=== PATIENT | female | born 1960 | race Caucasian/White ===

== ENCOUNTER 2018-11-02 08:30 | Outpatient (RCR) | payer BC, SELFPAY ==
--- NOTE | 2018-10-11 11:22 | HMH.PTOPEV ---
PT Outpatient Evaluation Rehab PT Outpatient Evaluation Start: 10/11/18 10:17 Freq: Status: Active Protocol: Document 10/11/18 10:49 EWELINA (Rec: 10/11/18 11:22 EWELINA [id number]) Electronically Signed By Cristopher Dao, PT 10/11/18 10:49 Outpatient Therapy Subjective History Subjective History Patient is a 58 year old female presenting to outpatient PT with reports of chronic left knee pain with most acute exacerbation starting 09/03/18. She reports that she was performing a sit to stand transfer and felt a pop. Moments later she reports that her knee locked up. Most recent diagnostics indicate L knee medial compartment OA. Comorbidities include hypothyroidism, OA and elevated BMI. Chief Complaint Pain Stiff Clicks Swelling Catches/Locks Weakness Symptom Type Ache Sharp Symptoms Relieved By Rest/Positioning Ice OTC Meds Symptoms Aggravated By Standing Bending/Stooping Physical Activity Twisting Walking Prior Functional Limitations None Current Functional Limitations Housework Driving Standing Sitting Squatting Recreation Activity Walking Stairs Balance Bending/Stooping Symptom Description Constant but Variable Intermittent Level of pain today (0-10) 2 Pain scale - at its best (0-10) 0 Pain scale - at its worst (0-10) 9 Hip/Knee Eval Gait Observation General Gait Pattern Observation Antalgic Gait Decrease Weight Bear (L) Assistive Device Assistive Devices Straight Cane Palpation Tenderness left Knee Palpation Finding Tenderness Knee Palpation Overall Comment
== END 2018-11-02 08:35 | disposition home or self-care (01) ==
LOC: PT 08:30
PROVIDERS: Visit Provider Emergency Medicine
DX: M12.562 Traumatic arthropathy, left knee (principal)
CPT/HCPCS: 97010; 97014; 97033; 97035; 97110; 97163; G0283

== ENCOUNTER → 2019-01-29 12:42 | Outpatient (CLI) | payer BC, SELFPAY ==
--- NOTE | 2019-01-29 13:00 | CT_ITS ---
CT lung screening EXAM: CT LUNG LOW DOSE WO CONTRAST HISTORY: 35 pack year smoking history asymptomatic for lung cancer ITS.REASON: CURRENT TOBACCO USE ORDERING PHYSICIAN: Trent Avery MD PATIENT AGE: 58 years COMPARISON: None TECHNIQUE: The exam was performed on a GE Light Speed [address] scanner using 2.90 mGy CTDI. A low dose helical CT CHEST was performed on a multi-detector scanner. All CT scans at the facility use one or more dose reduction, viz: automated exposure control, ma/kV adjustment per patient size (including targeted exams where dose is matched to indication, i.e. head), or iterative reconstruction technique. The LDCT was performed in a facility that meets the criteria for the screening program. Data regarding this exam was submitted to ACR which is an approved registry. The order for this exam indicates that it came as a result of a lung cancer screening counseling shard decision-making visit that included all the elements required of such a visit including smoking cessation. The radiologist interpreting this exam meets the CMS criteria for the LDCT lung cancer screening program. The exam is reported using the Lung-RADS classification scale and reported to the ACR registry. NOTE: This study was performed for the specific purposes of lung cancer screening and is not an alternative to diagnostic chest CT. RADIATION DOSE: CTDI vol(CT dose Index-volume) = 2.90mG DLP (Dose Length Product) = 94.82 mGcm FINDINGS: Mild fibrotic change right apex. Centrilobular edema with COPD. Calcified granuloma right lower lobe. There is a flat-like opacity in the right upper lobe posteriorly measuring approximately 10 mm x 5 mm and may be due to an area of scarring. 3 month follow-up suggested. Coronary artery calcification. IMPRESSION: 1. Lung RADS Category: 4, mildly suspicious 2. Other findings: COPD/emphysema with coronary artery disease RECOMMENDATIONS: Follow-up chest CT without and with contrast in 3 months
== END ==
PROVIDERS: PCP Family Medicine; Visit Provider Family Medicine
DX: Z12.2 Encounter for screening for malignant neoplasm of respiratory organs (principal); Z87.891 Personal history of nicotine dependence

== ENCOUNTER 2019-06-30 18:36 | Inpatient (IN) ==
--- NOTE | 2019-06-30 19:29 | Emergency Department Note ---
[facility] Disposition Clinical Impression: COPD (chronic obstructive pulmonary disease) Qualifiers: COPD type: COPD with acute exacerbation Qualified Code(s): J44.1 - Chronic obstructive pulmonary disease with (acute) exacerbation Disposition: Admitted As Inpatient Condition on Discharge: Good Instructions: Chronic Obstructive Pulmonary Disease (Alternative Therapy), DI for Chronic Obstructive Pulmonary Disease Additional Instructions: call dr heredia office in am at 8 she wants to see you at 9 am if increase soa return to [facility] stop smoking Referrals: Trent Avery MD [Primary Care Provider] - Time of Disposition: 20:39 Medical Decision Making - Alex Inquiry Pt receiving controlled substance: No Vital Signs: 06/30/19 18:52 06/30/19 20:24 Temperature 98.1 F 98.0 F Temperature Source Temporal Artery Scan Oral Pulse Rate [Left Brachial] 89 Respiratory Rate 28 H Blood Pressure [Left Arm] 139/74 Blood Pressure Mean [Left Arm] 95 Blood Pressure Source [Left Arm] Automatic Cuff Blood Pressure Position [Left Arm] Sitting 02 Sat by Pulse Oximetry 95 Oxygen Delivery Method Room Air - Lab Data Lab Results 06/30/19 19:40: WBC 9.5, RBC 5.20, Hgb 14.5, Hct 46.6, MCV 89.7, MCH 27.9, MCHC 31.1 L, RDW 14.9, Plt Count 211, MPV 9.3, Neut % (Auto) 41.3, Lymph % (Auto) 48.6, Cedar % (Auto) 5.4, Eos % (Auto) 3.8, Baso % (Auto) 1.0, Neut # (Auto) 3.9, Lymph # (Auto) 4.6 H, Cedar # (Auto) 0.5, Eos # (Auto) 0.4, Baso # (Auto) 0.1 06/30/19 19:40: Sodium 140, Potassium 3.5, Chloride 103, Carbon Dioxide 26, Anion Gap 14.5, BUN 13, Creatinine 0.94, Estimated Creat Clear 54, Estimated GFR 61, Est GFR ( Amer) 74, Glucose 128 H, Calcium 9.3, Total Bilirubin 0.3, AST 16, ALT 22, Alkaline Phosphatase 138 H, Total Protein 7.6, Albumin 3.5, Globulin 4.1 H, Albumin/Globulin Ratio 0.9 L 06/30/19 19:40: Lactate 1.7 Result diagrams: 06/30/19 19:40 06/30/19 19:40 Orders (Tests/Meds): ED MEDICATIONS Generic Name Dose Route Start Last Admin Trade Name Freq PRN Reason Stop Dose Admin Ceftriaxone Sodium 1 gm 06/30/19 20:28 Rocephin 1gm Vial IM 06/30/19 20:29 ONCE ONE Protocol Azithromycin 500 mg/ Sodium 250 mls @ 250 mls/hr 06/30/19 19:45 06/30/19 20:03 Chloride IV 07/14/19 19:44 250 mls/hr Q24H PEDRO Administration Protocol Lidocaine HCl 0 ml 06/30/19 20:28 Lidocaine 1% 10ml Mdv IM 06/30/19 20:29 ONCE ONE Discontinued Medications Generic Name Dose Route Start Last Admin Trade Name Freq PRN Reason Stop Dose Admin Albuterol/Ipratropium 3 ml 06/30/19 18:59 06/30/19 19:00 Duoneb 3ml Neb IH 06/30/19 19:00 3 ml ONCE ONE Administration Methylprednisolone Sodium Succinate 125 mg 06/30/19 19:44 06/30/19 20:03 Solu-Medrol 125mg/2ml Vial IV 06/30/19 19:45 125 mg ONCE ONE Administration ORDERS Category Date Time Status Chest XR 2 view (NOT portable) [XR chest 2V] Stat Exams 06/30/19 18:46 Taken Sputum Culture & Gram Stain Stat Micro 06/30/19 20:00 Received - Physician Consults Physician Consulted: heredia Time: 20:22 Reason -: Admission Comment/Response: pt status and condition. recommends- rocphen 1 gram. medrol dose pack. follow up in office at 9 am. return if worsen Additional Consult: heredia Time: 20:40 Reason -: Pt condition Comment/Response: dry heaving, increase soa, labored breathing [facility] HPI - General Chief complaint: Fever Stated complaint: Coughing; sob;fever Time Seen by Provider: 06/30/19 19:05 Mode of Arrival: Ambulatory Source of Information: Patient Limitations: No Limitations Description of Symptoms (Recalled from Triage Doc. by RN): PATIENT C/O COUGH, SHORTNESS OF BREATH, FEVER, AND HEADACHE X 4 DAYS HEENT Symptoms (Recalled from RN notes): Yes Resp Symptoms (Recalled from RN notes): Yes Skin Symptoms (Recalled from RN notes): No MS Symptoms (Recalled from RN notes): No Functional Status (Recalled from RN notes): WNL - History of Present Illness Provider Complaint: 59 yr old female presents for soa,headache, coughing up mod amount of sputum, wheezing and weakness. when presented to [facility] o2 sat 90% with resp 28 and increase effort for breathing. - Related Data Home Medications Medication Instructions Recorded Confirmed amlodipine 10 mg tablet 10 mg PO ONCE 11/28/17 11/13/18 aspirin 81 mg tablet,delayed 81 mg PO ONCE 11/28/17 11/13/18 release celecoxib 200 mg capsule 200 mg PO ONCE 11/28/17 11/13/18 garlic 1,000 mg capsule 1,000 mg PO DAILY cap 11/28/17 11/13/18 oxazepam 15 mg capsule 15 mg PO DAILY cap 11/28/17 11/13/18 coenzyme Q10 100 mg capsule 100 mg PO DAILY 11/13/18 11/13/18 levothyroxine 112 mcg tablet 112 mcg PO DAILY 60 Days #60 tab 11/13/18 11/13/18 Allergies Allergy/AdvReac Type Severity Reaction Status Date / Time ramipril Allergy Severe S-SWELLS-OR Verified 11/13/18 08:19 AL/THROAT - Worker's Comp Is this a Worker's Comp case?: No [facility] History - Hepatitis A Screen Drug use history?: No High risk sexual behaviors?: No History of sexually transmitted infection?: No Currently employed?: No Childcare worker?: No Do you have indoor plumbing?: Yes Do you have electricity?: Yes Attestation statement:: This patient has been screened for Hepatitis A risk factors. I have reviewed the patient's past medical history: Yes Medical History: Reports:: Hyperlipidemia, Hypertension Denies:: Cancer, Diabetes Mellitus Type 1, Diabetes Mellitus Type 2, MRSA Laterality Cases: Bilateral: Tonsillectomy Other Surgeries: Yes: Cholecystectomy, , Hysterectomy-Total, Hysterectomy-Partial Amputation: No Fractures: No Comment: Bladder, cyst removal from back and rt ankle, gallbladder, cataract left eye removed, - Social History Smoking Status: Current every day smoker Tobacco Type: cigarettes # Packs/Day (cigarettes): 1 Alcohol Intake: never Substance Use Type: denies use Occupational Status: employed Housing: house Family Hx:: Hyperlipidemia, Hypertension ROS Obtained: Yes Systems reviewed as appropriate & no additional complaints - Constitutional Constitutional: Reports system reviewed and no additional complaints, except as docu, Reports body ache, Reports fatigue, Denies fever(s) - Eyes Eyes: Reports system reviewed and no additional complaints, except as docu - ENT Ears, Nose, Mouth, and Throat: Reports system reviewed and no additional complaints, except as docu, Denies change in voice - Cardiovascular Cardiovascular: Reports system reviewed and no additional complaints, except as docu, Denies chest pain at rest - Respiratory Respiratory: Yes system reviewed and no additional complaints, except as docu, Yes change in phlegm color, Yes chest congestion, Yes cough, Yes dyspnea on exertion, Yes wheezing - Gastrointestinal Gastrointestingal: Reports: system reviewed and no additional complaints, except as docu. Denies: nausea, vomiting - Musculoskeletal Musculoskeletal: Reports system reviewed and no additional complaints, except as docu, Denies joint swelling - Integumentary/Breasts Skin/Breast: Reports system reviewed and no additional complaints, except as docu, Denies rash - Neurologic Neurologic: Reports system reviewed and no additional complaints, except as docu, Denies abnormal movements - Endocrine Endocrine: Reports system reviewed and no additional complaints, except as docu, Reports fatigue - Hematologic/Lymphatic Henatologic/Lymphatic: Reports system reviewed and no additional complaints, except as docu, Denies lymphadenopathy Physical Exam - General General appearance: alert, in no apparent distress - Head Head exam: atraumatic, normocephalic, normal inspection - Eye Eye exam: Present: normal appearance, PERRL - ENT ENT exam: Present: normal exam, normal oropharynx, mucous membranes moist, TM's normal bilaterally, normal external ear exam - Neck Neck exam: Present: normal inspection, full ROM, trachea midline. Absent: meningismus, lymphadenopathy - Chest Chest inspection: Present: normal inspection, symmetric chest wall rise. Absent: tenderness - Respiratory Respiratory exam: Present: wheezes, other - Expanded Respiratory Exam Location: Left: wheezes, Right: wheezes, rhonchi, Upper: wheezes, rhonchi, Lower: wheezes - Cardiovascular Cardiovascular exam: Present: regular rate, normal rhythm. Absent: JVD - Abdominal Exam Abdominal exam: Present: soft, normal bowel sounds. Absent: distention, tenderness, guarding - Extremities Exam Extremities exam: Present: normal inspection, full ROM, normal capillary refill. Absent: calf tenderness - Back Exam Back exam: Present: normal inspection. Absent: tenderness - Neurological Exam Neurological exam: Present: alert, oriented X3 - Psychiatric Psychiatric exam: Present: normal affect, normal mood - Skin Skin exam: Present: warm, dry, intact, normal color - Lymphatic Lymphatic Findings: no adenopathy
[2019-06-30 19:59] LABS: Basophils # 0.1 K/mm3 (0-0.2); Eosinophils # 0.4 K/mm3 (0.0-0.4); Eosinophils % 3.8 % (0.1-12.0); Hematocrit 46.6 % (37.0-47.0); Hemoglobin 14.5 g/dL (12.2-16.2); Lymphocytes # 4.6 K/mm3 (0.7-4.5); Lymphocytes % 48.6 % (10-50); Mean Corpuscular HGB Conc 31.1 g/dL (31.8-35.4); Mean Corpuscular Volume 89.7 fl (81-99); Mean Platelet Volume 9.3 fl (7.4-10.4); Monocytes # 0.5 K/mm3 (0.1-1.0); Monocytes % 5.4 % (1.7-9.3); Neutrophils # 3.9 K/mm3 (1.8-7.8); Neutrophils % 41.3 % (37.0-80.0); Platelet Count 211 K/mm3 (142-424); Red Cell Distribution Width 14.9 % (11.5-17.5); White Blood Count 9.5 K/mm3 (4.8-10.8)
[2019-06-30 20:13] LABS: Albumin Level 3.5 gm/dL (3.4-5.0); Albumin/Globulin Ratio 0.9 (1.1-1.8); Anion Gap 14.5 mEq/L (5-15); Bilirubin,Total 0.3 mg/dL (0.2-1.0); Calcium 9.3 mg/dL (8.5-10.1); Globulin 4.1 gm/dl (1.3-3.2); Total Protein,Serum 7.6 gm/dL (6.4-8.2)
[2019-07-01 06:31] LABS: Basophils % 0.4 % (0.1-2.0); Eosinophils % 0.4 % (0.1-12.0); Hematocrit 46.4 % (37.0-47.0); Hemoglobin 14.2 g/dL (12.2-16.2); Lymphocytes # 1.5 K/mm3 (0.7-4.5); Lymphocytes % 16.3 % (10-50); Mean Corpuscular HGB Conc 30.6 g/dL (31.8-35.4); Mean Corpuscular Volume 90.1 fl (81-99); Mean Platelet Volume 8.6 fl (7.4-10.4); Monocytes # 0.2 K/mm3 (0.1-1.0); Monocytes % 1.8 % (1.7-9.3); Neutrophils # 7.4 K/mm3 (1.8-7.8); Platelet Count 218 K/mm3 (142-424); Red Blood Count 5.15 M/mm3 (4.20-5.40); Red Cell Distribution Width 14.8 % (11.5-17.5); White Blood Count 9.1 K/mm3 (4.8-10.8)
[2019-07-01 07:25] LABS: Anion Gap 15.1 mEq/L (5-15); Blood Urea Nitrogen 15 mg/dL (7-18); Calcium 9.5 mg/dL (8.5-10.1); Carbon Dioxide 23 mmol/L (21.0-32.0); Chloride 102 mmol/L (98-107); Creatine Kinase 74 U/L (26-192); Glucose 204 mg/dL (74-106); Sodium 136 mmol/L (136-145)
--- NOTE | 2019-07-01 07:38 | Pharmacy Consult Notes ---
[facility] Pharmacy VTE Monitoring - Patient Demographics Admission date: 06/30/19 Report Date: 07/01/19 Time: 07:38 Allergies/Adverse Reactions: Patient Allergies ramipril Allergy (Severe, Verified 11/13/18 08:19) [id number]/THROAT Height: 1.6 m Weight: 121.648 kg Patient Problems: Current Active Problems COPD (chronic obstructive pulmonary disease) (Acute) - VTE Risk Labs: VTE Related Lab Results Hgb 14.2 g/dL (12.2-16.2) 07/01/19 06:21 Hct 46.4 % (37.0-47.0) 07/01/19 06:21 Plt Count 218 K/mm3 (142-424) 07/01/19 06:21 BUN 15 mg/dL (7-18) 07/01/19 06:21 Creatinine 0.98 mg/dL (0.55-1.02) 07/01/19 06:21 Estimated Creat Clear 52 mL/min (50-200) 07/01/19 06:21 VTE Score: 8 VTE Risk Level: Moderate Risk - Prophylaxis VTE Prophylaxis Ordered?: Yes Types of VTE Prophylaxis: TEDS Knee High Location of Applied Device: Bilateral Lower Extremeties - VTE Diagnosis Confirmed Treatment or plan recommended: Continue Current Treatment
--- NOTE | 2019-07-01 08:38 | History & Physical Report ---
*Admission Date: 06/30/19 <Nunu Kay 07/01/19 08:37> *Chief complaint: Cough <Nunu Kay 07/01/19 09:00> *History of present illness: Ms. Garrison is a 59-year-old female with a history of asthma, hypertension, hyperlipidemia, hypothyroidism, multiple environmental allergies, arthritis, and tobacco use disorder who presented to [facility] with shortness of breath and frequent cough. She states she had fever 2 days ago and then was somewhat better on 06/29/2019 but then awakened the following day and felt awful. Her cough worsened and she felt congested with chest heaviness. She was evaluated in the emergency room started on steroids duo nebs and antibiotics and then admitted for further evaluation and treatment. This a.m. she feels somewhat better. She feels her cough is a little less. <Nunu Kay 07/01/19 09:00> [facility] History Medical History: Reports:: Asthma, Depression, Hyperlipidemia, Hypertension Denies:: Cancer, Diabetes Mellitus Type 1, Diabetes Mellitus Type 2, MRSA, Seizures <Nunu Kay 07/01/19 09:00> *Have you ever received a pneumonia vaccine?: No <Nunu Kay 07/01/19 08:37> *Have you received a flu vaccine this season?: No <Nunu Kay 07/01/19 08:37> Other Medical History: Reports: Arthritis, Cataracts, Hypothyroidism <Nunu Kay 07/01/19 08:37> Laterality Cases: Bilateral: Cataract, Tonsillectomy <Nunu Kay 07/01/19 08:37> Other Surgeries: Yes: Cholecystectomy, Colonoscopy, , Hysterectomy- Total, Hysterectomy-Partial <Nunu Kay 07/01/19 08:37> Amputation: No <Nunu Kay 07/01/19 08:37> Fractures: No <Nunu Kay 07/01/19 08:37> - *Social History Educational Level: Completed High School <Nunu Kay 07/01/19 08:37> Smoking Status: Current every day smoker <Nunu Kay 07/01/19 08:37> Tobacco Type: cigarettes <Nunu Kay 07/01/19 08:37> # Packs/Day (cigarettes): 1 <Nunu Kay 07/01/19 08:37> Alcohol Intake: never <Nunu Kay 07/01/19 08:37> Substance Use Type: denies use <Nunu Kay 07/01/19 08:37> *Occupational Status:: employed <RahulNunu Mcgrath 07/01/19 08:37> Housing: house <Nunu Kay 07/01/19 08:37> *Travel in the last 8 weeks: None <Nunu Kay 07/01/19 08:37> Family Hx:: Hyperlipidemia, Hypertension <RahulNunu 07/01/19 08:37> Review of Systems - Constitutional Reports fever(s) <RahulNunu 07/01/19 09:00> - Eyes Denies change in vision <KayNunu 07/01/19 09:00> - ENT Reports dizziness, Reports nasal congestion, Denies ear pain, Denies sore throat <KayNunu 07/01/19 09:00> - *Cardiovascular Comments: Chest heaviness <Nunu Kay 07/01/19 09:00> - *Respiratory Reports chest congestion, Reports cough, Reports shortness of breath, Denies coughing up blood <KayNunu 07/01/19 09:00> - *Gastrointestinal Denies abdominal pain, Denies change in bowel habits, Denies heartburn, Denies vomiting blood, Denies bright, red blood in stools, Denies black, tarry stools, Denies nausea, Denies vomiting <KayNunu 07/01/19 09:00> - *Genitourinary Denies difficulty urinating <KayNunu 07/01/19 09:00> - *Musculoskeletal Reports joint pain (Mostly knees and hands), Denies abnormal walking <Kay,Nunu 07/01/19 09:00> - *Neurologic Denies abnormal walking, Denies abnormal movements, Denies abnormal speech, Denies confusion <Kay,Nunu 07/01/19 09:00> Meds Home Medications Medication Instructions Recorded Confirmed Type amlodipine 10 mg tablet 10 mg PO ONCE 11/28/17 06/30/19 History aspirin 81 mg tablet,delayed 81 mg PO ONCE 11/28/17 06/30/19 History release celecoxib 200 mg capsule 200 mg PO ONCE 11/28/17 06/30/19 History garlic 1,000 mg capsule 1,000 mg PO DAILY cap 11/28/17 06/30/19 History oxazepam 15 mg capsule 15 mg PO DAILY PRN cap 11/28/17 06/30/19 History coenzyme Q10 100 mg capsule 100 mg PO DAILY 11/13/18 06/30/19 History levothyroxine 112 mcg tablet 112 mcg PO DAILY 60 Days #60 tab 11/13/18 06/30/19 History Amlodipine Besylate [Amlodipine 10 mg PO DAILY 06/30/19 06/30/19 History 10mg Tab] Budesonide/Formoterol Fumarate 80 mcg INHALATION BID PRN 06/30/19 06/30/19 History [Symbicort 80-4.5 Mcg Inhaler] Furosemide [Furosemide 40MG tAB] 40 mg PO DAILY 06/30/19 06/30/19 History Triamterene/Hydrochlorothiazid 1 each PO DAILY 06/30/19 06/30/19 History [Dyazide 37.5-25 Capsule] <Trent Avery - 07/01/19 09:26> Allergies Allergy/AdvReac Type Severity Reaction Status Date / Time ramipril Allergy Severe S-SWELLS-OR Verified 11/13/18 08:19 AL/THROAT <Trent Avery - 07/01/19 09:26> Exam Vital signs and Labs for Last 24 Hours: Temp Pulse Resp BP Pulse Ox 98.1 F 78 18 125/65 95 07/01/19 08:00 07/01/19 09:15 07/01/19 08:00 07/01/19 08:00 07/01/19 08:00 Laboratory Results - last 24 hr 06/30/19 19:40: WBC 9.5, RBC 5.20, Hgb 14.5, Hct 46.6, MCV 89.7, MCH 27.9, MCHC 31.1 L, RDW 14.9, Plt Count 211, MPV 9.3, Neut % (Auto) 41.3, Lymph % (Auto) 48.6, [place] % (Auto) 5.4, Eos % (Auto) 3.8, Baso % (Auto) 1.0, Neut # (Auto) 3.9, Lymph # (Auto) 4.6 H, [place] # (Auto) 0.5, Eos # (Auto) 0.4, Baso # (Auto) 0.1 06/30/19 19:40: Sodium 140, Potassium 3.5, Chloride 103, Carbon Dioxide 26, Anion Gap 14.5, BUN 13, Creatinine 0.94, Estimated Creat Clear 54, Estimated GFR 61, Est GFR ( Amer) 74, Glucose 128 H, Calcium 9.3, Total Bilirubin 0.3, AST 16, ALT 22, Alkaline Phosphatase 138 H, Total Protein 7.6, Albumin 3.5, Globulin 4.1 H, Albumin/Globulin Ratio 0.9 L 06/30/19 19:40: Lactate 1.7 06/30/19 21:50: Troponin I < 0.02 07/01/19 06:21: WBC 9.1, RBC 5.15, Hgb 14.2, Hct 46.4, MCV 90.1, MCH 27.6, MCHC 30.6 L, RDW 14.8, Plt Count 218, MPV 8.6, Neut % (Auto) 81.0 H, Lymph % (Auto) 16.3, [place] % (Auto) 1.8, Eos % (Auto) 0.4, Baso % (Auto) 0.4, Neut # (Auto) 7.4, Lymph # (Auto) 1.5, [place] # (Auto) 0.2, Eos # (Auto) 0.0, Baso # (Auto) 0.0 07/01/19 06:21: Sodium 136, Potassium 4.1, Chloride 102, Carbon Dioxide 23, Anion Gap 15.1 H, BUN 15, Creatinine 0.98, Estimated Creat Clear 52, Estimated GFR 58 L, Est GFR ( Amer) 71, Glucose 204 H D, Calcium 9.5, Total Creatine Kinase 74, CK-MB (CK-2) 1.1, CK-MB (CK-2) Rel Index 1.5, Troponin I < 0.02 <Trent Avery - 07/01/19 09:26> Temp Pulse Resp BP Pulse Ox 97.8 F 64 17 121/62 94 L 07/01/19 04:00 07/01/19 04:00 07/01/19 04:00 07/01/19 04:00 07/01/19 04:00 Laboratory Results - last 24 hr 06/30/19 19:40: WBC 9.5, RBC 5.20, Hgb 14.5, Hct 46.6, MCV 89.7, MCH 27.9, MCHC 31.1 L, RDW 14.9, Plt Count 211, MPV 9.3, Neut % (Auto) 41.3, Lymph % (Auto) 48.6, [place] % (Auto) 5.4, Eos % (Auto) 3.8, Baso % (Auto) 1.0, Neut # (Auto) 3.9, Lymph # (Auto) 4.6 H, [place] # (Auto) 0.5, Eos # (Auto) 0.4, Baso # (Auto) 0.1 06/30/19 19:40: Sodium 140, Potassium 3.5, Chloride 103, Carbon Dioxide 26, Anion Gap 14.5, BUN 13, Creatinine 0.94, Estimated Creat Clear 54, Estimated GFR 61, Est GFR ( Amer) 74, Glucose 128 H, Calcium 9.3, Total Bilirubin 0.3, AST 16, ALT 22, Alkaline Phosphatase 138 H, Total Protein 7.6, Albumin 3.5, Globulin 4.1 H, Albumin/Globulin Ratio 0.9 L 06/30/19 19:40: Lactate 1.7 06/30/19 21:50: Troponin I < 0.02 07/01/19 06:21: WBC 9.1, RBC 5.15, Hgb 14.2, Hct 46.4, MCV 90.1, MCH 27.6, MCHC 30.6 L, RDW 14.8, Plt Count 218, MPV 8.6, Neut % (Auto) 81.0 H, Lymph % (Auto) 16.3, [place] % (Auto) 1.8, Eos % (Auto) 0.4, Baso % (Auto) 0.4, Neut # (Auto) 7.4, Lymph # (Auto) 1.5, [place] # (Auto) 0.2, Eos # (Auto) 0.0, Baso # (Auto) 0.0 07/01/19 06:21: Sodium 136, Potassium 4.1, Chloride 102, Carbon Dioxide 23, Anion Gap 15.1 H, BUN 15, Creatinine 0.98, Estimated Creat Clear 52, Estimated GFR 58 L, Est GFR ( Amer) 71, Glucose 204 H D, Calcium 9.5, Total Creatine Kinase 74, CK-MB (CK-2) 1.1, CK-MB (CK-2) Rel Index 1.5, Troponin I < 0 .02 <Nunu Kay - 07/01/19 09:00> I & O for Last 24 hours: Intake & Output 06/28/19 06/29/19 06/30/19 07/01/19 23:59 23:59 23:59 23:59 Intake Total 240 / 240 Balance 240 / 240 Weight 265 lb 4.8 oz 268 lb 3 oz <Trent Avery - 07/01/19 09:26> Intake & Output 06/28/19 06/29/19 06/30/19 07/01/19 11:59 11:59 11:59 11:59 Weight 268 lb 3 oz <Nunu Kay - 07/01/19 08:37> Microbiology Reports for the Last 24 Hours: Microbiology 06/30/19 20:00 Sputum - Expectorated Sputum Gram Stain - Final 06/30/19 20:00 Sputum - Expectorated Sputum Sputum Culture - Preliminary <Trent Avery - 07/01/19 09:26> Microbiology 06/30/19 20:00 Sputum - Expectorated Sputum Gram Stain - Final <Nunu Kay - 07/01/19 08:37> Radiology Reports for the Last 24 Hours: X-ray 06/30/2019 IMPRESSION: . Peribronchial cuffing most evident on right suggesting central airway inflammatory changes/bronchitis but . Question and suspect subtle minimal wispy infiltrate right infrahilar region towards RML as well as left infrahilar region towards LLL on today's study. . Underlying chronic pulmonary changes/. <Nunu Kay 07/01/19 08:37> - Constitutional no acute distress <Nunu Kay 07/01/19 08:37> Comments: Sitting on side of the bed finishing her breakfast. Frequent cough. <Nunu Kay 07/01/19 08:37> - *Routine HEENT Exam Head: Present: normocephalic, atraumatic <Nunu Kay 07/01/19 08:37> Eye: Present: PERRL. Absent: conjunctival icterus, scleral injection, conjunctivae pink [facility] 07/01[facility] 08:37> ENT: Present: mucous membranes moist, oropharynx clear <Nunu Kay 07/01/19 08:37> - *Routine Neck Exam Present: carotid bruit (Bilateral) <[facility] 07/01/19 08:37> - *Routine Respiratory Exam Comments: Diminished breath sounds in right upper lobe. Bilateral basilar crackles. <[facility] 07/01/19 08:37> - *Routine Cardiovascular Exam Present: RRR <[facility] 07/01/19 08:37> Comments: Monitor shows normal sinus rhythm <[facility] 07/01/19 08:37> - *Routine Abdominal Exam Present: soft, normoactive bowel sounds, hernia. Absent: tenderness <[facility] 07/01/19 08:37> - *Routine Extremities Exam Absent: edema, calf tenderness <[facility] 07/01/19 08:37> - *Routine Neurological Exam Present: alert, oriented X3 <[facility] 07/01/19 08:37> Assessment and Plan (1) Pneumonia Current visit: Yes Status: Acute Qualifiers: Laterality: bilateral Lung location: unspecified part of lung Category: Medical Code(s): J18.9 - Pneumonia, unspecified organism (2) Tobacco use disorder Current visit: Yes Status: Chronic Category: Medical Code(s): F17.200 - Nicotine dependence, unspecified, uncomplicated (3) Asthma Current visit: Yes Status: Chronic Category: Medical Code(s): J45.909 - Unspecified asthma, uncomplicated (4) Hypertension Current visit: Yes Status: Chronic Category: Medical Code(s): I10 - Essential (primary) hypertension (5) Hypothyroidism Current visit: Yes Status: Chronic Category: Medical Code(s): E03.9 - Hypothyroidism, unspecified (6) Obesity Current visit: Yes Status: Chronic Category: Medical Code(s): E66.9 - Obesity, unspecified (7) COPD (chronic obstructive pulmonary disease) Current visit: Yes Status: Chronic Qualifiers: COPD type: COPD with acute exacerbation Qualified Code(s): J44.1 - Chronic obstructive pulmonary disease with (acute) exacerbation Category: Medical Code(s): J44.9 - Chronic obstructive pulmonary disease, unspecified <Trent Avery - 07/01/19 09:26> (1) Pneumonia Current visit: Yes Status: Acute Category: Medical Code(s): J18.9 - Pneumonia, unspecified organism (2) Tobacco use disorder Current visit: Yes Status: Chronic Category: Medical Code(s): F17.200 - Nicotine dependence, unspecified, uncomplicated (3) Asthma Current visit: Yes Status: Chronic Category: Medical Code(s): J45.909 - Unspecified asthma, uncomplicated (4) Hypertension Current visit: Yes Status: Chronic Category: Medical Code(s): I10 - Essential (primary) hypertension (5) Hypothyroidism Current visit: Yes Status: Chronic Category: Medical Code(s): E03.9 - Hypothyroidism, unspecified (6) Obesity Current visit: Yes Status: Chronic Category: Medical Code(s): E66.9 - Obesity, unspecified (7) COPD (chronic obstructive pulmonary disease) Current visit: Yes Status: Chronic Qualifiers: COPD type: COPD with acute exacerbation Qualified Code(s): J44.1 - Chronic obstructive pulmonary disease with (acute) exacerbation Category: Medical Code(s): J44.9 - Chronic obstructive pulmonary disease, unspecified <Nunu Kay - 07/01/19 08:52> - Assessment and plan all Dx Assessment and Plan for all problems:: Saw patient, agree with above note. Smoking cessation discussed with patient. She agrees to start nicotine replacement therapy with patches today. <Trent Avery - 07/01/19 09:26> Continue with IV antibiotics and steroids. Patient started on 4 times daily duo nebs as well as as needed. <Nunu Kay - 07/01/19 09:00>
[2019-07-02 06:24] LABS: Basophils # 0.1 K/mm3 (0-0.2); Basophils % 0.3 % (0.1-2.0); Eosinophils # 0.1 K/mm3 (0.0-0.4); Eosinophils % 0.2 % (0.1-12.0); Hematocrit 41.4 % (37.0-47.0); Lymphocytes % 8.3 % (10-50); Mean Corpuscular HGB Conc 30.7 g/dL (31.8-35.4); Mean Corpuscular Volume 90.7 fl (81-99); Mean Platelet Volume 8.6 fl (7.4-10.4); Monocytes % 4.1 % (1.7-9.3); Neutrophils % 87.1 % (37.0-80.0); Platelet Count 209 K/mm3 (142-424); Red Blood Count 4.56 M/mm3 (4.20-5.40); Red Cell Distribution Width 15.1 % (11.5-17.5); White Blood Count 24.1 K/mm3 (4.8-10.8)
[2019-07-02 06:35] LABS: Anion Gap 13.3 mEq/L (5-15); Calcium 9.5 mg/dL (8.5-10.1)
[2019-07-02 07:20] LABS: Hemoglobin 12.6 g/dL (12.2-16.2)
--- NOTE | 2019-07-02 08:56 | Progress Note ---
<Nunu Kay - Last Filed: 07/02/19 08:54> Internal Medicine - PN: Subj *Date: 07/02/19 *Time: 08:54 Interval history: She is doing better. She continues with a cough. She took a shower this morning and got short of breath. She is eating without difficulty. Exam Vital signs and Labs for Last 24 Hours: Temp Pulse Resp BP Pulse Ox 98 F 64 18 107/62 L 96 07/02/19 04:00 07/02/19 06:05 07/02/19 04:00 07/02/19 04:00 07/02/19 04:00 Laboratory Results - last 24 hr 07/02/19 06:15: WBC 24.1 H* D, RBC 4.56, Hgb 12.6 D, Hct 41.4, MCV 90.7, MCH 27.9, MCHC 30.7 L, RDW 15.1, Plt Count 209, MPV 8.6, Neut % (Auto) 87.1 H, Lymph % (Auto) 8.3 L, [place] % (Auto) 4.1, Eos % (Auto) 0.2, Baso % (Auto) 0.3, Neut # (Auto) 21.0 H, Lymph # (Auto) 2.0, [place] # (Auto) 1.0, Eos # (Auto) 0.1, Baso # (Auto) 0.1 07/02/19 06:15: Sodium 139, Potassium 4.3, Chloride 104, Carbon Dioxide 26, Anion Gap 13.3, BUN 17, Creatinine 0.85, Estimated Creat Clear 57, Estimated GFR 69, Est GFR ( Amer) 83, Glucose 181 H, Calcium 9.5 I & O for Last 24 hours: Intake & Output 06/29/19 06/30/19 07/01/19 07/02/19 11:59 11:59 11:59 11:59 Intake Total 240 / 240 2148 / 2148 Output Total 300 / 300 Balance 240 / 240 1848 / 1848 Weight 268 lb 3 oz 268 lb 3.007 oz Microbiology Reports for the Last 24 Hours: Microbiology 06/30/19 20:00 Sputum - Expectorated Sputum Gram Stain - Final 06/30/19 20:00 Sputum - Expectorated Sputum Sputum Culture - Preliminary - Constitutional no acute distress Comments: Periodic cough which is productive - *Routine Respiratory Exam Comments: Bilateral inspiratory and expiratory wheezing anteriorly. Posteriorly moving air satisfactory. - *Routine Cardiovascular Exam Present: RRR Comments: Monitor showing sinus rhythm - *Routine Abdominal Exam Present: soft, normoactive bowel sounds. Absent: tenderness - *Routine Extremities Exam Absent: edema - *Routine Neurological Exam Present: alert, oriented X3 Assessment and Plan (1) Pneumonia Current visit: Yes Status: Acute Qualifiers: Laterality: bilateral Lung location: unspecified part of lung Category: Medical Code(s): J18.9 - Pneumonia, unspecified organism (2) Tobacco use disorder Current visit: Yes Status: Chronic Category: Medical Code(s): F17.200 - Nicotine dependence, unspecified, uncomplicated (3) Asthma Current visit: Yes Status: Chronic Category: Medical Code(s): J45.909 - Unspecified asthma, uncomplicated (4) Hypertension Current visit: Yes Status: Chronic Category: Medical Code(s): I10 - Essent ial (primary) hypertension (5) Hypothyroidism Current visit: Yes Status: Chronic Category: Medical Code(s): E03.9 - Hypothyroidism, unspecified (6) Obesity Current visit: Yes Status: Chronic Category: Medical Code(s): E66.9 - Obesity, unspecified (7) COPD (chronic obstructive pulmonary disease) Current visit: Yes Status: Chronic Qualifiers: COPD type: COPD with acute exacerbation Qualified Code(s): J44.1 - Chronic obstructive pulmonary disease with (acute) exacerbation Category: Medical Code(s): J44.9 - Chronic obstructive pulmonary disease, unspecified - Assessment and plan all Dx Assessment and Plan for all problems:: Continue with current care. Possibly home in p.m. <Trent Avery - Last Filed: 07/02/19 09:04> Internal Medicine - PN: Subj *Date: 07/02/19 *Time: 09:04 Exam Vital signs and Labs for Last 24 Hours: Temp Pulse Resp BP Pulse Ox 98 F 64 18 107/62 L 96 07/02/19 04:00 07/02/19 06:05 07/02/19 04:00 07/02/19 04:00 07/02/19 04:00 Laboratory Results - last 24 hr 07/02/19 06:15: WBC 24.1 H* D, RBC 4.56, Hgb 12.6 D, Hct 41.4, MCV 90.7, MCH 27.9, MCHC 30.7 L, RDW 15.1, Plt Count 209, MPV 8.6, Neut % (Auto) 87.1 H, Lymph % (Auto) 8.3 L, [place] % (Auto) 4.1, Eos % (Auto) 0.2, Baso % (Auto) 0.3, Neut # (Auto) 21.0 H, Lymph # (Auto) 2.0, [place] # (Auto) 1.0, Eos # (Auto) 0.1, Baso # (Auto) 0.1 07/02/19 06:15: Sodium 139, Potassium 4.3, Chloride 104, Carbon Dioxide 26, An ion Gap 13.3, BUN 17, Creatinine 0.85, Estimated Creat Clear 57, Estimated GFR 69, Est GFR ( Amer) 83, Glucose 181 H, Calcium 9.5 I & O for Last 24 hours: Intake & Output 06/29/19 06/30/19 07/01/19 07/02/19 23:59 23:59 23:59 23:59 Intake Total 720 / 720 1668 / 1668 Output Total 300 / 300 Balance 420 / 420 1668 / 1668 Weight 265 lb 4.8 oz 268 lb 3.007 oz 268 lb 3.007 oz Microbiology Reports for the Last 24 Hours: Microbiology 06/30/19 20:00 Sputum - Expectorated Sputum Gram Stain - Final 06/30/19 20:00 Sputum - Expectorated Sputum Sputum Culture - Preliminary Assessment and Plan (1) Pneumonia Current visit: Yes Status: Acute Qualifiers: Laterality: bilateral Lung location: unspecified part of lung Category: Medical Code(s): J18.9 - Pneumonia, unspecified organism (2) Tobacco use disorder Current visit: Yes Status: Chronic Category: Medical Code(s): F17.200 - Nicotine dependence, unspecified, uncomplicated (3) Asthma Current visit: Yes Status: Chronic Category: Medical Code(s): J45.909 - Unspecified asthma, uncomplicated (4) Hypertension Current visit: Yes Status: Chronic Category: Medical Code(s): I10 - Essential (primary) hypertension (5) Hypothyroidism Current visit: Yes Status: Chronic Category: Medical Code(s): E03.9 - Hypothyroidism, unspecified (6) Obesity Current visit: Yes Status: Chronic Category: Medical Code(s): E66.9 - Obesity, unspecified (7) COPD (chronic obstructive pulmonary disease) Current visit: Yes Status: Chronic Qualifiers: COPD type: COPD with acute exacerbation Qualified Code(s): J44.1 - Chronic obstructive pulmonary disease with (acute) exacerbation Category: Medical Code(s): J44.9 - Chronic obstructive pulmonary disease, unspecified - Assessment and plan all Dx Assessment and Plan for all problems:: Saw patient, agree with above note.
[2019-07-02 09:51] LABS: Lymphocytes % 7 % (10-50); Monocytes % 4 % (2-9); Neutrophils % 89 % (42-76); Total Cells Counted 100
[2019-07-02 09:53] LABS: RBC Morphology Normal
--- NOTE | 2019-07-05 12:00 | Discharge Summary ---
General - General Admission date:: 06/30/19 Discharge date: 07/02/19 HPI HPI: Ms. Garrison is a 59-year-old female with a history of asthma, hypertension, hyperlipidemia, hypothyroidism, multiple environmental allergies, arthritis, and tobacco use disorder who presented to [facility] with shortness of breath and frequent cough. She states she had fever 2 days ago and then was somewhat better on 06/29/2019 but then awakened the following day and felt awful. Her cough worsened and she felt congested with chest heaviness. She was evaluated in the emergency room started on steroids duo nebs and antibiotics and was then admitted for further evaluation and treatment. This a.m. she feels somewhat better. She feels her cough is a little less. Hospital Course Hospital Course: The patient's initial chest x-ray showed airway inflammatory changes but there was a questionable subtle minimal wispy infiltrate in the right infrahilar region towards the right middle lobe as well as in the left infrahilar region towards the left lower lobe. The patient was admitted and started on IV antibiotics, steroids, and duo nebs. Smoking cessation was discussed with the patient and she agreed to start on nicotine replacement therapy with patches. The patient's symptoms did begin improving and she was stable to be discharged home on cefdinir, prednisone, Zithromax, and nicotine patches. She will follow- up in the office of [facility] on 07/05/[facility]. Of note, her sputum culture did return positive for Klebsiella pneumoniae and Enterobacter cloaceae after discharge. Sensitivities are still pending. Blood cultures were negative. Objective Vital signs: Temp Pulse Resp BP Pulse Ox 98.1 F 86 19 124/49 L 93 L 07/02/19 16:00 07/02/19 16:00 07/02/19 16:00 07/02/19 16:00 07/02/19 16:00 Narrative: - Constitutional no acute distress Comments: Sitting on side of the bed finishing her breakfast. Frequent cough. - *Routine HEENT Exam Head: Present: normocephalic, atraumatic Eye: Present: PERRL. Absent: conjunctival icterus, scleral injection, conjunctivae pink ENT: Present: mucous membranes moist, oropharynx clear - *Routine Neck Exam Present: carotid bruit (Bilateral) - *Routine Respiratory Exam Comments: Diminished breath sounds in right upper lobe. Bilateral basilar crackles. - *Routine Cardiovascular Exam Present: RRR Comments: Monitor shows normal sinus rhythm - *Routine Abdominal Exam Present: soft, normoactive bowel sounds, hernia. Absent: tenderness - *Routine Extremities Exam Absent: edema, calf tenderness - *Routine Neurological Exam Present: alert, oriented X3 Results Labs on day of discharge: Preliminary micro results at discharge 06/30/19 19:40 Blood Culture - Preliminary Blood NO GROWTH AFTER 48 HOURS 06/30/19 19:40 Blood Culture - Preliminary Blood NO GROWTH AFTER 48 HOURS DS: Diagnosis - Discharge Diagnosis (1) Pneumonia Status: Acute (2) Tobacco use disorder Status: Chronic (3) Asthma Status: Chronic (4) Hypertension Status: Chronic (5) Hypothyroidism Status: Chronic (6) Obesity Status: Chronic (7) COPD (chronic obstructive pulmonary disease) Status: Chronic Discharge Plan - Patient Discharge Instructions ACTIVITY: Continue current activity DIET: continue same diet Patient Instructions: Chronic Obstructive Pulmonary Disease (Alternative Therapy), DI for Chronic Obstructive Pulmonary Disease, DI for Pneumonia -- Adult - Follow up Plan Follow up with: Trent Avery MD [Primary Care Provider] - 07/05/19 Disposition: Home, Self-[facility] Medications: Home Medications Medication Instructions Recorded Confirmed Type amlodipine 10 mg tablet 10 mg PO DAILY 11/28/17 07/01/19 History aspirin 81 mg tablet,delayed 81 mg PO DAILY 11/28/17 07/01/19 History release celecoxib 200 mg capsule 200 mg PO DAILY 11/28/17 07/01/19 History oxazepam 15 mg capsule 15 mg PO TIDP PRN cap 11/28/17 07/01/19 History coenzyme Q10 100 mg capsule 100 mg PO DAILY 11/13/18 06/30/19 History Budesonide/Formoterol Fumarate 2 puffs IH BID PRN 06/30/19 07/01/19 History [Symbicort 80-4.5 Mcg Inhaler] Triamterene/Hydrochlorothiazid 1 each PO DAILY 06/30/19 06/30/19 History [Dyazide 37.5-25 Capsule] Albuterol Sulfate [Albuterol HFA 1 - 2 puffs IH Q6HP PRN 07/01/19 07/01/19 History Inhaler] Biotin 1,000 mcg PO DAILY 07/01/19 07/01/19 History Furosemide [Furosemide 20mg Tab] 20 mg PO DAILY 07/01/19 07/01/19 History Garlic 1 each PO TID 07/01/19 07/01/19 History Levothyroxine Sodium 125 mcg PO DAILY 07/01/19 07/01/19 History [Levothyroxine 125mcg (0.125mg) Tab] [place]-3S/Dha/Epa/Fish Oil [Fish 1 each PO DAILY 07/01/19 07/01/19 History Oil 1,200 mg Softgel] Azithromycin [Zithromax 500mg Tab 500 mg PO DAILY #3 tab 07/02/19 Rx Tri-Hebert] Cefdinir [Omnicef 300mg Capsule] 300 mg PO BID #20 cap 07/02/19 Rx Nicotine [Nicotine Patch] 7 mg TD DAILY #30 patch.td24 07/02/19 Rx predniSONE [Prednisone 20mg 20 mg PO DAILY #5 tab 07/02/19 Rx Tab] Prescriptions/Medication Reconciliation: New Cefdinir [Omnicef 300mg Capsule] 300 mg PO BID #20 cap predniSONE [Prednisone 20mg Tab] 20 mg PO DAILY #5 tab Azithromycin [Zithromax 500mg Tab Tri-Hebert] 500 mg PO DAILY #3 tab Nicotine [Nicotine Patch] 7 mg TD DAILY #30 patch.td24 Continued amlodipine 10 mg tablet 10 mg PO DAILY aspirin 81 mg tablet,delayed release 81 mg PO DAILY oxazepam 15 mg capsule 15 mg PO TIDP PRN cap PRN Reason: Anxiety coenzyme Q10 100 mg capsule 100 mg PO DAILY celecoxib 200 mg capsule 200 mg PO DAILY Triamterene/Hydrochlorothiazid [Dyazide 37.5-25 Capsule] 1 each PO DAILY Budesonide/Formoterol Fumarate [Symbicort 80-4.5 Mcg Inhaler] 2 puffs IH BID PRN PRN Reason: Shortness Of Breath Albuterol Sulfate [Albuterol HFA Inhaler] 1 - 2 puffs IH Q6HP PRN PRN Reason: Shortness Of Breath Or Wheezing Furosemide [Furosemide 20mg Tab] 20 mg PO DAILY Garlic 1 each PO TID Levothyroxine Sodium [Levothyroxine 125mcg (0.125mg) Tab] 125 mcg PO DAILY [place]-3S/Dha/Epa/Fish Oil [Fish Oil 1,200 mg Softgel] 1 each PO DAILY Biotin 1,000 mcg PO DAILY - Problem Reconciliation Problems Reviewed?: Yes
== END 2019-07-02 17:35 | disposition home or self-care (01) | DRG 195 ==
LOC: UTC 18:36 → 2ND 18:36 → OBSVTOIN 21:29 → 2ND 21:30
PROVIDERS: ADMIT Emergency Medicine; ATTEND Family Medicine
CPT/HCPCS: 36415; 71020; 71046; 80048; 80053; 82550; 82553; 83605; 84484; 85007; 85025; 87040; 87070; 87077; 87186; 87205; 94640; 96365; 96367; 96375; 99202; J0456

== ENCOUNTER → 2019-07-23 09:07 | Outpatient (CLI) | payer BC, SELFPAY ==
--- NOTE | 2019-07-23 09:10 | XR_ITS ---
PROCEDURE: XR CHEST 2V CLINICAL HISTORY: PNEUMONIA COMPARISON: CXR CHEST(2 VIEWS-NOT PORTABLE) from 08/01/[address] CHEST W/ CONTRAST from 08/22/2013 CXR CHEST(2 VIEWS-NOT PORTABLE) from 09/06/2014 XR CHEST 2V from 06/30/2019 FINDINGS: The cardiomediastinal silhouette and pulmonary vascularity are within normal limits. There remains increased markings in the right lower lobe which may be due to with be infiltrate. The remaining lungs are clear. Calcified granuloma right lower lobe. No acute bony findings. IMPRESSION: No change patchy infiltrate right lower lobe Dictated by: Peter Gray MD 07/23/2019 15:56 Electronically signed by Peter Gray MD in [place] 07/23/2019 15:56
== END ==
PROVIDERS: PCP Family Medicine; Visit Provider Family Medicine
DX: J18.9 Pneumonia, unspecified organism (principal)
CPT/HCPCS: 71046

== ENCOUNTER → 2019-08-07 09:39 | Outpatient (CLI) | payer BC, SELFPAY ==
[2019-08-07 11:35] LABS: Blood Urea Nitrogen 14 mg/dL (7-18); Creatinine,Serum 0.77 mg/dL (0.55-1.02); Estimated Glomerular Filt Rate 77 ml/min (>60); GFR (African American) 93 ML/MIN (>60)
== END ==
PROVIDERS: Visit Provider Family Medicine
DX: R93.89 Abnormal findings on diagnostic imaging of other specified body structures (principal)
CPT/HCPCS: 36415; 82565; 84520

== ENCOUNTER → 2019-08-09 08:16 | Outpatient (CLI) | payer BC, SELFPAY ==
--- NOTE | 2019-08-09 08:24 | CT_ITS ---
PROCEDURE: CT CHEST W CON CLINCAL INDICATION: ABN CXR,ABN CT CHEST Chronic right lower lobe infiltrate. COMPARISON: [facility] CT CHEST W/ CONTRAST from 08/22/[address] lung screening from 01/29/2019 XR CHEST 2V from 07/23/2019 TECHNIQUE: IV Contrast: 75ml Optiray 350 Axial images obtained with sagittal and coronal reformats. All CT scans at the facility use one or more dose reduction, viz: automated exposure control, ma/kV adjustment per patient size (including targeted exams where dose is matched to indication, i.e. head), or iterative reconstruction technique. FINDINGS: No mediastinal or hilar mass or adenopathy. There are scattered small mediastinal and axillary lymph nodes.. Coronary artery calcifications are present. There is mild thickening of the distal esophagus nonspecific but could be seen with reflux esophagitis. Changes of COPD with scattered areas of scarring and evidence of old granulomatous disease with a calcified granuloma in the right lower lobe. There is a 12 mm parenchymal opacity in the right upper lobe posteriorly which is not significantly changed. There are some mild atelectatic changes in the left upper lobe/lingula. Upper abdominal images show mild periportal adenopathy. At 2.1 x 0.9 cm and 2 x 1.2 cm. There are few small nodes in the retroperitoneum. There are post cholecystectomy changes. IMPRESSION: 1. Stable appearance of the right upper lobe nodule. Recommend continued screening annual LDCT 2. COPD with scattered fibrotic changes. 3. There are mildly prominent nodes in the axilla and in the portal region. These are nonspecific and only slightly more prominent compared to an older study of 08/22/2013. Dictated by: Peter Gray MD 08/09/2019 18:11 Electronically signed by Peter Gray MD in [place] 08/10/2019 08:00
== END ==
PROVIDERS: PCP Family Medicine; Visit Provider Family Medicine
DX: R93.89 Abnormal findings on diagnostic imaging of other specified body structures (principal)
CPT/HCPCS: 71260; Q9967

== ENCOUNTER → 2020-10-02 09:35 | Outpatient (CLI) | payer BC, SELFPAY ==
--- NOTE | 2020-10-02 09:40 | CT_ITS ---
PROCEDURE: CT ABDOMEN PELVIS W CON CLINICAL INDICATION: periumbilical abd mid pain Lifting injury COMPARISON: No exams were available for comparison TECHNIQUE: IV Contrast: 75ML Isovue 370 Oral Contrast None Axial images obtained with sagittal and coronal reformats. All CT scans at the facility use one or more dose reduction, viz: automated exposure control, ma/kV adjustment per patient size (including targeted exams where dose is matched to indication, i.e. head), or iterative reconstruction technique. FINDINGS: LOWER THORAX: No acute finding ABDOMEN & PELVIS: The liver, spleen, adrenal glands, and pancreas have an unremarkable appearance. There has been a prior cholecystectomy. There are few small periportal lymph nodes. There is a nonobstructing stone in the upper pole of the left kidney at 3 mm. There are few scattered small retroperitoneal lymph nodes as well as a few scattered small peritoneal lymph nodes. No intestinal obstruction or free air. No evidence appendicitis or diverticulitis. There has been a prior hysterectomy. There is colonic diverticulosis with no evidence of diverticulitis. There is a small ventral abdominal wall hernia. This contains peritoneal fat. The hernia is 4.3 cm cephalad to the umbilicus. The hernia orifice measures 2.3 cm in with. In addition, there is a small fat containing umbilical hernia. There is some stranding of the anterior abdominal wall fat in both right and left paracentral regions below the level of the umbilicus possibly due to injection sites. No acute bony findings. IMPRESSION: 1. Small supraumbilical ventral abdominal wall hernia as described above containing fat. 2. Tiny umbilical hernia containing fat. 3. Nonobstructing left nephrolithiasis. 4. Colonic diverticulosis without diverticulitis. Dictated by: Peter Gray MD 10/03/2020 07:45 Peter Gray MD in [place] 10/03/2020 07:45
--- NOTE | 2020-10-02 09:40 | CT_ITS ---
PROCEDURE: CT LUNG SCREENING CLINICAL INDICATION: H/O NICOTINE DEPENDENCE F/u low dose Mid abd pain, light injury Current smoker 55 pack year smoking history COMPARISON: CT CT CHEST W CON from 08/09/2019 TECHNIQUE: The exam was performed on a [employer] Light Speed [address] scanner using 2.90 mGy CTDI. A low dose helical CT CHEST was performed on a multi-detector scanner. All CT scans at the facility use one or more dose reduction, viz: automated exposure control, ma/kV adjustment per patient size (including targeted exams where dose is matched to indication, i.e. head), or iterative reconstruction technique. The LDCT was performed in a facility that meets the criteria for the screening program. Data regarding this exam was submitted to ACR which is an approved registry. The order for this exam indicates that it came as a result of a lung cancer screening counseling shard decision-making visit that included all the elements required of such a visit including smoking cessation. The radiologist interpreting this exam meets the CMS criteria for the LDCT lung cancer screening program. The exam is reported using the Lung-RADS classification scale and reported to the ACR registry. NOTE: This study was performed for the specific purposes of lung cancer screening and is not an alternative to diagnostic chest CT. RADIATION DOSE: CTDI vol(CT dose Index-volume) = 2.90mG DLP (Dose Length Product) = 99.77 mGcm FINDINGS: COPD with scattered areas of scarring. No change in the parenchymal opacity in the right upper lobe posteriorly consistent with an area scarring. Calcified granulomas present in the right lower lobe. No new suspicious nodules are evident. OTHER FINDINGS: Scattered small axillary nodes mediastinal nodes and periportal nodes not significantly changed. Coronary artery calcification IMPRESSION: Lung-RADS Category 2 Benign Appearance or Behavior Follow-up: Continue annual screening with LDCT in 12 months min Dictated by: Peter Gray MD 10/05/2020 06:22 Peter Gray MD in [place] 10/05/2020 06:22
== END ==
PROVIDERS: PCP Family Medicine; Visit Provider Family Medicine
DX: R10.33 Periumbilical pain (principal); Z87.891 Personal history of nicotine dependence; Z12.2 Encounter for screening for malignant neoplasm of respiratory organs
CPT/HCPCS: 71271; 74177; Q9967

== ENCOUNTER → 2020-11-02 08:40 | Outpatient (CLI) | payer BC, SELFPAY ==
[2020-11-02 09:08] LABS: Basophils # 0.1 K/mm3 (0-0.2); Basophils % 0.8 % (0.1-2.0); Eosinophils # 0.3 K/mm3 (0.0-0.4); Eosinophils % 2.6 % (0.1-12.0); Hematocrit 50.6 % (37.0-47.0); Hemoglobin 16.7 g/dL (12.2-16.2); Lymphocytes # 3.4 K/mm3 (0.7-4.5); Lymphocytes % 32.7 % (10-50); Mean Corpuscular HGB Conc 32.9 g/dL (31.8-35.4); Mean Corpuscular Hemoglobin 29.2 pg (27.0-31.2); Mean Corpuscular Volume 88.5 fl (81-99); Mean Platelet Volume 8.3 fl (7.4-10.4); Monocytes # 0.5 K/mm3 (0.1-1.0); Monocytes % 4.4 % (1.7-9.3); Neutrophils # 6.2 K/mm3 (1.8-7.8); Neutrophils % 59.5 % (37.0-80.0); Platelet Count 225 K/mm3 (142-424); Red Blood Count 5.72 M/mm3 (4.20-5.40); Red Cell Distribution Width 14.8 % (11.5-17.5); White Blood Count 10.4 K/mm3 (4.8-10.8)
[2020-11-02 10:04] LABS: Chloride 107 mmol/L (98-107); Potassium 4.3 mmoL/L (3.5-5.1); Sodium 138 mmol/L (136-145)
[2020-11-02 10:07] LABS: Anion Gap 10.3 mEq/L (5-15); Blood Urea Nitrogen 15 mg/dl (7-17); Calcium 10.8 mg/dl (8.4-10.2); Carbon Dioxide 25 mmol/L (22.0-30.0); Estimated Glomerular Filt Rate 86 ml/min (>60); GFR (African American) 104 ML/MIN (>60); Glucose 104 mg/dl (74-100)
[2020-11-02 10:37] LABS: Coronavirus 19 IgG Antibody Positive (Negative); Coronavirus 19 IgM Antibody Negative (Negative)
== END ==
PROVIDERS: Visit Provider Surgery
DX: Z01.818 Encounter for other preprocedural examination (principal); Z20.822 Contact with and (suspected) exposure to COVID-19; Z86.16 Personal history of COVID-19; K46.9 Unspecified abdominal hernia without obstruction or gangrene
CPT/HCPCS: 36415; 80048; 85025; 86328

== ENCOUNTER 2020-11-04 06:10 | Day surgery (SDC) | payer BC, SELFPAY ==
[2020-11-02 15:00] VITALS: BMI 45.1
[2020-11-04] VITALS (14 sets, daily range): BP systolic 118–147; BP diastolic 61–85; PULSE 60–71; RESP 16–18; TEMP 36.3–43; O2SAT 92–97
--- NOTE | 2020-11-04 07:41 | HMH.ANESCL ---
[facility] Anesthesia Checklist - Patient Identification Patient Identification: Arm Band - Structural Data Admitted From: Home Planned Operative Procedure/s: Laparoscopic Ventral Hernia Repair Consent for Planned Operative Procedure(s) Verified: Yes Verified Documents: Surgical Consent, History and Physical - NPO Status Verified Time NPO: 00:00 - Additional verifications Anesthesia Reactions: Yes (nausea) Hx Blood Transfusions: No Blood Transfusion Reaction: No - Airway Assessment C-Spine Mobility Assessed: Yes (mp2) TMJ Mobility Assessed: Yes Dentition: Edentulous - Neurological Assessment Level of Consciousness: Awake, Alert - Anesthesia Plan Anesthesia Risk discussed: Yes Anesthesia Plan: Verified ASA Class: III Anesthesia Type: General [facility] History I have reviewed the patient's past medical history: Yes Medical History: Reports:: Asthma, Chronic Obstructive Pulmonary Disease (COPD), Depression, Hyperlipidemia, Hypertension Denies:: Cancer, Diabetes Mellitus Type 1, Diabetes Mellitus Type 2, Internal Pacemaker, MRSA, Seizures *Have you ever received a pneumonia vaccine?: No *Have you received a flu vaccine this season?: No Other Medical History: Reports: Arthritis, Cataracts, Hypothyroidism. Denies: Blood Transfusion Reaction Anesthesia experience/problems:: nac Laterality Cases: Bilateral: Tonsillectomy Other Surgeries: Yes: Cholecystectomy, Colonoscopy, , Hysterectomy-Total, Hysterectomy-Partial. No: Pacemaker Amputation: No Fractures: No - *Social History Last grade of school completed: High school graduate Smoking Status: Former smoker Tobacco Type: cigarettes # Packs/Day (cigarettes): 1 Smoking End Date: 06/2020 Alcohol Intake: never Substance Use Type: denies use *Occupational Status:: employed Housing: house Household Members: family *Travel in the last 8 weeks: None - Psychiatric History Pschychiatric History:: Reports:: Depression Family Hx:: Hyperlipidemia, Hypertension
--- NOTE | 2020-11-04 09:06 | HMH.OPNOTE ---
Date of procedure: 11/04/20 Pre-op Diagnosis:: Ventral hernia Post-op Diagnosis:: Same Procedure performed:: Laparoscopic ventral hernia repair with placement of 7 x 9 inch (17.8 x 22.9) Bard Ventralex mesh Surgeon:: Dallas Persaud MD POWERHOUSE OPERATOR:: Tee Belcher Anesthesia: GETA Estimated blood loss (mL): 15 Clinical Note:: Patient is a 60-year-old female referred by Dr. Avery for ventral hernia. In January 1996 she underwent diagnostic laparoscopy by Dr. Zuleta which was converted to open laparotomy via Pfannenstiel incision for ovarian cyst. In July 1996 she had laparoscopic cholecystectomy by Dr. Horn. She has had open total abdominal hysterectomy by Dr. Zuleta in 1998. 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 She felt a stinging pain in her abdomen above her umbilicus. She states that later that evening when she was rubbing the area she felt it reduce with a squishing sensation. She has some discomfort and is not able to wear jeans but wears stretchy pants according to her. She had undergone CT scan by Dr. Avery and this reveals ventral hernia several centimeters above her umbilicus measuring 2.3 cm with a tiny hernia at her umbilical area. I discussed the options with her. Discussed the nature and details of the condition. I felt this would best be served with attempted laparoscopic ventral hernia repair likely with placement of an oval type mesh to cover both hernias. She understands and wishes to proceed. Operative findings:: She had a moderate hernia supraumbilically with appreciable amount of herniated omentum. There is an extremely tiny hernia at her umbilicus a few centimeters inferior to this hernia. Operative note:: Patient was taken to the operating room. She was positioned in a supine position. General anesthesia was induced via endotracheal tube. Moreno catheter was placed. Abdomen was prepped and draped in a standard surgical fashion. Through a 5 mm incision in the left upper quadrant optical trocar was carefully inserted into the peritoneal cavity and CO2 pneumoperitoneum was achieved to 15 mmHg. Intra-abdominal surveillance was carried out. She was found to have herniated omentum in the midline superior to the umbilicus. Ultimately additional 5 mm trocar was inserted in the left lower quadrant, right lower quadrant. 12 mm trocar was inserted in the right upper abdomen. Using mostly blunt dissection the omentum was reduced with some limited Metzenbaum dissection to free the peritoneal attachments to the hernia sac and some limited use of DIOMEDES ultrasonic harmonic km. There was a very tiny defect at the umbilicus measuring about 2 mm. Omentum was able to be reduced from this. Boundaries of the fascial defects were measured and it was felt that she would require greater than 15 cm oval mesh. A 17.8 x 22.9 cm Bard VentraLex mesh with the balloon positioning system was rolled and inserted into the peritoneal cavity. Through a tiny 1 mm incision the balloon positioning system insufflation device was brought through the anterior abdominal wall and the balloon was inflated. The mesh was oriented intracorporeally for generous fascial overlap of the hernia defects. Mesh was secured with several placements of OPTi fix tacks . Global balloon positioning system was then deflated and removed. Mesh was secured around its periphery with OPTi fix with a few of the operative fix tacks placed more medially to help eliminate space. Repair appeared adequate. There was good hemostasis. Trochars were then removed as CO2 pneumoperitoneum was evacuated. Fascia at the right upper quadrant 12 mm trocar site was closed with a 0 Vicryl suture. Local anesthetic was infiltrated in all incisions. Skin incisions were closed with 4-0 Monocryl in a subcuticular fashion. Condition: stable Disposition: PACU Complications:: None immediately apparent
--- NOTE | 2020-11-04 09:11 | P.PN_ITS ---
[facility] Anesthesia Record Part I Intake, IV Amount: 1,400 Estimated blood loss (mL): 15 Urine output (mL): 100 Blood Pressure: 140/79 SaO2: 92 Pulse Rate: 66 Respiratory Rate: 16 Temperature: 98.9 F Patient is:: Drowsy, Stable Stable to PACU at:: 09:05
[2020-11-04 09:20] LABS: Microscopic,Cath URINE MICROSCOPIC (MICROSCOPIC)
[2020-11-04 09:22] LABS: Appearance,Urine/Cath CLEAR (Clear); Bilirubin,Cath Negative (Negative); Blood, Urine/Cath Negative (Negative); Color,Urine/Cath YELLOW (Yellow); Glucose,Urine/Cath (UA) Negative (Negative); Ketones,Urine/Cath Negative (Negative); Leukocyte Esterase,Cath Negative (Negative); Nitrate,Cath Negative (Negative); Protein,Urine/Cath Negative (Negative); Specific Gravity, Urine/Cath 1.025 (1.005-1.030); Urobilinogen,Cath 0.2 EU/dl (0.2)
[2020-11-04 09:38] LABS: Bacteria,Urine/Cath TRACE /lpf; Squamous Epithelial Ur./Cath Occasional #/hpf (0-5)
--- NOTE | 2020-11-04 10:10 | SUR.PHASEII ---
JULIENNE 2 TABS GIVEN PER Leah BEARDEN RN FOR C/O ABDOMINAL PAIN RATED 7-8. BELCHING FREQUENTLY
--- NOTE | 2020-11-04 10:32 | SUR.PHASEII ---
PT SAYS NAUSEA IS IMPROVING. PROVIDED WITH AND INSTRUCTED PT ON USING INCENTIVE SPIROMETER AT HOME. PT ABLE TO DEMONSTRATE CORRECT USAGE.
--- NOTE | 2020-11-04 13:04 | P.PN_ITS ---
[facility] Anesthesia Record Part II Discharge Time: 09:40 Destination: Surgical Day Care (OP Surgery) PACU nurse assessment reviewed?: Yes Patient Condition:: Good Anesthesia Complications:: None Swallowing reflex intact?: Yes Cyanosis?: No Blood Pressure: 118/61 Pulse Rate: 65 Temperature: 98.9 F Mental Status: Alert & Oriented Pain level:: 4 Nausea and/or vomitting:: None Intake, IV Amount: 0
== END 2020-11-04 10:42 | disposition home or self-care (01) ==
LOC: OR 06:12
PROVIDERS: PCP Family Medicine; Visit Provider Surgery
PROC: 0WQF4ZZ Repair Abdominal Wall, Percutaneous Endoscopic Approach (ICD-10-PCS; CPT 49652; principal; 2020-11-04 07:30)
DX: K43.9 Ventral hernia without obstruction or gangrene (principal); J44.9 Chronic obstructive pulmonary disease, unspecified; E78.5 Hyperlipidemia, unspecified; I10 Essential (primary) hypertension; F32.9 Major depressive disorder, single episode, unspecified; E03.9 Hypothyroidism, unspecified; M19.90 Unspecified osteoarthritis, unspecified site; H26.9 Unspecified cataract; Z87.891 Personal history of nicotine dependence; Z82.49 Family history of ischemic heart disease and other diseases of the circulatory system; Z83.438 Family history of other disorder of lipoprotein metabolism and other lipidemia; Z79.899 Other long term (current) drug therapy
CPT/HCPCS: 49652; 81001; 96374; C1781; J2405; J2710

== ENCOUNTER 2020-12-18 17:51 | Emergency (ER) | payer BC, SELFPAY ==
--- NOTE | 2020-12-18 18:02 | XR_ITS ---
PROCEDURE: XR FOOT RT MIN 3V CLINICAL INDICATION: PAIN COMPARISON: No exams were available for comparison FINDINGS: No fracture or dislocation. No lytic or blastic change. There is normal mineralization. The joint spaces are well-preserved. No significant degenerative/arthritic changes. No erosive changes evident. There is mild flattening of the plantar arch and there are prominent spurs of the calcaneus at the insertion of Achilles tendon and plantar tendon. Other findings:None. IMPRESSION: Borderline pes planus, prominent calcaneal spurs, no other significant abnormality noted Dictated by: Dr. Deion Cardoso MD 12/19/2020 08:30 Dr. Deion Cardoso MD in [place] 12/19/2020 08:30
[2020-12-18 18:04] VITALS: BP 179/77; PULSE 79; RESP 14; TEMP 36.6; O2SAT 100; BMI 44.2
--- NOTE | 2020-12-18 18:24 | HMH.EDUTC ---
[facility] Disposition Clinical Impression: Right foot pain, Ganglion cyst of right foot Disposition: Home, Self-Care Condition on Discharge: Good Instructions: Ganglion Cyst, DI Ganglion Cyst Additional Instructions: Rest the extremity, Elevate the extremity as tolerated while you are resting. Take ibuprofen for pain. I sent in a prescription to your pharmacy. Follow up with Dr. Aponte (Podiatry). I put in a referral but you need to call her office and schedule an appointment. Make sure you follow up if this keeps bothering you. Follow up with your regular doctor. GO TO THE ER FOR ANY WORSENING SYMPTOMS Prescriptions: Ibuprofen [Ibuprofen 600mg Tablet] 600 mg PO Q6HP PRN #30 tab PRN Reason: Mild Pain Transmission Status: Received by [id number] Referrals: Trent Avery MD [Primary Care Provider] - Maya Aponte DPM [Staff Physician] - Time of Disposition: 18:29 Medical Decision Making - Medical Records Medical records reviewed: No: I reviewed the patient's medical records. - Alex Inquiry Pt receiving controlled substance: No Vital Signs: 12/18/20 18:04 12/18/20 18:31 Temperature 97.8 F 98 F Temperature Source Tympanic Pulse Rate 74 Pulse Rate [Right] 79 Respiratory Rate 14 16 Blood Pressure 166/74 H Blood Pressure [Right Arm] 179/77 H Blood Pressure Mean [Right Arm] 111 Blood Pressure Source [Right Arm] Automatic Cuff Blood Pressure Position [Right Arm] Sitting 02 Sat by Pulse Oximetry 100 Orders (Tests/Meds): ORDERS Category Date Time Status Foot XR right minimum 3 views [XR foot RT min 3V] Stat Exams 12/18/20 18:02 Taken - Radiology Data #1 Image(s): Foot/Toes Image Reviewed: Yes I reviewed the patient's radiology image Preliminary Findings: Normal/NAD [facility] HPI - General Stated complaint: knot on right foot Time Seen by Provider: 12/18/20 18:25 Mode of Arrival: Ambulatory Source of Information: Patient Limitations: No Limitations Description of Symptoms (Recalled from Triage Doc. by RN): pt is having right foot pain and is unable to bear weight. on the outter top side of her foot there is a nodule. pt states, I think its a bone sticking up. pain is 7/10 and she says it aches like a tooth ache. HEENT Symptoms (Recalled from RN notes): No Resp Symptoms (Recalled from RN notes): No Skin Symptoms (Recalled from RN notes): No MS Symptoms (Recalled from RN notes): Yes (R foot pain and nodule) Functional Status (Recalled from RN notes): na - History of Present Illness Provider Complaint: She states that for the past 1 week or so she has had a knot on the top of her right foot that is painful to touch. She denies any known injury. - Related Data Home Medications Medication Instructions Recorded Confirmed amlodipine 10 mg tablet 10 mg PO DAILY 11/28/17 11/27/20 celecoxib 200 mg capsule 200 mg PO DAILY 11/28/17 11/27/20 coenzyme Q10 100 mg capsule 100 mg PO DAILY 11/13/18 11/27/20 Budesonide/Formoterol Fumarate 2 puffs IH BID PRN 06/30/19 11/27/20 [Symbicort 80-4.5 Mcg Inhaler] Triamterene/Hydrochlorothiazid 1 each PO DAILY 06/30/19 11/27/20 [Dyazide 37.5-25 Capsule] Albuterol Sulfate [Ventolin HFA 1 - 2 puffs IH Q6HP PRN 07/01/19 11/27/20 Inhaler] Garlic 1 each PO TID 07/01/19 11/27/20 Levothyroxine Sodium 125 mcg PO DAILY 07/01/19 11/27/20 [Levothyroxine 125mcg (0.125mg) Tab] [place]-3S/Dha/Epa/Fish Oil [Fish 1 each PO DAILY 07/01/19 11/27/20 Oil 1,200 mg Softgel] allopurinol 100 mg tablet 100 mg PO DAILY 10/28/19 11/27/20 liraglutide (weight loss) 3 mg/0.5 3 mg SQ DAILY 10/28/19 11/27/20 mL (18 mg/3 mL) subcut pen injector aspirin 81 mg tablet,delayed 81 mg PO DAILY 09/29/20 11/27/20 release Previous Rx's Medication Instructions Recorded Hydrocod/Acet 5/325 mg [[place] 1 - 2 tab PO Q6HP PRN #21 tab 11/04/20 5/325mg tablet] Ibuprofen [Ibuprofen 600mg 600 mg PO Q6HP PRN #30 tab 12/18/20 T
[2020-12-18 18:31] VITALS: BP 166/74; PULSE 74; RESP 16; TEMP 36.6
== END 2020-12-18 18:33 | disposition home or self-care (01) ==
PROVIDERS: Emergency Provider Nurse Practitioner Family; PCP Family Medicine
DX: M67.471 Ganglion, right ankle and foot (principal); J44.9 Chronic obstructive pulmonary disease, unspecified; F33.1 Major depressive disorder, recurrent, moderate; E78.5 Hyperlipidemia, unspecified; E03.9 Hypothyroidism, unspecified; I10 Essential (primary) hypertension; Z91.048 Other nonmedicinal substance allergy status; Z79.899 Other long term (current) drug therapy
CPT/HCPCS: 73630; 99202; G0463

== ENCOUNTER → 2020-12-25 12:04 | Outpatient (CLI) | payer BC, SELFPAY ==
[2020-12-25 13:21] LABS: Blood Urea Nitrogen 16 mg/dl (7-17); Estimated Glomerular Filt Rate 86 ml/min (>60); GFR (African American) 104 ML/MIN (>60)
== END ==
PROVIDERS: Visit Provider Podiatrist
DX: M79.89 Other specified soft tissue disorders (principal)
CPT/HCPCS: 36415; 82565; 84520

== ENCOUNTER → 2020-12-26 08:40 | Outpatient (CLI) | payer BC, SELFPAY ==
--- NOTE | 2020-12-26 08:40 | MR_ITS ---
PROCEDURE: MR FOOT RT WO/W CON CLINICAL INDICATION: Evaluate presence of soft tissue mass Soft tissue mass lateral foot COMPARISON: CR XR FOOT RT MIN 3V from 12/18/2020 TECHNIQUE: Routine multiplanar multi echo sequences are performed without and with gadolinium enhancement. FINDINGS: Bones: Small area of T2 hyperintensity is present involving the distal and medial aspect of the medial cuneiform measuring approximately 4 mm and may be due to a small sub articular cyst. No fracture or dislocation. No bone marrow edema apparent. Ligaments: ATFL, PT FL, calcaneofibular ligament, and deltoid ligament appear intact. Tendons: The peroneal tendons, flexor digitorum and flexor hallucis longus, posterior tibialis, and anterior extensor tendons appear intact. Small amount fluid is present along the plantar surface of the posterior tibialis and flexor digitorum longus and may represent tenosynovitis. Soft tissues: A marker is placed along the anterolateral aspect of the foot at the region of the base of the metatarsals. There is diffuse subcutaneous fluid in this region and along the anterior mid and lateral aspect of the foot. A focal 8 mm subcutaneous nodule is present just distal to the placed marker in the mid metatarsal region laterally which is hyperintense on T1 and hypointense on STIR images and does not demonstrate contrast enhancement... At the region of the placed marker there is some focal protrudes of the subcutaneous tissues edematous in nature. IMPRESSION: 1. Mild diffuse subcutaneous soft tissue swelling/edema along the anterior and lateral aspect of the midfoot. No localized fluid collections are evident. There is an 8 mm area of increased T1 and decreased STIR signal at the mid metatarsal region anterior to the midshaft of the 5th metatarsal and may be due to small lipoma. Just proximal to this there is some focal protrusion with edematous change of the subcutaneous soft tissues 2. Small amount of fluid along the posterior tibialis and flexor digitorum longus tendons and may represent tenosynovitis Dictated by: Peter Gray MD 12/28/2020 08:46 Peter Gray MD in [place] 12/28/2020 08:46
== END ==
PROVIDERS: PCP Family Medicine; Visit Provider Podiatrist
DX: M79.89 Other specified soft tissue disorders (principal); M79.671 Pain in right foot
CPT/HCPCS: 73720; A9576

== ENCOUNTER → 2021-01-11 11:22 | Outpatient (CLI) | payer BC, SELFPAY ==
--- NOTE | 2021-01-11 11:27 | XR_ITS ---
PROCEDURE: XR CHEST 2V CLINICAL HISTORY: HTN COMPARISON: CR CXR CHEST(2 VIEWS-NOT PORTABLE) from 09/06/2014 CR XR CHEST 2V from 06/30/2019 CR XR CHEST 2V from 07/23/[address] CHEST W CON from 08/09/2019 FINDINGS: The cardiomediastinal silhouette and pulmonary vascularity are within normal limits. Minimal atelectatic or fibrotic change in the lingula. No acute bony abnormalities. IMPRESSION: Minimal atelectatic or fibrotic change in the lingula otherwise negative Dictated by: Peter Gary MD 01/11/2021 11:52 Peter Gray MD in [place] 01/11/2021 11:52
--- NOTE | 2021-01-11 12:44 | ECG_ITS ---
APPROVED REPORT Exam: Resting ECG HR:62 bpm ECG Measurements Heart Rate 62 AXES PA 188 P 53 QRSd 84 QRS 73 QT 404 T 52 QTc 410 Conclusion Normal sinus rhythm Normal ECG Electronically signed by : Francisco Chung, 01/11/2021 18:04:26
[2021-01-11 13:38] LABS: Chloride 106 mmol/L (98-107); Sodium 139 mmol/L (136-145)
[2021-01-11 13:40] LABS: Alanine Aminotransferase 22 U/L (12-78); Aspartate Amino Transferase 24 U/L (14-36); Blood Urea Nitrogen 17 mg/dl (7-17); Estimated Glomerular Filt Rate 86 ml/min (>60); GFR (African American) 104 ML/MIN (>60)
[2021-01-11 13:41] LABS: Albumin Level 4.4 g/dl (3.5-5.0); Albumin/Globulin Ratio 1.7 (1.1-1.8); Alkaline Phosphatase 129 U/L (38-126); Bilirubin,Total 0.5 mg/dl (0.2-1.3); Calcium 10.4 mg/dl (8.4-10.2); Carbon Dioxide 25 mmol/L (22.0-30.0); Globulin 2.6 g/dL (1.3-3.2); Glucose 90 mg/dl (74-100)
[2021-01-11 15:52] LABS: Basophils # 0.1 K/mm3 (0-0.2); Basophils % 0.9 % (0.1-2.0); Eosinophils # 0.3 K/mm3 (0.0-0.4); Eosinophils % 2.1 % (0.1-12.0); Hematocrit 48.2 % (37.0-47.0); Hemoglobin 15.7 g/dL (12.2-16.2); Lymphocytes # 4.2 K/mm3 (0.7-4.5); Lymphocytes % 34.2 % (10-50); Mean Corpuscular HGB Conc 32.7 g/dL (31.8-35.4); Mean Corpuscular Volume 88.9 fl (81-99); Mean Platelet Volume 9.9 fl (7.4-10.4); Monocytes # 0.6 K/mm3 (0.1-1.0); Monocytes % 4.6 % (1.7-9.3); Neutrophils # 7.1 K/mm3 (1.8-7.8); Neutrophils % 58.2 % (37.0-80.0); Platelet Count 218 K/mm3 (142-424); Red Blood Count 5.42 M/mm3 (4.20-5.40); Red Cell Distribution Width 14.5 % (11.5-17.5); White Blood Count 12.2 K/mm3 (4.8-10.8)
== END ==
PROVIDERS: PCP Family Medicine; Visit Provider Podiatrist
DX: Z01.818 Encounter for other preprocedural examination (principal); M79.671 Pain in right foot
CPT/HCPCS: 36415; 71046; 80053; 85025; 93005

== ENCOUNTER → 2021-01-18 08:26 | Outpatient (CLI) | payer BC, SELFPAY ==
[2021-01-18 09:54] LABS: Coronavirus 19 IgG Antibody Negative (Negative); Coronavirus 19 IgM Antibody Negative (Negative)
== END ==
PROVIDERS: Visit Provider Podiatrist
DX: Z01.812 Encounter for preprocedural laboratory examination (principal)
CPT/HCPCS: 36415; 86328

== ENCOUNTER 2021-01-20 06:01 | Day surgery (SDC) | payer BC, SELFPAY ==
[2021-01-18 11:09] VITALS: BMI 44.9
[2021-01-20] VITALS (13 sets, daily range): BP systolic 105–158; BP diastolic 43–82; PULSE 65–77; RESP 12–18; TEMP 36.6–43; O2SAT 92–96
--- NOTE | 2021-01-20 07:17 | HMH.OPNOTE ---
Date of procedure: 01/20/21 Pre-op Diagnosis:: 1. Lipoma of right lower extremity 2. Mass of soft tissue of foot 3. Tenosynovitis of right ankle 4. Peroneal tendinitis, right leg 5. Right foot pain 6. Ganglion cyst of right foot 7. Acquired pes planus of both feet 8. Gastrocnemius equinus of right lower extremity 9. Obesity, Class III, BMI 40-49.9 (morbid obesity) Post-op Diagnosis:: Same Procedure performed:: 1. Right foot excision of soft tissue mass/ganglion cyst 2. Right posterior tibial tenosynovectomy 3. Right peroneus brevis tendon debridement and repair 4. Right excision of ankle lipoma 5. Right gastroc recession 6. Right application of amniotic membrane graft, injectable graft 7. Application of posterior splint Surgeon:: SHIRLEY Yadav COLLATOR:: Kem Mo Anesthesia: GETA, regional (right popliteal nerve block) Estimated blood loss (mL): 20 Clinical Note:: Right Foot Soft Tissue Mass, suspect ganglion cyst and Peroneal Tendonitis: Patient does have a history of a right ankle ganglion cyst which was surgically removed several years ago. We discussed the conservative treatment for soft tissue mass. I explained that if it is not painful we leave it alone and monitor for growth. If the mass grows aggressively over 2-3 months, that it is more of a concern. Slow growing lesions are usually benign. I explained that due to the increased numbness and size, it would be prudent to get an MRI to rule out soft tissue abnormality. Patient would like to have the soft tissue mass, suspected ganglion cyst removed. MRI for surgical planning to evaluate whether it is coming from the peroneal tendons versus arising from the joint. History of cyst several years ago. Patient has failed conservative care including: ice, elevation, hemp topical oil, NSAIDs, modification of shoe gear, modification of activity, stretching/therapy, compression. She failed bracing/strapping and is unable to use brace due to pressure on the cyst causing worsening nerve symptoms. 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 MRI reviewed and discussed with patient. Conservative treatment discussed but has been exhausted. We discussed surgery. All risks and benefits were discussed including but not limited to: recurrence of the mass, damage to blood vessels and nerves, bleeding, infection, wound complications, need for further surgery, prolonged or permanent nerve symptoms, pain and swelling of the extremity, prolonged pain, RSD/CRPS, DVT/PE, and anesthetic complications, . No guarantees were given. All questions fully answered. The patient verbalized understanding and agreed to proceed with surgery. Consent was obtained. Necessary labs and pre-op testing ordered. e-Rx [place] 7.5/325, Zofran, Motrin. She was given for fracture boot and has walker at home. Labs, 01/11/21: wbc 12.2, glucose 90, EKG: normal sinus rhythm, normal ECG. Discussed with Dr. Avery, PCP who saw the patient last month. Imaging/labs faxed to his office and medical clearance granted. He will not see her again prior to surgery but will follow up with her next month as previously scheduled. Operative findings:: Right foot equinus noted. Synovitis around the posterior tibial tendon. Reviewed the right dorsal lateral foot over the fifth metatarsal there is a ganglion on cyst that was less than 1 x 1 cm arising from the extensor digitorum brevis muscle. The cyst did not extend to the bone. No signs of infection. The peroneus longus tendon had synovitis surrounding it. The brevis tendon had a longitudinal tear about 5 cm in length. There was also a bulbous thick ball of scar tissue at the tendon inferior to the lateral malleolus. Low-lying peroneal muscle belly noted. Lipoma ~3x2cm over the lateral foot and ankle overlying the sinus tarsi and calcaneus. Operative note:: On this date and time, the patient was deemed an appropriate surgical candidate. With
--- NOTE | 2021-01-20 08:01 | P.PN_ITS ---
[facility] Anesthesia Checklist - Structural Data Admitted From: Home Planned Operative Procedure/s: exc soft tissue mass Consent for Planned Operative Procedure(s) Verified: Yes - Additional verifications Anesthesia Reactions: Yes (nausea) Hx Blood Transfusions: No Blood Transfusion Reaction: No - Airway Assessment C-Spine Mobility Assessed: Yes TMJ Mobility Assessed: Yes Dentition: Dentures-good fit - Neurological Assessment Level of Consciousness: Awake, Alert, Appropriate - Anesthesia Plan Anesthesia Risk discussed: Yes ASA Class: II Anesthesia Type: General w/block [facility] History I have reviewed the patient's past medical history: Yes Medical History: Reports:: Asthma, Chronic Obstructive Pulmonary Disease (COPD), Depression, Hyperlipidemia, Hypertension Denies:: Cancer, Diabetes Mellitus Type 1, Diabetes Mellitus Type 2, Internal Pacemaker, MRSA, Seizures *Have you ever received a pneumonia vaccine?: No *Have you received a flu vaccine this season?: No Other Medical History: Reports: Arthritis, Cataracts, Hypothyroidism. Denies: Blood Transfusion Reaction Anesthesia experience/problems:: nausea Laterality Cases: Bilateral: Tonsillectomy Other Surgeries: Yes: Cholecystectomy, Colonoscopy, , Hernia Repair, Hysterectomy-Total, Hysterectomy-Partial. No: Pacemaker Amputation: No Fractures: No - *Social History Last grade of school completed: High school graduate Smoking Status: Current every day smoker Tobacco Type: cigarettes # Packs/Day (cigarettes): 1 Alcohol Intake: never Substance Use Type: denies use *Occupational Status:: employed Housing: house Household Members: none *Travel in the last 8 weeks: None - Psychiatric History Pschychiatric History:: Reports:: Depression Family Hx:: Hyperlipidemia, Hypertension
--- NOTE | 2021-01-20 09:00 | XR_ITS ---
PROCEDURE: XR FOOT RT MIN 3V CLINICAL INDICATION: Post op mass COMPARISON: CR XR FOOT RT MIN 3V from 12/18/2020 FINDINGS: Artifact is present from posterior splint obscuring fine detail of the foot on the AP and oblique image. The joint spaces are well-preserved. No significant degenerative/arthritic changes. No erosive changes evident. Other findings:None. IMPRESSION: Posterior splint in place. No acute finding. Dictated by: Peter Gray MD 01/20/2021 12:43 Peter Gray MD in [place] 01/20/2021 12:43
--- NOTE | 2021-01-20 09:38 | HMH.ANESI ---
[facility] Anesthesia Record Part I Intake, IV Amount: 700 Estimated blood loss (mL): 0 Urine output (mL): 0 Blood Pressure: 139/68 SaO2: 94 Pulse Rate: 67 Respiratory Rate: 12 Temperature: 98.5 F Patient is:: Awake, Stable Stable to PACU at:: 09:35
--- NOTE | 2021-01-20 11:11 | P.PN_ITS ---
[facility] Anesthesia Record Part II Discharge Time: 10:05 Destination: Surgical Day Care (OP Surgery) PACU nurse assessment reviewed?: Yes Patient Condition:: Good Anesthesia Complications:: None Swallowing reflex intact?: Yes Cyanosis?: No Blood Pressure: 105/43 Pulse Rate: 66 Temperature: 97.9 F Mental Status: Alert & Oriented Pain level:: 0 Nausea and/or vomitting:: None Intake, IV Amount: 0
== END 2021-01-20 11:30 | disposition home or self-care (01) ==
LOC: OR 06:01
PROVIDERS: PCP Family Medicine; Visit Provider Podiatrist
PROC: (CPT 27687; principal; 2021-01-20 07:30)
DX: M67.471 Ganglion, right ankle and foot (principal); D17.23 Benign lipomatous neoplasm of skin and subcutaneous tissue of right leg; M65.9 Synovitis and tenosynovitis, unspecified; M76.71 Peroneal tendinitis, right leg; M79.604 Pain in right leg; M20.11 Hallux valgus (acquired), right foot; M19.071 Primary osteoarthritis, right ankle and foot; M21.41 Flat foot [pes planus] (acquired), right foot; M21.6X1 Other acquired deformities of right foot; M77.31 Calcaneal spur, right foot; M66.271 Spontaneous rupture of extensor tendons, right ankle and foot
CPT/HCPCS: 27687; 15275; 28090; 27626; 11404; 27658; 73630; 96374; C1762; J2405; Q4211

== ENCOUNTER 2021-03-18 15:30 | Outpatient (RCR) | payer BC, SELFPAY ==
--- NOTE | 2021-03-02 14:34 | HMH.PTOPEV ---
PT Outpatient Evaluation Rehab PT Outpatient Evaluation Start: 03/02/21 14:01 Freq: Status: Active Protocol: Document 03/02/21 14:01 SAAD (Rec: 03/02/21 14:34 SAAD [id number]) Electronically Signed By [place]o Durbin, PT 03/02/21 14:01 Outpatient Therapy Subjective History Subjective History Pt presents s/p R ankle peroneal tendon repair w/ ganglion cyst excision on January. Pt reports significant improvement in R ankle pain and instability since sx., however, reports lingering R ankle swelling, as well as redness around sx. incisions. Pt reports progression in WB'ing status from PWB to FWB in RLE has ' been fine, no real issues other than that brace they gave me is too tight'. Chief Complaint Pain,Stiff,Swelling,Weakness Symptom Type Ache,Dull Symptoms Relieved By Rest/Positioning,Ice Symptoms Aggravated By Standing,Physical Activity, Walking Prior Functional Limitations Standing,Walking,Stairs Current Functional Limitations Standing,Walking,Stairs Symptom Description Intermittent Level of pain today (0-10) 3 Pain scale - at its best (0-10) 0 Pain scale - at its worst (0-10) 7 Ankle/Foot Eval Gait Observation General Gait Pattern Observation Antalgic Gait Palpation Tenderness right Ankle/Foot Palpation Findings Tenderness Ankle/Foot Palpation Overall Comment achilles insertion 2-3/4, peroneal incision 3/4, medial sx. incision 2/4 ROM Ankle/Foot Dorsiflexion w/Knee Extended 0-11 Active Range Motion (degrees) Ankle/Foot Plantar Flexion Active Range 0-31 of Motion (degrees) Ankle/Foot Eversion Active Range of 0-18 Motion (degrees) Ankle/Foot Inversion Active Range of 0-30 Motion (degrees) MMT Ankle Dorsiflexion Strength Grade 4 Good Ankle Plantarflexion Strength Grade 4- Good- Foot Eversion Strength Grade 4- Good- Foot Inversion Strength Grade 4- Good- Outpatient Therapy Assessment Impairments Problems/Impairmments Palpation Tenderness,Impaired Range of Motion,Impaired Strength,Impaired Gait Pattern ,Impaired Walking,Impaired Standing,Impaired Stair Climbing,Impaired Work
== END 2021-03-18 15:35 | disposition home or self-care (01) ==
LOC: PT 15:30
PROVIDERS: PCP Family Medicine; Visit Provider Podiatrist
DX: Z98.890 Other specified postprocedural states (principal); M67.471 Ganglion, right ankle and foot; M76.71 Peroneal tendinitis, right leg; R60.9 Edema, unspecified; G89.18 Other acute postprocedural pain; T81.41XA Infection following a procedure, superficial incisional surgical site, initial encounter
CPT/HCPCS: 97014; 97110; 97112; 97140; 97163; 97760; G0283

== ENCOUNTER → 2021-10-14 08:25 | Outpatient (CLI) | payer BC, SELFPAY ==
[2021-10-15 13:03] LABS: Covid-19 Nasal PCR Sendout Lex POSITIVE
== END ==
PROVIDERS: Visit Provider Nurse Practitioner
DX: U07.1 COVID-19 (principal)
CPT/HCPCS: C9803; U0004; U0005

== ENCOUNTER → 2022-02-18 09:33 | Outpatient (CLI) | payer BC, SELFPAY ==
--- NOTE | 2022-02-18 09:38 | XR_ITS ---
FINAL REPORT CLINICAL HISTORY: right foot pain after surgery x 1 year ago no recent injury or trauma FINDINGS: RIGHT FOOT: Three views of the right foot were obtained. There is no acute fracture or dislocation. There are mild degenerative changes. There are calcaneal spurs. There is no soft tissue abnormality. IMPRESSION: Mild degenerative changes with no acute bony abnormality. Reviewed, Interpreted and Dictated by Dallas Cote III, MD Transcribed by Rhiannon Fields Authenticated and [facility]
== END ==
PROVIDERS: PCP Family Medicine; Visit Provider Podiatrist
DX: M79.671 Pain in right foot (principal)
CPT/HCPCS: 73630

== ENCOUNTER 2022-04-09 22:47 | Inpatient (IN) | payer BC, SELFPAY ==
[2022-04-09 22:49] VITALS: BP 145/76; PULSE 103; RESP 26; TEMP 37.7; O2SAT 88; BMI 48.6
--- NOTE | 2022-04-09 23:00 | ECG_ITS ---
APPROVED REPORT Exam: Resting ECG HR:89 bpm ECG Measurements Heart Rate 89 AXES UT 147 P 56 QRSd 89 QRS 42 QT 361 T 75 QTc 408 Conclusion SINUS RHYTHM POSSIBLE LEFT ATRIAL ENLARGEMENT [-0.1mV P-WAVE IN V1/V2] MODERATE ST DEPRESSION [0.05+ mV ST DEPRESSION] ABNORMAL ECG UNCONFIRMED REPORT Electronically signed by : Francisco Chung MD 04/12/2022 21:14:14
--- NOTE | 2022-04-09 23:10 | XR_ITS ---
PROCEDURE INFORMATION: Exam: XR Chest Exam date and time: 04/09/2022 11:17 PM Age: 61 years old Clinical indication: Shortness of breath; Additional info: SOA TECHNIQUE: Imaging protocol: Radiologic exam of the chest. Views: 2 views. COMPARISON: CR XR CHEST 2V 01/11/2021 11:35 AM FINDINGS: Lungs: Bibasilar reticular opacities may reflect mild atelectasis or developing pneumonitis. Pleural spaces: Unremarkable. No pleural effusion. No pneumothorax. Heart/Mediastinum: Unremarkable. No cardiomegaly. Vasculature: Minimal calcification noted at the aortic arch. Bones/joints: Unremarkable. IMPRESSION: Minimal basilar reticular opacities could reflect atelectasis or developing pneumonitis. No airspace consolidation. No pleural fluid.
[2022-04-09 23:16] LABS: ABG Base Excess 1.4 mmol/L (-2.4-2.3); ABG HCO3 25.4 mmhg (22.0-26.0); ABG Oxygen Saturation 93 % (90-100); ABG PCO2 37.3 mmhg (35.0-45.0); ABG PH 7.45 mmol/L (7.35-7.45); ABG PO2 59.6 mmhg (80-100); ABG TCO2 26.5 mmhg (23-27)
[2022-04-09 23:22] LABS: Allen's Test Y; Oxygen 2 %; Source Right Radial
[2022-04-09 23:23] VITALS: PULSE 89; O2SAT 96
[2022-04-09 23:49] LABS: Alanine Aminotransferase 32 U/L (12-78); Albumin Level 3.6 g/dl (3.5-5.0); Albumin/Globulin Ratio 1.2 (1.1-1.8); Alkaline Phosphatase 147 U/L (38-126); Anion Gap 10.4 mEq/L (5-15); Aspartate Amino Transferase 32 U/L (14-36); Basophils # 0.1 K/mm3 (0-0.2); Basophils % 0.8 % (0.1-2.0); Blood Urea Nitrogen 17 mg/dl (7-17); Calcium 9.6 mg/dl (8.4-10.2); Carbon Dioxide 28 mmol/L (22.0-30.0); Chloride 98 mmol/L (98-107); Creatinine Clearance Estimated 62 mL/min (50-200); Eosinophils # 0.1 K/mm3 (0.0-0.4); Eosinophils % 0.8 % (0.1-12.0); Estimated Glomerular Filt Rate 73 ml/min (>60); GFR (African American) 89 ML/MIN (>60); Globulin 2.9 g/dL (1.3-3.2); Glucose 289 mg/dl (74-100); Hematocrit 44.3 % (37.0-47.0); Hemoglobin 14.8 g/dL (12.2-16.2); Lymphocytes # 2.6 K/mm3 (0.7-4.5); Lymphocytes % 14.9 % (10-50); Magnesium 1.5 mg/dl (1.6-2.3); Mean Corpuscular HGB Conc 33.5 g/dL (31.8-35.4); Mean Corpuscular Hemoglobin 29.7 pg (27.0-31.2); Mean Corpuscular Volume 88.7 fl (81-99); Mean Platelet Volume 8.7 fl (7.4-10.4); Monocytes # 0.9 K/mm3 (0.1-1.0); Monocytes % 5.2 % (1.7-9.3); Neutrophils # 13.5 K/mm3 (1.8-7.8); Neutrophils % 78.3 % (37.0-80.0); Platelet Count 211 K/mm3 (142-424); Potassium 3.4 mmoL/L (3.5-5.1); Red Blood Count 4.99 M/mm3 (4.20-5.40); Red Cell Distribution Width 14.6 % (11.5-17.5); Sodium 133 mmol/L (136-145); Total Protein,Serum 6.5 g/dl (6.3-8.2); White Blood Count 17.2 K/mm3 (4.8-10.8)
[2022-04-09 23:51] LABS: Lactic Acid 2.4 mmol/L (0.7-2.1)
[2022-04-09 23:52] LABS: Bilirubin,Total < 0.1 mg/dl (0.2-1.3)
[2022-04-09 23:55] LABS: C-Reactive Protein 24.9 mg/L (0-4)
[2022-04-09 23:57] LABS: MANUAL DIFFERENTIAL MANUAL DIFFERENTIAL (MANUAL DIFF)
[2022-04-09 23:58] LABS: Lymphocytes % 16 % (10-50); Monocytes % 3 % (2-9); Neutrophils % 74 % (42-76); Platelet Estimate Normal; RBC Morphology Normal; Total Cells Counted 100
--- NOTE | 2022-04-09 23:58 | HMH.EDSOB ---
ED Disposition Clinical Impression: Acute exacerbation of chronic obstructive airways disease, Severe sepsis with acute organ dysfunction, Tobacco use disorder Community acquired pneumonia Qualifiers: Laterality: unspecified laterality Qualified Code(s): J18.9 - Pneumonia, unspecified organism Hypothyroidism Qualifiers: Hypothyroidism type: acquired Qualified Code(s): E03.9 - Hypothyroidism, unspecified Obesity Qualifiers: Obesity type: due to excess calories Obesity classification: adult class 3 (BMI >= 40) Serious obesity comorbidity presence: with serious comorbidity Body mass index: BMI 45.0-49.9 Qualified Code(s): E66.01 - Morbid (severe) obesity due to excess calories; Z68.42 - Body mass index [BMI] 45.0-49.9, adult Disposition: Admitted As Inpatient Condition on Discharge: Fair Referrals: Trent Avery MD [Primary Care Provider] - - Critical Care Critical Care Time: No Attestation: On 04/09/22, the high probability of a clinically significant, sudden or life threatening deterioration of the following system(s) required my full and direct attention, intervention and personal management. The time I documented below is in addition to time spent performing reported procedures but includes the following listed in this critical care notation. Medical Decision Making - Medical Records Medical records reviewed: Yes: I reviewed the patient's medical records. - Alex Inquiry Pt receiving controlled substance: No Vital Signs: 04/09/22 22:49 04/09/22 23:23 04/10/22 00:00 Temperature 99.8 F H Temperature Source Oral Pulse Rate 89 84 Pulse Rate [Right] 103 H Respiratory Rate 26 H Blood Pressure Blood Pressure [Right Arm] 145/76 H Blood Pressure Mean [Right Arm] 99 Blood Pressure Source [Right Arm] Automatic Cuff 02 Sat by Pulse Oximetry 88 L 96 95 Oxygen Delivery Method Room Air Nasal Cannula Nasal Cannula Oxygen Flow Rate (LPM) 4 4 04/10/22 00:30 04/10/22 01:00 04/10/22 01:30 Temperature Temperature Source Pulse Rate 78 76 77 Pulse Rate [Right] Respiratory Rate 23 Blood Pressure 132/78 Blood Pressure [Right Arm] Blood Pressure Mean [Right Arm] Blood Pressure Source [Right Arm] 02 Sat by Pulse Oximetry 95 95 96 Oxygen Delivery Method Nasal Cannula Nasal Cannula Oxygen Flow Rate (LPM) 4 4 - Lab Data Lab results reviewed: Yes: I reviewed the patient's lab results. Lab Results 04/09/22 23:10: Specimen Source Right radial, O2 % 2, ABG pH 7.45, ABG pCO2 37.3, ABG pO2 59.6 L, ABG HCO3 25.4, ABG Total CO2 26.5, ABG O2 Saturation 93, ABG Base Excess 1.4, Peter Test Y 04/09/22 23:23: WBC 17.2 H, RBC 4.99, Hgb 14.8, Hct 44.3, MCV 88.7, MCH 29.7, MCHC 33.5, RDW 14.6, Plt Count 211, MPV 8.7, Neut % (Auto) 78.3, Lymph % (Auto) 14.9, [place] % (Auto) 5.2, Eos % (Auto) 0.8, Baso % (Auto) 0.8, Neut # (Auto) 13.5 H, Lymph # (Auto) 2.6, [place] # (Auto) 0.9, Eos # (Auto) 0.1, Baso # (Auto) 0.1, Total Counted 100, Neutrophils % (Manual) 74, Band Neutrophils % 7.0, Lymphocytes % (Manual) 16, Monocytes % (Manual) 3, Platelet Estimate Normal, RBC Morphology Normal, ESR 14 04/09/22 23:23: Sodium 133 L, Potassium 3.4 L, Chloride 98, Carbon Dioxide 28, Anion Gap 10.4, BUN 17, Creatinine 0.80, Estimated Creat Clear 62, Estimated GFR 73, Est GFR ( Amer) 89, Glucose 289 H, Calcium 9.6, Magnesium 1.5 L, Total Bilirubin < 0.1 L, AST 32, ALT 32, Alkaline Phosphatase 147 H, Troponin I < 0.01, C-Reactive Protein 24.9 H, NT-Pro-B Natriuret Pep 45.6, Total Protein 6.5, Albumin 3.6, Globulin 2.9, Albumin/Globulin Ratio 1.2, Procalcitonin 0.073 04/09/22 23:23: Lactate 2.4 H 04/09/22 23:23: TSH 6.80 H, Thyroxine (T4) 8.1 04/10/22 01:19: Urine Color Yellow, Urine Appearance Sl cloudy, Urine pH 6.5, Ur Specific [place] 1.025, Urine Protein Negative, Urine Glucose (UA) Negative, Urine Ketones Negative, Urine Blood Trace-i, Urine Nitrate Positive, Urine Bilirubin Negative, Urine Urobilinogen 0.2, Ur Dariel
[2022-04-10] VITALS (16 sets, daily range): BP systolic 117–151; BP diastolic 54–97; PULSE 68–102; RESP 16–23; TEMP 36.4–36.9; O2SAT 93–99; BMI 48.9
[2022-04-10 00:06] LABS: NT Pro Brain Natriuretic Pep. 45.6 pg/mL (0-125); Troponin I < 0.01 ng/ml (0.00-0.034)
[2022-04-10 00:09] LABS: Procalcitonin 0.073 ng/mL (0.0-2.0)
[2022-04-10 00:13] LABS: Erythrocyte Sedimentation Rate 14 mm/hr (0-30)
[2022-04-10 00:19] LABS: T4 (Thyroxine) 8.1 ug/dl (5.53-11.0)
[2022-04-10 01:28] LABS: Microscopic, Urine URINE MICROSCOPIC (MICROSCOPIC)
[2022-04-10 01:30] LABS: Appearance,Urine SL CLOUDY (Clear); Bilirubin,Urine Negative (Negative); Blood, Urine TRACE-I (Negative); Color,Urine YELLOW (Yellow); Glucose,Urine (UA) Negative (Negative); Ketones,Urine Negative (Negative); Leukocyte Esterase,Urine Negative (Negative); Nitrate,Urine POSITIVE (Negative); PH,Urine 6.5 (5.0-8.5); Protein,Urine Negative (Negative); Specific Gravity, Urine 1.025 (1.005-1.030); Urobilinogen,Urine 0.2 EU/dl (0.2)
[2022-04-10 01:34] LABS: Bacteria,Urine 4+ /lpf
--- NOTE | 2022-04-10 01:52 | PC.NURSE ---
Dr. Swan s/w Dr. Osborne for admission
[2022-04-10 02:03] LABS: Coronavirus 19, PCR Not Detected (NotDetected); Influenza A, PCR Not Detected (NotDetected); Influenza B, PCR Not Detected (NotDetected)
--- NOTE | 2022-04-10 02:42 | PC.NURSE ---
PATIENT ADMITTED TO [address] O[address]ATION TO SERVICE OF DR. CROFT TO DR. CARRASCO WITH DX OF COPD WITH ACUTE EXACERBATION, SEVERE SEPSIS WITH ORGAN DYSFUNCTION, AND UTI.
[2022-04-10 02:50] LABS: Reflex Lactic Add Lactic Reflex
[2022-04-10 03:05] LABS: Lactic Acid Follow Up (RFLX 1) 1.4 mmol/L (0.7-2.1)
--- NOTE | 2022-04-10 03:09 | PC.NURSE ---
patient up to floor via wheelchair @ this time
[2022-04-10 03:18] LABS: Troponin I < 0.01 ng/ml (0.00-0.034)
[2022-04-10 07:21] LABS: Basophils # 0.1 K/mm3 (0-0.2); Basophils % 0.3 % (0.1-2.0); Eosinophils # 0.1 K/mm3 (0.0-0.4); Eosinophils % 0.3 % (0.1-12.0); Hematocrit 42.9 % (37.0-47.0); Hemoglobin 14.5 g/dL (12.2-16.2); Lymphocytes # 1.1 K/mm3 (0.7-4.5); Lymphocytes % 5.9 % (10-50); Mean Corpuscular HGB Conc 33.8 g/dL (31.8-35.4); Mean Corpuscular Hemoglobin 29.9 pg (27.0-31.2); Mean Corpuscular Volume 88.4 fl (81-99); Monocytes # 0.5 K/mm3 (0.1-1.0); Monocytes % 2.6 % (1.7-9.3); Neutrophils # 16.6 K/mm3 (1.8-7.8); Neutrophils % 90.9 % (37.0-80.0); Platelet Count 209 K/mm3 (142-424); Red Blood Count 4.85 M/mm3 (4.20-5.40); Red Cell Distribution Width 14.5 % (11.5-17.5); White Blood Count 18.3 K/mm3 (4.8-10.8)
[2022-04-10 07:38] LABS: Anion Gap 10.3 mEq/L (5-15); Blood Urea Nitrogen 19 mg/dl (7-17); Calcium 9.2 mg/dl (8.4-10.2); Carbon Dioxide 27 mmol/L (22.0-30.0); Chloride 101 mmol/L (98-107); Creatinine Clearance Estimated 71 mL/min (50-200); Estimated Glomerular Filt Rate 85 ml/min (>60); GFR (African American) 103 ML/MIN (>60); Glucose 367 mg/dl (74-100); Potassium 4.3 mmoL/L (3.5-5.1); Sodium 134 mmol/L (136-145)
[2022-04-10 07:51] LABS: Troponin I < 0.01 ng/ml (0.00-0.034)
--- NOTE | 2022-04-10 09:18 | HMH.PHAINT ---
MEDICATION RECONCILIATION COMPLETED ON PATIENT USING EXTERNAL FILL HISTORY FROM PHARMACY. -LUZ ARAUJO, SURINDERD
--- NOTE | 2022-04-10 09:29 | HMH.HP ---
*Admission Date: 04/10/22 *Chief complaint: Shortness of breath *History of present illness: 61 year old female with a history of COPD, presented to [facility] ER last night with a 3 or 4 day history of shortness of breath, cough and fatigue. Last week patient spent several hours cleaning of a garage of an abandoned house, on a very hot day. She states she had some difficulty breathing the next day and it has gotten progressively worse all week. She has had some low grade fever and nausea but no vomiting. She was able to get some relief of symptoms after using her albuterol inhaler. She states her cough was non productive. [facility] History Medical History: Reports:: Asthma, Chronic Obstructive Pulmonary Disease (COPD), Depression, Hyperlipidemia, Hypertension Denies:: Cancer, Diabetes Mellitus Type 1, Diabetes Mellitus Type 2, Internal Pacemaker, MRSA, Seizures *Have you ever received a pneumonia vaccine?: No *Have you received a flu vaccine this season?: No Other Medical History: Reports: Arthritis, Cataracts, Chemotherapy, Hormone Therapy, Hypothyroidism, Sinus Problems, Thyroid Disease, Other (morbid obesity). Denies: Blood Transfusion Reaction Laterality Cases: Left: Cataract, Bilateral: Breast Biopsy, Tonsillectomy Other Surgeries: Yes: Appendectomy, Cholecystectomy, Colonoscopy, , Hernia Repair, Hysterectomy-Total, Hysterectomy-Partial. No: Pacemaker Amputation: No Fractures: No - *Social History Last grade of school completed: High school graduate Smoking Status: Current some day smoker Tobacco Type: cigarettes # Packs/Day (cigarettes): 1 Alcohol Intake: never Substance Use Type: denies use *Occupational Status:: employed Housing: apartment Household Members: none *Travel in the last 8 weeks: None - Psychiatric History Pschychiatric History:: Reports:: Depression Family Hx:: Cancer, Coronary Artery Disease, Diabetes, Hyperlipidemia, Hypertension, Thyroid Disorder Review of Systems - Constitutional Reports fever(s), Denies chills - Eyes Denies change in vision - ENT Denies abnormal hearing - *Cardiovascular Denies chest pain - *Respiratory Denies coughing up blood - *Gastrointestinal Denies loose stools - *Genitourinary Denies difficulty urinating - *Musculoskeletal Denies joint swelling - Integumentary/Breasts Denies rash - *Neurologic Denies seizure-like activity Meds Home Medications Medication Instructions Recorded Confirmed Type amlodipine 10 mg tablet 10 mg PO DAILY 11/28/17 04/10/22 History celecoxib 200 mg capsule 200 mg PO DAILY 11/28/17 04/10/22 History Budesonide/Formoterol Fumarate 2 puffs IH BID 06/30/19 04/10/22 History [Symbicort 80-4.5 Mcg Inhaler] Albuterol Sulfate [Ventolin HFA 1 - 2 puffs IH Q6HP PRN 07/01/19 04/10/22 History Inhaler] Levothyroxine Sodium 125 mcg PO DAILY 07/01/19 04/10/22 History [Levothyroxine 125mcg (0.125mg) Tab] allopurinol 100 mg tablet 100 mg PO DAILY 10/28/19 04/10/22 History aspirin 81 mg tablet,delayed 81 mg PO DAILY 09/29/20 04/10/22 History release duloxetine 60 mg capsule,delayed 60 mg PO DAILY cap 02/28/22 04/10/22 History release Montelukast Sodium [Singulair 10mg 10 mg PO PM 04/10/22 04/10/22 History tablet] Triamterene/Hydrochlorothiazid 1 each PO DAILY 04/10/22 04/10/22 History [Triamterene-Hctz 37.5-25 mg Tb] Allergies Allergy/AdvReac Type Severity Reaction Status Date / Time ramipril Allergy Severe S-SWELLS-OR Verified 02/28/22 09:16 AL/THROAT adhesive tape Allergy Intermediate Blisters Verified 02/28/22 09:16 Latex, Natural Rubber Allergy Unknown Verified 04/09/22 23:44 lisinopril Allergy Unknown Verified 02/28/22 09:16 Exam Vital signs and Labs for Last 24 Hours: Temp Pulse Resp BP Pulse Ox 98.4 F 69 20 148/75 H 95 04/10/22 03:24 04/10/22 06:47 04/10/22 03:24 04/10/22 03:24 04/10/22 06:47 Laboratory Results - last 24 hr 04/09/22 23:10: Specimen So
[2022-04-10 11:04] LABS: Hemoglobin A1C 7.3 % (4.0-6.0)
[2022-04-10 12:10] LABS: POC Glucose,Bedside 379 (70-110)
--- NOTE | 2022-04-10 17:56 | PC.NURSE ---
contacted MD regarding fsbs >400 new orders received
[2022-04-10 21:15] LABS: POC Glucose,Bedside 315 (70-110)
[2022-04-11] VITALS (10 sets, daily range): BP systolic 117–146; BP diastolic 57–93; PULSE 64–89; RESP 16–20; TEMP 36.6–36.8; O2SAT 91–100; BMI 51.7; BMI 49.6
[2022-04-11 00:55] LABS: POC Glucose,Bedside 456 (70-110)
--- NOTE | 2022-04-11 04:34 | PC.NURSE ---
PT IS ALERT AND ORIENTED X 4. PT HAS BEEN RESTING WELL THIS SHIFT. PTS HOME CPAP IN USE W/ O2. PT HAS EPISODES OF COUGHING AND GETS SOA WHEN GETTING UP TO BATHROOM, SOON RECOVERS AFTER REST. PT RECEIVING SCHEDULED DOUNEBS PER RT. PT HAS HAD NO OTHER COMPLAINTS THUS FAR DURING MY SHIFT. PT IS CURRENTLY ON 4 L NC, MAINTAINING O2 SAT >92%. LUNGS SOUNDS - DIMINISHED W/ EXPIRATORY WHEEZES. FSBS AT BEDTIME WAS 315. MEDICATED PER NOV. IV INFUSING PER ORDER. NSR ON TELE. NO NEEDS VOICED AT THIS TIME. CALL LIGHT IN REACH.
[2022-04-11 05:47] LABS: POC Glucose,Bedside 269 (70-110)
[2022-04-11 06:25] LABS: Basophils % 0.2 % (0.1-2.0); Eosinophils % 0.2 % (0.1-12.0); Hematocrit 41.3 % (37.0-47.0); Hemoglobin 14.2 g/dL (12.2-16.2); Lymphocytes # 1.7 K/mm3 (0.7-4.5); Lymphocytes % 8.1 % (10-50); Mean Corpuscular HGB Conc 34.5 g/dL (31.8-35.4); Mean Corpuscular Hemoglobin 29.9 pg (27.0-31.2); Mean Corpuscular Volume 86.6 fl (81-99); Mean Platelet Volume 8.4 fl (7.4-10.4); Monocytes # 0.6 K/mm3 (0.1-1.0); Neutrophils # 18.7 K/mm3 (1.8-7.8); Neutrophils % 88.5 % (37.0-80.0); Platelet Count 192 K/mm3 (142-424); Red Blood Count 4.76 M/mm3 (4.20-5.40); Red Cell Distribution Width 14.4 % (11.5-17.5); White Blood Count 21.1 K/mm3 (4.8-10.8)
[2022-04-11 06:30] LABS: MANUAL DIFFERENTIAL MANUAL DIFFERENTIAL (MANUAL DIFF)
[2022-04-11 06:37] LABS: Lymphocytes % 5 % (10-50); Neutrophils % 86 % (42-76); Platelet Estimate Normal; RBC Morphology Normal; Total Cells Counted 100
[2022-04-11 06:45] LABS: Blood Urea Nitrogen 23 mg/dl (7-17); Calcium 9.3 mg/dl (8.4-10.2); Carbon Dioxide 27 mmol/L (22.0-30.0); Chloride 102 mmol/L (98-107); Creatinine Clearance Estimated 79 mL/min (50-200); Estimated Glomerular Filt Rate 102 ml/min (>60); GFR (African American) 123 ML/MIN (>60); Glucose 251 mg/dl (74-100); Sodium 135 mmol/L (136-145)
--- NOTE | 2022-04-11 06:53 | PC.NURSE ---
PREVIOUS WEIGHT PT HAD WEIGHTED BLANKET ON BED. REWEIGHED PT.
--- NOTE | 2022-04-11 07:00 | XR_ITS ---
FINAL REPORT CLINICAL HISTORY: Hypoxia, COPD exacerbation COMPARISON: 04/10/2022 FINDINGS: PA and lateral views of the chest were obtained. The cardiac and mediastinal silhouettes are within normal limits. Interstitial opacities and lower lobe airspace disease has improved There is no pleural effusion or pneumothorax. No acute osseous abnormality is identified. IMPRESSION: Improved interstitial opacities and lower lobe airspace disease. Reviewed, Interpreted and Dictated by Aylin Hayes MD Transcribed by Dulce Che Authenticated and . [facility]
--- NOTE | 2022-04-11 08:43 | HMH.ACPN2 ---
Internal Medicine - PN: Subj *Date: 04/11/22 *Time: 08:43 Interval history: Patient was able to sleep a little last night. Still wheezing and having SOB. Exam Vital signs and Labs for Last 24 Hours: Temp Pulse Resp BP Pulse Ox 98.2 F 86 16 122/57 L 95 04/11/22 08:00 04/11/22 08:00 04/11/22 08:00 04/11/22 08:00 04/11/22 08:00 Laboratory Results - last 24 hr 04/10/22 06:46: Hemoglobin A1c 7.3 H 04/10/22 11:50: POC Glucose 379 H* 04/10/22 16:50: POC Glucose 456 H* 04/10/22 20:15: POC Glucose 315 H* 04/11/22 05:35: POC Glucose 269 H 04/11/22 06:14: WBC 21.1 H*, RBC 4.76, Hgb 14.2, Hct 41.3, MCV 86.6, MCH 29.9, MCHC 34.5, RDW 14.4, Plt Count 192, MPV 8.4, Neut % (Auto) 88.5 H, Lymph % (Auto) 8.1 L, [place] % (Auto) 3.0, Eos % (Auto) 0.2, Baso % (Auto) 0.2, Neut # (Auto) 18.7 H, Lymph # (Auto) 1.7, [place] # (Auto) 0.6, Eos # (Auto) 0.0, Baso # (Auto) 0.0, Total Counted 100, Neutrophils % (Manual) 86 H, Band Neutrophils % 9.0 H, Lymphocytes % (Manual) 5 L, Platelet Estimate Normal, RBC Morphology Normal 04/11/22 06:14: Sodium 135 L, Potassium 4.0, Chloride 102, Carbon Dioxide 27, Anion Gap 10.0, BUN 23 H, Creatinine 0.60, Estimated Creat Clear 79, Estimated GFR 102, Est GFR ( Amer) 123, Glucose 251 H D, Calcium 9.3 Vital Signs - 24 hr 04/10/22 09:39 04/10/22 12:00 04/10/22 13:19 Temperature 98.0 F Pulse Rate 75 Pulse Rate [Right] 102 H 74 Respiratory Rate 18 Blood Pressure [Right Arm] 151/97 H 146/91 H 02 Sat by Pulse Oximetry 94 L 04/10/22 16:00 04/10/22 20:00 04/10/22 20:50 Temperature 97.6 F 98 F Pulse Rate 80 80 77 Pulse Rate [Right] 77 76 Respiratory Rate 18 16 Blood Pressure [Right Arm] 141/75 H 150/74 H 02 Sat by Pulse Oximetry 93 L 93 L 04/10/22 20:51 04/11/22 00:00 04/11/22 04:00 Temperature 97.9 F 98 F Pulse Rate 77 80 70 Pulse Rate [Right] 74 64 Respiratory Rate 20 20 Blood Pressure [Right Arm] 146/72 H 138/76 02 Sat by Pulse Oximetry 92 L 97 04/11/22 06:35 04/11/22 08:00 Temperature 98.2 F Pulse Rate 83 Pulse Rate [Right] 86 Respiratory Rate 16 Blood Pressure [Right Arm] 122/57 L 02 Sat by Pulse Oximetry 95 95 I & O for Last 24 hours: Intake & Output 04/08/22 04/09/22 04/10/22 04/11/22 23:59 23:59 23:59 23:59 Intake Total 1347 / 1347 614 / 614 Balance 1347 / 1347 614 / 614 Weight 275 lb 276 lb 280 lb Microbiology Reports for the Last 24 Hours: Microbiology 04/10/22 01:19 Urine,Clean Catch Urine Culture - Preliminary - Constitutional no acute distress - *Routine HEENT Exam Head: Present: normocephalic Eye: Present: EOMI, PERRL ENT: Present: mucous membranes moist - *Routine Neck Exam Present: supple. Absent: lymphadenopathy - *Routine Respiratory Exam Present: rhonchi, wheezes - *Routine Cardiovascular Exam Present: RRR - *Routine Abdominal Exam Present: soft, normoactive bowel sounds, obese. Absent: tenderness - *Routine Extremities Exam Absent: cyanosis, clubbing, edema - *Routine Skin Exam Present: warm. Absent: rash - *Routine Neurological Exam Present: alert, oriented X3 Assessment and Plan (1) Acute exacerbation of chronic obstructive airways disease Status: Acute Category: Medical Code(s): J44.1 - Chronic obstructive pulmonary disease with (acute) exacerbation (2) Severe sepsis with acute organ dysfunction Status: Acute Category: Medical Code(s): A41.9 - Sepsis, unspecified organism; R65.20 - Severe sepsis without septic shock (3) Hypothyroidism Status: Chronic Qualifiers: Hypothyroidism type: acquired Qualified Code(s): E03.9 - Hypothyroidism, unspecified Category: Medical Code(s): E03.9 - Hypothyroidism, unspecified (4) Obesity Status: Chronic Qualifiers: Obesity type: due to excess calories Obesity classification: adult class 3 (BMI >= 40) Serious obesity comorbidity presence: with serious comorbidity Body mass index: BMI 45.0-49.
[2022-04-11 11:02] LABS: POC Glucose,Bedside 334 (70-110)
--- NOTE | 2022-04-11 15:51 | PC.NURSE ---
PT IS SITTING UP IN THE CHAIR. ALERT AND ORIENTED X4. PT HAS BEEN AMBULATING TO THE BATHROOM. TOLERATED TAKING A SHOWER THIS SHIFT. EATING AND DRINKING WELL. PT HAS REQUESTED FOR APPRENTICE PAINTER HAND TO BE REMOVED(NOTIFIED OFFICE). LUNG SOUNDS HAVE SCATTERED RHONCHI/WHEEZES. ABDOMEN SOFT/NON TENDER WITH ACTIVE BOWEL SOUNDS. WILL CONTINUE TO MONITOR.
[2022-04-11 16:27] LABS: POC Glucose,Bedside 344 (70-110)
[2022-04-11 20:37] LABS: POC Glucose,Bedside 378 (70-110)
[2022-04-12] VITALS (10 sets, daily range): BP systolic 120–155; BP diastolic 61–76; PULSE 66–83; RESP 16–22; TEMP 36.5–36.8; O2SAT 92–98
--- NOTE | 2022-04-12 05:36 | PC.NURSE ---
No acute changes noted. Pt states she has rested better and is recovering faster after episodes of soa during ambulation. She is currently on 3L O2 NC. She has ambulated in the room and to . S. Medication administered per nov. Call light within reach.
[2022-04-12 06:47] LABS: POC Glucose,Bedside 267 (70-110)
--- NOTE | 2022-04-12 08:06 | HMH.ACPN2 ---
<Nunu Kay - Last Filed: 04/12/22 08:14> Internal Medicine - PN: Subj *Date: 04/12/22 *Time: 08:14 Interval history: Think she is better. She did sleep last night. She states this is the first sleep she has had in 2 nights. She is eating without problems. She has been out of bed but does get dyspneic with exertion. Chest x-ray completed 04/11/2022 FINDINGS: PA and lateral views of the chest were obtained. The cardiac and mediastinal silhouettes are within normal limits. Interstitial opacities and lower lobe airspace disease has improved There is no pleural effusion or pneumothorax. No acute osseous abnormality is identified. IMPRESSION: Improved interstitial opacities and lower lobe airspace disease. Continues on O2 at 3 L/min with O2 sats at 93%. Exam Vital signs and Labs for Last 24 Hours: Temp Pulse Resp BP Pulse Ox 98 F 74 17 146/61 H 93 L 04/12/22 04:00 04/12/22 06:10 04/12/22 04:00 04/12/22 04:00 04/12/22 06:10 Laboratory Results - last 24 hr 04/10/22 01:19: Urine Color Yellow, Urine Appearance Sl cloudy, Urine pH 6.5, Ur Specific [place] 1.025, Urine Protein Negative, Urine Glucose (UA) Negative, Urine Ketones Negative, Urine Blood Trace-i, Urine Nitrate Positive, Urine Bilirubin Negative, Urine Urobilinogen 0.2, Ur Leukocyte Esterase Negative, Urine RBC 3-5, Urine WBC 10-20, Urine Bacteria 4+ 04/11/22 10:56: POC Glucose 334 H* 04/11/22 16:11: POC Glucose 344 H* 04/11/22 20:00: POC Glucose 378 H* 04/12/22 05:31: POC Glucose 267 H I & O for Last 24 hours: Intake & Output 04/09/22 04/10/22 04/11/22 04/12/22 11:59 11:59 11:59 11:59 Intake Total 507 / 507 1694 / 1694 720 / 720 Output Total 400 / 400 300 / 300 Balance 507 / 507 1294 / 1294 420 / 420 Weight 276 lb 279 lb 15.793 oz Microbiology Reports for the Last 24 Hours: Microbiology 04/09/22 07:41 Sputum - Expectorated Sputum Gram Stain - Final 04/09/22 07:41 Sputum - Expectorated Sputum Sputum Culture - Preliminary 04/10/22 01:19 Urine,Clean Catch Urine Culture - Preliminary Gram Negative Rods Gram Negative Rods#2 04/09/22 23:23 Blood Blood Culture - Preliminary NO GROWTH AFTER 48 HOURS 04/09/22 23:23 Blood Blood Culture - Preliminary NO GROWTH AFTER 48 HOURS - Constitutional no acute distress Comments: Sitting on the bedside and appears comfortable - *Routine Respiratory Exam Present: rhonchi Comments: Coarse bilateral breath sounds with scattered wheezing. Converses without dyspnea - *Routine Cardiovascular Exam Present: RRR - *Routine Abdominal Exam Present: soft, normoactive bowel sounds, obese - *Routine Extremities Exam Absent: edema, calf tenderness - *Routine Neurological Exam Present: alert, oriented X3 Assessment and Plan (1) Acute exacerbation of chronic obstructive airways disease Status: Acute Category: Medical Code(s): J44.1 - Chronic obstructive pulmonary disease with (acute) exacerbation (2) Severe sepsis with acute organ dysfunction Status: Acute Category: Medical Code(s): A41.9 - Sepsis, unspecified organism; R65.20 - Severe sepsis without septic shock (3) Hypothyroidism Status: Chronic Qualifiers: Hypothyroidism type: acquired Qualified Code(s): E03.9 - Hypothyroidism, unspecified Category: Medical Code(s): E03.9 - Hypothyroidism, unspecified (4) Obesity Status: Chronic Qualifiers: Obesity type: due to excess calories Obesity classification: adult class 3 (BMI >= 40) Serious obesity comorbidity presence: with serious comorbidity Body mass index: BMI 45.0-49.9 Qualified Code(s): E66.01 - Morbid (severe) obesity due to excess calories; Z68.42 - Body mass index [BMI] 45.0-49.9, adult Category: Medical Code(s): E66.9 - Obesity, unspecified (5) Tobacco use disorder Status: Chronic Catego
--- NOTE | 2022-04-12 11:25 | PC.NURSE ---
Pt down for EGD at 1119.
--- NOTE | 2022-04-12 13:54 | PC.NURSE ---
rounded on patient who was laying in bed with cpap on. patient states at this time she feels comfortable with her medications, but would want a new list at discharge if any changes, educated she would get a list with all medications to take at home. no concerns or questions currently. stated she would like to take a nap right now, but after she was going to attempt to walk around room with assistance and then check her pulse ox. encouraged her to ring out when she was ready, or if any other questions or needs arise
[2022-04-12 14:19] LABS: POC Glucose,Bedside 269 (70-110)
[2022-04-12 17:11] LABS: POC Glucose,Bedside 287 (70-110)
--- NOTE | 2022-04-12 17:52 | PC.NURSE ---
Have been able to wean pt's 02 this shift to RA. VSS. Meds given per nov. Pt has been ambulating in room and to rr w/o any difficulty. No changes since prior assessment noted. Pt continues to have wheezes to bilateral lung julien noted.
[2022-04-13] VITALS: BP 148/74; PULSE 78; RESP 17; TEMP 36.8; O2SAT 96
--- NOTE | 2022-04-13 03:38 | PC.NURSE ---
Pt is A/O x4. Pt rested intermittently throughout shift. Pt has not reported feeling SOA this shift. Remains on RA while awake. Pt wore her CPAP at night. Pt has ambulated independently to bathroom. Lung sounds remain scattered wheezing throughout. Pt voiced no concerns.
[2022-04-13 04:00] VITALS: BP 135/60; PULSE 75; RESP 16; TEMP 36.8; O2SAT 98
[2022-04-13 05:00] VITALS: BMI 51.7
[2022-04-13 06:11] VITALS: PULSE 67; PULSE 70; O2SAT 92
[2022-04-13 07:01] LABS: Basophils # 0.1 K/mm3 (0-0.2); Basophils % 0.3 % (0.1-2.0); Eosinophils # 0.2 K/mm3 (0.0-0.4); Eosinophils % 0.6 % (0.1-12.0); Hematocrit 41.3 % (37.0-47.0); Hemoglobin 14.1 g/dL (12.2-16.2); Lymphocytes # 2.3 K/mm3 (0.7-4.5); Lymphocytes % 9.4 % (10-50); Mean Corpuscular HGB Conc 34.1 g/dL (31.8-35.4); Mean Corpuscular Hemoglobin 29.7 pg (27.0-31.2); Mean Corpuscular Volume 87.1 fl (81-99); Mean Platelet Volume 8.3 fl (7.4-10.4); Monocytes # 0.9 K/mm3 (0.1-1.0); Monocytes % 3.6 % (1.7-9.3); Neutrophils % 85.9 % (37.0-80.0); Platelet Count 223 K/mm3 (142-424); Red Blood Count 4.74 M/mm3 (4.20-5.40); Red Cell Distribution Width 14.4 % (11.5-17.5); White Blood Count 24.4 K/mm3 (4.8-10.8)
[2022-04-13 07:15] LABS: MANUAL DIFFERENTIAL MANUAL DIFFERENTIAL (MANUAL DIFF)
[2022-04-13 07:28] LABS: Blood Urea Nitrogen 23 mg/dl (7-17); Calcium 9.2 mg/dl (8.4-10.2); Carbon Dioxide 25 mmol/L (22.0-30.0); Chloride 103 mmol/L (98-107); Creatinine Clearance Estimated 79 mL/min (50-200); Estimated Glomerular Filt Rate 102 ml/min (>60); GFR (African American) 123 ML/MIN (>60); Glucose 248 mg/dl (74-100); Sodium 132 mmol/L (136-145)
--- NOTE | 2022-04-13 07:44 | HMH.ACPN2 ---
<Nunu Kay - Last Filed: 04/13/22 07:44> Internal Medicine - PN: Subj *Date: 04/13/22 *Time: 07:44 Interval history: She states she is better and ready to go home. She has been off oxygen since yesterday With satisfactory O2 sats. Productive cough has decreased. She has been out of bed without problems. She is eating without problems. She is voiding QS. White blood cell count today is 24,400 with a hemoglobin of 14.1 hematocrit of 41.3. Urine culture reveals E. coli sensitive to Rocephin which she is on. Exam Vital signs and Labs for Last 24 Hours: Temp Pulse Resp BP Pulse Ox 98.2 F 67 16 135/60 92 L 04/13/22 04:00 04/13/22 06:11 04/13/22 04:00 04/13/22 04:00 04/13/22 06:11 Laboratory Results - last 24 hr 04/12/22 11:53: POC Glucose 269 H 04/12/22 17:00: POC Glucose 287 H 04/13/22 06:24: WBC 24.4 H*, RBC 4.74, Hgb 14.1, Hct 41.3, MCV 87.1, MCH 29.7, MCHC 34.1, RDW 14.4, Plt Count 223, MPV 8.3, Neut % (Auto) 85.9 H, Lymph % (Auto) 9.4 L, [place] % (Auto) 3.6, Eos % (Auto) 0.6, Baso % (Auto) 0.3, Neut # (Auto) 21.0 H, Lymph # (Auto) 2.3, [place] # (Auto) 0.9, Eos # (Auto) 0.2, Baso # (Auto) 0.1 04/13/22 06:24: Sodium 132 L, Potassium 4.0, Chloride 103, Carbon Dioxide 25, Anion Gap 8.0, BUN 23 H, Creatinine 0.60, Estimated Creat Clear 79, Estimated GFR 102, Est GFR ( Amer) 123, Glucose 248 H, Calcium 9.2 I & O for Last 24 hours: Intake & Output 04/10/22 04/11/22 04/12/22 04/13/22 11:59 11:59 11:59 11:59 Intake Total 507 / 507 1694 / 1694 1080 / 1080 2118 Output Total 400 / 400 300 / 300 Balance 507 / 507 1294 / 1294 780 / 780 2118 Weight 276 lb 279 lb 15.793 oz 292 lb 3.2 oz Microbiology Reports for the Last 24 Hours: Microbiology 04/10/22 01:19 Urine,Clean Catch Urine Culture - Final Escherichia coli 04/09/22 07:41 Sputum - Expectorated Sputum Gram Stain - Final 04/09/22 07:41 Sputum - Expectorated Sputum Sputum Culture - Preliminary - Constitutional no acute distress Comments: Sitting on bedside talking with her daughter. No dyspnea noted. She appears comfortable. - *Routine Respiratory Exam Present: wheezes (Scattered), crackles (Bilateral crackles throughout) - *Routine Cardiovascular Exam Present: RRR - *Routine Abdominal Exam Present: soft, normoactive bowel sounds, obese. Absent: tenderness - *Routine Extremities Exam Absent: edema - *Routine Neurological Exam Present: alert, oriented X3 Assessment and Plan (1) Acute exacerbation of chronic obstructive airways disease Status: Acute Category: Medical Code(s): J44.1 - Chronic obstructive pulmonary disease with (acute) exacerbation (2) Severe sepsis with acute organ dysfunction Status: Acute Category: Medical Code(s): A41.9 - Sepsis, unspecified organism; R65.20 - Severe sepsis without septic shock (3) Hypothyroidism Status: Chronic Qualifiers: Hypothyroidism type: acquired Qualified Code(s): E03.9 - Hypothyroidism, unspecified Category: Medical Code(s): E03.9 - Hypothyroidism, unspecified (4) Obesity Status: Chronic Qualifiers: Obesity type: due to excess calories Obesity classification: adult class 3 (BMI >= 40) Serious obesity comorbidity presence: with serious comorbidity Body mass index: BMI 45.0-49.9 Qualified Code(s): E66.01 - Morbid (severe) obesity due to excess calories; Z68.42 - Body mass index [BMI] 45.0-49.9, adult Category: Medical Code(s): E66.9 - Obesity, unspecified (5) Tobacco use disorder Status: Chronic Category: Medical Code(s): F17.200 - Nicotine dependence, unspecified, uncomplicated (6) COPD (chronic obstructive pulmonary disease) Status: Chronic Qualifiers: COPD type: COPD with acute exacerbation Qualified Code(s): J44.1 - Chronic obstructive pulmonary disease with (acute) exacerbation Category: Medical Code(s): J44.9 - Chronic obstructive pulmonary di
[2022-04-13 07:56] LABS: Lymphocytes % 30 % (10-50); Monocytes % 3 % (2-9); Neutrophils % 67 % (42-76); Platelet Estimate Normal; RBC Morphology Normal; Total Cells Counted 100
[2022-04-13 08:00] VITALS: BP 138/65; PULSE 71; RESP 20; TEMP 36.8; O2SAT 91
--- NOTE | 2022-04-13 08:06 | HMH.ACPN ---
Internal Medicine - PN: Subj *Date: 04/13/22 *Time: 08:06 Exam Vital signs and Labs for Last 24 Hours: Temp Pulse Resp BP Pulse Ox 98.2 F 67 16 135/60 92 L 04/13/22 04:00 04/13/22 06:11 04/13/22 04:00 04/13/22 04:00 04/13/22 06:11 Laboratory Results - last 24 hr 04/12/22 11:53: POC Glucose 269 H 04/12/22 17:00: POC Glucose 287 H 04/13/22 06:24: WBC 24.4 H*, RBC 4.74, Hgb 14.1, Hct 41.3, MCV 87.1, MCH 29.7, MCHC 34.1, RDW 14.4, Plt Count 223, MPV 8.3, Neut % (Auto) 85.9 H, Lymph % (Auto) 9.4 L, [place] % (Auto) 3.6, Eos % (Auto) 0.6, Baso % (Auto) 0.3, Neut # (Auto) 21.0 H, Lymph # (Auto) 2.3, [place] # (Auto) 0.9, Eos # (Auto) 0.2, Baso # (Auto) 0.1, Total Counted 100, Neutrophils % (Manual) 67, Lymphocytes % (Manual) 30, Monocytes % (Manual) 3, Platelet Estimate Normal, RBC Morphology Normal 04/13/22 06:24: Sodium 132 L, Potassium 4.0, Chloride 103, Carbon Dioxide 25, Anion Gap 8.0, BUN 23 H, Creatinine 0.60, Estimated Creat Clear 79, Estimated GFR 102, Est GFR ( Amer) 123, Glucose 248 H, Calcium 9.2 I & O for Last 24 hours: Intake & Output 04/10/22 04/11/22 04/12/22 04/13/22 23:59 23:59 23:59 23:59 Intake Total 1347 / 1347 1574 / 1574 1524 / 1524 955 / 955 Output Total 700 / 700 0 / 0 Balance 1347 / 1347 874 / 874 1524 / 1524 955 / 955 Weight 125.191 kg 127 kg 132.54 kg Microbiology Reports for the Last 24 Hours: Microbiology 04/09/22 07:41 Sputum - Expectorated Sputum Gram Stain - Final 04/09/22 07:41 Sputum - Expectorated Sputum Sputum Culture - Preliminary 04/10/22 01:19 Urine,Clean Catch Urine Culture - Final Escherichia coli Assessment and Plan (1) Acute exacerbation of chronic obstructive airways disease Status: Acute Category: Medical Code(s): J44.1 - Chronic obstructive pulmonary disease with (acute) exacerbation (2) Severe sepsis with acute organ dysfunction Status: Acute Category: Medical Code(s): A41.9 - Sepsis, unspecified organism; R65.20 - Severe sepsis without septic shock (3) Hypothyroidism Status: Chronic Qualifiers: Hypothyroidism type: acquired Qualified Code(s): E03.9 - Hypothyroidism, unspecified Category: Medical Code(s): E03.9 - Hypothyroidism, unspecified (4) Obesity Status: Chronic Qualifiers: Obesity type: due to excess calories Obesity classification: adult class 3 (BMI >= 40) Serious obesity comorbidity presence: with serious comorbidity Body mass index: BMI 45.0-49.9 Qualified Code(s): E66.01 - Morbid (severe) obesity due to excess calories; Z68.42 - Body mass index [BMI] 45.0-49.9, adult Category: Medical Code(s): E66.9 - Obesity, unspecified (5) Tobacco use disorder Status: Chronic Category: Medical Code(s): F17.200 - Nicotine dependence, unspecified, uncomplicated (6) COPD (chronic obstructive pulmonary disease) Status: Chronic Qualifiers: COPD type: COPD with acute exacerbation Qualified Code(s): J44.1 - Chronic obstructive pulmonary disease with (acute) exacerbation Category: Medical Code(s): J44.9 - Chronic obstructive pulmonary disease, unspecified (7) Hypertension Status: Chronic Category: Medical Code(s): I10 - Essential (primary) hypertension (8) Hyperglycemia Status: Acute Category: Medical Code(s): R73.9 - Hyperglycemia, unspecified (9) DM2 (diabetes mellitus, type 2) Status: Acute Category: Medical Code(s): E11.9 - Type 2 diabetes mellitus without complications (10) E. coli UTI (urinary tract infection) Status: Acute Category: Medical Code(s): N39.0 - Urinary tract infection, site not specified; B96.20 - Unspecified Escherichia coli [E. coli] as the cause of diseases classified elsewhere The patient's infection will respond to the chosen ABx?: Yes Is the patient receiving the right drug, dose, and route?: Yes Could a more targeted ABx be ordered?: No (URINE CX + E COLI, SENSITIVE TO ROCEPHIN.)
--- NOTE | 2022-04-14 11:12 | CARE MANAGER ---
Spoke with patient following up from hospital discharge. Patient is doing well. She denies any questions or concerns. She picked up her medication and is aware of her follow up appointments. WALTER Leyva
--- NOTE | 2022-04-14 22:44 | HMH.DCSUM ---
General - General Admission date:: 04/10/22 Discharge date: 04/13/22 HPI HPI: 61 year old female with a history of COPD, presented to [facility] ER last night with a 3 or 4 day history of shortness of breath, cough and fatigue. Last week patient spent several hours cleaning of a garage of an abandoned house, on a very hot day. She states she had some difficulty breathing the next day and it has gotten progressively worse all week. She has had some low grade fever and nausea but no vomiting. She was able to get some relief of symptoms after using her albuterol inhaler. She states her cough was non productive. Hospital Course Hospital Course: The patient's lactate normalized. Her TSH was slightly elevated. Smoking cessation was discussed with her. Her breathing did improve but she continued with a cough. Repeat chest x-ray showed improved interstitial opacities in lower lobe airspace disease. Her glucose was elevated and her sliding scale insulin was increased. Nutrition was consulted due to a new diagnosis of diabetes and she was started on metformin. She finally was able to sleep. She was able to get up and out of bed but got dyspneic with any exertion. By 04/13/2022, she felt better and was ready to go home. She was off oxygen with satisfactory oxygen saturations. Her urine culture came back positive for E. coli sensitive to Rocephin, which she was on. She was stable to be discharged home with close outpatient follow-up. Objective Vital signs: Temp Pulse Resp BP Pulse Ox 98.3 F 71 20 138/65 91 L 04/13/22 08:00 04/13/22 08:00 04/13/22 08:00 04/13/22 08:00 04/13/22 08:00 Narrative: - Constitutional no acute distress Comments: BMI 48.9 - *Routine HEENT Exam Head: Present: normocephalic Eye: Present: EOMI, PERRL ENT: Present: mucous membranes moist - *Routine Neck Exam Present: supple. Absent: lymphadenopathy - *Routine Respiratory Exam Present: decreased breath sounds (in the bases), rhonchi, wheezes (occasional, expiratory) - *Routine Cardiovascular Exam Present: RRR - *Routine Abdominal Exam Present: soft, normoactive bowel sounds, obese. Absent: tenderness - *Routine Rectal Exam Rectal:: deferred - *Routine Genitalia Exam Genitalia:: deferred - *Routine Extremities Exam Absent: cyanosis, clubbing, edema - *Routine Skin Exam Present: warm. Absent: rash - *Routine Neurological Exam Present: alert, oriented X3 Results Labs on day of discharge: Preliminary micro results at discharge 04/09/22 23:23 Blood Culture - Preliminary Blood NO GROWTH AFTER 48 HOURS 04/09/22 23:23 Blood Culture - Preliminary Blood NO GROWTH AFTER 48 HOURS DS: Diagnosis - Discharge Diagnosis (1) Acute exacerbation of chronic obstructive airways disease Status: Acute (2) Severe sepsis with acute organ dysfunction Status: Acute (3) Hypothyroidism Status: Chronic (4) Obesity Status: Chronic (5) Tobacco use disorder Status: Chronic (6) COPD (chronic obstructive pulmonary disease) Status: Chronic (7) Hypertension Status: Chronic (8) Hyperglycemia Status: Acute (9) DM2 (diabetes mellitus, type 2) Status: Acute (10) E. coli UTI (urinary tract infection) Status: Acute Discharge Plan - Patient Discharge Instructions ACTIVITY: Continue current activity DIET: continue same diet Additional Instructions: Patient needs a nebulizer for home use Smoking cessation. Patient Instructions: Chronic Obstructive Pulmonary Disease, DI for Urinary Tract Infection (UTI), DI for Diabetes Type 2, DI for Hyperglycemia -- Adult - Follow up Plan Follow up with: Trent Avery MD [Primary Care Provider] - 04/16/22 10:00 am Disposition: Home, Self-Care Condition at discharge:: Improved Home Medications: Home Medications Medication Instructions Recorded Confirmed Type amlodipine 10 mg tablet 10 mg PO DAILY 11/28/17 04/10/22
== END 2022-04-13 09:43 | disposition home or self-care (01) | DRG 191 ==
LOC: ER 04-10 02:39 → 2ND 04-10 02:46
PROVIDERS: Admitting Provider Family Medicine; Emergency Provider Emergency Medicine; PCP Family Medicine; Visit Provider Family Medicine
DX: J44.1 Chronic obstructive pulmonary disease with (acute) exacerbation (principal); Z68.43 Body mass index [BMI] 50.0-59.9, adult; F32.A Depression, unspecified; E78.5 Hyperlipidemia, unspecified; I10 Essential (primary) hypertension; F17.210 Nicotine dependence, cigarettes, uncomplicated; E03.9 Hypothyroidism, unspecified; E66.01 Morbid (severe) obesity due to excess calories
CPT/HCPCS: 36415; 71046; 80048; 80053; 81001; 82803; 82962; 83036; 83605; 83735; 83880; 84145; 84436; 84443; 84484; 85007; 85025; 85651; 86140; 87040; 87070; 87086; 87088; 87186; 87205; 93005; 94640; 94760; 94761; 99285; C9803; J0456; J0696; U0003; U0005

== ENCOUNTER → 2022-06-08 11:02 | Outpatient (CLI) | payer BC, SELFPAY ==
--- NOTE | 2022-06-08 11:06 | CA_ITS ---
FINAL REPORT TECHNIQUE: Ultrasound images of the deep venous system were obtained from the left groin to the calf veins. CLINICAL HISTORY: .Left lateral thigh and knee pain with outpouching superior to the left knee FINDINGS: The deep venous system is normally compressible. Normal flow is identified. Fluid is seen in the area of interest, at the proximal lateral aspect of the patella, which may be related to seroma. IMPRESSION: No evidence of left lower extremity DVT. Fluid at the area of interest which may be related to seroma. Reviewed, Interpreted and Dictated by Nikhil Cali MD Transcribed by Catherine Recinos Authenticated and [facility]
--- NOTE | 2022-06-08 11:28 | XR_ITS ---
FINAL REPORT CLINICAL HISTORY: LT LEG PAIN; no known injury; obesity COMPARISON: 10/05/2018 FINDINGS: LEFT KNEE 3 views of the left knee were obtained. There is no acute fracture or dislocation. There is moderate medial compartment joint space narrowing with osteophytes. Osteophytes are also seen at the undersurface of the patella. Soft tissues are unremarkable. IMPRESSION: Degenerative change without acute bony abnormality. Reviewed, Interpreted and Dictated by Nikhil Cali MD Transcribed by Catherine Recinos Authenticated and [facility]
== END ==
PROVIDERS: PCP Family Medicine; Visit Provider Nurse Practitioner Family
DX: M79.605 Pain in left leg (principal)
CPT/HCPCS: 73562; 93971

== ENCOUNTER 2022-09-11 14:54 | Inpatient (IN) | payer BC, OTHER, SELFPAY ==
[2022-09-11] VITALS (12 sets, daily range): BP systolic 94–147; BP diastolic 48–71; PULSE 74–100; RESP 17–20; TEMP 36.6–37.1; O2SAT 91–96; BMI 52.0; BMI 44.6
[2022-09-11 15:08] LABS: Coronavirus 19, PCR Not Detected (NotDetected); Influenza A, PCR Not Detected (NotDetected); Influenza B, PCR Not Detected (NotDetected)
--- NOTE | 2022-09-11 15:10 | XR_ITS ---
PROCEDURE INFORMATION: Exam: XR Chest Exam date and time: 09/11/2022 3:09 PM Age: 62 years old Clinical indication: Cough and shortness of breath; Additional info: Cough, shortness of air TECHNIQUE: Imaging protocol: Radiologic exam of the chest. Views: 2 views. COMPARISON: CR XR CHEST 2V 04/11/2022 8:08 AM FINDINGS: Lungs: Patchy airspace opacification of left lower lung zone. Clear right lung Pleural spaces: Unremarkable. No pleural effusion. No pneumothorax. Heart/Mediastinum: Unremarkable. No cardiomegaly. Bones/joints: Unremarkable. IMPRESSION: Left lower lung zone infiltration.
--- NOTE | 2022-09-11 15:40 | HMH.EDGENADL ---
Discharge Plan Disposition Patient Disposition: Admitted As Inpatient Condition: Fair Prescriptions Prescriptions: No Action allopurinol 100 mg tablet 100 mg PO DAILY Label Comments: TAKE 1 TABLET BY MOUTH ONCE DAILY aspirin 81 mg tablet,delayed release (DR/EC) 81 mg PO DAILY Ozempic 0.25 mg or 0.5 mg(2 mg/1.5 mL) pen injector 0.5 mg SQ WEEKLY amlodipine 10 mg tablet 10 mg PO DAILY celecoxib [Celebrex] 200 mg capsule 200 mg PO DAILY budesonide-formoterol 10.2 GM HFA aerosol inhaler 2 puffs IH BID levothyroxine 125 MCG tablet 125 mcg PO DAILY albuterol sulfate 18 GM HFA aerosol inhaler 1 - 2 puffs IH Q6HP PRN (Reason: Shortness Of Breath Or Wheezing) montelukast 10 MG tablet 10 mg PO PM triamterene-hydrochlorothiazid 1 EACH tablet 1 each PO DAILY ipratropium-albuterol 3 ML solution for nebulization 3 ml IH Q6HP PRN (Reason: Wheezing) Qty: 50 0RF Referrals Follow up/Referrals: Trent Avery MD [Primary Care Provider] - See instructions Clinical Impressions Clinical Impression: Community acquired pneumonia Discharge ED Provider: Jameel Matthews General Adult HPI General Chief complaint: Headache Stated complaint: soa, congestion Time Seen by Provider: 09/11/22 15:33 History of Present Illness HPI narrative: 3-day history of symptoms of a respiratory infection. Primary complaint is productive of green sputum cough, fever of about 100 degrees, shortness of breath, headache. She thought she had the flu but now she thinks she is going into pneumonia. She is a smoker and has COPD. She has a nebulizer at home. She wears CPAP at night. She is not on oxygen. Related Data Home Medications Medication Instructions Recorded Confirmed amlodipine 10 mg tablet 10 mg PO DAILY Hypertension 11/28/17 07/28/22 celecoxib 200 mg capsule (Celebrex) 200 mg PO DAILY Arthritis 11/28/17 07/28/22 budesonide-formoterol HFA 80 2 puffs inhalation BID Breathing 06/30/19 07/28/22 mcg-4.5 mcg/actuation aerosol problems inhaler albuterol sulfate 90 mcg/actuation 1 - 2 puffs inhalation Q6HP PRN 07/01/19 07/28/22 aerosol inhaler Shortness Of Breath Or Wheezing levothyroxine 125 mcg tablet 125 mcg PO DAILY THYROID 07/01/19 07/28/22 allopurinol 100 mg tablet 100 mg PO DAILY gout 10/28/19 07/28/22 aspirin 81 mg tablet,delayed 81 mg PO DAILY heart health 09/29/20 07/28/22 release montelukast 10 mg tablet 10 mg PO PM Allergy symptoms 04/10/22 07/28/22 triamterene 37.5 1 each PO DAILY Hypertension 04/10/22 07/28/22 mg-hydrochlorothiazide 25 mg tablet semaglutide 0.25 mg or 0.5 mg (2 0.5 mg SQ WEEKLY 06/22/22 07/28/22 mg/1.5 mL) subcutaneous pen injector ([employer]) Previous Rx's Medication Instructions Recorded ipratropium 0.5 mg-albuterol 3 mg 3 ml inhalation Q6HP PRN Wheezing 04/13/22 (2.5 mg base)/3 mL nebulization #50 mL soln Allergies Allergy/AdvReac Type Severity Reaction Status Date / Time ramipril Allergy Severe S-SWELLS-OR Verified 07/28/22 08:13 AL/THROAT adhesive tape Allergy Intermediate Blisters Verified 07/28/22 08:13 Latex, Natural Rubber Allergy Unknown Verified 07/28/22 08:13 lisinopril Allergy Unknown Verified 07/28/22 08:13 [facility] Disclaimer: The information contained in this section may have been updated after the patient was seen, as this information can be updated by other users. Medical History Ventral hernia Surgical History H/O foot surgery Social History Smoking Status: Current every day smoker tobacco type: cigarettes packs per day: 1 alcohol intake: never substance use type: denies use current occupational status: employed Travel in the last 8 weeks: None household members: none housing: apartment current occupation: [employer]
[2022-09-11 16:21] LABS: Basophils # 0.1 K/mm3 (0-0.2); Basophils % 0.4 % (0.1-2.0); Eosinophils # 0.3 K/mm3 (0.0-0.4); Eosinophils % 0.9 % (0.1-12.0); Hematocrit 45.9 % (37.0-47.0); Hemoglobin 15.3 g/dL (12.2-16.2); Lymphocytes # 1.9 K/mm3 (0.7-4.5); Mean Corpuscular HGB Conc 33.4 g/dL (31.8-35.4); Mean Corpuscular Hemoglobin 29.7 pg (27.0-31.2); Mean Corpuscular Volume 88.7 fl (81-99); Mean Platelet Volume 8.7 fl (7.4-10.4); Monocytes % 2.6 % (1.7-9.3); Neutrophils # 34.9 K/mm3 (1.8-7.8); Neutrophils % 91.2 % (37.0-80.0); Platelet Count 268 K/mm3 (142-424); Red Blood Count 5.17 M/mm3 (4.20-5.40); Red Cell Distribution Width 14.5 % (11.5-17.5); White Blood Count 38.3 K/mm3 (4.8-10.8)
[2022-09-11 16:27] LABS: MANUAL DIFFERENTIAL MANUAL DIFFERENTIAL (MANUAL DIFF)
[2022-09-11 16:30] LABS: Chloride 94 mmol/L (98-107); Sodium 131 mmol/L (136-145)
[2022-09-11 16:31] LABS: Potassium 3.3 mmoL/L (3.5-5.1)
[2022-09-11 16:33] LABS: Alanine Aminotransferase 26 U/L (12-78); Albumin Level 3.9 g/dl (3.5-5.0); Albumin/Globulin Ratio 1.3 (1.1-1.8); Alkaline Phosphatase 141 U/L (38-126); Anion Gap 11.3 mEq/L (5-15); Aspartate Amino Transferase 25 U/L (14-36); Bilirubin,Total 0.9 mg/dl (0.2-1.3); Blood Urea Nitrogen 13 mg/dl (7-17); Carbon Dioxide 29 mmol/L (22.0-30.0); Creatinine Clearance Estimated 55 mL/min (50-200); Estimated Glomerular Filt Rate 73 ml/min (>60); GFR (African American) 88 ML/MIN (>60); Total Protein,Serum 6.9 g/dl (6.3-8.2)
[2022-09-11 16:34] LABS: Calcium 10.4 mg/dl (8.4-10.2); Glucose 162 mg/dl (74-100)
--- NOTE | 2022-09-11 16:43 | PC.NURSE ---
Dr. Matthews speaking with DR. Avery at this time
--- NOTE | 2022-09-11 16:47 | PC.NURSE ---
spoke with HOUSE regarding patient admission
[2022-09-11 17:09] LABS: Lymphocytes % 4 % (10-50); Neutrophils % 80 % (42-76); Platelet Estimate Normal; RBC Morphology Normal; Total Cells Counted 100
--- NOTE | 2022-09-11 17:50 | PC.NURSE ---
pt reports she is nauseated, December, RN aware is going to give zofran
--- NOTE | 2022-09-11 18:11 | PC.NURSE ---
called report to patrick vu
[2022-09-12] VITALS (9 sets, daily range): BP systolic 101–148; BP diastolic 48–89; PULSE 65–101; RESP 16–20; TEMP 36.3–36.7; O2SAT 88–98; BMI 44.7
[2022-09-12 05:45] LABS: POC Glucose,Bedside 255 (70-110)
[2022-09-12 05:45] LABS: POC Glucose,Bedside 244 (70-110)
[2022-09-12 06:55] LABS: Basophils # 0.1 K/mm3 (0-0.2); Basophils % 0.2 % (0.1-2.0); Eosinophils # 0.1 K/mm3 (0.0-0.4); Eosinophils % 0.3 % (0.1-12.0); Hematocrit 41.3 % (37.0-47.0); Hemoglobin 14.1 g/dL (12.2-16.2); Lymphocytes # 1.5 K/mm3 (0.7-4.5); Lymphocytes % 3.5 % (10-50); Mean Corpuscular HGB Conc 34.1 g/dL (31.8-35.4); Mean Corpuscular Hemoglobin 29.9 pg (27.0-31.2); Mean Corpuscular Volume 87.7 fl (81-99); Mean Platelet Volume 9.2 fl (7.4-10.4); Monocytes # 0.8 K/mm3 (0.1-1.0); Monocytes % 1.8 % (1.7-9.3); Neutrophils # 39.5 K/mm3 (1.8-7.8); Neutrophils % 94.2 % (37.0-80.0); Platelet Count 260 K/mm3 (142-424); Red Blood Count 4.71 M/mm3 (4.20-5.40); Red Cell Distribution Width 14.4 % (11.5-17.5)
[2022-09-12 07:04] LABS: MANUAL DIFFERENTIAL MANUAL DIFFERENTIAL (MANUAL DIFF)
[2022-09-12 07:50] LABS: Lymphocytes % 6 % (10-50); Monocytes % 1 % (2-9); Neutrophils % 92 % (42-76); Platelet Estimate Normal; RBC Morphology Normal; Total Cells Counted 100
--- NOTE | 2022-09-12 08:35 | HMH.PHAINT1 ---
Pharmacy Intervention Comments: MEDICATION RECONCILIATION COMPLETE USING EXTERNAL PHARMACY FILL HISTORY AND MOST RECENT MD OFFICE VISIT NOTE.
--- NOTE | 2022-09-12 08:49 | EXP.HP ---
History of Present Illness *Admission Date: 09/11/22 *Reason for visit:: Cough/shortness of breath *History of present illness: Ms. Garrison is a 62 year old patient of [facility], with a history of COPD who presented to [facility] ER yesterday complaining of a 3 day history of upper respiratory symptoms. She had cough which was productive of green sputum as well as low grade fever and shortness of breath. She has a history of smoking but has been trying to quit. 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 [facility] Disclaimer: The information contained in this section may have been updated after the patient was seen, as this information can be updated by other users. Medical History (Updated 09/12/22 @ 09:00 by Trent Avery MD) Arthritis COPD (chronic obstructive pulmonary disease) Diabetes mellitus HLD (hyperlipidemia) Hypertension Hypothyroidism Obesity Tobacco use disorder Ventral hernia Surgical History H/O foot surgery Family History (Updated 09/11/22 @ 17:42 by Guillermina Marsh RN) No significant family history Social History (Updated 09/11/22 @ 17:43 by Guillermina Marsh RN) Smoking Status: Current every day smoker tobacco type: cigarettes packs per day: 1 alcohol intake: never substance use type: denies use current occupational status: employed Travel in the last 8 weeks: None household members: none housing: apartment current occupation: [employer] caffeine: Yes Review of Systems Constitutional Constitutional: Reports headache(s) and Denies weakness Eyes Eyes: Denies blurry vision ENT Ears, Nose, Mouth, and Throat: Reports headache(s) *Cardiovascular Cardiovascular: Denies chest pain *Respiratory Respiratory: Reports as per HPI *Gastrointestinal Gastrointestinal: Denies diarrhea *Genitourinary Genitourinary: Denies difficulty voiding *Musculoskeletal Musculoskeletal: Denies numbness Integumentary/Breasts Skin/Breast: Denies rash *Neurologic Neurologic: Reports headache(s), Denies numbness and Denies weakness Meds Home Medications and Allergies Home Medications Medication Instructions Recorded Confirmed Type amlodipine 10 mg tablet 10 mg PO DAILY Hypertension 11/28/17 09/11/22 History celecoxib 200 mg capsule (Celebrex) 200 mg PO DAILY Arthritis 11/28/17 09/11/22 History albuterol sulfate 90 mcg/actuation 1 - 2 puffs inhalation Q6HP PRN 07/01/19 09/11/22 History aerosol inhaler Shortness Of Breath Or Wheezing levothyroxine 125 mcg tablet 125 mcg PO DAILYDM THYROID 07/01/19 09/12/22 History allopurinol 100 mg tablet 100 mg PO DAILY gout 10/28/19 09/11/22 History aspirin 81 mg tablet,delayed 81 mg PO DAILY heart health 09/29/20 09/11/22 History release montelukast 10 mg tablet 10 mg PO PM Allergy symptoms 04/10/22 09/11/22 History triamterene 37.5 1 each PO DAILY Hypertension 04/10/22 09/11/22 History mg-hydrochlorothiazide 25 mg tablet ipratropium 0.5 mg-albuterol 3 mg 3 ml inhalation Q6HP PRN Wheezing 04/13/22 09/11/22 Rx (2.5 mg base)/3 mL nebulization #50 mL soln budesonide-formoterol HFA 80 2 puff inhalation BID COPD 09/12/22 09/12/22 History mcg-4.5 mcg/actuation aerosol inhaler duloxetine 60 mg capsule,delayed 120 mg PO DAILY Anxiety 09/12/22 09/12/22 History release metformin 500 mg tablet,extended 1,000 mg PO DAILYDM Diabetes 09/12/22 09/12/22 History release 24 hr semaglutide 1 mg/dose (4 mg/3 mL) 1 mg SQ WEEKLY Diabetes 09/12/22 09/12/22 History subcutaneous pen injector (Ozempic) New Prescriptions to Start Prescriptions: Allergies Allergy/AdvReac Type Severity Reaction Status Date / Time ramipril Allergy Severe S-SWELLS-OR Verified 07/28/22 08:13 AL/THROAT adhesive tape Allergy Intermediate Blisters Verified 07/28/22 08:13 Latex, Natural Rubber Allergy Unknown Verified 07/28/22 08:
[2022-09-12 12:01] LABS: POC Glucose,Bedside 217 (70-110)
[2022-09-12 17:48] LABS: POC Glucose,Bedside 298 (70-110)
[2022-09-12 21:53] LABS: POC Glucose,Bedside 302 (70-110)
[2022-09-13] VITALS (11 sets, daily range): BP systolic 102–174; BP diastolic 44–82; PULSE 78–99; RESP 16–22; TEMP 36.5–37.1; O2SAT 91–98; BMI 44.8; BMI 44.5
--- NOTE | 2022-09-13 04:07 | PC.NURSE ---
Pt has had no issues throughout the night and is sleeping with her CPAP on. She is aox 4 and 98% on RA. She does have 02 2l PRN if needed.
[2022-09-13 06:01] LABS: POC Glucose,Bedside 215 (70-110)
[2022-09-13 07:29] LABS: Basophils # 0.1 K/mm3 (0-0.2); Basophils % 0.3 % (0.1-2.0); Eosinophils # 0.1 K/mm3 (0.0-0.4); Eosinophils % 0.2 % (0.1-12.0); Hematocrit 39.1 % (37.0-47.0); Lymphocytes # 1.6 K/mm3 (0.7-4.5); Lymphocytes % 4.3 % (10-50); Mean Corpuscular HGB Conc 33.3 g/dL (31.8-35.4); Mean Corpuscular Hemoglobin 29.1 pg (27.0-31.2); Mean Corpuscular Volume 87.4 fl (81-99); Monocytes # 0.7 K/mm3 (0.1-1.0); Neutrophils # 34.8 K/mm3 (1.8-7.8); Neutrophils % 93.2 % (37.0-80.0); Platelet Count 311 K/mm3 (142-424); Red Blood Count 4.47 M/mm3 (4.20-5.40); Red Cell Distribution Width 14.5 % (11.5-17.5); White Blood Count 37.4 K/mm3 (4.8-10.8)
[2022-09-13 07:32] LABS: Chloride 97 mmol/L (98-107); Sodium 134 mmol/L (136-145)
[2022-09-13 07:33] LABS: Potassium 4.2 mmoL/L (3.5-5.1)
[2022-09-13 07:35] LABS: Blood Urea Nitrogen 34 mg/dl (7-17); Creatinine Clearance Estimated 47 mL/min (50-200); Estimated Glomerular Filt Rate 73 ml/min (>60); GFR (African American) 88 ML/MIN (>60)
[2022-09-13 07:36] LABS: Anion Gap 12.2 mEq/L (5-15); Calcium 10.3 mg/dl (8.4-10.2); Carbon Dioxide 29 mmol/L (22.0-30.0); Glucose 226 mg/dl (74-100)
[2022-09-13 07:41] LABS: MANUAL DIFFERENTIAL MANUAL DIFFERENTIAL (MANUAL DIFF)
[2022-09-13 08:14] LABS: Lymphocytes % 4 % (10-50); Monocytes % 3 % (2-9); Neutrophils % 93 % (42-76); Total Cells Counted 100
[2022-09-13 08:15] LABS: Platelet Estimate Normal; RBC Morphology Normal
--- NOTE | 2022-09-13 08:40 | EXP.ACUTE.PN ---
Subjective *Date: 09/13/22 *Time: 08:40 Interval history: Patient feels a little better today, no new complaints. Medical Exam Vital signs and Labs for Last 24 Hours: Vital Signs Temp Pulse Pulse Resp BP Pulse Ox 09/13/22 07:35 92 L 09/13/22 06:12 81 09/13/22 06:12 79 09/13/22 06:12 93 L 09/13/22 04:00 98.1 F 84 20 114/44 L 94 L 09/12/22 20:00 94 L 09/13/22 00:00 98.1 F 90 22 102/47 L 91 L 09/12/22 20:00 97.8 F 94 H 20 148/78 H 98 09/12/22 20:13 89 09/12/22 20:13 89 09/12/22 20:13 91 L 09/12/22 15:52 97.4 F L 95 H 16 101/48 L 93 L 09/12/22 14:10 96 H 09/12/22 14:10 98 H 09/12/22 11:54 98.0 F 101 H 20 123/89 96 09/12/22 10:57 66 09/12/22 10:57 71 09/12/22 10:57 93 L Intake and Output 09/12/22 09/13/22 09/13/22 23:59 07:59 15:59 Intake Total 480 / 1680 240 / 480 240 / 480 Output Total 300 / 700 0 / 0 Balance 180 / 980 240 / 480 240 / 480 Intake: Intake, Oral Amount 480 / 1680 240 / 480 240 / 480 Output: Output, Urine Amount 300 / 700 0 / 0 Other: Number of Unmeasured Voids 1 1 Weight 253 lb 1 oz Patient Weight 09/13/22 23:59 Weight 253 lb 1 oz Laboratory Results - last 24 hr 09/12/22 11:48: POC Glucose 217 H 09/12/22 17:13: POC Glucose 298 H 09/12/22 21:15: POC Glucose 302 H* 09/13/22 05:51: POC Glucose 215 H 09/13/22 06:24: WBC 37.4 H*, RBC 4.47, Hgb 13.0, Hct 39.1, MCV 87.4, MCH 29.1, MCHC 33.3, RDW 14.5, Plt Count 311, MPV 9.0, Neut % (Auto) 93.2 H, Lymph % (Auto) 4.3 L, [place] % (Auto) 2.0, Eos % (Auto) 0.2, Baso % (Auto) 0.3, Neut # (Auto) 34.8 H, Lymph # (Auto) 1.6, [place] # (Auto) 0.7, Eos # (Auto) 0.1, Baso # (Auto) 0.1, Total Counted 100, Neutrophils % (Manual) 93 H, Lymphocytes % (Manual) 4 L, Monocytes % (Manual) 3, Platelet Estimate Normal, RBC Morphology Normal 09/13/22 06:24: Sodium 134 L, Potassium 4.2 D, Chloride 97 L, Carbon Dioxide 29, Anion Gap 12.2, BUN 34 H D, Creatinine 0.80, Estimated Creat Clear 47, Estimated GFR 73, Est GFR ( Amer) 88, Glucose 226 H, Calcium 10.3 H I & O for Labs for Last 24 Hours: Intake & Output 09/10/22 09/11/22 09/12/22 09/13/22 23:59 23:59 23:59 23:59 Intake Total 1440 / 1680 480 / 480 Output Total 0 / 0 700 / 700 0 / 0 Balance 0 / 0 740 / 980 480 / 480 Weight 252 lb 6 oz 252 lb 5.951 oz 253 lb 1 oz Microbiology Reports for the Last 24 Hours: Microbiology 09/11/22 16:04 Blood Blood Culture - Preliminary Gram Positive Cocci 09/11/22 18:00 Sputum - Expectorated Sputum Gram Stain - Final 09/11/22 18:00 Sputum - Expectorated Sputum Sputum Culture - Preliminary Constitutional: Present no acute distress Respiratory: Present wheezes (few), crackles (on left) and normal respiratory effort Cardiac: Present Reg Rate and Rhythm GI: Present normal bowel sounds; Absent tenderness Extremities: Present normal inspection and full ROM Skin: Present intact; Absent erythema Neuro: Present Grossly Intact and moves all extremities Assessment and Plan *Assessment and plan (1) Pneumonia: Status: Acute Qualifiers: Laterality: bilateral Lung location: unspecified part of lung Category: Medical Code(s): J18.9 - Pneumonia, unspecified organism (2) COPD (chronic obstructive pulmonary disease): Status: Chronic Qualifiers: COPD type: COPD with acute exacerbation Qualified Code(s): J44.1 - Chronic obstructive pulmonary disease with (acute) exacerbation Category: Medical Code(s): J44.9 - Chronic obstructive pulmonary disease, unspecified (3) Leukocytosis: Status: Acute Category: Medical Code(s): D72.829 - Elevated white blood cell count, unspecified (4) Tobacco use disorder: Status: Chronic Category: Medical Code(s): F17.200 - Nicotine dependence, unspecified, uncomplicated
[2022-09-13 11:13] LABS: POC Glucose,Bedside 310 (70-110)
--- NOTE | 2022-09-13 18:25 | PC.NURSE ---
pt is aox4, is in very good spirits. has ambulated in hallway and tolerated well. she has not required o2 support this shift. fair appetite and tolerating diet
[2022-09-13 21:00] LABS: POC Glucose,Bedside 340 (70-110)
[2022-09-13 21:08] LABS: POC Glucose,Bedside 310 (70-110)
[2022-09-14 04:00] VITALS: BP 151/74; PULSE 82; RESP 20; TEMP 36.7; O2SAT 96; BMI 45.8
[2022-09-14 05:54] VITALS: PULSE 77; PULSE 81; O2SAT 90
[2022-09-14 06:16] LABS: POC Glucose,Bedside 239 (70-110)
--- NOTE | 2022-09-14 06:28 | PC.NURSE ---
NO ACUTE CHANGES SINCE PREVIOUS ASSESSMENT. PT SLEPT INTERMITTENTLY THIS SHIFT. REMAINS ON ROOM AIR, ON CPAP WHILE SLEEPING. AMBULATED IN THE HALLWAY THIS SHIFT. LUNG SOUNDS ARE DIMINISHED. PT STATES SHE FEELS BETTER THIS AM. NO C/O SOB THIS SHIFT. VSS. CALL [facility]INS WITHIN REACH.
[2022-09-14 08:00] VITALS: BP 142/65; PULSE 89; RESP 16; TEMP 36.6; O2SAT 95
--- NOTE | 2022-09-14 08:13 | XR_ITS ---
FINAL REPORT CLINICAL HISTORY: Confirm PICC line placement COMPARISON: September 11, 2022 FINDINGS: A new right-sided PICC line terminates in the upper SVC. The heart size is normal. The mediastinum is within normal limits. There are stable, mild bibasilar opacities that could represent atelectasis or pneumonia. There is no pleural effusion. There is no pneumothorax. The bony thorax is intact. IMPRESSION: Right-sided PICC line terminates in the upper SVC. Stable bibasilar opacities. Reviewed, Interpreted and Dictated by Dallas Cote III, MD Transcribed by Jesus Alfaro Authenticated and . [facility]
--- NOTE | 2022-09-14 08:28 | EXP.ACUTE.PN ---
Subjective *Date: 09/14/22 *Time: 09:41 Interval history: Patient states she is feeling better today. She was able to get up and walk yesterday. She still has some weakness at times. Slept better and was able to eat breakfast. Medical Exam Vital signs and Labs for Last 24 Hours: Vital Signs Temp Pulse Pulse Resp BP Pulse Ox 09/14/22 05:54 81 09/14/22 05:54 77 09/14/22 05:54 90 L 09/14/22 04:00 98.1 F 82 20 151/74 H 96 09/13/22 23:58 97.7 F 88 18 174/82 H 98 09/13/22 20:00 97.8 F 97 H 20 148/81 H 96 09/13/22 16:00 97.9 F 99 H 22 158/74 H 96 09/13/22 18:31 90 09/13/22 18:31 90 09/13/22 12:00 98.1 F 98 H 18 142/70 H 97 09/13/22 10:35 82 09/13/22 10:35 78 Intake and Output 09/13/22 09/14/22 09/14/22 19:59 03:59 11:59 Intake Total 780 / 780 Balance 780 / 780 Intake: Intake, Oral Amount 480 / 480 Infusion Intake 300 / 300 Azithromycin 500 mg In 0.9 % 250 / 250 Sodium Chloride 250 ml @ 250 mls/hr IV Q24H [facility] Rx#:[id number] Ceftriaxone Sodium 1 gm In 0.9 50 / 50 % Sodium Chloride 50 ml @ 100 mls/hr IV Q24H [facility] Rx#:[id number] Other: Weight 258 lb 9 oz Patient Weight 09/14/22 11:59 Weight 258 lb 9 oz Laboratory Results - last 24 hr 09/13/22 10:32: POC Glucose 310 H* 09/13/22 16:21: POC Glucose 340 H* 09/13/22 20:05: POC Glucose 310 H* 09/14/22 06:04: POC Glucose 239 H I & O for Labs for Last 24 Hours: Intake & Output 09/11/22 09/12/22 09/13/22 09/14/22 11:59 11:59 11:59 11:59 Intake Total 480 / 480 1440 / 1440 780 / 780 Output Total 0 / 0 700 / 700 Balance 480 / 480 740 / 740 780 / 780 Weight 252 lb 5.951 oz 251 lb 5.231 oz 258 lb 9 oz Microbiology Reports for the Last 24 Hours: Microbiology 09/11/22 18:00 Sputum - Expectorated Sputum Gram Stain - Final 09/11/22 18:00 Sputum - Expectorated Sputum Sputum Culture - Final Normal Respiratory Roxanne 09/11/22 16:04 Blood Blood Culture - Final Streptococcus pneumoniae 09/11/22 16:04 Blood Blood Culture - Preliminary NO GROWTH AFTER 48 HOURS Constitutional: Present no acute distress Respiratory: Present wheezes (few), crackles (on left) and normal respiratory effort Cardiac: Present Reg Rate and Rhythm GI: Present normal bowel sounds; Absent tenderness Extremities: Present normal inspection and full ROM Skin: Present intact; Absent erythema Neuro: Present Grossly Intact and moves all extremities Assessment and Plan *Assessment and plan (1) Pneumonia: Status: Acute Qualifiers: Laterality: bilateral Lung location: unspecified part of lung Category: Medical Code(s): J18.9 - Pneumonia, unspecified organism (2) COPD (chronic obstructive pulmonary disease): Status: Chronic Qualifiers: COPD type: COPD with acute exacerbation Qualified Code(s): J44.1 - Chronic obstructive pulmonary disease with (acute) exacerbation Category: Medical Code(s): J44.9 - Chronic obstructive pulmonary disease, unspecified (3) Leukocytosis: Status: Acute Category: Medical Code(s): D72.829 - Elevated white blood cell count, unspecified (4) Tobacco use disorder: Status: Chronic Category: Medical Code(s): F17.200 - Nicotine dependence, unspecified, uncomplicated (5) Obesity: Status: Chronic Qualifiers: Body mass index: BMI 45.0-49.9 Obesity classification: adult class 3 (BMI >= 40) Obesity type: due to excess calories Serious obesity comorbidity presence: with serious comorbidity Qualified Code(s): E66.01 - Morbid (severe) obesity due to excess calories; Z68.42 - Body mass index [BMI] 45.0-49.9, adult Category: Medical Code(s): E66.9 - Obesity, unspecified (6) DM2 (diabetes mellitus, type 2):
--- NOTE | 2022-09-14 08:33 | SW/DCPLANNER ---
This patient will need 10 days of IV antibiotics after today. Patient stated that she would prefer to return to [facility] daily for outpatient IV antibiotics. PICC line will be placed today and patient will discharge home.
[2022-09-14 10:00] VITALS: PULSE 87; PULSE 89; O2SAT 97
[2022-09-14 11:39] LABS: POC Glucose,Bedside 216 (70-110)
[2022-09-14 12:00] VITALS: BP 155/88; PULSE 96; RESP 16; TEMP 36.6; O2SAT 100
--- NOTE | 2022-09-14 13:28 | P.CONPHA_ITS ---
Pharmacy Intervention Comments: Patient was counseled on all discharge medications prior to discharge. Instructed to CONTINUE taking all home medications and START coming to [facility] as outpatient for daily ceftriaxone. Patient voiced agreement with plan, verbalized understanding of information provided, and had no questions.
--- NOTE | 2022-09-15 14:28 | CARE MANAGER ---
Contacted patient related to hospital discharge. She states she is doing ok and is on her way back to the hospital for her IV antibiotics. She is aware of follow up appointments and denies any questions or concerns. WALTER Leyva
--- NOTE | 2022-09-19 22:03 | EXP.DC.SUM ---
General Admission date:: 09/11/22 Discharge date: 09/14/22 HPI HPI HPI: Ms. Garrison is a 62 year old patient of [facility], with a history of COPD who presented to [facility] ER yesterday complaining of a 3 day history of upper respiratory symptoms. She had cough which was productive of green sputum as well as low grade fever and shortness of breath. She has a history of smoking but has been trying to quit. 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 Hospital Course Hospital Course Hospital Course: The patient was admitted and started on community-acquired pneumonia protocol with antibiotics, steroids, and neb treatments. She did feel progressively better throughout her stay. Her blood cultures were positive. Her white blood cell count improved on antibiotics. By 09/14/2022, she was able to get up and walk around the room. She was also eating better. Her blood cultures returned positive for Streptococcus pneumoniae. A PICC line was placed for continued antibiotics due to positive blood cultures and she was stable to be discharged home. Exam Data for Last 24 hours Vital signs and Labs for Last 24 Hours: Temp Pulse Resp BP Pulse Ox 97.8 F 96 H 16 155/88 H 100 09/14/22 12:00 09/14/22 12:00 09/14/22 12:00 09/14/22 12:00 09/14/22 12:00 Narrative: Constitutional Constitutional: no acute distress *Routine HEENT Exam Head: Present normocephalic Eye: Present EOMI and PERRL ENT: Present mucous membranes moist *Routine Neck Exam Neck: Present supple; Absent lymphadenopathy *Routine Respiratory Exam Respiratory: Present decreased breath sounds (both bases) and crackles (left lower) *Routine Cardiovascular Exam Cardiovascular: Present RRR *Routine Abdominal Exam Abdominal: Present soft and normoactive bowel sounds; Absent tenderness *Routine Rectal Exam Rectal:: deferred *Routine Genitalia Exam Genitalia:: deferred *Routine Extremities Exam Extremities: Absent cyanosis, clubbing or edema *Routine Skin Exam Skin: Present warm; Absent rash *Routine Neurological Exam Neurological: Present alert and oriented X3 DS: Diagnosis Discharge Diagnosis (1) Pneumonia: Status: Acute (2) COPD (chronic obstructive pulmonary disease): Status: Chronic (3) Leukocytosis: Status: Acute (4) Tobacco use disorder: Status: Chronic (5) Obesity: Status: Chronic (6) DM2 (diabetes mellitus, type 2): Status: Acute (7) Hypothyroidism: Status: Chronic (8) Hypertension: Status: Chronic (9) Bacteremia due to Streptococcus pneumoniae: Status: Acute Meds Home Medications and Allergies Home Medications Medication Instructions Recorded Confirmed Type amlodipine 10 mg tablet 10 mg PO DAILY Hypertension 11/28/17 09/19/22 History celecoxib 200 mg capsule (Celebrex) 200 mg PO DAILY Arthritis 11/28/17 09/19/22 History albuterol sulfate 90 mcg/actuation 1 - 2 puffs inhalation Q6HP PRN 07/01/19 09/19/22 History aerosol inhaler Shortness Of Breath Or Wheezing levothyroxine 125 mcg tablet 125 mcg PO DAILYDM THYROID 07/01/19 09/19/22 History allopurinol 100 mg tablet 100 mg PO DAILY gout 10/28/19 09/19/22 History aspirin 81 mg tablet,delayed 81 mg PO DAILY heart health 09/29/20 09/19/22 History release montelukast 10 mg tablet 10 mg PO PM Allergy symptoms 04/10/22 09/19/22 History triamterene 37.5 1 each PO DAILY Hypertension 04/10/22 09/19/22 History mg-hydrochlorothiazide 25 mg tablet ipratropium 0.5 mg-albuterol 3 mg 3 ml inhalation Q6HP PRN Wheezing 04/13/22 09/19/22 Rx (2.5 mg base)/3 mL nebulization #50 mL soln budesonide-formoterol HFA 80 2 puff inhalation BID COPD 09/12/22 09/19/22 History mcg-4.5 mcg/actuation aerosol inhaler duloxetine 60 mg capsule,delayed 120 mg PO DAILY Anxiety 09/12/22 09/19/22 History release metformin 500 mg tablet,extended 1,000 mg PO DAILYDM Diabetes 1
== END 2022-09-14 16:00 | disposition home or self-care (01) | DRG 194 ==
LOC: ER 16:49 → 2ND 09-12 00:50
PROVIDERS: Admitting Provider Family Medicine; Emergency Provider Emergency Medicine; PCP Family Medicine; Visit Provider Family Medicine
DX: J18.9 Pneumonia, unspecified organism (principal); J44.1 Chronic obstructive pulmonary disease with (acute) exacerbation; Z68.42 Body mass index [BMI] 45.0-49.9, adult; R78.81 Bacteremia; E11.65 Type 2 diabetes mellitus with hyperglycemia; F17.210 Nicotine dependence, cigarettes, uncomplicated; E03.9 Hypothyroidism, unspecified; E66.01 Morbid (severe) obesity due to excess calories; E78.5 Hyperlipidemia, unspecified; Z79.899 Other long term (current) drug therapy; Z79.84 Long term (current) use of oral hypoglycemic drugs
CPT/HCPCS: 36415; 36569; 71045; 71046; 80048; 80053; 82962; 83605; 85007; 85025; 87040; 87070; 87077; 87186; 87205; 94640; 99285; C1751; C9803; J0456; J0696; J2405; U0003; U0005

== ENCOUNTER 2022-09-15 14:45 | Outpatient (CLI) | payer BC, OTHER, SELFPAY ==
[2022-09-15 15:25] VITALS: BP 145/77; PULSE 77; RESP 16; TEMP 36.6; O2SAT 97
[2022-09-15 16:15] VITALS: BP 139/74; PULSE 78; RESP 18; TEMP 36.6; O2SAT 97
== END 2022-09-15 16:15 | disposition home or self-care (01) ==
LOC: INF 14:47
PROVIDERS: PCP Family Medicine; Visit Provider Family Medicine
DX: R78.81 Bacteremia (principal); B95.3 Streptococcus pneumoniae as the cause of diseases classified elsewhere
CPT/HCPCS: 96365; J0696

== ENCOUNTER 2022-09-16 14:12 | Outpatient (CLI) | payer BC, OTHER, SELFPAY ==
[2022-09-16 14:41] VITALS: BP 134/71; PULSE 70; RESP 18; O2SAT 99
[2022-09-16 15:24] VITALS: BP 135/70; PULSE 69; RESP 18; O2SAT 99
== END 2022-09-16 15:25 | disposition home or self-care (01) ==
LOC: INF 14:13
PROVIDERS: PCP Family Medicine; Visit Provider Family Medicine
DX: J18.9 Pneumonia, unspecified organism (principal); R78.81 Bacteremia
CPT/HCPCS: 96365; J0696

== ENCOUNTER 2022-09-17 13:51 | Outpatient (CLI) | payer BC, OTHER, SELFPAY ==
[2022-09-17 14:05] VITALS: RESP 20
== END 2022-09-17 14:55 | disposition home or self-care (01) ==
PROVIDERS: PCP Family Medicine; Visit Provider Family Medicine
DX: J18.9 Pneumonia, unspecified organism (principal); R78.81 Bacteremia
CPT/HCPCS: 96365; J0696

== ENCOUNTER 2022-09-18 13:51 | Outpatient (CLI) | payer BC, OTHER, SELFPAY ==
[2022-09-18 15:30] VITALS: BMI 47.5
== END 2022-09-18 14:30 | disposition home or self-care (01) ==
LOC: INF 13:51
PROVIDERS: PCP Family Medicine; Visit Provider Family Medicine
DX: R78.81 Bacteremia (principal); B95.62 Methicillin resistant Staphylococcus aureus infection as the cause of diseases classified elsewhere
CPT/HCPCS: 96365; J0696

== ENCOUNTER 2022-09-19 13:58 | Outpatient (CLI) | payer BC, OTHER, SELFPAY ==
[2022-09-19 14:09] VITALS: BP 116/74; PULSE 83; RESP 18; O2SAT 99
[2022-09-19 15:01] VITALS: BP 120/73; PULSE 84; RESP 18; O2SAT 99
== END 2022-09-19 15:05 | disposition home or self-care (01) ==
LOC: INF 13:59
PROVIDERS: PCP Family Medicine; Visit Provider Family Medicine
DX: J18.9 Pneumonia, unspecified organism (principal); R78.81 Bacteremia
CPT/HCPCS: 96365; J0696

== ENCOUNTER 2022-09-20 12:34 | Outpatient (CLI) | payer BC, OTHER, SELFPAY ==
[2022-09-20 12:50] VITALS: BP 116/73; PULSE 73; RESP 18; TEMP 36.4; O2SAT 96
[2022-09-20 13:40] VITALS: BP 106/72; PULSE 76; RESP 18; O2SAT 97
== END 2022-09-20 13:47 | disposition home or self-care (01) ==
LOC: INF 12:35
PROVIDERS: PCP Family Medicine; Visit Provider Family Medicine
DX: R78.81 Bacteremia (principal); J18.9 Pneumonia, unspecified organism
CPT/HCPCS: 96365; J0696

== ENCOUNTER 2022-09-21 12:59 | Outpatient (CLI) | payer BC, OTHER, SELFPAY ==
[2022-09-21 14:00] VITALS: BP 130/70; PULSE 66; RESP 18; O2SAT 98
[2022-09-21 14:40] VITALS: BP 123/68; PULSE 71; RESP 18; TEMP 36.4; O2SAT 97
== END 2022-09-21 14:00 | disposition home or self-care (01) ==
LOC: INF 12:59
PROVIDERS: PCP Family Medicine; Visit Provider Family Medicine
DX: R78.81 Bacteremia (principal); J18.9 Pneumonia, unspecified organism
CPT/HCPCS: 96365; J0696

== ENCOUNTER 2022-09-22 12:50 | Outpatient (CLI) | payer BC, OTHER, SELFPAY ==
[2022-09-22 13:22] VITALS: BP 127/78; PULSE 88; RESP 16; TEMP 36.6; O2SAT 97
[2022-09-22 14:05] VITALS: BP 142/82; PULSE 84; RESP 16; TEMP 36.6; O2SAT 97
== END 2022-09-22 14:05 | disposition home or self-care (01) ==
LOC: INF 12:50
PROVIDERS: PCP Family Medicine; Visit Provider Family Medicine
DX: R78.81 Bacteremia (principal); J18.9 Pneumonia, unspecified organism
CPT/HCPCS: 96365; J0696

== ENCOUNTER 2022-09-23 12:46 | Outpatient (CLI) | payer BC, OTHER, SELFPAY ==
[2022-09-23 13:00] VITALS: BP 127/72; PULSE 74; RESP 18; O2SAT 99
[2022-09-23 13:40] VITALS: BP 131/75; PULSE 73; RESP 18; O2SAT 99
== END 2022-09-23 13:40 | disposition home or self-care (01) ==
LOC: INF 12:46
PROVIDERS: PCP Family Medicine; Visit Provider Family Medicine
DX: R78.81 Bacteremia (principal); J18.9 Pneumonia, unspecified organism
CPT/HCPCS: 96365; J0696

== ENCOUNTER → 2022-09-24 12:55 | Outpatient (CLI) | payer BC, OTHER, SELFPAY ==
[2022-09-24 12:55] VITALS: BMI 44.6
[2022-09-24 13:33] VITALS: BP 139/74; PULSE 92; RESP 20; TEMP 36.7; O2SAT 98
[2022-09-24 14:38] LABS: Basophils # 0.1 K/mm3 (0-0.2); Basophils % 0.6 % (0.1-2.0); Chloride 102 mmol/L (98-107); Eosinophils # 0.2 K/mm3 (0.0-0.4); Eosinophils % 1.3 % (0.1-12.0); Hematocrit 42.7 % (37.0-47.0); Lymphocytes # 3.6 K/mm3 (0.7-4.5); Lymphocytes % 19.6 % (10-50); Mean Corpuscular HGB Conc 32.8 g/dL (31.8-35.4); Mean Corpuscular Hemoglobin 29.2 pg (27.0-31.2); Mean Corpuscular Volume 89.3 fl (81-99); Monocytes # 0.9 K/mm3 (0.1-1.0); Monocytes % 4.7 % (1.7-9.3); Neutrophils # 13.5 K/mm3 (1.8-7.8); Neutrophils % 73.9 % (37.0-80.0); Platelet Count 280 K/mm3 (142-424); Potassium 3.2 mmoL/L (3.5-5.1); Red Blood Count 4.78 M/mm3 (4.20-5.40); Red Cell Distribution Width 14.9 % (11.5-17.5); Sodium 136 mmol/L (136-145); White Blood Count 18.3 K/mm3 (4.8-10.8)
[2022-09-24 14:40] LABS: Blood Urea Nitrogen 14 mg/dl (7-17); Creatinine Clearance Estimated 49 mL/min (50-200); Estimated Glomerular Filt Rate 73 ml/min (>60); GFR (African American) 88 ML/MIN (>60)
[2022-09-24 14:41] LABS: Anion Gap 10.2 mEq/L (5-15); Calcium 9.4 mg/dl (8.4-10.2); Carbon Dioxide 27 mmol/L (22.0-30.0); Glucose 148 mg/dl (74-100); Magnesium 1.8 mg/dl (1.6-2.3)
[2022-09-24 14:59] LABS: Free T4 (Free Thyroxine) 1.01 ng/dl (0.78-2.19)
[2022-09-24 15:05] LABS: MANUAL DIFFERENTIAL MANUAL DIFFERENTIAL (MANUAL DIFF)
[2022-09-24 15:12] LABS: Thyroid Stimulating Hormone 3.96 uIU/mL (0.465-4.68)
[2022-09-24 16:09] LABS: 25-OH Vitamin D, Total 25.9 ng/mL (30-100)
[2022-09-24 16:13] LABS: Vitamin B12 361 pg/mL (239-931)
[2022-09-24 17:23] LABS: Lymphocytes % 14 % (10-50); Monocytes % 4 % (2-9); Neutrophils % 82 % (42-76); Platelet Estimate Normal; RBC Morphology Normal; Total Cells Counted 100
== END ==
PROVIDERS: PCP Family Medicine; Visit Provider Family Medicine
DX: R78.81 Bacteremia (principal); J18.9 Pneumonia, unspecified organism; E55.9 Vitamin D deficiency, unspecified
CPT/HCPCS: 80048; 82306; 82607; 83735; 84100; 84439; 84443; 85007; 85025; 87040; 96365; J0696

== ENCOUNTER 2022-09-28 09:38 | Outpatient (CLI) | payer BC, OTHER, SELFPAY | END 2022-09-28 09:50 | disposition home or self-care (01) | LOC: INF 09:39 | PROVIDERS: PCP Family Medicine; Visit Provider Family Medicine | DX: R78.81 Bacteremia (principal); J18.9 Pneumonia, unspecified organism; Z45.2 Encounter for adjustment and management of vascular access device | CPT/HCPCS: G0463 ==

== ENCOUNTER → 2022-10-10 10:56 | Outpatient (CLI) | payer BC, OTHER, SELFPAY ==
[2022-10-10 11:43] LABS: Basophils # 0.2 K/mm3 (0-0.2); Basophils % 1.1 % (0.1-2.0); Eosinophils # 0.3 K/mm3 (0.0-0.4); Eosinophils % 2.3 % (0.1-12.0); Hematocrit 43.9 % (37.0-47.0); Hemoglobin 14.9 g/dL (12.2-16.2); Mean Corpuscular Hemoglobin 30.1 pg (27.0-31.2); Mean Corpuscular Volume 88.6 fl (81-99); Mean Platelet Volume 8.8 fl (7.4-10.4); Monocytes # 0.7 K/mm3 (0.1-1.0); Monocytes % 4.3 % (1.7-9.3); Neutrophils # 10.1 K/mm3 (1.8-7.8); Neutrophils % 66.3 % (37.0-80.0); Platelet Count 321 K/mm3 (142-424); Red Blood Count 4.95 M/mm3 (4.20-5.40); White Blood Count 15.3 K/mm3 (4.8-10.8)
[2022-10-10 11:45] LABS: MANUAL DIFFERENTIAL MANUAL DIFFERENTIAL (MANUAL DIFF)
[2022-10-10 11:51] LABS: Chloride 100 mmol/L (98-107)
[2022-10-10 11:52] LABS: Potassium 3.8 mmoL/L (3.5-5.1); Sodium 135 mmol/L (136-145)
[2022-10-10 11:55] LABS: Anion Gap 11.8 mEq/L (5-15); Blood Urea Nitrogen 12 mg/dl (7-17); Calcium 9.8 mg/dl (8.4-10.2); Carbon Dioxide 27 mmol/L (22.0-30.0); Estimated Glomerular Filt Rate 73 ml/min (>60); GFR (African American) 88 ML/MIN (>60); Glucose 126 mg/dl (74-100)
[2022-10-10 12:34] LABS: Lymphocytes % 23 % (10-50); Monocytes % 5 % (2-9); Neutrophils % 72 % (42-76); Platelet Estimate Normal; Total Cells Counted 100
[2022-10-10 12:35] LABS: RBC Morphology Normal
== END ==
PROVIDERS: PCP Family Medicine; Visit Provider Family Medicine
DX: J18.9 Pneumonia, unspecified organism (principal); E87.6 Hypokalemia
CPT/HCPCS: 36415; 80048; 85007; 85025

== ENCOUNTER → 2023-04-20 13:54 | Outpatient (CLI) | payer BC, OTHER, SELFPAY ==
--- NOTE | 2023-04-20 13:58 | CT_ITS ---
FINAL REPORT TECHNIQUE: Axial images were obtained from the lung apex to the mid abdomen by computed tomography. This study was performed with techniques to keep radiation doses as low as reasonably achievable (ALARA). Individualized dose reduction techniques using automated exposure control or adjustment of mA and/or kV according to the patient's size were employed. CLINICAL HISTORY: SMOKER, 1/2 ppd x 46 years FINDINGS: CHEST CT LOW DOSE CTDI vol (mGy): 2.90 DLP (mGy-cm): 98.99 There is no axillary adenopathy. There is no hilar or mediastinal adenopathy. The heart is normal in size. There is no pericardial or pleural effusion. There are moderate vascular calcifications. There is a calcified granuloma in the right lower lobe. Mild scarring is identified. There are ground-glass opacities in the right lower lobe, most likely inflammatory. Limited images of the upper abdomen are unremarkable. IMPRESSION: Ground-glass opacities in the right lower lobe. Lung RADS category 0. Recommend 3 month follow-up low-dose chest CT. Reviewed, Interpreted and Dictated by Dallas Cote III, MD Transcribed by Nunu Gibson Authenticated and [facility]
== END ==
PROVIDERS: PCP Family Medicine; Visit Provider Family Medicine
DX: Z87.891 Personal history of nicotine dependence (principal); Z12.2 Encounter for screening for malignant neoplasm of respiratory organs
CPT/HCPCS: 71271

== ENCOUNTER 2023-04-27 11:15 | Inpatient (IN) | payer BC, OTHER, SELFPAY ==
--- NOTE | 2023-04-27 11:29 | XR_ITS ---
FINAL REPORT CLINICAL HISTORY: hypoxia, COPD exacerbation, cough, sob COMPARISON: 09/14/2022 FINDINGS: TWO-VIEW CHEST The heart size is normal. The mediastinum is normal. There are worsening right base opacities consistent with worsening pneumonia. There is no pneumothorax. IMPRESSION: Worsening pneumonia. Reviewed, Interpreted and Dictated by Dallas Cote III, MD Transcribed by Nunu Gibson Authenticated and [facility]
--- NOTE | 2023-04-27 11:47 | CA_ITS ---
FINAL REPORT CLINICAL HISTORY: edema, copd, soa FINDINGS: Color Doppler, duplex Doppler and compression sonography of the bilateral lower extremities was performed. There is no evidence of deep venous thrombosis on the right. There is deep venous thrombosis of the left peroneal vein. IMPRESSION: DVT of the left peroneal vein. No evidence of DVT on the right. Reviewed, Interpreted and Dictated by Dallas Cote III, MD Transcribed by Nunu Gibson Authenticated and . [facility]
[2023-04-27 11:58] LABS: Basophils # 0.1 K/mm3 (0-0.2); Basophils % 0.6 % (0.1-2.0); Eosinophils # 1.1 K/mm3 (0.0-0.4); Eosinophils % 6.3 % (0.1-12.0); Hematocrit 41.9 % (37.0-47.0); Hemoglobin 13.9 g/dL (12.2-16.2); Lymphocytes # 2.6 K/mm3 (0.7-4.5); Lymphocytes % 15.2 % (10-50); Mean Corpuscular HGB Conc 33.1 g/dL (31.8-35.4); Mean Corpuscular Volume 84.7 fl (81-99); Mean Platelet Volume 8.8 fl (7.4-10.4); Monocytes # 0.6 K/mm3 (0.1-1.0); Monocytes % 3.6 % (1.7-9.3); Neutrophils # 12.9 K/mm3 (1.8-7.8); Neutrophils % 74.3 % (37.0-80.0); Platelet Count 206 K/mm3 (142-424); Red Blood Count 4.95 M/mm3 (4.20-5.40); Red Cell Distribution Width 14.8 % (11.5-17.5); White Blood Count 17.3 K/mm3 (4.8-10.8)
[2023-04-27 12:00] VITALS: BP 135/83; PULSE 98; RESP 24; TEMP 36.7; O2SAT 93
[2023-04-27 12:09] LABS: Alanine Aminotransferase 25 U/L (12-78); Albumin/Globulin Ratio 1.1 (1.1-1.8); Alkaline Phosphatase 151 U/L (38-126); Anion Gap 14.2 mEq/L (5-15); Aspartate Amino Transferase 31 U/L (14-36); Bilirubin,Total 0.6 mg/dl (0.2-1.3); Blood Urea Nitrogen 17 mg/dl (7-17); Calcium 9.9 mg/dl (8.4-10.2); Carbon Dioxide 25 mmol/L (22.0-30.0); Chloride 103 mmol/L (98-107); Estimated Glomerular Filt Rate 50 ml/min (>60); GFR (African American) 61 ML/MIN (>60); Globulin 3.5 g/dL (1.3-3.2); Glucose 151 mg/dl (74-100); Potassium 3.2 mmoL/L (3.5-5.1); Sodium 139 mmol/L (136-145); Total Protein,Serum 7.5 g/dl (6.3-8.2)
[2023-04-27 12:13] LABS: MANUAL DIFFERENTIAL MANUAL DIFFERENTIAL (MANUAL DIFF)
[2023-04-27 12:58] VITALS: O2SAT 96
--- NOTE | 2023-04-27 13:04 | ECG_ITS ---
APPROVED REPORT Exam: Resting ECG HR:86 bpm ECG Measurements Heart Rate 86 AXES KS 173 P 62 QRSd 97 QRS 0 QT 389 T 65 QTc 432 Conclusion SINUS RHYTHM Left atrial abnormality Late R wave progression, new since prior tracing Borderline left axis deviation UNCONFIRMED REPORT Electronically signed by : Francisco Chung MD 04/27/2023 13:43:07
--- NOTE | 2023-04-27 13:27 | PC.NURSE ---
RESP CARE NOTE: EKG taken to Cardiology clinic, Jaida Tenorio APRN reviewed EKG and signed. RN notified of cardiology review.
[2023-04-27 14:39] LABS: Troponin I 0.27 ng/ml (0.00-0.034)
--- NOTE | 2023-04-27 14:41 | PC.NURSE ---
Dr. Bo notified about pt's troponin of 0.27.
--- NOTE | 2023-04-27 15:16 | EXP.CARD.CON ---
History of Present Illness History of Present Illness Consult date: 04/27/23 Requesting physician: Trent Avery Consult reason: shortness of breath Chief complaint: Acute hypoxic respiratory failure, worsening right-sided pneumonia, nstemi History of present illness: 63-year-old white female with past medical history significant for COPD, 1 pack/day smoker, [id number] diabetes mellitus type 2, hypertension, hyperlipidemia was directly admitted to hospital from PCP office with complaints of shortness of air with activity x 2 days associated with fever that started last night and oxygen saturation being in the high 80s. Denies soa at rest. Denies chest pain. Also c/o intermittent left lower leg pain and swelling for over a year. Initial labs as follow: WBC 17.3, hemoglobin 13.9, sodium 139, potassium 3.2, creatinine 1.1, troponin 0.27. Ultrasound of left lower extremity was obtained and positive for left peroneal vein DVT. Chest x-ray was positive for worsening right lung base pneumonia. Exam patient is sitting on side of bed and denies any chest pain reports only experiences shortness of air when she gets up and walks. Repeat troponin and repeat EKG are are pending. Bedside echo being obtained currently and CTA of chest ordered to rule out PE. [facility] Disclaimer: The information contained in this section may have been updated after the patient was seen, as this information can be updated by other users. Medical History Arthritis COPD (chronic obstructive pulmonary disease) Diabetes mellitus HLD (hyperlipidemia) Hypertension Hypothyroidism Obesity Postoperative edema Postoperative pain Tobacco use disorder Ventral hernia Surgical History H/O foot surgery Status post foot surgery Family History Other No significant family history Social History (Updated 04/27/23 @ 12:01 by Alysia Mohamud RN) Smoking Status: Current every day smoker tobacco type: cigarettes packs per day: 1 alcohol intake: never substance use type: denies use current occupational status: employed and retired Travel in the last 8 weeks: None household members: none housing: apartment current occupation: [employer] caffeine: Yes Review of Systems Constitutional Comments: Fever *Cardiovascular Cardiovascular: Denies chest pain and Reports dyspnea *Respiratory Respiratory: Reports dyspnea Exam Data for Last 24 hours Vital signs and Labs for Last 24 Hours: Temp Pulse Resp BP Pulse Ox O2 Del Method O2 Flow Rate 98.1 F 98 H 24 135/83 96 Nasal Cannula 2 04/27/23 12:00 04/27/23 12:00 04/27/23 12:00 04/27/23 12:00 04/27/23 12:58 04/27/23 12:58 04/27/23 12:58 Laboratory Results - last 24 hr 04/27/23 11:48: WBC 17.3 H, RBC 4.95, Hgb 13.9, Hct 41.9, MCV 84.7, MCH 28.0, MCHC 33.1, RDW 14.8, Plt Count 206, MPV 8.8, Neut % (Auto) 74.3, Lymph % (Auto) 15.2, [place] % (Auto) 3.6, Eos % (Auto) 6.3, Baso % (Auto) 0.6, Neut # (Auto) 12.9 H, Lymph # (Auto) 2.6, [place] # (Auto) 0.6, Eos # (Auto) 1.1 H, Baso # (Auto) 0.1, Sodium 139, Potassium 3.2 L, Chloride 103, Carbon Dioxide 25, Anion Gap 14.2, BUN 17, Creatinine 1.10 H, Estimated GFR 50 L, Est GFR ( Amer) 61, Glucose 151 H, Lactate 2.0, Calcium 9.9, Total Bilirubin 0.6, AST 31, ALT 25, Alkaline Phosphatase 151 H, Troponin I 0.27 H, Total Protein 7.5, Albumin 4.0, Globulin 3.5 H, Albumin/Globulin Ratio 1.1 I & O for Last 24 hours: Intake & Output 04/24/23 04/25/23 04/26/23 04/27/23 23:59 23:59 23:59 23:59 Intake Total 300 / 300 Balance 300 / 300 Weight 245 lb Constitutional Constitutional: no acute distress *Routine Respiratory Exam Respiratory: Present symmetric chest movement Comments: Decreased lung sounds to right lung base *Routine Cardiovascular Exam Cardiovascula
--- NOTE | 2023-04-27 15:18 | CA_ITS ---
APPROVED REPORT EXAM: Comprehensive 2D, Doppler, and color-flow Echocardiogram Ply Splicer: Mignon Casey RVT Ht: 5 ft 2 in Wt: 245lbs BSA: 2.08 BP: 145/78 mmHg Indications: ELEVATED TROP,SMOKER,SOA,HTN,HLD,EKG CHANGES,COPD,OBESITY TDS-PT SCANNED UPRIGHT IN BED FLAT ON BACK 2D Dimensions LVOT 2.08 cm (M/F) 1.5-2.5 LA Volume 53.20 mL LA Volume Index 25.45 mL/m2 (M/F) 16-34 M-Mode Dimensions RVDd 3.35 cm (0.9-2.6) LA Diam 3.58 cm (1.9-4.0) LVDd 4.19 cm (3.5-5.7) Ao Diam 2.76 cm (2.0-3.7) LVDs 2.59 cm (3.5-5.7) IVSd 1.34 cm (0.6-1.1) PWd 0.45 cm (0.6-1.1) EF (Teich) 68.80% FS 38.20% EDV (Teich) 78.10 mL TAPSE 2.02 (<1.7) ESV (Teich) 24.40 mL LV Diastology E Decel Time 223.00 (160-240 msec) E/A Ratio 0.6 MED E' 6.60 (< 7 cm/sec) E'/MED E' Ratio 9.09 (>14) LAT E' 8.10 (<10 cm/sec) E/LAT E' Ratio 7.41 (>14) Aortic Valve AO Peak GR. 6.20 mmHg Mitral Valve MV E Max Flako. 60.00 (40-130 cm/s) MV A Velocity 97.00 (40-130 cm/s) E/A Ratio 0.62 MV Decel. Time 223.00 (160-240 ms) MV PHT 65.00 ms Pulmonary Valve PV Peak Velocity 56.00 (50-150 cm/s) Tricuspid Valve TR P. Velocity 343.00 cm/s RAP Estimate 10.00 mmHg RVSP 56.90 mmHg Left Ventricle The left ventricle is normal size. The left ventricular systolic function is normal. The left ventricular ejection fraction is within the normal range. There is increased LV wall thickness. There is normal LV segmental wall motion. Diastolic function is indeterminate. LVEF is 65%. Right Ventricle Right ventricle is moderately dilated. Right ventricle is moderately hypokinetic. The interventricular septum is flattened, suggestive of increased right-sided pressure Atria The left atrium size is normal. The right atrium size is normal. Aortic Valve The aortic valve opens well. There is no aortic valvular stenosis. No aortic regurgitation is present. Mitral Valve The mitral valve is normal in structure. No evidence of mitral valve stenosis. Trace mitral regurgitation. Tricuspid Valve The tricuspid valve leaflets are thin and pliable. Mild tricuspid regurgitation. RVSP = 30-35 mmHg. Pulmonic Valve The pulmonary valve is normal in structure. Trace pulmonic regurgitation. Great Vessels The aortic root is normal in size. The ascending aorta is normal in size. IVC is normal in size and collapses >50% with inspiration. Pericardium There is no pericardial effusion. Other Information Study Quality: Adequate Conclusion Normal LV systolic function. No evidence of wall motion abnormalities. Moderate RV dilation with moderate reduction in RV function. Increased right-sided pressure. No significant valvular disease. RVSP 30-35 mmHg. Electronically signed by : Sara Langston, 04/27/2023 17:12:17
--- NOTE | 2023-04-27 15:20 | CT_ITS ---
FINAL REPORT CLINICAL HISTORY: soa, dvt COMPARISON: 04/20/2023 FINDINGS: Thin section axial CT images of the chest were obtained with contrast. 3D reformatted images were also obtained. This study was performed with techniques to keep radiation doses as low as reasonably achievable (ALARA). Individualized dose reduction techniques using automated exposure control or adjustment of mA and/or kV according to the patient''s size were employed. There are bilateral pulmonary emboli involving the bilateral upper and lower lobes, largest is in the right lower lobe. The overall clot burden is moderate to large. There is flattening of the interventricular septum consistent with right heart strain. There is no evidence of mediastinal or hilar mass or adenopathy. There are worsening pulmonary ground-glass opacities of uncertain etiology in the right middle, right upper, and right lower lobes, early pulmonary infarcts are not excluded. The patient is status post cholecystectomy. IMPRESSION: Bilateral pulmonary emboli with moderate to large clot burden and right heart strain. Worsening pulmonary ground-glass opacities, early pulmonary infarcts are not excluded. Follow-up CT may be helpful. Patient's nurse Glenn Adrian was notified of findings on 04/27/2023 at 5:00 p.m. Reviewed, Interpreted and Dictated by Dallas Cote III, MD Transcribed by Nunu Gibson Authenticated and [facility]
--- NOTE | 2023-04-27 15:30 | ECG_ITS ---
APPROVED REPORT Exam: Resting ECG HR:89 bpm ECG Measurements Heart Rate 89 AXES OH 159 P 64 QRSd 97 QRS 0 QT 377 T -4 QTc 424 Conclusion SINUS RHYTHM POSSIBLE LEFT ATRIAL ENLARGEMENT [-0.1mV P-WAVE IN V1/V2] ANTERIOR MYOCARDIAL INFARCTION , PROBABLY RECENT [40+ ms Q WAVE AND/OR ST/T ABNORMALITY IN V3/V4] ACUTE CO UNCONFIRMED REPORT Electronically signed by : Francisco Chung MD 04/27/2023 21:18:04
[2023-04-27 15:32] LABS: Eosinophils % 5 % (0-3); Lymphocytes % 20 % (10-50); Monocytes % 3 % (2-9); Neutrophils % 72 % (42-76); Platelet Estimate Normal; RBC Morphology Normal; Total Cells Counted 100
--- NOTE | 2023-04-27 15:54 | EXP.HP ---
History of Present Illness *Admission Date: 04/27/23 *Reason for visit:: SOA *History of present illness: Ms. Garrison is a 63-year-old female with a history of COPD, hypertension, and diabetes. She states last night she began running a fever and becoming short of breath. The shortness of breath progressively worsened and she began having some swelling in both legs. This morning, her oxygen saturations were in the mid 80s and she felt poorly. She presented to the office and her oxygen sats ranged from 85-90 on room air. A CBC was done and showed an elevated white blood cell count of 19,000. Her legs were swollen. She was admitted and started on pneumonia protocol pending her chest x-ray. A venous Doppler was also ordered of the bilateral lower extremities. [facility] Disclaimer: The information contained in this section may have been updated after the patient was seen, as this information can be updated by other users. Medical History (Updated 04/27/23 @ 18:16 by Trent Avery MD) Arthritis COPD (chronic obstructive pulmonary disease) Diabetes mellitus HLD (hyperlipidemia) Hypertension Hypothyroidism Obesity Postoperative edema Postoperative pain Tobacco use disorder Ventral hernia Surgical History (Updated 04/27/23 @ 15:59 by MARTHA Brewer) H/O foot surgery History of bladder surgery History of History of cataract surgery History of cholecystectomy History of hernia repair History of tonsillectomy Status post foot surgery Family History (Updated 04/27/23 @ 15:59 by MARTHA Brewer) No significant family history Diabetes Coronary artery disease Hypertension Social History (Updated 04/27/23 @ 12:01 by Alysia Mohamud RN) Smoking Status: Current every day smoker tobacco type: cigarettes packs per day: 1 alcohol intake: never substance use type: denies use current occupational status: employed and retired Travel in the last 8 weeks: None household members: none housing: apartment current occupation: [employer] caffeine: Yes Review of Systems Constitutional Constitutional: Reports body ache(s), Reports chills, Reports fatigue, Reports fever(s), Reports headache(s) and Reports weakness Eyes Eyes: Denies blurry vision and Denies diplopia ENT Ears, Nose, Mouth, and Throat: Reports headache(s), Denies nasal congestion, Denies sore throat and Reports vertigo *Cardiovascular Cardiovascular: Denies chest pain, Reports dyspnea and Reports leg edema *Respiratory Respiratory: Reports chest congestion, Reports cough, Reports dyspnea and Reports wheezing *Gastrointestinal Gastrointestinal: Denies abdominal pain, Denies loose stools, Reports nausea and Reports vomiting *Genitourinary Genitourinary: Denies dysuria and Denies hematuria *Musculoskeletal Musculoskeletal: Reports myalgias *Neurologic Neurologic: Reports headache(s), Reports vertigo and Reports weakness Endocrine Endocrine: Reports fatigue Allergic/Immunologic Allergic/Immunologic: Reports wheezing Meds Home Medications and Allergies Home Medications Medication Instructions Recorded Confirmed Type amlodipine 10 mg tablet 10 mg PO DAILY High Blood Pressure 11/28/17 04/27/23 History celecoxib 200 mg capsule (Celebrex) 200 mg PO DAILY Arthritis 11/28/17 04/27/23 History albuterol sulfate 90 mcg/actuation 1 - 2 puffs inhalation Q6HP PRN 07/01/19 04/27/23 History aerosol inhaler Shortness Of Breath Or Wheezing levothyroxine 125 mcg tablet 125 mcg PO DAILYDM THYROID 07/01/19 04/27/23 History allopurinol 100 mg tablet 100 mg PO DAILY gout 10/28/19 04/27/23 History aspirin 81 mg tablet,delayed 81 mg PO DAILY heart health 09/29/20 04/27/23 History release montelukast 10 mg tablet 10 mg PO PM Allergy symptoms 04/10/22 04/27/23 History budesonide-formoterol HFA 80 2 puff inhalation BID COPD 09/12/22 04/27/23 History mcg-4.5 mcg/actuation aerosol inhaler duloxetine 60 mg capsule,delayed 60 mg PO DAILY Anxiety
[2023-04-27 16:00] VITALS: BP 127/70; PULSE 89; PULSE 90; RESP 22; TEMP 36.3; O2SAT 96
[2023-04-27 16:41] LABS: POC Glucose,Bedside 203 (70-110)
[2023-04-27 17:09] VITALS: BMI 43.4
[2023-04-27 17:10] LABS: Troponin I 0.21 ng/ml (0.00-0.034)
--- NOTE | 2023-04-27 17:20 | PC.NURSE ---
. FOLLOWING TRENDING TROPONIN'S. LAST ONE WAS 0.21 PER LAB.
[2023-04-27 17:44] LABS: Activated Partial Thrombo Time 35.7 seconds (22.8-30.6); INR 1.07 (0.9-1.1); Prothrombin Time 11.5 seconds (10.1-12.5)
--- NOTE | 2023-04-27 17:44 | PC.NURSE ---
Addendum entered by Ellen Richardson RN 04/27/23 18:33: after speaking with ang recalled pharmacist navigation officer sharmin. Pharmacy spoke with ledy who stated because of lovenox at 1318 to not give the heparin bolus nor start the drip until 2300, and to dc the lovenox order sent to [facility] for following DC lovenox at 2300 give 10,000 unit bolus heparin IV and then start drip at 1200 units/hour follow high dose protocol. patient and family were updated on the plan of care at this time. Original Note: spoke with sharmin in pharmacy who states dosing md gave for heparin drip is appropriate and they would follow ptt.
[2023-04-27 20:00] VITALS: BP 130/75; PULSE 80; PULSE 84; PULSE 85; RESP 16; RESP 22; TEMP 36.5; O2SAT 95
[2023-04-27 20:27] LABS: POC Glucose,Bedside 262 (70-110)
[2023-04-27 20:34] VITALS: PULSE 83; PULSE 88
[2023-04-28] VITALS (12 sets, daily range): BP systolic 98–141; BP diastolic 61–87; PULSE 71–100; RESP 16–20; TEMP 36.3–36.9; O2SAT 89–96; BMI 44.5
[2023-04-28 00:47] LABS: PTT Heparin (inpatient only) 72.9 Seconds (23.6-34.0)
--- NOTE | 2023-04-28 05:16 | PC.NURSE ---
Called [facility], ptt in range. Will follow up after morning ptt draw.
[2023-04-28 05:34] LABS: POC Glucose,Bedside 250 (70-110)
[2023-04-28 06:42] LABS: PTT Heparin (inpatient only) 45.1 Seconds (23.6-34.0)
--- NOTE | 2023-04-28 07:40 | HMH.PHAHEP ---
[facility] Pharmacy Heparin Dosing Demographic Data Admission date:: 04/27/23 Date: 04/28/23 Time: 07:40 Allergies Allergy/AdvReac Type Severity Reaction Status Date / Time ramipril Allergy Severe S-SWELLS-OR Verified 10/11/22 12:57 AL/THROAT adhesive tape Allergy Intermediate Blisters Verified 10/11/22 12:57 Latex, Natural Rubber Allergy Unknown Verified 10/11/22 12:57 lisinopril Allergy Unknown Verified 10/11/22 12:57 Height: 1.6 m Weight: 114 kg Indication Medication therapy:: Heparin Current Active Problems (Updated 04/28/23 @ 08:46 by Trent Avery MD) Hypokalemia (Acute) Elevated troponin (Acute) Bilateral pulmonary embolism (Acute) Myocardial injury (Acute) Peroneal DVT (deep venous thrombosis) (Acute) History of COPD (Chronic) Acute and chronic respiratory failure with hypoxia (Acute) Obesity (Chronic) Hypothyroidism (Chronic) Hypertension (Chronic) Tobacco use disorder (Chronic) COPD (chronic obstructive pulmonary disease) (Chronic) Pneumonia (Acute) DM2 (diabetes mellitus, type 2) (Acute) CVA?: No Bleeding problem?: No Kidney disease?: No NM?: No Desired PTT range:: 50-75 seconds Labs Anticoagulation Lab Results:: 04/27/23 11:48 Hgb 13.9 Hct 41.9 Plt Count 206 Monitoring Dose Monitor 1: Date: 04/27/23 Time: 00:15 PTT Result:: 72.9 (35.7 BASELINE) Infusion Rate:: 1,200 UNITS/HR PER DR. AGUILAR Comment:: 10,000 UNIT BOLUS Dose Monitor 2: Date: 04/28/23 Time: 06:15 PTT Result:: 45.1 Infusion Rate:: INCREASE RATE TO 1,400 UNITS/HR Comment:: 3,000 UNIT BOLUS Dose Monitor 3: Date: 04/28/23 Time: 11:00 PTT Result:: 55.1 Infusion Rate:: 1,400 UNITS/HR Dose Monitor 4: Date: 04/28/23 Time: 19:00 PTT Result:: 40.4 Infusion Rate:: INCREASE RATE TO 1,600 UNITS/HR Comment:: 3,000 UNIT HEPARIN BOLUS Dose Monitor 5: Date: 04/29/23 Time: 00:45 PTT Result:: 51.5 Infusion Rate:: 1,600 UNITS/HR Dose Monitor 6: Date: 04/29/23 Time: 06:16 PTT Result:: 47.4 Infusion Rate:: INCREASE RATE TO 1,800 UNITS/HR Comment:: 3,000 UNIT HEPARIN BOLUS Core Measures Is INR > or = 2 at discharge?: No Most Recent Labs:: Laboratory Results - last 24 hr 04/27/23 11:48: WBC 17.3 H, RBC 4.95, Hgb 13.9, Hct 41.9, MCV 84.7, MCH 28.0, MCHC 33.1, RDW 14.8, Plt Count 206, MPV 8.8, Neut % (Auto) 74.3, Lymph % (Auto) 15.2, Davis % (Auto) 3.6, Eos % (Auto) 6.3, Baso % (Auto) 0.6, Neut # (Auto) 12.9 H, Lymph # (Auto) 2.6, Davis # (Auto) 0.6, Eos # (Auto) 1.1 H, Baso # (Auto) 0.1, Total Counted 100, Neutrophils % (Manual) 72, Lymphocytes % (Manual) 20, Monocytes % (Manual) 3, Eosinophils % (Manual) 5 H, Platelet Estimate Normal, RBC Morphology Normal, Sodium 139, Potassium 3.2 L, Chloride 103, Carbon Dioxide 25, Anion Gap 14.2, BUN 17, Creatinine 1.10 H, Estimated GFR 50 L, Est GFR ( Amer) 61, Glucose 151 H, Lactate 2.0, Calcium 9.9, Total Bilirubin 0.6, AST 31, ALT 25, Alkaline Phosphatase 151 H, Troponin I 0.27 H, Total Protein 7.5, Albumin 4.0, Globulin 3.5 H, Albumin/Globulin Ratio 1.1 04/27/23 16:20: Troponin I 0.21 H 04/27/23 16:31: POC Glucose 203 H 04/27/23 17:18: PT 11.5, INR 1.07, APTT 35.7 H 04/27/23 20:20: POC Glucose 262 H 04/28/23 00:15: APTT 72.9 H* 04/28/23 05:26: POC Glucose 250 H 04/28/23 06:15: APTT 45.1 H If INR was < than 2.0 why was therapy stopped?: CHANGE TO XARELTO Were Heparin and Warfarin started on the same day?: No If not, why?: CHANGE TO XARELTO
--- NOTE | 2023-04-28 08:33 | EXP.ACUTE.PN ---
Subjective *Date: 04/28/23 *Time: 08:44 Interval history: Patient is feeling better this am. She is not as SOA. She was able to rest last night. Minimal pain in the left calf but no redness. Medical Exam Vital signs and Labs for Last 24 Hours: Vital Signs Temp Pulse Pulse Resp BP Pulse Ox O2 Del Method 04/28/23 06:30 94 L Nasal Cannula 04/28/23 06:30 84 04/28/23 06:30 84 04/28/23 06:19 Nasal Cannula 04/28/23 05:00 Nasal Cannula 04/28/23 04:00 97.8 F 89 20 141/78 H 94 L Nasal Cannula 04/27/23 20:00 84 16 04/28/23 04:00 90 04/28/23 03:00 Nasal Cannula 04/28/23 00:26 CPAP 04/28/23 00:00 98.2 F 85 20 123/68 96 BiPAP 04/27/23 20:00 80 04/28/23 00:00 90 04/27/23 23:00 Nasal Cannula 04/27/23 21:00 Nasal Cannula 04/27/23 20:34 83 04/27/23 20:34 88 04/27/23 20:00 97.7 F 85 22 130/75 95 Nasal Cannula 04/27/23 20:00 Nasal Cannula 04/27/23 17:29 Nasal Cannula 04/27/23 17:00 Nasal Cannula 04/27/23 16:00 97.4 F L 89 22 127/70 96 Nasal Cannula 04/27/23 16:00 90 04/27/23 12:00 98.1 F 98 H 24 135/83 93 L Room Air 04/27/23 12:58 96 Nasal Cannula 04/27/23 12:36 Nasal Cannula 04/27/23 12:35 Nasal Cannula O2 Flow Rate 04/28/23 06:30 3 04/28/23 06:30 04/28/23 06:30 04/28/23 06:19 2 04/28/23 05:00 2 04/28/23 04:00 2 04/27/23 20:00 04/28/23 04:00 04/28/23 03:00 2 04/28/23 00:26 04/28/23 00:00 04/27/23 20:00 04/28/23 00:00 04/27/23 23:00 2 04/27/23 21:00 2 04/27/23 20:34 04/27/23 20:34 04/27/23 20:00 2 04/27/23 20:00 2 04/27/23 17:29 2 04/27/23 17:00 2 04/27/23 16:00 2 04/27/23 16:00 04/27/23 12:00 04/27/23 12:58 2 04/27/23 12:36 2 04/27/23 12:35 2 Intake and Output 04/27/23 04/28/23 04/28/23 19:59 03:59 11:59 Intake Total 660 / 1187 405 / 1187 122 / 1187 Output Total 0 / 0 0 / 0 Balance 660 / 1187 405 / 1187 122 / 1187 Intake: Intake, Oral Amount 360 / 360 Intake, Other Amount 372 / 372 Intake, Total IV Amount 300 / 333 33 / 333 Azithromycin 500 mg In 0.9 % 250 / 250 Sodium Chloride 250 ml @ 250 mls/hr IV Q24H [facility] Rx#:[id number] Ceftriaxone Sodium 1 gm In 0.9 50 / 50 % Sodium Chloride 50 ml @ 100 mls/hr IV Q24H [facility] Rx#:[id number] Heparin Sodium,Porcine/D5w 500 33 / 33 ml @ 1,200 UNITS/HR 24 mls/hr IV .[id number] [facility] Rx#:[id number] Infusion Intake 122 / 122 Heparin Sodium,Porcine/D5w 500 122 / 122 ml @ 1,200 UNITS/HR 24 mls/hr IV .[id number] [facility] Rx#:[id number] Output: Output, Urine Amount 0 / 0 0 / 0 Other: Number of Unmeasured Voids 1 1 Weight 245 lb 5 oz 251 lb 5.231 oz Patient Weight 04/28/23 11:59 Weight 251 lb 5.231 oz Laboratory Results - last 24 hr 04/27/23 11:48: WBC 17.3 H, RBC 4.95, Hgb 13.9, Hct 41.9, MCV 84.7, MCH 28.0, MCHC 33.1, RDW 14.8, Plt Count 206, MPV 8.8, Neut % (Auto) 74.3, Lymph % (Auto) 15.2, [place] % (Auto) 3.6, Eos % (Auto) 6.3, Baso % (Auto) 0.6, Neut # (Auto) 12.9 H, Lymph # (Auto) 2.6, [place] # (Auto) 0.6, Eos # (Auto) 1.1 H, Baso # (Auto) 0.1, Total Counted 100, Neutrophils % (Manual) 72, Lymphocytes % (Manual) 20, Monocytes % (Manual) 3, Eosinophils % (Manual) 5 H, Platelet Estimate Normal, RBC Morphology Normal, Sodium 139, Potassium 3.2 L, Chloride 103, Carbon Dioxide 25, Anion Gap 14.2, BUN 17, Creatinine 1.10 H, Estimated GFR 50 L, Est GFR ( Amer) 61, Glucose 151 H, Lactate 2.0, Calcium 9.9, Total Bilirubin 0.6, AST 31, ALT 25, Alkaline Phosphatase 151 H, Troponin I 0.27 H, Total Protein 7.5, Albumin 4.0, Globulin 3.5 H, Albumin/Globulin Ratio 1.1 04/27/23 16:20: Troponin I 0.21 H 04/27/23 16:31: POC Glucose 203 H 04/27/23 17:18: PT 11.5, INR 1.07, APTT 35.7 H 04/27/23 20:20: POC Glucose 262 H 04/28/23 00:15: APTT 72.9 H* 04/28/23
[2023-04-28 08:59] LABS: Basophils % 0.2 % (0.1-2.0); Eosinophils % 0.2 % (0.1-12.0); Hematocrit 41.3 % (37.0-47.0); Hemoglobin 13.3 g/dL (12.2-16.2); Lymphocytes # 1.7 K/mm3 (0.7-4.5); Lymphocytes % 8.8 % (10-50); Mean Corpuscular HGB Conc 32.1 g/dL (31.8-35.4); Mean Corpuscular Hemoglobin 27.8 pg (27.0-31.2); Mean Corpuscular Volume 86.4 fl (81-99); Monocytes # 0.5 K/mm3 (0.1-1.0); Monocytes % 2.5 % (1.7-9.3); Neutrophils # 16.9 K/mm3 (1.8-7.8); Neutrophils % 88.3 % (37.0-80.0); Platelet Count 219 K/mm3 (142-424); Red Blood Count 4.78 M/mm3 (4.20-5.40); Red Cell Distribution Width 14.8 % (11.5-17.5); White Blood Count 19.2 K/mm3 (4.8-10.8)
[2023-04-28 09:00] LABS: Chloride 103 mmol/L (98-107); Sodium 137 mmol/L (136-145)
[2023-04-28 09:03] LABS: Blood Urea Nitrogen 20 mg/dl (7-17); Creatinine Clearance Estimated 46 mL/min (50-200); Estimated Glomerular Filt Rate 56 ml/min (>60); GFR (African American) 68 ML/MIN (>60)
[2023-04-28 09:04] LABS: Calcium 10.3 mg/dl (8.4-10.2); Carbon Dioxide 21 mmol/L (22.0-30.0); Glucose 214 mg/dl (74-100)
[2023-04-28 09:13] LABS: MANUAL DIFFERENTIAL MANUAL DIFFERENTIAL (MANUAL DIFF)
--- NOTE | 2023-04-28 10:54 | CA_ITS ---
APPROVED REPORT EXAM: Comprehensive 2D, Doppler, and color-flow Echocardiogram Wheel And Axle Inspector: RT Kaz(R) Ht: 5 ft 2 in Wt: 251lbs BSA: 2.11 BP: 135/83 mmHg Indications: Limited to assess right heart with known PE. DM, SOB, obesity. M-Mode Dimensions TAPSE 2.17 (<1.7) Tricuspid Valve TR P. Velocity 258.00 cm/s RAP Estimate 10.00 mmHg RVSP 36.60 mmHg Other Information Study Quality: Adequate Conclusion This is a limited study to evaluate for RV function in the setting of recent PE. Good windows were obtained. The LV appears normal in size and function. LVEF is 65-70%. The RV appears moderately dilated with moderate reduction in RV function. There is increased RV wall thickness. The apex appears hypercontractile compared to the base (positive Carrillo's sign). Septal flattening is present, suggestive of elevated RV pressure Mild tricuspid regurgitation. RVSP is 30 - 35 mmHg. No pericardial effusion. To prior study from 04/27/2023, the RV size and function and RVSP are overall unchanged. There is no pericardial effusion visualized in this study. Electronically signed by : Sara Langston, 04/28/2023 12:44:19
[2023-04-28 11:07] LABS: Lymphocytes % 8 % (10-50); Monocytes % 2 % (2-9); Neutrophils % 90 % (42-76); Total Cells Counted 100
[2023-04-28 11:08] LABS: Platelet Estimate Normal; RBC Morphology Normal
--- NOTE | 2023-04-28 11:43 | PC.NURSE ---
PT's room air obtained. 89%.
[2023-04-28 11:52] LABS: POC Glucose,Bedside 197 (70-110)
--- NOTE | 2023-04-28 12:29 | PC.NURSE ---
Spoke with Alfie Langston MD. Will not have a cath today. OK for pt to eat.
[2023-04-28 12:46] LABS: PTT Heparin (inpatient only) 55.1 Seconds (23.6-34.0)
--- NOTE | 2023-04-28 13:04 | PC.NURSE ---
Per pharmacy, No changes to Heparin gtt.
--- NOTE | 2023-04-28 14:02 | EXP.PN ---
Subjective *Date: 04/28/23 *Time: 14:02 Interval history: INTERIM -Yesterday, CTA chest showed large bilateral PEs. She was started on heparin IV ggt. OVERNIGHT -No overnight events. TODAY -In the AM, the patient was feeling well. She had no active complaints. -Still requiring 3.5L NC -Repeat limited TTE to evaluate RV function showed no significant change compared to yesterday's TTE Exam Data for Last 24 hours Vital signs and Labs for Last 24 Hours: Temp Pulse Resp BP Pulse Ox O2 Del Method O2 Flow Rate 98.2 F 78 18 125/79 89 L Nasal Cannula 2 04/28/23 11:42 04/28/23 11:42 04/28/23 11:42 04/28/23 11:42 04/28/23 11:42 04/28/23 13:00 04/28/23 13:00 Laboratory Results - last 24 hr 04/27/23 11:48: Total Counted 100, Neutrophils % (Manual) 72, Lymphocytes % (Manual) 20, Monocytes % (Manual) 3, Eosinophils % (Manual) 5 H, Platelet Estimate Normal, RBC Morphology Normal, Troponin I 0.27 H 04/27/23 16:20: Troponin I 0.21 H 04/27/23 16:31: POC Glucose 203 H 04/27/23 17:18: PT 11.5, INR 1.07, APTT 35.7 H 04/27/23 20:20: POC Glucose 262 H 04/28/23 00:15: APTT 72.9 H* 04/28/23 05:26: POC Glucose 250 H 04/28/23 06:15: WBC 19.2 H, RBC 4.78, Hgb 13.3, Hct 41.3, MCV 86.4, MCH 27.8, MCHC 32.1, RDW 14.8, Plt Count 219, MPV 11.0 H, Neut % (Auto) 88.3 H, Lymph % (Auto) 8.8 L, [place] % (Auto) 2.5, Eos % (Auto) 0.2, Baso % (Auto) 0.2, Neut # (Auto) 16.9 H, Lymph # (Auto) 1.7, [place] # (Auto) 0.5, Eos # (Auto) 0.0, Baso # (Auto) 0.0, Total Counted 100, Neutrophils % (Manual) 90 H, Lymphocytes % (Manual) 8 L, Monocytes % (Manual) 2, Platelet Estimate Normal, RBC Morphology Normal, APTT 45.1 H, Sodium 137, Potassium 4.0 D, Chloride 103, Carbon Dioxide 21 L, Anion Gap 17.0 H, BUN 20 H, Creatinine 1.00, Estimated Creat Clear 46, Estimated GFR 56 L, Est GFR ( Amer) 68, Glucose 214 H D, Calcium 10.3 H 04/28/23 10:54: APTT 55.1 H* 04/28/23 11:37: POC Glucose 197 H I & O for Last 24 hours: Intake & Output 04/25/23 04/26/23 04/27/23 04/28/23 23:59 23:59 23:59 23:59 Intake Total 1032 / 1065 395 / 395 Output Total 0 / 0 0 / 0 Balance 1032 / 1065 395 / 395 Weight 245 lb 5 oz 251 lb 5.231 oz Microbiology Reports for the Last 24 Hours: Microbiology 04/27/23 18:49 Sputum - Expectorated Sputum Gram Stain - Final Reviewed: -TTE from 04/27/2023 and 04/28/2023 -CTA chest from 04/27/2023 Constitutional Constitutional: no acute distress *Routine HEENT Exam Eye: Present EOMI and PERRL *Routine Neck Exam Neck: Present supple Comments: No JVD *Routine Respiratory Exam Respiratory: Present normal respiratory effort and symmetric chest movement *Routine Cardiovascular Exam Cardiovascular: Present RRR, Normal S1 and Normal S2 *Routine Abdominal Exam Abdominal: Present soft and normoactive bowel sounds *Routine Extremities Exam Extremities: Present pulses intact and normal capillary refill *Routine Neurological Exam Neurological: Present alert and oriented X3 Assessment and Plan *Assessment and plan (1) Bilateral pulmonary embolism: Status: Acute Category: Medical Code(s): I26.99 - Other pulmonary embolism without acute cor pulmonale Plan: -CTA chest (04/27/2023) showed bilateral large PEs. -TTE (04/27/2023) showed normal LVEF, RV moderately dilated with moderate RV dysfunction. RVSP 30-35 mmHg. Positive McConell sign. Repeat TTE 04/28/2023 showed no significant change. -Continue IV anticoagulation with full-dose heparin. -Per discussion with Dr. Diana, no plan for invasive embolectomy, we will continue medical management considering her stable status, normal vital signs, and unchanged TTE findings with no evidence of worsening RV or pulmonary pressures. (2) Peroneal DVT (deep venous thrombosis): Status: Acute Qualifiers: Chronicity: acute Laterality: unspecified laterality Qualified Code(s): I82.459 - Acute embolism and thrombosis of unspecified peroneal vein
[2023-04-28 16:10] LABS: POC Glucose,Bedside 278 (70-110)
[2023-04-28 19:39] LABS: PTT Heparin (inpatient only) 40.4 Seconds (23.6-34.0)
--- NOTE | 2023-04-28 20:01 | PC.NURSE ---
APTT 40.4. [employer] PHARMACIST FLORENCIO NOTIFIED. ORDERS RECEIVED. HEPARIN BOLUS 3000 UNITS GIVEN AND HEPARIN GTT ADJUSTED TO 1600 UNITS/HR OR 32 ML/HR.
[2023-04-28 20:26] LABS: POC Glucose,Bedside 217 (70-110)
--- NOTE | 2023-04-28 23:20 | PC.NURSE ---
PATIENT HAS COUGHED UP SMALL AMT OF BLOOD AT 2200. IS ON HEPARIN DRIP. HAS NOT HAD ANYMORE HEMOPTYSIS. DR MORA NOTIFIED. WILL CONTINUE TO MONITOR PATIENT FOR ANY SIGNS OF BLEEDING.
[2023-04-29] VITALS (9 sets, daily range): BP systolic 126–146; BP diastolic 65–92; PULSE 67–105; RESP 18; TEMP 36.4–37; O2SAT 92–98; BMI 47.2
[2023-04-29 01:02] LABS: PTT Heparin (inpatient only) 51.5 Seconds (23.6-34.0)
--- NOTE | 2023-04-29 01:12 | PC.NURSE ---
APTT 51.5. LILLINIGHTWATCH PHARMACIST NOTIFIED. PATIENT IS WITHIN THE TARGET RANGE. NO BOLUS. NO CHANGES. NEXT APTT DUE AT 0700.
[2023-04-29 05:13] LABS: POC Glucose,Bedside 172 (70-110)
[2023-04-29 07:09] LABS: Basophils % 0.1 % (0.1-2.0); Eosinophils # 0.1 K/mm3 (0.0-0.4); Eosinophils % 0.6 % (0.1-12.0); Hematocrit 37.9 % (37.0-47.0); Hemoglobin 12.2 g/dL (12.2-16.2); Lymphocytes # 2.5 K/mm3 (0.7-4.5); Lymphocytes % 9.4 % (10-50); Mean Corpuscular HGB Conc 32.2 g/dL (31.8-35.4); Mean Corpuscular Hemoglobin 27.5 pg (27.0-31.2); Mean Corpuscular Volume 85.4 fl (81-99); Mean Platelet Volume 10.2 fl (7.4-10.4); Monocytes # 1.2 K/mm3 (0.1-1.0); Monocytes % 4.4 % (1.7-9.3); Neutrophils # 22.3 K/mm3 (1.8-7.8); Neutrophils % 85.5 % (37.0-80.0); Platelet Count 244 K/mm3 (142-424); Red Blood Count 4.44 M/mm3 (4.20-5.40); Red Cell Distribution Width 14.8 % (11.5-17.5); White Blood Count 26.1 K/mm3 (4.8-10.8)
[2023-04-29 07:12] LABS: Chloride 105 mmol/L (98-107); Potassium 3.9 mmoL/L (3.5-5.1); Sodium 138 mmol/L (136-145)
[2023-04-29 07:15] LABS: Anion Gap 14.9 mEq/L (5-15); Blood Urea Nitrogen 23 mg/dl (7-17); Calcium 9.7 mg/dl (8.4-10.2); Carbon Dioxide 22 mmol/L (22.0-30.0); Creatinine Clearance Estimated 46 mL/min (50-200); Estimated Glomerular Filt Rate 63 ml/min (>60); GFR (African American) 77 ML/MIN (>60); Glucose 152 mg/dl (74-100)
[2023-04-29 07:16] LABS: MANUAL DIFFERENTIAL MANUAL DIFFERENTIAL (MANUAL DIFF)
[2023-04-29 07:22] LABS: PTT Heparin (inpatient only) 47.4 Seconds (23.6-34.0)
[2023-04-29 07:43] LABS: Lymphocytes % 11 % (10-50); Monocytes % 4 % (2-9); Neutrophils % 85 % (42-76); Platelet Estimate Normal; RBC Morphology Normal; Total Cells Counted 100
--- NOTE | 2023-04-29 08:33 | PC.NURSE ---
SPOKE WITH DR AGUILAR VIA TELEPHONE REGARDING HEPARIN GTT. DR AGUILAR V/O TO GIVE 15MG PO XARELTO ONCE NOW AND TO D/C HEPARING GTT 1 HOUR AFTER PO DOSE OF XARELTO GIVEN THEN INITIATE 15MG XARELTO BID.
--- NOTE | 2023-04-29 08:50 | EXP.ACUTE.PN ---
Subjective *Date: 04/29/23 *Time: 08:50 Interval history: Patient feels better today, no new complaints. Medical Exam Vital signs and Labs for Last 24 Hours: Vital Signs Temp Pulse Pulse Resp BP Pulse Ox O2 Del Method 04/29/23 08:00 79 04/29/23 08:00 97.6 F 87 18 133/92 H 98 Nasal Cannula 04/29/23 06:43 CPAP 04/29/23 05:00 Room Air 04/29/23 04:00 97.8 F 73 18 133/75 97 CPAP 04/29/23 04:00 67 04/29/23 03:00 Nasal Cannula 04/29/23 01:00 Nasal Cannula 04/28/23 23:00 Nasal Cannula 04/28/23 23:50 97.3 F L 80 18 98/61 L 94 L CPAP 04/28/23 20:00 94 H 04/28/23 21:00 Nasal Cannula 04/28/23 20:00 94 L Nasal Cannula 04/28/23 20:00 98.4 F 91 H 18 119/73 94 L Room Air 04/28/23 19:24 84 04/28/23 19:24 85 04/28/23 19:24 Nasal Cannula 04/28/23 19:00 Nasal Cannula 04/28/23 17:00 Nasal Cannula 04/28/23 12:00 100 H 04/28/23 16:00 90 04/28/23 16:00 98.0 F 71 20 131/87 95 Nasal Cannula 04/28/23 14:46 Nasal Cannula 04/28/23 14:32 77 04/28/23 14:32 80 04/28/23 13:00 Nasal Cannula 04/28/23 11:42 98.2 F 78 18 125/79 89 L Room Air 04/28/23 11:00 Nasal Cannula 04/28/23 10:25 80 04/28/23 10:25 77 04/28/23 09:00 Nasal Cannula O2 Flow Rate 04/29/23 08:00 04/29/23 08:00 04/29/23 06:43 04/29/23 05:00 04/29/23 04:00 04/29/23 04:00 04/29/23 03:00 2 04/29/23 01:00 2 04/28/23 23:00 2 04/28/23 23:50 04/28/23 20:00 04/28/23 21:00 2 04/28/23 20:00 2 04/28/23 20:00 04/28/23 19:24 04/28/23 19:24 04/28/23 19:24 2 04/28/23 19:00 2 04/28/23 17:00 2 04/28/23 12:00 04/28/23 16:00 04/28/23 16:00 2 04/28/23 14:46 3.5 04/28/23 14:32 04/28/23 14:32 04/28/23 13:00 2 04/28/23 11:42 04/28/23 11:00 3.5 04/28/23 10:25 04/28/23 10:25 04/28/23 09:00 3.5 Intake and Output 04/28/23 04/29/23 04/29/23 23:59 07:59 15:59 Intake Total 1430 / 2065 1691 / 2171 480 / 2171 Output Total 0 / 0 Balance 1430 / 2065 1691 / 2171 480 / 2171 Intake: Intake, Oral Amount 240 / 720 240 / 720 480 / 720 Intake, Total IV Amount 1190 / 1223 1451 / 1451 0.9 % Sodium Chloride 1000ML 1, 528 / 528 1091 / 1091 000 ml @ 100 mls/hr IV .Q10H [facility] Rx#:[id number] Azithromycin 500 mg In 0.9 % 250 / 250 Sodium Chloride 250 ml @ 250 mls/hr IV Q24H [facility] Rx#:[id number] Ceftriaxone Sodium 1 gm In 0.9 50 / 50 % Sodium Chloride 50 ml @ 100 mls/hr IV Q24H [facility] Rx#:[id number] Heparin Sodium,Porcine/D5w 500 362 / 395 ml @ 1,200 UNITS/HR 24 mls/hr IV .[id number] [facility] Rx#:[id number] Heparin Sodium,Porcine/D5w 500 360 / 360 ml @ 1,600 UNITS/HR 32 mls/hr IV .[id number] [facility] Rx#:[id number] Output: Output, Urine Amount 0 / 0 Other: Number of Voids 1 Number of Unmeasured Voids 1 0 Weight 266 lb 6 oz Patient Weight 04/29/23 23:59 Weight 266 lb 6 oz Laboratory Results - last 24 hr 04/28/23 06:15: WBC 19.2 H, RBC 4.78, Hgb 13.3, Hct 41.3, MCV 86.4, MCH 27.8, MCHC 32.1, RDW 14.8, Plt Count 219, MPV 11.0 H, Neut % (Auto) 88.3 H, Lymph % (Auto) 8.8 L, [place] % (Auto) 2.5, Eos % (Auto) 0.2, Baso % (Auto) 0.2, Neut # (Auto) 16.9 H, Lymph # (Auto) 1.7, [place] # (Auto) 0.5, Eos # (Auto) 0.0, Baso # (Auto) 0.0, Total Counted 100, Neutrophils % (Manual) 90 H, Lymphocytes % (Manual) 8 L, Monocytes % (Manual) 2, Platelet Estimate Normal, RBC Morphology Normal, Sodium 137, Potassium 4.0 D, Chloride 103, Carbon Dioxide 21 L, Anion Gap 17.0 H, BUN 20 H, Creatinine 1.00, Estimated Creat Clear 46, Estimated GFR 56 L, Est GFR ( Amer) 68, Glucose 214 H D, Calcium 10.3 H 04/28/23 10:54: APTT 55.1 H* 04/28/23 11:37: POC Glucose 197 H 04/28/23 16:03: POC Glucose 278 H 04/28/23 19:00: APTT 40.4 H 04/28/23 20:19: POC Glucos
[2023-04-29 11:49] LABS: POC Glucose,Bedside 132 (70-110)
[2023-04-29 16:23] LABS: POC Glucose,Bedside 160 (70-110)
--- NOTE | 2023-04-29 18:37 | PC.NURSE ---
SUPPLEMENTAL O2 TITRATED TO 1LNC PT TOLERATING WELL
[2023-04-29 20:13] LABS: POC Glucose,Bedside 147 (70-110)
[2023-04-30] VITALS (14 sets, daily range): BP systolic 137–153; BP diastolic 69–90; PULSE 74–101; RESP 16–20; TEMP 36.3–37; O2SAT 93–98; BMI 47.6
--- NOTE | 2023-04-30 04:11 | PC.NURSE ---
VITAL SIGNS STABLE/AFEBRILE. NO RESPIRATORY DISTRESS NOTED. SLEPT WITH CPAP ON MOST OF THE NIGHT. USES 02 AT 1 LNC WHEN OFF CPAP. SATS 96-97%. FINE CRACKLES NOTED BILAT LUNG FIELD. OCCASSIONAL PRODUCTIVE COUGH, DARK RED-SMALL SECRETIONS. DENIES PAIN. SOA WITH EXERTION. SINUS ARRHYTHMIA ON MONITOR WITH OCCASSIONAL ECTOPY.
[2023-04-30 05:25] LABS: POC Glucose,Bedside 99 (70-110)
[2023-04-30 07:34] LABS: Anion Gap 11.3 mEq/L (5-15); Basophils # 0.1 K/mm3 (0-0.2); Basophils % 0.4 % (0.1-2.0); Blood Urea Nitrogen 19 mg/dl (7-17); Carbon Dioxide 25 mmol/L (22.0-30.0); Chloride 107 mmol/L (98-107); Creatinine Clearance Estimated 46 mL/min (50-200); Eosinophils # 0.9 K/mm3 (0.0-0.4); Eosinophils % 5.8 % (0.1-12.0); Estimated Glomerular Filt Rate 73 ml/min (>60); GFR (African American) 88 ML/MIN (>60); Glucose 98 mg/dl (74-100); Hematocrit 39.3 % (37.0-47.0); Hemoglobin 12.7 g/dL (12.2-16.2); Lymphocytes # 4.4 K/mm3 (0.7-4.5); Lymphocytes % 28.8 % (10-50); MANUAL DIFFERENTIAL MANUAL DIFFERENTIAL (MANUAL DIFF); Mean Corpuscular HGB Conc 32.3 g/dL (31.8-35.4); Mean Corpuscular Hemoglobin 27.7 pg (27.0-31.2); Mean Corpuscular Volume 85.6 fl (81-99); Mean Platelet Volume 9.7 fl (7.4-10.4); Monocytes % 6.2 % (1.7-9.3); Neutrophils % 58.8 % (37.0-80.0); Platelet Count 220 K/mm3 (142-424); Potassium 3.3 mmoL/L (3.5-5.1); Red Cell Distribution Width 14.9 % (11.5-17.5); Sodium 140 mmol/L (136-145); White Blood Count 15.4 K/mm3 (4.8-10.8)
--- NOTE | 2023-04-30 08:56 | EXP.ACUTE.PN ---
Subjective *Date: 04/30/23 *Time: 08:56 Interval history: Patient feels a little better today, still needed supplemental oxygen throughout the day yesterday. Medical Exam Vital signs and Labs for Last 24 Hours: Vital Signs Temp Pulse Pulse Resp BP Pulse Ox O2 Del Method 04/30/23 07:55 97.4 F L 93 H 18 148/90 H 96 04/30/23 06:16 Nasal Cannula 04/30/23 06:01 80 04/30/23 06:01 77 04/30/23 04:00 97.3 F L 80 20 137/83 97 Nasal Cannula 04/30/23 05:00 Nasal Cannula 04/30/23 04:00 74 04/30/23 03:00 CPAP 04/30/23 01:00 Nasal Cannula 04/30/23 00:00 97.6 F 78 16 140/74 96 BiPAP 04/30/23 00:00 87 04/29/23 23:00 CPAP 04/29/23 21:00 Nasal Cannula 04/29/23 20:00 97.5 F L 76 18 126/65 97 Nasal Cannula 04/29/23 20:00 93 L Nasal Cannula 04/29/23 20:00 83 04/29/23 20:00 Nasal Cannula 04/29/23 20:00 89 04/29/23 20:00 88 04/29/23 18:11 Room Air 04/29/23 17:00 Room Air 04/29/23 16:00 70 04/29/23 15:00 Room Air 04/29/23 13:00 Nasal Cannula 04/29/23 15:14 98.6 F 78 18 126/73 98 Nasal Cannula 04/29/23 14:38 92 H 04/29/23 14:38 90 04/29/23 12:00 89 04/29/23 11:00 Nasal Cannula 04/29/23 10:02 101 H 04/29/23 10:02 105 H 04/29/23 10:02 92 L Nasal Cannula 04/29/23 11:29 97.9 F 72 18 146/82 H 98 Nasal Cannula 04/29/23 09:00 Nasal Cannula O2 Flow Rate 04/30/23 07:55 04/30/23 06:16 1 04/30/23 06:01 04/30/23 06:01 04/30/23 04:00 04/30/23 05:00 1 04/30/23 04:00 04/30/23 03:00 04/30/23 01:00 1 04/30/23 00:00 04/30/23 00:00 04/29/23 23:00 04/29/23 21:00 1 04/29/23 20:00 04/29/23 20:00 1 04/29/23 20:00 04/29/23 20:00 04/29/23 20:00 04/29/23 20:00 04/29/23 18:11 04/29/23 17:00 04/29/23 16:00 04/29/23 15:00 04/29/23 13:00 2 04/29/23 15:14 2 04/29/23 14:38 04/29/23 14:38 04/29/23 12:00 04/29/23 11:00 2 04/29/23 10:02 04/29/23 10:02 04/29/23 10:02 2 04/29/23 11:29 04/29/23 09:00 2 Intake and Output 04/29/23 04/30/23 04/30/23 23:59 07:59 15:59 Intake Total 2049 / 4821 1630 / 1630 Output Total 0 / 0 Balance 2049 / 4821 1629 / 1629 Intake: Intake, Oral Amount 480 / 1800 1080 / 1080 Intake, Total IV Amount 1570 / 3021 550 / 550 0.9 % Sodium Chloride 1000ML 1, 1570 / 2661 550 / 550 000 ml @ 100 mls/hr IV .Q10H [facility] Rx#:[id number] Output: Output, Urine Amount 0 / 0 Other: Number of Unmeasured Voids 1 0 Weight 269 lb Patient Weight 04/30/23 23:59 Weight 269 lb Laboratory Results - last 24 hr 04/29/23 11:42: POC Glucose 132 H 04/29/23 16:05: POC Glucose 160 H 04/29/23 19:55: POC Glucose 147 H 04/30/23 05:18: POC Glucose 99 04/30/23 06:22: WBC 15.4 H D, RBC 4.60, Hgb 12.7, Hct 39.3, MCV 85.6, MCH 27.7, MCHC 32.3, RDW 14.9, Plt Count 220, MPV 9.7, Neut % (Auto) 58.8, Lymph % (Auto) 28.8, [place] % (Auto) 6.2, Eos % (Auto) 5.8, Baso % (Auto) 0.4, Neut # (Auto) 9.0 H, Lymph # (Auto) 4.4, [place] # (Auto) 1.0, Eos # (Auto) 0.9 H, Baso # (Auto) 0.1, Sodium 140, Potassium 3.3 L, Chloride 107, Carbon Dioxide 25, Anion Gap 11.3, BUN 19 H, Creatinine 0.80, Estimated Creat Clear 46, Estimated GFR 73, Est GFR ( Amer) 88, Glucose 98, Calcium 9.0 I & O for Labs for Last 24 Hours: Intake & Output 04/27/23 04/28/23 04/29/23 04/30/23 23:59 23:59 23:59 23:59 Intake Total 1032 / 1065 1825 / 2065 4821 / 4821 1630 / 1630 Output Total 0 / 0 0 / 0 0 / 0 Balance 1032 / 1065 1825 / 2065 4821 / 4821 1629 / 1629 Weight 245 lb 5 oz 251 lb 5.231 oz 266 lb 6 oz 269 lb Microbiology Reports for the Last 24 Hours: Microbiology 04/27/23 18:49 Sputum - Expectorated Sputum Gram Stain - Final 04/27/23 18:49 Sputum - Expectorated Sputum Sputum Culture - Preliminary 0
[2023-04-30 09:38] LABS: Eosinophils % 6 % (0-3); Lymphocytes % 22 % (10-50); Monocytes % 4 % (2-9); Neutrophils % 68 % (42-76); Platelet Estimate Normal; RBC Morphology Normal; Total Cells Counted 100
--- NOTE | 2023-04-30 09:54 | EXP.PHA.PN ---
Subjective *Date: 04/30/23 *Time: 09:54 Medical Exam Vital signs and Labs for Last 24 Hours: Vital Signs Temp Pulse Pulse Resp BP Pulse Ox O2 Del Method 04/30/23 09:14 80 04/30/23 09:14 77 04/30/23 07:55 97.4 F L 93 H 18 148/90 H 96 04/30/23 06:16 Nasal Cannula 04/30/23 06:01 80 04/30/23 06:01 77 04/30/23 04:00 97.3 F L 80 20 137/83 97 Nasal Cannula 04/30/23 05:00 Nasal Cannula 04/30/23 04:00 74 04/30/23 03:00 CPAP 04/30/23 01:00 Nasal Cannula 04/30/23 00:00 97.6 F 78 16 140/74 96 BiPAP 04/30/23 00:00 87 04/29/23 23:00 CPAP 04/29/23 21:00 Nasal Cannula 04/29/23 20:00 97.5 F L 76 18 126/65 97 Nasal Cannula 04/29/23 20:00 93 L Nasal Cannula 04/29/23 20:00 83 04/29/23 20:00 Nasal Cannula 04/29/23 20:00 89 04/29/23 20:00 88 04/29/23 18:11 Room Air 04/29/23 17:00 Room Air 04/29/23 16:00 70 04/29/23 15:00 Room Air 04/29/23 13:00 Nasal Cannula 04/29/23 15:14 98.6 F 78 18 126/73 98 Nasal Cannula 04/29/23 14:38 92 H 04/29/23 14:38 90 04/29/23 12:00 89 04/29/23 11:00 Nasal Cannula 04/29/23 10:02 101 H 04/29/23 10:02 105 H 04/29/23 10:02 92 L Nasal Cannula 04/29/23 11:29 97.9 F 72 18 146/82 H 98 Nasal Cannula O2 Flow Rate 04/30/23 09:14 04/30/23 09:14 04/30/23 07:55 04/30/23 06:16 1 04/30/23 06:01 04/30/23 06:01 04/30/23 04:00 04/30/23 05:00 1 04/30/23 04:00 04/30/23 03:00 04/30/23 01:00 1 04/30/23 00:00 04/30/23 00:00 04/29/23 23:00 04/29/23 21:00 1 04/29/23 20:00 04/29/23 20:00 1 04/29/23 20:00 04/29/23 20:00 04/29/23 20:00 04/29/23 20:00 04/29/23 18:11 04/29/23 17:00 04/29/23 16:00 04/29/23 15:00 04/29/23 13:00 2 04/29/23 15:14 2 04/29/23 14:38 04/29/23 14:38 04/29/23 12:00 04/29/23 11:00 2 04/29/23 10:02 04/29/23 10:02 04/29/23 10:02 2 04/29/23 11:29 Intake and Output 04/29/23 04/30/23 04/30/23 23:59 07:59 15:59 Intake Total 2050 / 4821 1630 / 1630 Output Total 0 / 0 1 / 1 0 / 1 Balance 2049 / 4821 1629 / 1629 0 / 1629 Intake: Intake, Oral Amount 480 / 1800 1080 / 1080 Intake, Total IV Amount 1570 / 3021 550 / 550 0.9 % Sodium Chloride 1000ML 1, 1570 / 2661 550 / 550 000 ml @ 100 mls/hr IV .Q10H [facility] Rx#:[id number] Output: Output, Urine Amount 0 / 0 1 / 1 0 / 1 Other: Number of Unmeasured Voids 1 0 0 Weight 122.016 kg Patient Weight 04/30/23 23:59 Weight 122.016 kg Laboratory Results - last 24 hr 04/29/23 11:42: POC Glucose 132 H 04/29/23 16:05: POC Glucose 160 H 04/29/23 19:55: POC Glucose 147 H 04/30/23 05:18: POC Glucose 99 04/30/23 06:22: WBC 15.4 H D, RBC 4.60, Hgb 12.7, Hct 39.3, MCV 85.6, MCH 27.7, MCHC 32.3, RDW 14.9, Plt Count 220, MPV 9.7, Neut % (Auto) 58.8, Lymph % (Auto) 28.8, [place] % (Auto) 6.2, Eos % (Auto) 5.8, Baso % (Auto) 0.4, Neut # (Auto) 9.0 H, Lymph # (Auto) 4.4, [place] # (Auto) 1.0, Eos # (Auto) 0.9 H, Baso # (Auto) 0.1, Total Counted 100, Neutrophils % (Manual) 68, Lymphocytes % (Manual) 22, Monocytes % (Manual) 4, Eosinophils % (Manual) 6 H, Platelet Estimate Normal, RBC Morphology Normal, Sodium 140, Potassium 3.3 L, Chloride 107, Carbon Dioxide 25, Anion Gap 11.3, BUN 19 H, Creatinine 0.80, Estimated Creat Clear 46, Estimated GFR 73, Est GFR ( Amer) 88, Glucose 98, Calcium 9.0 I & O for Labs for Last 24 Hours: Intake & Output 04/27/23 04/28/23 04/29/23 04/30/23 23:59 23:59 23:59 23:59 Intake Total 1032 / 1065 1824 4821 / 4821 1630 / 1630 Output Total 0 / 0 0 / 0 0 / 0 Balance 1032 / 1065 1824 / 2064 4821 / 4821 1629 / 1629 Weight 111.272 kg 114 kg 120.826 kg 122.016 kg Microbiology Reports for the Last 24 Hours: Microbiology 04/27/23 18:49 Sputum - Expectorated Sp
[2023-04-30 13:42] LABS: POC Glucose,Bedside 129 (70-110)
--- NOTE | 2023-04-30 17:49 | PC.NURSE ---
PT HAS TOLERATED ROOM AIR AT TIMES THIS SHIFT. O2 SAT ON ROOM AIR 96 AT TIME OF WRITING. SHE DOES BECOME WINDED WITH EXERTION AND REAPPLIES O2 WHEN SHE FEELS SHE NEEDS IT. SHE HAS TOLERATED HER DIET WELL. TREATED PER NOV FOR HEADACHE THIS SHIFT WITH GOOD EFFECTIVENESS.
[2023-04-30 21:08] LABS: POC Glucose,Bedside 147 (70-110)
[2023-05-01] VITALS: BP 165/92; PULSE 90; PULSE 95; RESP 20; TEMP 36.4; O2SAT 95
[2023-05-01 04:00] VITALS: BP 161/94; PULSE 100; PULSE 83; RESP 20; TEMP 36.7; O2SAT 96; BMI 46.2
[2023-05-01 06:01] LABS: POC Glucose,Bedside 121 (70-110)
[2023-05-01 06:01] LABS: POC Glucose,Bedside 158 (70-110)
[2023-05-01 06:22] LABS: Basophils # 0.1 K/mm3 (0-0.2); Basophils % 0.5 % (0.1-2.0); Eosinophils # 1.1 K/mm3 (0.0-0.4); Eosinophils % 7.9 % (0.1-12.0); Hematocrit 39.4 % (37.0-47.0); Hemoglobin 12.7 g/dL (12.2-16.2); Lymphocytes % 22.5 % (10-50); Mean Corpuscular HGB Conc 32.3 g/dL (31.8-35.4); Mean Corpuscular Hemoglobin 27.9 pg (27.0-31.2); Mean Corpuscular Volume 86.3 fl (81-99); Mean Platelet Volume 8.8 fl (7.4-10.4); Monocytes # 0.7 K/mm3 (0.1-1.0); Monocytes % 5.2 % (1.7-9.3); Neutrophils # 8.6 K/mm3 (1.8-7.8); Neutrophils % 63.9 % (37.0-80.0); Platelet Count 240 K/mm3 (142-424); Red Blood Count 4.57 M/mm3 (4.20-5.40); Red Cell Distribution Width 14.9 % (11.5-17.5); White Blood Count 13.4 K/mm3 (4.8-10.8)
[2023-05-01 06:29] LABS: Anion Gap 13.4 mEq/L (5-15); Blood Urea Nitrogen 13 mg/dl (7-17); Calcium 9.2 mg/dl (8.4-10.2); Carbon Dioxide 26 mmol/L (22.0-30.0); Chloride 104 mmol/L (98-107); Creatinine Clearance Estimated 46 mL/min (50-200); Estimated Glomerular Filt Rate 73 ml/min (>60); GFR (African American) 88 ML/MIN (>60); Glucose 117 mg/dl (74-100); Potassium 3.4 mmoL/L (3.5-5.1); Sodium 140 mmol/L (136-145)
[2023-05-01 06:35] VITALS: PULSE 90; PULSE 91; O2SAT 93
--- NOTE | 2023-05-01 06:39 | PC.NURSE ---
VS stable. Patient wore home cpap during shift then weaned to room air while awake. Lung sounds diminished. VS stable.
[2023-05-01 08:00] VITALS: BP 157/83; PULSE 85; PULSE 88; RESP 20; TEMP 36.8; O2SAT 94
--- NOTE | 2023-05-01 08:28 | EXP.ACUTE.PN ---
Subjective *Date: 05/01/23 *Time: 08:49 Interval history: Patient states she is ready to go home. She states her O2 sats have been good on room air since yesterday. She denies shortness of breath. She has produced some bloody sputum. She denies chest pain. She is eating and drinking without difficulty. She has walked to the bathroom and in the room and set up in the chair without problems. She states she is never smoking again. Medical Exam Vital signs and Labs for Last 24 Hours: Vital Signs Temp Pulse Pulse Resp BP Pulse Ox O2 Del Method 05/01/23 08:00 85 05/01/23 08:00 98.3 F 88 20 157/83 H 94 L Room Air 04/30/23 21:05 Nasal Cannula 05/01/23 05:30 Room Air 05/01/23 06:35 90 05/01/23 06:35 91 H 05/01/23 06:35 93 L Room Air 05/01/23 04:00 100 H 05/01/23 04:00 98.1 F 83 20 161/94 H 96 05/01/23 03:20 Room Air 05/01/23 01:18 CPAP 04/30/23 23:18 CPAP 04/30/23 21:05 Nasal Cannula 05/01/23 00:00 90 04/30/23 20:00 90 05/01/23 00:00 97.6 F 95 H 20 165/92 H 95 04/30/23 20:00 98.0 F 92 H 20 153/79 H 98 04/30/23 20:46 Nasal Cannula 04/30/23 20:46 76 04/30/23 20:46 77 04/30/23 18:04 Room Air 04/30/23 17:00 Room Air 04/30/23 16:16 80 04/30/23 12:01 101 H 04/30/23 15:18 80 04/30/23 15:18 80 04/30/23 15:22 98.6 F 90 18 137/69 98 Nasal Cannula 04/30/23 14:14 Nasal Cannula 04/30/23 13:00 Nasal Cannula 04/30/23 11:00 Nasal Cannula 04/30/23 11:48 98.6 F 87 18 153/70 H 97 04/30/23 09:00 Nasal Cannula 04/30/23 08:37 98 H 04/30/23 09:14 80 04/30/23 09:14 77 O2 Flow Rate 05/01/23 08:00 05/01/23 08:00 04/30/23 21:05 1 05/01/23 05:30 05/01/23 06:35 05/01/23 06:35 05/01/23 06:35 05/01/23 04:00 05/01/23 04:00 05/01/23 03:20 05/01/23 01:18 04/30/23 23:18 04/30/23 21:05 1 05/01/23 00:00 04/30/23 20:00 05/01/23 00:00 04/30/23 20:00 04/30/23 20:46 1 04/30/23 20:46 04/30/23 20:46 04/30/23 18:04 04/30/23 17:00 04/30/23 16:16 04/30/23 12:01 04/30/23 15:18 04/30/23 15:18 04/30/23 15:22 1.5 04/30/23 14:14 1 04/30/23 13:00 1 04/30/23 11:00 1 04/30/23 11:48 04/30/23 09:00 1 04/30/23 08:37 04/30/23 09:14 04/30/23 09:14 Intake and Output 04/30/23 05/01/23 05/01/23 19:59 03:59 11:59 Intake Total 780 / 780 480 / 1260 Output Total 0 / 0 0 / 0 Balance 780 / 780 480 / 1260 Intake: Intake, Oral Amount 480 / 480 480 / 960 Infusion Intake 300 / 300 Azithromycin 500 mg In 0.9 % 250 / 250 Sodium Chloride 250 ml @ 250 mls/hr IV Q24H [facility] Rx#:[id number] Ceftriaxone Sodium 1 gm In 0.9 50 / 50 % Sodium Chloride 50 ml @ 100 mls/hr IV Q24H [facility] Rx#:[id number] Output: Output, Urine Amount 0 / 0 0 / 0 Other: Number of Unmeasured Voids 0 1 Weight 261 lb 1 oz Patient Weight 05/01/23 11:59 Weight 261 lb 1 oz Laboratory Results - last 24 hr 04/30/23 06:22: Total Counted 100, Neutrophils % (Manual) 68, Lymphocytes % (Manual) 22, Monocytes % (Manual) 4, Eosinophils % (Manual) 6 H, Platelet Estimate Normal, RBC Morphology Normal 04/30/23 12:01: POC Glucose 129 H 04/30/23 17:23: POC Glucose 158 H 04/30/23 20:58: POC Glucose 147 H 05/01/23 05:47: WBC 13.4 H, RBC 4.57, Hgb 12.7, Hct 39.4, MCV 86.3, MCH 27.9, MCHC 32.3, RDW 14.9, Plt Count 240, MPV 8.8, Neut % (Auto) 63.9, Lymph % (Auto) 22.5, [place] % (Auto) 5.2, Eos % (Auto) 7.9, Baso % (Auto) 0.5, Neut # (Auto) 8.6 H, Lymph # (Auto) 3.0, [place] # (Auto) 0.7, Eos # (Auto) 1.1 H, Baso # (Auto) 0.1, Sodium 140, Potassium 3.4 L, Chloride 104, Carbon Dioxide 26, Anion Gap 13.4, BUN 13 D, Creatinine 0.80, Estimated Creat Clear 46, Estimated GFR 73, Est GFR ( Amer) 88, Glucose 117 H, Calcium 9.2 05/01/23 0
--- NOTE | 2023-05-01 09:08 | EXP.CARD.PN ---
Subjective Subjective Date: 05/01/23 Time: 08:30 Principal diagnosis: bilateral PEs, LLE DVT Interval history: This is a 63-year-old white female who presented to the emergency department with complaints of shortness of breath. The patient had a CTA of the chest which showed large bilateral PEs. She was initially started on heparin drip and she has since been converted over to oral Xarelto for long-term anticoagulation. She states that her shortness of breath has significantly improved. She reports that she has been off of all oxygen since last night and she is tolerating this well. Her oxygen saturations have remained stable being off of oxygen. She denies any chest pain or pressure. She denies any lower extremity edema. She denies any fever, chills, nausea, vomiting, diarrhea, PND or orthopnea. Patient states that she is ready to be discharged home today. Exam Data for Last 24 hours Vital signs and Labs for Last 24 Hours: Temp Pulse Resp BP Pulse Ox O2 Del Method O2 Flow Rate 98.3 F 88 20 157/83 H 94 L Room Air 1 05/01/23 08:00 05/01/23 08:00 05/01/23 08:00 05/01/23 08:00 05/01/23 08:00 05/01/23 08:00 04/30/23 21:05 Laboratory Results - last 24 hr 04/30/23 06:22: Total Counted 100, Neutrophils % (Manual) 68, Lymphocytes % (Manual) 22, Monocytes % (Manual) 4, Eosinophils % (Manual) 6 H, Platelet Estimate Normal, RBC Morphology Normal 04/30/23 12:01: POC Glucose 129 H 04/30/23 17:23: POC Glucose 158 H 04/30/23 20:58: POC Glucose 147 H 05/01/23 05:47: WBC 13.4 H, RBC 4.57, Hgb 12.7, Hct 39.4, MCV 86.3, MCH 27.9, MCHC 32.3, RDW 14.9, Plt Count 240, MPV 8.8, Neut % (Auto) 63.9, Lymph % (Auto) 22.5, [place] % (Auto) 5.2, Eos % (Auto) 7.9, Baso % (Auto) 0.5, Neut # (Auto) 8.6 H, Lymph # (Auto) 3.0, [place] # (Auto) 0.7, Eos # (Auto) 1.1 H, Baso # (Auto) 0.1, Sodium 140, Potassium 3.4 L, Chloride 104, Carbon Dioxide 26, Anion Gap 13.4, BUN 13 D, Creatinine 0.80, Estimated Creat Clear 46, Estimated GFR 73, Est GFR ( Amer) 88, Glucose 117 H, Calcium 9.2 05/01/23 05:49: POC Glucose 121 H I & O for Last 24 hours: Intake & Output 04/28/23 04/29/23 04/30/23 05/01/23 23:59 23:59 23:59 23:59 Intake Total 1825 / 5 4821 / 4821 2410 / 2410 480 / 480 Output Total 0 / 0 0 / 0 1 / 1 0 / 0 Balance 1825 / 5 4821 / 4821 2409 / 2409 480 / 480 Weight 251 lb 5.231 oz 266 lb 6 oz 269 lb 261 lb 1 oz Microbiology Reports for the Last 24 Hours: Microbiology 04/27/23 18:49 Sputum - Expectorated Sputum Gram Stain - Final 04/27/23 18:49 Sputum - Expectorated Sputum Sputum Culture - Preliminary Constitutional Constitutional: no acute distress and morbidly obese *Routine HEENT Exam Eye: Present EOMI and PERRL *Routine Neck Exam Neck: Present supple Comments: No JVD *Routine Respiratory Exam Respiratory: Present normal respiratory effort and symmetric chest movement *Routine Cardiovascular Exam Cardiovascular: Present RRR, Normal S1 and Normal S2 *Routine Abdominal Exam Abdominal: Present soft and normoactive bowel sounds *Routine Extremities Exam Extremities: Present pulses intact and normal capillary refill *Routine Neurological Exam Neurological: Present alert and oriented X3 Progress Note: A&P Assessment and plan (1) Bilateral pulmonary embolism: Status: Acute (2) Elevated troponin: Status: Acute (3) Acute and chronic respiratory failure with hypoxia: Status: Acute (4) Pneumonia: Status: Acute (5) Peroneal DVT (deep venous thrombosis): Status: Acute (6) History of COPD: Status: Chronic (7) Hypothyroidism: Status: Chronic (8) Hypertension: Status: Chronic (9) Tobacco use disorder: Status: Chronic (10) COPD (chronic obstructive pulmonary disease): Status: Chronic (11) DM2 (diabetes mellitus, type 2): Status: Acute (12) Obesity: Status: Chronic (13) Hypokalemia: Status: Acute Assessment and Plan Assessment
[2023-05-01 10:39] VITALS: PULSE 80; PULSE 82; O2SAT 91
--- NOTE | 2023-05-01 23:36 | EXP.DC.SUM ---
General Admission date:: 04/27/23 Discharge date: 05/01/23 HPI HPI HPI: Ms. Garrison is a 63-year-old female with a history of COPD, hypertension, and diabetes. She states last night she began running a fever and becoming short of breath. The shortness of breath progressively worsened and she began having some swelling in both legs. This morning, her oxygen saturations were in the mid 80s and she felt poorly. She presented to the office and her oxygen sats ranged from 85-90 on room air. A CBC was done and showed an elevated white blood cell count of 19,000. Her legs were swollen. She was admitted and started on pneumonia protocol pending her chest x-ray. A venous Doppler was also ordered of the bilateral lower extremities. Hospital Course Hospital Course Hospital Course: The patient's venous Doppler showed a DVT of the left peroneal vein and her chest x-ray showed a worsening pneumonia. She was admitted and started on pneumonia protocol with antibiotics, nebs, and steroids. Her EKG showed a questionable PR and her troponin was elevated, therefore cardiology was consulted. She was started on Lovenox for her peroneal vein DVT. Cardiology saw the patient and ordered a CTA. It showed bilateral pulmonary emboli, therefore Lovenox was discontinued and she was started on a heparin drip. Her preliminary echo showed a normal EF with no wall motion abnormalities. By 04/28/2023, she was feeling better and was not short of air. She continued to have some minimal pain in the left calf but no redness. Her official echo did show moderate right ventricular dilatation with moderate reduction in right ventricular function. There was increased right-sided pressure. Her RVSP was 30 to 35 mmHg and she had a pericardial effusion. She did have a repeat TTE to evaluate right ventricular function and it showed no significant change compared to the previous day. Cardiology planned no invasive embolectomy but wanted to continue medical management considering she was stable and her TTE showed unchanged findings. She continued to improve each day. She was transitioned to Xarelto and her heparin drip was discontinued. She was weaned off of her supplemental oxygen. By 05/01/2023, she was feeling much better and wanted to go home. She denied any shortness of breath but had produced some bloody sputum. She had walked to the bathroom and in the room without problems and her oxygen saturations were normal on room air. She was stable to be discharged home on continued antibiotics and Xarelto. Exam Data for Last 24 hours Vital signs and Labs for Last 24 Hours: Temp Pulse Resp BP Pulse Ox O2 Del Method O2 Flow Rate 98.3 F 80 20 157/83 H 91 L Room Air 1 05/01/23 08:00 05/01/23 10:39 05/01/23 08:00 05/01/23 08:00 05/01/23 10:39 05/01/23 10:39 04/30/23 21:05 Laboratory Results - last 24 hr 04/30/23 17:23: POC Glucose 158 H 05/01/23 05:47: WBC 13.4 H, RBC 4.57, Hgb 12.7, Hct 39.4, MCV 86.3, MCH 27.9, MCHC 32.3, RDW 14.9, Plt Count 240, MPV 8.8, Neut % (Auto) 63.9, Lymph % (Auto) 22.5, [place] % (Auto) 5.2, Eos % (Auto) 7.9, Baso % (Auto) 0.5, Neut # (Auto) 8.6 H, Lymph # (Auto) 3.0, [place] # (Auto) 0.7, Eos # (Auto) 1.1 H, Baso # (Auto) 0.1, Sodium 140, Potassium 3.4 L, Chloride 104, Carbon Dioxide 26, Anion Gap 13.4, BUN 13 D, Creatinine 0.80, Estimated Creat Clear 46, Estimated GFR 73, Est GFR ( Amer) 88, Glucose 117 H, Calcium 9.2 05/01/23 05:49: POC Glucose 121 H I & O for Last 24 hours: Intake & Output 04/29/23 04/30/23 05/01/23 05/02/23 11:59 11:59 11:59 11:59 Intake Total 3841 / 3841 4280 / 4280 1260 / 1260 Output Total 0 / 0 1 / 1 0 / 0 Balance 3841 / 3841 4279 / 4279 1260 / 1260 Weight 266 lb 6 oz 269 lb 261 lb 1 oz Narrative: Constitutional Constitutional: moderate distress (Does not appear to feel well, SOA) *Routine HEENT Exam Head: Present normocephalic and atraumatic Eye: Present EOMI and PERRL ENT: Present muc
--- NOTE | 2023-05-02 11:38 | CARE MANAGER ---
Called patient to discuss recent discharge. She stated that she is doing well, and has started new medication prescribed at discharge. Patient had no concerns or questions at time of call.
== END 2023-05-01 11:23 | disposition home or self-care (01) | DRG 177 ==
PROVIDERS: Internal Medicine; Nurse Practitioner; Physician Assistant; Admitting Provider Family Medicine; PCP Family Medicine; Visit Provider Family Medicine
DX: J15.6 Pneumonia due to other Gram-negative bacteria (principal); I26.99 Other pulmonary embolism without acute cor pulmonale; J96.21 Acute and chronic respiratory failure with hypoxia; J44.0 Chronic obstructive pulmonary disease with (acute) lower respiratory infection; Z68.42 Body mass index [BMI] 45.0-49.9, adult; I82.452 Acute embolism and thrombosis of left peroneal vein; I5A Non-ischemic myocardial injury (non-traumatic); M19.90 Unspecified osteoarthritis, unspecified site; E03.9 Hypothyroidism, unspecified; E66.9 Obesity, unspecified; E11.9 Type 2 diabetes mellitus without complications; F17.210 Nicotine dependence, cigarettes, uncomplicated; E87.6 Hypokalemia
CPT/HCPCS: 36415; 71046; 71275; 80048; 80053; 82962; 83605; 84484; 85007; 85025; 85610; 85730; 87040; 87070; 87077; 87186; 87205; 93005; 93306; 93308; 93970; 94640; 94760; 94761; J0456; J0696; Q9967

== ENCOUNTER 2024-07-08 13:02 | Emergency (ER) | payer BC, OTHER, SELFPAY ==
[2024-07-08 13:04] VITALS: BP 120/66; PULSE 84; RESP 18; TEMP 36.7; O2SAT 97; BMI 41.3
--- NOTE | 2024-07-08 14:08 | ED_ITS ---
<Statement entered by Kym Maldonado MD - 07/08/24 15:48> I was consulted by the PANFILO, and we discussed the complexity of the problems being addressed. I approved the treatment and management plan for this patient's care in the emergency department, thus performing a substantive portion of the medical decision making. Kym Maldonado MD, ABUNDIO, FACEP Discharge Plan Disposition Patient Disposition: Home, Self-Care Condition: Good Chief Complaint: PAIN Prescriptions Prescriptions: No Action allopurinol 100 mg tablet 100 mg PO DAILY Patient Comments: TAKE 1 TABLET BY MOUTH ONCE DAILY Xarelto 20 mg tablet 20 mg PO DAILY 30 Days Qty: 30 11RF Rx Instructions: must administer with evening meal celecoxib 100 mg capsule 100 mg PO DAILY amlodipine 10 mg tablet 10 mg PO DAILY levothyroxine 125 MCG tablet 125 mcg PO DAILYDM albuterol sulfate 18 GM HFA aerosol inhaler 1 - 2 puffs IH Q6HP PRN (Reason: Shortness Of Breath Or Wheezing) montelukast 10 MG tablet 10 mg PO PM metformin 500 mg tablet extended release 24 hr 1,000 mg PO DAILYDM Patient Comments: TAKE 2 TABLETS BY MOUTH ONCE DAILY duloxetine 60 mg capsule,delayed release(DR/EC) 60 mg PO DAILY Patient Comments: TAKE 2 CAPSULES BY MOUTH ONCE DAILY budesonide-formoterol 80-4.5 mcg/actuation Hfa Aerosol Inhaler 2 puff INHALATION BID loratadine 10 mg tablet 10 mg PO DAILY Patient Comments: TAKE 1 TABLET BY MOUTH ONCE DAILY aripiprazole 10 mg tablet 10 mg PO DAILY PRN (Reason: Anxiety) levalbuterol tartrate 45 mcg/actuation HFA aerosol inhaler 1 puff INHALATION Q6 PRN (Reason: Shortness Of Breath Or Wheezing) Patient Comments: INHALE 1 PUFF BY MOUTH EVERY 6 HOURS NEEDED Trulicity 0.75 mg/0.5 mL pen injector 0.75 mg SQ WEEKLY Patient Comments: INJECT 0.75MG SUBCUTANEOUSLY ONCE A WEEK Rx Instructions: Inject 0.75mg SQ once weekly on Monday triamterene-hydrochlorothiazid 37.5-25 mg Tablet 1 tab PO DAILY coenzyme Q10 [CoQ-10] 100 mg Capsule 100 mg PO DAILY cholecalciferol (vitamin D3) [Vitamin D3] 25 mcg (1,000 unit) Tablet 50 mcg PO DAILY ipratropium-albuterol 3 ML solution for nebulization 3 ml inhalation TID PRN (Reason: Wheezing) Referrals Follow up/Referrals: Trent Avery MD [Primary Care Provider] - See instructions Christ King DO [Staff Physician] - See instructions Activity Restrictions/Add. Instructions Additional Instructions/Restrictions: Please call and make your appointment with orthopedics in the morning. Continue taking ibuprofen alternating with Tylenol for pain. Please keep your leg elevated and iced. Weightbearing as tolerated with your cane. Follow-up with your PCP or return to ER for any worsening signs or symptoms as needed Clinical Impressions Clinical Impression: Right knee sprain Qualifiers: Encounter type: initial encounter Involved ligament of knee: unspecified ligament Qualified Code(s): S83.91XA - Sprain of unspecified site of right knee, initial encounter Print Language Print Language: Citizen Of [place] Discharge ED Provider: Kym Maldonado General Adult HPI General Chief complaint: PAIN Stated complaint: Pain in R knee, no accident Time Seen by Provider: 07/08/24 13:53 Mode of Arrival: Wheelchair Source of Information: Patient Limitations: No Limitations Description of Symptoms (Recalled from ER Triage Doc. by RN): pt c/o right knee pain. turned while standing, felt a pop and pt fell and leg went under pt History of Present Illness HPI narrative: Patient presents for right knee injury. Patient was getting up for bed and was turning and felt a pop in her right knee. This has happened before in the remote past and she was evaluated by orthopedic surgeon in [place] but was told that she was not a candidate for surgical intervention for knee replacement due to her BMI. I do not know what actual injury she suffered. Patient normally ambulates with a cane but since the injury this morning she has been unable to bear weight. She also reports some tingling sensation in her feet but denies any loss of motor or sensory. She did not fall or suffer any other injury. Related Data Home Medications ?Medication ?Instructions ?Recorded ?Confirmed amlodipine 10 mg tablet 10 mg PO DAILY High Blood Pressure 11/28/17 11/14/23 albuterol sulfate 90 mcg/actuation 1 - 2 puffs inhalation Q6HP PRN 07/01/19 11/14/23 aerosol inhaler Shortness Of Breath Or Wheezing levothyroxine 125 mcg tablet 125 mcg PO DAILYDM THYROID 07/01/19 11/14/23 allopurinol 100 mg tablet 100 mg PO DAILY gout 10/28/19 11/14/23 montelukast 10 mg tablet 10 mg PO PM Allergy symptoms 04/10/22 11/14/23 budesonide-formoterol HFA 80 2 puff inhalation BID COPD 09/12/22 11/14/23 mcg-4.5 mcg/actuation aerosol inhaler duloxetine 60 mg capsule,delayed 60 mg PO DAILY Anxiety 09/12/22 11/14/23 release metformin 500 mg tablet,extended 1,000 mg PO DAILYDM Diabetes 09/12/22 11/14/23 release 24 hr aripiprazole 10 mg tablet 10 mg PO DAILY PRN Anxiety 04/27/23 11/14/23 cholecalciferol (vitamin D3) 25 50 mcg PO DAILY Supplementation 04/27/23 11/14/23 mcg (1,000 unit) tablet (Vitamin D3) coenzyme Q10 100 mg capsule 100 mg PO DAILY Heart Health 04/27/23 11/14/23 (CoQ-10) dulaglutide 0.75 mg/0.5 mL 0.75 mg SQ WEEKLY Diabetes 04/27/23 11/14/23 subcutaneous pen injector (Trulicity) ipratropium 0.5 mg-albuterol 3 mg 3 ml inhalation TID PRN Wheezing 04/27/23 11/14/23 (2.5 mg base)/3 mL nebulization soln levalbuterol tartrate 45 1 puff inhalation Q6 PRN Shortness 04/27/23 11/14/23 mcg/actuation aerosol inhaler Of Breath Or Wheezing loratadine 10 mg tablet 10 mg PO DAILY Allergies 04/27/23 11/14/23 triamterene 37.5 1 tab PO DAILY High Blood Pressure 04/27/23 11/14/23 mg-hydrochlorothiazide 25 mg tablet celecoxib 100 mg capsule 100 mg PO DAILY 11/14/23 11/14/23 Previous Rx's ?Medication ?Instructions ?Recorded rivaroxaban 20 mg tablet (Xarelto) 20 mg PO DAILY 30 days #30 tabs 05/10/23 Allergies Allergy/AdvReac Type Severity Reaction Status Date / Time ramipril Allergy Severe S-SWELLS-OR Verified 11/14/23 08:31 AL/THROAT adhesive tape Allergy Intermediate Blisters Verified 11/14/23 08:31 Latex, Natural Rubber Allergy Unknown Verified 11/14/23 08:31 lisinopril Allergy Unknown Verified 11/14/23 08:31 [facility] Disclaimer: The information contained in this section may have been updated after the patient was seen, as this information can be updated by other users. Medical History Arthritis COPD (chronic obstructive pulmonary disease) Diabetes mellitus HLD (hyperlipidemia) Hypertension Hypothyroidism Obesity Postoperative edema Postoperative pain Tobacco use disorder Ventral hernia Surgical History H/O foot surgery History of bladder surgery History of History of cataract surgery History of cholecystectomy History of hernia repair History of tonsillectomy Status post foot surgery Family History Other Coronary artery disease Diabetes Hypertension No significant family history Social History Smoking Status: Current every day smoker tobacco type: cigarettes packs per day: 1 alcohol intake: never substance use type: denies use current occupational status: employed and retired Travel in the last 8 weeks: None household members: none housing: apartment current occupation: [employer] caffeine: Yes Other Medical History Have you received the Flu Vaccine for this season: No Have you received the Pneumonia Vaccine: No ROS Obtained: Yes Systems reviewed as appropriate & no additional complaints except as documented Physical Exam General General appearance: alert and in no apparent distress Respiratory Respiratory exam: Present normal lung sounds bilaterally Cardiovascular Cardiovascular exam: Present regular rate Neurological Exam Neurological exam: Present alert and oriented X3 Medical Decision Making Medical Records Screening: Per USPSTF and CDC recommendations, given the prevalence of disease in our region, it is our hospital?s policy to screen for HIV and viral Hepatitis for all patients aged 18 and over and those with ongoing risk factors. Alex Inquiry Pt receiving controlled substance: No Vital Signs: 07/08/24 13:04 Temperature 98.0 F Temperature Source Oral Pulse Rate [Radial] 84 Respiratory Rate 18 Blood Pressure [Right Arm] 120/66 Blood Pressure Mean [Right Arm] 84 Blood Pressure Source [Right Arm] Automatic Cuff Blood Pressure Position [Right Arm] Sitting 02 Sat by Pulse Oximetry 97 Oxygen Delivery Method Room Air Orders (Tests/Meds): ED MEDICATIONS Discontinued Medications Generic Name Dose Route Start Last Admin Trade Name Clare PRN Reason Stop Dose Admin Acetaminophen 1,000 mg 07/08/24 14:15 07/08/24 14:26 Acetaminophen 500mg Tab PO 07/08/24 14:16 1,000 mg ONCE ONE Administration Ibuprofen 800 mg 07/08/24 14:15 07/08/24 14:26 Ibuprofen 400 Mg Tablet PO 07/08/24 14:16 800 mg ONCE ONE Administration ORDERS Category Date Time Status XR knee RT 3V Stat Exams 07/08/24 14:10 Taken Medical Decision Narrative: In summary patient is a 64-year-old female who presents to the emergency department for evaluation of atraumatic right knee injury. Patient is hemodynamically stable upon arrival, afebrile. Physical exam is remarkable for swelling at the right knee and tenderness to palpation around the entire joint line but no palpable bony deformity. Patient's BMI is 41. She is neurovascularly intact distally. Differential diagnosis includes fracture versus ligamentous or cartilaginous injury versus soft tissue injury. Initial workup will be conducted with plain film x-rays. Initial interventions include acetaminophen and ibuprofen. Initial workup reviewed by me and my informal termination of plain film x-ray shows no acute bony injury. Upon repeat evaluation patient still reports pain with weightbearing. Given this patient is appropriate for discharge with referral to orthopedic surgery, she is not comfortable with crutches thus a knee immobilizer would be highly risky. Critical Care Critical Care Time Critical Care Time: No
--- NOTE | 2024-07-08 14:10 | XR_ITS ---
PROCEDURE INFORMATION: Exam: XR Right Knee Exam date and time: 07/08/2024 2:21 PM Age: 64 years old Clinical indication: Injury or trauma; Other: Bath knee pop while walking and then twisted knee; Other: Pain; Additional info: Twisting injury TECHNIQUE: Imaging protocol: Radiologic exam of the right knee. Views: 3 views. COMPARISON: CR XR FOOT WT BEARING RT 3V 02/18/2022 9:41 AM FINDINGS: Bones/joints: No acute fracture or malalignment. No worrisome lytic or blastic lesion. No cortical erosion or periosteal reaction. Moderate tricompartmental joint space narrowing and osteophyte formation. Soft tissues: Normal. IMPRESSION: 1. No acute findings. 2. Moderate knee osteoarthritis.
[2024-07-08] MEDS: ACETAMINOPHEN 500MG TAB 1000 MG PO (14:26)
[2024-07-08] MEDS: IBUPROFEN 400 MG TABLET 800 MG PO (14:26)
--- NOTE | 2024-07-08 14:29 | PC.NURSE ---
pt to radiology via
[2024-07-08 15:24] VITALS: BP 124/68; PULSE 74; RESP 18; TEMP 36.7; O2SAT 99
== END 2024-07-08 15:24 | disposition home or self-care (01) ==
PROVIDERS: Emergency Provider Student in an Organized Health Care Education/Training Program; PCP Family Medicine
DX: S83.91XA Sprain of unspecified site of right knee, initial encounter (principal); M25.561 Pain in right knee; W19.XXXA Unspecified fall, initial encounter; Y93.89 Activity, other specified; Y92.003 Bedroom of unspecified non-institutional (private) residence as the place of occurrence of the external cause
CPT/HCPCS: 73562; 99283

== ENCOUNTER 2024-07-30 13:23 | Outpatient (CLI) | payer BC, OTHER, SELFPAY ==
--- NOTE | 2024-07-30 13:24 | CT_ITS ---
FINAL REPORT TECHNIQUE: Thin section axial CT images of the right hip, knee, and ankle were obtained and reviewed. Coronal and sagittal reformats were obtained and reviewed. This study was performed with techniques to keep radiation doses as low as reasonably achievable (ALARA). Individualized dose reduction techniques using automated exposure control or adjustment of mA and/or kV according to the patient''s size were employed. CLINICAL HISTORY: Right knee pain COMPARISON: None FINDINGS: There are mild degenerative changes of the hip. There are severe degenerative changes of the knee. Mild degenerative changes are noted of the ankle. There is a small knee joint effusion. No focal abnormality is seen of the right hip or right ankle. There is no acute fracture or dislocation. IMPRESSION: Significant degenerative changes of the knee without acute abnormality. Reviewed, Interpreted and Dictated by Dallas Cote III, MD Transcribed by Maura Martines Authenticated and [facility]
== END 2024-07-30 23:59 | disposition home or self-care (01) ==
LOC: RAD 13:24
PROVIDERS: PCP Family Medicine; Visit Provider Physician Assistant Surgical
DX: M17.11 Unilateral primary osteoarthritis, right knee (principal)
CPT/HCPCS: 73700

== ENCOUNTER 2024-08-09 10:00 | Outpatient (RCR) | payer BC, OTHER, SELFPAY ==
--- NOTE | 2024-07-26 11:17 | HMH.PTOPEV ---
PT Outpatient Evaluation Rehab PT Outpatient Evaluation Start: 07/26/24 10:30 Freq: Status: Active Protocol: Document 07/26/24 10:30 SAAD (Rec: 07/26/24 11:17 SAAD [id number]) E-signed By Rancho D[place]in, PT Outpatient Therapy Subjective History Subjective History Pt reports h/o chronic right knee pain 'for years', with exacerbation of arthritic changes over the last ~6 months. Pt reports recent episode of right knee 'going into hyperextension was the icing on the cake.' Pt reports recent 'injection helped last week, but I can tell the pain is already coming back.' Pt reports 'the plan is to have it replaced, so I gotta get it ready.' Pt reports some limitations in ROM, constant pain, and weakness. Pt also reports left knee pain, but is unsure of OA severity in left knee. New diagnosis of cancer in past 12 No months? Chief Complaint Pain,Stiff,Gives out/Unstable, Weakness Symptom Type Ache,Sharp,Dull Symptoms Relieved By Rest/Positioning,Ice Symptoms Aggravated By Standing,Physical Activity, Walking Prior Functional Limitations Housework,Standing,Squatting, Walking Current Functional Limitations Housework,Standing,Squatting, Walking Symptom Description Constant but Variable Level of pain today (0-10) 5 Pain scale - at its best (0-10) 3 Pain scale - at its worst (0-10) 8 Hip/Knee Eval Gait Observation General Gait Pattern Observation Antalgic Gait,Wide Based Gait, Decrease Weight Bear (R) Assistive Device Assistive Devices None / NA Palpation Tenderness right Knee Palpation Finding Tenderness Knee Palpation Overall Comment 3/4 medial jt line, 2-3/4 lateral jt line MMT left Hip Flexion Strength Grade 4 Good Hip Abduction Strength Grade 5 Normal Hip Adduction Strength Grade 5 Normal Hip Extension Strength Grade 5 Normal Knee Extension Strength Grade 5 Normal Knee Flexion Strength Grade 4 Good right Hip Flexion Strength Grade 4 Good Hip Abduction Strength Grade 4- Good- Hip Adduction Strength Grade 4 Good Hip Extension Strength Grade 4- Good- Knee Extension Strength Grade 4 Good Knee Flexion Strength Grade 4- Good- ROM Knee Flexion Active Range of Motion ( +5-115 degrees) Lower Extremity Functional Index Activities Today, do you or would you have any difficulty at all with: a.Any of your usual work, housework or Quite a bit of difficulty school activities b. Your usual hobbies, recreational or Moderate difficulty sporting activities c. Getting into or out of the bath Moderate difficulty d. Walking between rooms Quite a bit of difficulty e. Putting on your shoes or socks Quite a bit of difficulty f. Squatting Extreme difficulty or unable to perform activity g. Lifting an object, like a bag of Quite a bit of difficulty groceries from the floor h. Performing light activities around Moderate difficulty your home i. Performing heavy activities around Quite a bit of difficulty your home j. Getting into or out of a car Quite a bit of difficulty k. Walking 2 blocks Extreme difficulty or unable to perform activity l. Walking a mile Extreme difficulty or unable to perform activity m. Going up or down 10 stairs (about 1 Extreme difficulty or unable flight of stairs) to perform activity n. Standing for 1 hour Extreme difficulty or unable to perform activity o. Sitting for 1 hour A little bit of difficulty p. Running on even ground Extreme difficulty or unable to perform activity q. Running on uneven ground Extreme difficulty or unable to perform activity r. Making sharp turns while running fast Quite a bit of difficulty s. Hopping Quite a bit of difficulty t. Rolling over in bed Moderate difficulty LEFI Score Lower Extremity Functional Index Score 19 Outpatient Therapy Assessment Impairments Problems/Impairmments Palpation Tenderness,Impaired Range of Motion,Impaired Strength,Impaired Gait Pattern ,Impaired Walking,Impaired Standing,Impaired Household Care,Impaired Stair Climbing, Impaired Squatting,Subjective C/O Pain,Impaired Self Care/ Self Management Prognosis Rehab Potential Good Clinical Impression Consistent with Diagnosis Yes Short Term Goals Number of Weeks 4-6 Decreased Palpation Tenderness Yes: 1-2/4 right knee Increase Range of Motion Yes: 0-120-125 right knee AROM FLX Increase Strength Yes: 4-4+/5 RLE Improve Gait Pattern without Assistive Yes: WFL ON LEVEL TERRAIN Device Increase Ability to Walk Yes: 30MIN Increase Ability to Stand Yes: 30MIN Improve Ability For Household Care Yes: 30MIN Improve Oswestry Score Yes: 45-50 Decrease Subjective C/O Pain Yes: 3/10 W/ABOVE ACTIVITIES Patient to be Ind w/ HEP Yes Patient to be Ind w/ Advanced HEP Yes Outpatient Therapy Plan of Care Treatment Plan May Include Therapeutic Exercise Including Home Yes Exercise Program Manual Therapy Techniques Yes Neuromuscular Re-education Yes Therapeutic Activities to Return to Yes Previous Functional/Work Level Gait Training Yes ADL/Self Care Education Yes Dry Needling Yes Thermal Modalities Yes Electrical Stimulation Yes Ultrasound/Phonophoresis Yes Orthotics/Bracing/Splinting Yes Vasopneumatic Compression Pump Yes Eval/Re-Eval Yes Frequency Times per week 1-2 Duration Number of Weeks 4-6 Addendums This patient is a candidate for social No or vocational rehab? Patient/Guardian verbally acknowledges Yes understanding of treatment program and consents to further treatment? Patient/Guardian verbally acknowledges Yes understanding of diagnosis, prognosis and goals for treatment? Eval Complexity PT Charges 00292 - Moderate Complexity Shoulder/Elbow Eval Shoulder Objective Measurements Elbow Objective Measurements PHYSICIAN CERTIFICATION: I certify the specified therapy services for Barb Garrison are required, authorized, and reviewed every 30 days.
== END 2024-08-09 23:59 | disposition home or self-care (01) ==
LOC: PT 10:00
PROVIDERS: Visit Provider Orthopaedic Surgery
DX: M25.561 Pain in right knee (principal); G89.29 Other chronic pain
CPT/HCPCS: 97010; 97014; 97016; 97110; 97163; 97530; G0283

== ENCOUNTER 2025-05-16 14:56 | Outpatient (CLI) | payer BC, OTHER, SELFPAY ==
--- OUTSIDE RECORDS SUMMARY | 2024-06-26 07:00 | XMS_ITS ---
Author Organization [facility] Address [address] [facility] [address] [place] [id number] Care Team Providers Care Slumber Room Attendant Name Role Phone Trent Avery Primary Care Provider [phone] Allergies Allergen (clinical drug ingredient) Drug/Non Drug [...] 140 Performing Lab: Notes/Report: Test performed by [facility] , [address], [place] [address] Chris Vásquez MD, Power Reactor Supervisor CLIA: [id number] Sodium 138 135-145 mmol/L Potassium 3.9 3.5-5.3 [...] Interpretation:1.86 Performing Lab: Notes/Report: Test performed by [facility] [address] [place] [address] , [facility] [place] [id number] Chris Vásquez MD, Power Reactor Supervisor CLIA: [id number] Thyroxine Free (free T4) 1.86 0.86-1.76 ng/dL P-Lipid Panel Reviewed date:06/27/2024 03:52:35 PM Interpretation:chol 220, trig 172, chol/hdl 4.49, non-hdl 171, ldl 137 Performing Lab: Notes/Report: Test performed by [facility] [address] [place] [address] , [place] [address] Chris Vásquez MD, Power Reactor Supervisor CLIA: [id number] Cholesterol 220 <200 mg/dL Triglycerides 172 <150 [...] Interpretation:0.16 Performing Lab: Notes/Report: Test performed by [facility], [place] [address] [facility] , [address], [place] [address] Chris Vásquez MD, Power Reactor Supervisor CLIA: [id number] TSH 0.16 0.43-5.25 mU/L P-Vitamin D 25-Hydroxy Reviewed date:06/27/2024 03:52:35 PM Interpretation:40.8 Performing Lab: Notes/Report: Test performed by [facility] , [address], [place] [address] Chris Vásquez MD, Power Reactor Supervisor CLIA: [id number] Vitamin D 25-Hydroxy 40.8 30.0-100.0 ng/mL Interpretation [...] Last Name Gena Referring Provider Speciality Family [facility] Referred Provider Rubia Antoine Referred Provider [...] [address] [place] [phone] 06/26/2024 Trent Avery Type 2 diabetes yelitza [...] 08/11/2025 10:00:00 AM, [address] [facility], [address], [place], [id number], Progress Notes * HENRIQUEZJAMARIDENITAOB:1960 (65 yo F)Acc No.[id number]:06/26/2024 Progress Notes Patient: FIOR DOBBINS Provider: Amita Avery M.D. :1960 A ge:64 Y S ex:Female Date:06/26/2024 Address:[address] [place], [place] [id number] Subjective: * Chief Complaints: * 1 [...] Hospitalization/Major Diagno stic Procedure: K nee Pain- [facility] 10/05/2018, Pneumonia, Bronchitis- [facility] 06/30-. * Family History: F ather: [...] * Procedure Codes: 9 4760 [place], [address] GLUCOSE TEST, 59477 GLYCATED HEMOGLOBIN TEST, Modifiers: QW , 76392 CBC WITH AUTO DIFF * Follow Up: 6 Months * Images: Billing Information: * Visit Code: 69403 Office Visit, Est Pt., Level 4. * Procedure Codes: [address] [place]. [address] GLUCOSE TEST. 35186 GLYCATED HEMOGLOBIN TEST. Modifiers: QW 54610 CBC WITH AUTO DIFF. * Electronic signature of Adrianne Avery MD on 05/16/2025 at 03:01 PM EDT Sign off status: Pending * Provider: Amita Avery M.D. Date: Generated for Kai arias/Clarence/Jose on: 0 05/16/2025 03:01 PM EDT History and Physical Notes * HPI [...]
--- OUTSIDE RECORDS SUMMARY | 2024-08-07 06:15 | XMS_ITS ---
Author Organization [facility] Address [address] [facility] [address] [facility] [address] [place] [id number] Care Team Providers Care Train Station Agent Name Role Phone Trent Avery Primary Care [...] Interpretation:Normal Performing Lab: Notes/Report: Test performed by [facility] [address] [place], [place] [address] [place] , [address], [place] [address] Chris Vásquez MD, Cloak Room Attendant CLIA: [id number] Thyroxine Free (free T4) 1.53 0.86-1.76 ng/dL P-TSH Reviewed date:08/09/2024 01:41:47 PM Interpretation:Normal Performing Lab: Notes/Report: Test performed by [facility] [address] [place] [address] [address], [place] [address] Chris Vásquez MD, Cloak Room Attendant CLIA: [id number] TSH 0.75 0.43-5.25 mU/L REASON FOR VISIT [...] day; Duration: 90 days Active Vital Signs Weight 233.2 lbs 08/07/2024 Blood pressure systolic 124 mm Hg 08/07/20 Blood pressure diastolic 80 mm Hg Heart Rate 91 /min 08/07/2024 Height 63 in 08/07/2024 BMI 41.31 kg/m2 08/07/2024 Encounters Encounter Location Date Provider Diagnosis [facility] [facility] [address] [facility] [address] [place] [id number] 08/07/2024 Trent Avery Type 2 diabetes mellitus [...] 08/11/2025 10:00:00 AM, [address] [place] [address] [facility], [address], [place], [id number], Progress Notes * NEREYDA HENRIQUEZ:1960 (65 yo F)Acc No.[id number]:08/07/2024 Progress Notes Patient: P IERCE, FIOR Provider: Amita Avery M.D. :1960 A ge:64 Y S ex:Female Date:08/07/2024 Address:[address] [place] [address] T[place] Alexandra, [id number] Subjective: * Chief Complaints: * 1 . 5 month follow up. * HPI: K nee/Watkins: 64 year old female presents with c/o knee pain P t sts that a few weeks ago she had to go to [facility] ER because she had a hyperextension [...] Hospitalization/Major Diagno stic Procedure: Connor baker [place] [facility] [place], Pneumonia, Bronchitis- [facility] 06/30-, Hyperextension of Right Knee - [facility] ER referred to Dr. King 07/2024. [...] * Procedure Codes: 9 4760 [place], [address] CBC WITH AUTO DIFF * Follow Up: 3 Months fasting * Images: Billing Information: * Visit Code: 13932 Office Visit, Est Pt., Level 4. * Procedure Codes: [address] [place]. [address] CBC WITH AUTO DIFF. * Electronic signature of Adrianne Avery MD on 05/16/2025 at 03:01 PM EDT Sign off status: Pending * Provider: Amita Avery M.D. Date: 1 10/07/2023 Generated for Kai arias/Clarence/eTransmitting on: 0 05/16/2025 03:01 PM EDT History and Physical Notes * HPI (History of Present Illness) Category Sub-Category Detail Notes Category Not es [facility]ocrinology [facility] Pt is fasting today. Pt is due for labs after a change in her dose of Levothyroxine Knee/Watkins knee pain Pt sts that a fe w weeks ago she had to go to [facility] ER because she had a hyperextension [...]
--- OUTSIDE RECORDS SUMMARY | 2024-11-11 05:15 | XMS_ITS ---
Author Organization [facility] Address [facility] [address] ColemanKUMAR [phone] Care Team Providers Care Snow Removing Supervisor Name Role Phone Trent Avery Primary Care Provider [phone] Allergies Allergen (clinical drug ingredient) Drug/Non Drug [...] 153 Performing Lab: Notes/Report: Test performed by [employer], [facility] [address] [place] [address] , [address], [place] [address] Chris Vásquez MD, Animal Control Specialist CLIA: [id number] Sodium 139 135-145 mmol/L Potassium 3.9 3.5-5.3 [...] Interpretation:Normal Performing Lab: Notes/Report: Test performed by [facility] [address] [place] [address] , [address], [place] [address] Chris Vásquez MD, Animal Control Specialist CLIA: [id number] Thyroxine Free (free T4) 1.49 0.86-1.76 ng/dL P-Lipid Panel Reviewed date:11/12/2024 09:17:42 AM Interpretation:chol 255, trigs 173, chol/hdl 4.9, non-hdl 203, ldl 168 Performing Lab: Notes/Report: Test performed by [facility] [address] [place], [place] [address] [place] , [address], [place] [address] Chris Vásquez MD, Animal Control Specialist CLIA: [id number] Cholesterol 255 <200 mg/dL Triglycerides 173 <150 [...] Interpretation:Normal Performing Lab: Notes/Report: Test performed by [facility] [address] [place], [place] [address] [place] , [address], [place] [address] Chris Vásquez MD, Animal Control Specialist CLIA: [id number] TSH 1.20 0.43-5.25 mU/L P-Microalbumin/Creatinine, R andom Urine Sample Reviewed date:11/12/2024 09:17:42 AM Interpretation:a/c 57 Performing Lab: Notes/Report: Test performed by [facility] [address] [place], [place] [address] [place] , [address], [place] [address] Chris Vásquez MD, Animal Control Specialist CLIA: [id number] Albumin/Creatinine Ratio, Urine 57 0-30 ug/m g Microalbumin, Urine, Random 7.7 Creatinine, Urine 134.8 P-Uric Acid Reviewed date:11/12/2024 09:17:42 AM Interpretation:7.6 Performing Lab: Notes/Report: Test performed by [facility] [address] [place] [address] [place] [address] Chris Vásquez MD, Animal Control Specialist CLIA: [id number] Uric Acid 7.6 2.4-7.0 mg/dL P-Vitamin D 25-Hydroxy Reviewed date:11/12/2024 09:17:42 AM Interpretation:34.3 Performing Lab: Notes/Report: Test performed by [facility] [address] [place] [address] [place] [address] Chris Vásquez MD, Animal Control Specialist CLIA: [id number] Vitamin D 25-Hydroxy 34.3 30.0-100.0 ng/mL Interpretation [...] Duration: 90 days 01/17/2024 Active Vital Signs Weight 239 lbs 11/11/2024 Blood pressure systolic 130 mm Hg 11/11/19 25 Blood pressure diastolic 70 mm Hg 025 Heart Rate 91 /min 11/11/2024 Height 63 in 11/11/2024 BMI 42.33 kg/m2 11/11/2024 Encounters Encounter Location Date Provider Diagnosis SurajColeman 1210 [facility] [address] [phone] 11/11/2024 Trent Avery Type 2 diabetes yelitza [...] [address], [address], [place], [place], [id number], Progress Notes * SAHIL HENRIQUEZOB:1960 (65 yo F)Acc No.[id number]:11/11/2024 Progress Notes Patient: FIOR DOBBINS Provider: Amita Avery M.D. :1960 A ge:64 Y S ex:Female Date:11/11/2024 Address:[address] [place] [address] TREVON Alexandra [id number] Subjective: * Chief Complaints: * 1 . [...] Hospitalization/Major Diagno stic Procedure: [place] [facility] [place], Pneumonia, Bronchitis- [facility] 06/30-, Hyperextension of Right Knee - [facility] ER referred to Dr. King 07/2024. [...] * Procedure Codes: 8 2950 GLUCOSE TEST, [address] GLYCATED HEMOGLOBIN TEST, Modifiers: QW , 3075F SYST BP GE 130 - 139MM HG, 3078F DIAST BP < 80 MM HG, 3044F HG A1C LEVEL LT 7.0% * Follow Up: 6 Months * Images: Billing Information: * Visit Code: 51009 Office Visit, Est Pt., Level 4. * Procedure Codes: 64580 GLUCOSE TEST. [address] GLYCATED HEMOGLOBIN TEST. Modifiers: QW 3075F SYST BP GE 130 - 139MM HG. 3078F DIAST BP < 80 MM HG. 3044F HG A1C LEVEL LT 7.0%. * Electronic signature of Adrianne Avery MD on 05/16/2025 at 03:02 PM EDT Sign off status: Pending * Provider: Amita Avery M.D. Date: 0 11/11/2024 Generated for Kai arias/Clarence/eTransmitting on: 0 05/16/2025 03:02 PM EDT History and Physical Notes * [...]
--- OUTSIDE RECORDS SUMMARY | 2025-02-07 05:45 | XMS_ITS ---
Author Organization [facility] Address 1210 [facility] 36 [facility] [address] [place] [phone] Care Team Providers Care Project Product Manager Name Role Phone Trent Avery Primary Care [...] 57 Performing Lab: Notes/Report: Test performed by [facility], [employer] [address] [place] [address] , [address], [place] [address] Chris Vásquez MD, Courtroom Deputy CLIA: [id number] Sodium 140 135-145 mmol/L Potassium 3.9 3.5-5.3 mmol/L Chloride 104 97-108 mmol/L CO2 22 22-32 mmol/L Glucose 111 65-99 mg/dL BUN 15 8-23 mg/dL Creatinine 1.08 0.50-1.00 mg/dL Calcium 9.8 8.6-10.4 mg/dL eGFR by Creatinine 57 >59 mL/min/1.73m2 P-Lipid Panel Reviewed date:02/11/2025 11:47:02 AM Interpretation:chol 245, trigs 178, chol/hdl 4.8, non-hdl 194, ldl 158 Performing Lab: Notes/Report: Test performed by [facility], [address] , [address], [place] [address] Chris Vásquez MD, Courtroom Deputy CLIA: [id number] Cholesterol 245 <200 mg/dL Triglycerides 178 <150 [...] W/U Status Risk Notes Problem Primary insomnia (1893155) Primary insomnia (F51.01) Active confirmed Problem Body mass index 40+ - morbidly obese (363702405) BMI 40.0-44.9, adult (Z68.41) Active confirmed Vital Signs Weight 247.8 lbs 02/07/2025 Blood pressure systolic 130 mm Hg 02/08/20 25 Blood pressure diastolic 76 mm Hg 025 Heart Rate 86 /min 02/07/2025 Height 63 in 02/07/2025 BMI 43.89 kg/m2 02/07/2025 Encounters Encounter Location Date Provider Diagnosis [facility] [phone] 02/07/2025 Trent Avery Type 2 diabetes yelitza [...] [address], [address], [place], [place], [id number], Progress Notes * SAHIL HENRIQUEZOB:1960 (65 yo F)Acc No.[id number]:02/07/2025 Progress Notes Patient: FIOR DOBBINS Provider: Amita Avery M.D. :1960 A ge:64 Y S ex:Female Date:02/07/2025 Address:[address] [place] [address] TREVON Alexandra, [id number] Subjective: * Chief Complaints: * 1 . [...] [facility] [place] [facility], Pneumonia, Bronchitis- [facility] 06/30-, Hyperextension of Right Knee - [facility] ER referred to Dr. King 07/2024. [...] rimary insomnia - F51.01 6 . B [place] 40.0-44.9, adult - Z68.41 Plan: * Treatment: [...] 57 L >59 - mL/min/1.73m2 * Griselda iRvera 02/11/2025 11:4 6:55 AM > See phone [...] * Procedure Codes: 8 2950 GLUCOSE TEST, 27848 GLYCATED HEMOGLOBIN TEST, Modifiers: QW , 3044F HG A1C LEVEL LT 7.0%, G8950 PREHTN/HTN BP DOC INDCD F/U DOC, G8752 MOST RECENT SYSTOLIC BP < 140MM HG, G8754 MOST RECENT DIASTOLIC BP < 90MM HG * Follow Up: 6 Months * Images: Billing Information: * Visit Code: 61565 Office Visit, Est Pt., Level 4. * Procedure Codes: 39731 GLUCOSE TEST. 69258 GLYCATED HEMOGLOBIN TEST. Modifiers: QW 3044F HG [...] 02/07/2025 Generated for Kai arias/Clarence/Jacobitting on: 0 05/16/2025 03:01 PM EDT History [...]
--- OUTSIDE RECORDS SUMMARY | 2025-05-12 05:00 | XMS_ITS ---
Author Organization John Address 1210 [facility] 36 [facility] [address] [place] [phone] Care Team Providers Care Strip Cutting Machine Operator Name Role Phone Trent Avery Primary Care Provider [phone] REASON FOR VISIT 6 month check Encounters Encounter Location Date Provider Diagnosis [place] [address] [place] [phone] 05/12/2025 Trent Avery Plan Of Treatment Next Appt Details Provider Name:Trent Herrera ry, 08/11/2025 10:00:00 AM, [address], [address], [place], [phone], Progress Notes * SAHIL HENRIQUEZOB:1960 (65 yo F)Acc No.[id number]:05/12/2025 Progress Notes Patient: FIOR DOBBINS Provider: Amita Avery M.D. :1960 A ge:65 Y S ex:Female Date:05/12/2025 Address:[address] [place] [address] TREVON AlexandraKUMARPW-[id number] Subjective: * Chief Complaints: * 1 . 6 month check. * Medical History: Objective: * Vitals: Assessment: Plan: * Treatment: * Images: Billing Information: * Visit Code: * Procedure Codes: * Electronic signature of Adrianne Avery MD on 05/16/2025 at 03:01 PM EDT Sign off status: Pending * Provider: Amita Avery M.D. Date: 05/12/2025 Generated for Printi ng/Faxing/eTransmitting on: 05/16/2025 03:01 PM EDT
--- OUTSIDE RECORDS SUMMARY | 2025-05-16 15:01 | XMS_ITS | Patient Health Record ---
[facility] [address] [facility] [address] [place] [id number] Care Team Providers Care Director Mba Name Role Phone Trent Avery Primary Care Provider Allergies Allergen (clinical drug ingredient) Drug/Non Drug Allergy documented on EMR Reaction Allergy Type Onset Date Status ramipril Ramipril anaphylaxis Drug Allergy Activ e atorvastatin Atorvastatin muscle pain Drug Allergy Active Results Component Value Reference Range Notes P-Vitamin D 25-Hydroxy Reviewed date:11/12/2024 09:17:42 AM Interpretation:34.3 Performing Lab: Notes/Report: Test performed by [facility] [address] [place], [place] [address] , [address], [place] [address] Chris Vásquez MD, Supervising Broker CLIA: [id number] Vitamin D 25-Hydroxy 34.3 30.0-100.0 ng/mL Interpretation of Vitamin D 25 OH: < 20 ng/mL - Deficiency 20 - 29 ng/mL - Insufficiency 30 - 100 ng/mL - Sufficiency > 100 ng/mL - Super-therapeutic- toxicity may occur above this level. Clinical correlation required. P-Uric Acid Reviewed date:11/12/2024 09:17:42 AM Interpretation:7.6 Performing Lab: Notes/Report: Test performed by [facility] [address] [place], [place] [address] , [address], [place] [address] Chris Vásquez MD, Supervising Broker CLIA: [id number] Uric Acid 7.6 2.4-7.0 mg/dL P-Microalbumin/Creatinine, R andom Urine Sample Reviewed date:11/12/2024 09:17:42 AM Interpretation:a/c 57 Performing Lab: Notes/Report: Test performed by [facility] [address] [place], [place] [address] , [place] [address] Chris Vásquez MD, Supervising Broker CLIA: [id number] Albumin/Creatinine Ratio, Urine 57 0-30 ug/m g Microalbumin, Urine, Random 7.7 Creatinine, Urine 134.8 P-TSH Reviewed date:11/12/2024 09:17:42 AM Interpretation:Normal Performing Lab: Notes/Report: Test performed by [facility] [address] [place] [address] , [address], [place] [address] Chris Vásquez MD, Supervising Broker CLIA: [id number] TSH 1.20 0.43-5.25 mU/L P-Lipid Panel Reviewed date:11/12/2024 09:17:42 AM Interpretation:chol 255, trigs 173, chol/hdl 4.9, non-hdl 203, ldl 168 Performing Lab: Notes/Report: Test performed by [facility] [address] , [address], [place] [address] Chris Vásquez MD, Supervising Broker CLIA: [id number] Cholesterol 255 <200 mg/dL Triglycerides 173 <150 [...] Results: 168 Units: mg/dL % Change: +22% P-T4 Free (thyroxine) Reviewed date:11/12/2024 09:17:42 AM Interpretation:Normal Performing Lab: Notes/Report: Test performed by [facility] [address] [place] [address] [place] [address] Chris Vásquez MD, Supervising Broker CLIA: [id number] Thyroxine Free (free T4) 1.49 0.86-1.76 ng/dL P-Comprehensive Metabolic Pa jerad (CMP) Reviewed date:11/12/2024 09:17:42 AM Interpretation:gluc 116, Cr 1.17, Ca 11, gfr 52, alk phos 153 Performing Lab: Notes/Report: Test performed by [facility] [address] [place], [place] [address] [address], [place] [address] Chris Vásquez MD, Supervising Broker CLIA: [id number] Sodium 139 135-145 mmol/L Potassium 3.9 3.5-5.3 [...] 0.4 <0.2-1.2 mg/dL A/G Ratio 1.5 1.1-2.5 Glycohemoglobin A1c (in hous e) Reviewed date:11/12/2024 09:17:42 AM Interpretation:5.5 Performing Lab: Notes/Report: 5.5 glycohemoglobin 5.5% 5 - 6.5 % Glucose (In-House) Reviewed date:11/12/2024 09:17:42 AM Interpretation:108 Performing Lab: Notes/Report: 108 blood glucose 108 74 - 106 mg/dL P-TSH Reviewed date:08/09/2024 01:41:47 PM Interpretation:Normal Performing Lab: Notes/Report: Test performed by [facility] [address] [place] [address] , [place] [address] Chris Vásquez MD, Supervising Broker CLIA: [id number] TSH 0.75 0.43-5.25 mU/L P-T4 Free (thyroxine) Reviewed date:08/09/2024 01:41:47 PM Interpretation:Normal Performing Lab: Notes/Report: Test performed by [facility] [address] [place] [address] , [address], [place] [address] Chris Vásquez MD, Supervising Broker CLIA: [id number] Thyroxine Free (free T4) 1.53 0.86-1.76 ng/dL CBC Venipuncture (in house) Reviewed date:08/07/2024 11:10:53 [...] - 38 platlet 235 100 - 400 P-Vitamin D 25-Hydroxy Reviewed date:06/27/2024 03:52:35 PM Interpretation:40.8 Performing Lab: Notes/Report: Test performed by [facility] [address] [place] [address] , [address], [place] [address] Chris Vásquez MD, Supervising Broker CLIA: [id number] Vitamin D 25-Hydroxy 40.8 30.0-100.0 ng/mL Interpretation of Vitamin D 25 OH: < 20 ng/mL - Deficiency 20 - 29 ng/mL - Insufficiency 30 - 100 ng/mL - Sufficiency > 100 ng/mL - Super-therapeutic- toxicity may occur above this level. Clinical correlation required. P-TSH Reviewed date:06/27/2024 03:52:35 PM Interpretation:0.16 Performing Lab: Notes/Report: Test performed by [facility] [address] [place] [address] , [address], [place] [id number] Chris Vásquez MD, Supervising Broker CLIA: [id number] TSH 0.16 0.43-5.25 mU/L P-Lipid Panel Reviewed date:06/27/2024 03:52:35 PM Interpretation:chol 220, trig 172, chol/hdl 4.49, non-hdl 171, ldl 137 Performing Lab: Notes/Report: Test performed by [facility] [address] [place] [address] , [address], [place] [address] Chris Vásquez MD, Supervising Broker CLIA: [id number] Cholesterol 220 <200 mg/dL Triglycerides 172 <150 [...] Results: 137 Units: mg/dL % Change: +10% P-T4 Free (thyroxine) Reviewed date:06/27/2024 03:52:35 PM Interpretation:1.86 Performing Lab: Notes/Report: Test performed by [facility] [address] [place] [address] , [address], [place] [address] Chris Vásquez MD, Supervising Broker CLIA: [id number] Thyroxine Free (free T4) 1.86 0.86-1.76 ng/dL P-Comprehensive Metabolic Pa jerad (CMP) Reviewed date:06/27/2024 03:52:35 PM Interpretation:alk phos 140 Performing Lab: Notes/Report: Test performed by [facility] [address] [place] [address] , [address], [place] [address] Chris Vásquez MD, Supervising Broker CLIA: [id number] Sodium 138 135-145 mmol/L Potassium 3.9 3.5-5.3 [...] 0.5 <0.2-1.2 mg/dL A/G Ratio 1.7 1.1-2.5 Glycohemoglobin A1c (in hous e) Reviewed date:06/27/2024 03:52:35 PM Interpretation:5.4 Performing Lab: Notes/Report: 5.4 glycohemoglobin 5.4% 5 - 6.5 % CBC Venipuncture (in house) Reviewed date:06/27/2024 03:52:35 [...] - 38 platlet 245 100 - 400 Glucose (In-House) Reviewed date:06/27/2024 03:52:35 PM Interpretation:121 Performing Lab: Notes/Report: 121 blood glucose 121 74 - 106 mg/dL Cologuard Reviewed date:03/18/2025 02:47:11 PM Interpretation:Positive Performing Lab: Notes/Report: Positive Cologuard positive Glucose (In-House) Reviewed date:02/11/2025 11:47:02 AM Interpretation:134 Performing Lab: Notes/Report: 134 blood glucose 134 74 - 106 mg/dL Glycohemoglobin A1c (in hous e) Reviewed date:02/11/2025 11:47:02 AM Interpretation:6.0% Performing Lab: Notes/Report: 6.0% glycohemoglobin 6.0% 5 - 6.5 % P-Basic Metabolic Panel (BMP ) Reviewed date:02/11/2025 11:47:02 AM Interpretation:gluc 111, Cr 1.08, gfr 57 Performing Lab: Notes/Report: Test performed by [facility] [address] [place] [address] , [address], [place] [address] Chris Vásquez MD, Supervising Broker CLIA: [id number] Sodium 140 135-145 mmol/L Potassium 3.9 3.5-5.3 mmol/L Chloride 104 97-108 mmol/L CO2 22 22-32 mmol/L Glucose 111 65-99 mg/dL BUN 15 8-23 mg/dL Creatinine 1.08 0.50-1.00 mg/dL Calcium 9.8 8.6-10.4 mg/dL eGFR by Creatinine 57 >59 mL/min/1.73m2 P-Lipid Panel Reviewed date:02/11/2025 11:47:02 AM Interpretation:chol 245, trigs 178, chol/hdl 4.8, non-hdl 194, ldl 158 Performing Lab: Notes/Report: Test performed by [facility] [address] [place], [place] [address] [address], [place] [address] Chris Vásquez MD, Supervising Broker CLIA: [id number] Cholesterol 245 <200 mg/dL Triglycerides 178 <150 [...] Results: 158 Units: mg/dL % Change: -5% Reason For Referral Diagnosis 1 Tremor, unspecified (R25.1) Referral Organization John Referring Provider First Name Trent Referring Provider Last Name Gena Referring Provider Speciality [facility] Referred Provider Rubia Antoine Referred Provider Specialty Neurology General Notes Alyson Mo 06/26/20 12:01:31 PM > faxed referral to Dr. Antoine office Referral Priority Routine Medications Medication SIG (Take, Route, Frequency, Duration) Notes Start Date End Date Status Xarelto 20 MG 1 tablet with food Orally Once a day; Duration: 90 days 05/10/2023 Active Ezetimibe 10 MG 1 tablet Orally Once a day; Duration: 90 days 11/14/2024 Active EpiPen 2-Hebert 0.3 MG/0.3ML as directed intramuscularly once 09/28/2020 Active CPAP SUPPLIES DIRECTED 08/12/2020 Act charis Celecoxib 100 MG 1 cap(s) Orally shanel y; Duration: 90 days Active Topiramate 25 MG 1 tablet Orally Once a day Active QUEtiapine Fumarate 25 MG 1 or 2 tablets at bedtime Orally Once a day 02/07/2025 Active CoQ-10 100 MG 1 cap(s) orally once a day Active Montelukast Sodium 10 MG 1 tab(s) orally once a day; Duration: 90 day(s) Active DULoxetine HCl 60 MG Take 2 capsules by mouth once daily; Duration: 90 Active CPAP Mask small as directed diagnosis code J44.9 03/18/2024 Active Levalbuterol Tartrate 45 MCG/ACT 1 puff as needed Inhalation every 6 hrs as needed 02/21/2023 Active Symbicort 80-4.5 MCG/ACT Inhale 2 puffs by mouth twice daily; Duration: 30 Active Vitamin D3 50 MCG (1999) 3 capsules Orally Once a day 10/12/2023 Active Trulicity 4.5 MG/0.5ML 4.5 mg Subcutaneous once weekly 02/07/2025 Active Levothyroxine Sodium 125 MCG Take 1 tablet by mouth once daily Orally Once a day; Duration: 90 days Active Loratadine 10 MG 1 tab(s) orally once a day; Duration: 90 days Active Furosemide 40 MG 1 tablet Orally Once a day; Duration: 90 days Active CPAP Supplies - as directed as directed diagnosis code J44.9 03/18/2024 Active amLODIPine Besylate 10 MG 1 tablet Orally Once a day; Duration: 90 days Active Potassium Chloride ER 20 MEQ 1 tablet with food Orally twice a day; Duration: 90 days 01/17/2024 Active Triamterene-HCTZ 37.5-25 MG 1 capsule in the morning Orally Once a day Active Allopurinol 100 MG 1 tablet Orally Once a day; Duration: 90 days Active Immunizations Vaccine Route Administration Date Status Comme nts COVID 19 Moderna Unknown 10/07/2020 Administered COVID 19 Moderna Unknown 04/07/2021 Administered Fluzone Quad (6months&older) IM Intramuscular 07/12/2022 Administered Fluzone Quad (6months&older) IM Intramuscular 06/26/2024 Administered Prevnar (PCV20) IM Intramuscular 06/26/2024 Administered Tetanus Tdap-Adacel (over 7yrs) IM Intramuscular 01/29/2018 Administered Problems Problem Type SNOMED Code ICD Code Onset Dates Problem Status W/U Status Risk Notes Problem Hypothyroidism (69173286) Hypothyroidism, unspecified (E03.9) Active confirmed Problem Essential hypertension (34039093) Essential (primary) hypertension (I10) Active confirmed Problem Vitamin D deficiency (53687325) Vitamin D deficiency (E55.9) Active confirmed Problem Essential hypertension (31609477) Essential hypertension (I10) Active confirmed Problem Morbid obesity (397033914) Morbid obesity (E66.01) Active confirmed Problem Anxiety (09073329) Anxiety (F41.9) Active confi rmed Problem Obstructive sleep apnea (85859583) Obstructive sleep apnea (G47.33) Active confirmed Problem Mixed anxiety and depressive disorder (074796965) Depression with anxiety (F41.8) Active confirmed Problem Acute exacerbation of chronic obstructive airways disease (015325334) COPD exacerbation (J44.1) Active confirmed Problem Localized edema (0830775) Localized edema (R60.0) Active confirmed Problem Primary insomnia (4462169) Primary insomnia (F51.01) Active confirmed Problem Acquired hypothyroidism (511221837) Acquired hypothyroidism (E03.9) Active confirmed Problem Primary osteoarthritis (505274696) Primary osteoarthritis involving multiple joints (M15.0) Active confirmed Problem Neck pain (89224602) Neck pain (M54.2) Active confirmed Problem COPD - Chronic obstructive pulmonary disease (21843668) Chronic obstructive pulmonary disease, unspecified COPD type (J44.9) Active confirmed Problem Leukocytosis (689071721) Leukocytosis, unspecified type (D72.829) Active confirmed Problem Obstructive sleep apnea syndrome (85785234) STEFFEN (obstructive sleep apnea) (G47.33) Active confirmed Problem Body mass index 40+ - morbidly obese (345113214) BMI 40.0-44.9, adult (Z68.41) Active confirmed Problem Hyperlipidaemia (89569078) Hyperlipidemia, unspecified hyperlipidemia type (E78.5) Active confirmed Problem Stenosis of right carotid artery (363013124054956) Stenosis of right carotid artery (I65.21) Active confirmed Problem Chest pain (50754806) Chest pain, unspecified type (R07.9) Active confirmed Problem Chronic gouty arthritis (40890122) Chronic gout without tophus, unspecified cause, unspecified site (M1A.9XX0) Active confirmed Problem Tobacco user (168179420) Cigarette nicotine dependence without complication (F17.210) Active confirmed Problem Right carotid artery stenosis (722488423725826) Carotid stenosis, right (I65.21) Active confirmed Problem Type II diabetes mellitus without complication (229145016) Type 2 diabetes mellitus without complication, without long-term current use of insulin (E11.9) Active confirmed Problem Arthralgia of the ankle and/or foot (057542435) Acute left ankle pain (M25.572) Active confirmed Problem Chronic rhinitis (77186944) Rhinitis, unspecified type (J31.0) Active confirmed Problem Bilateral carpal tunnel syndrome (09038477815336768 ) Bilateral carpal tunnel syndrome (G56.03) Active confirmed Problem Arthritis of left knee (4577668020552369) Arthritis of left knee (M17.12) Active confirmed Problem Obesity (818777359) Obesity, unspecified classification, unspecified obesity type, unspecified whether serious comorbidity present (E66.9) Active confirmed Problem Allergic rhinitis (30560569) Allergic rhinitis, unspecified seasonality, unspecified trigger (J30.9) Active confirmed Problem Type II diabetes mellitus without complication (824348761) Type 2 diabetes mellitus without complication, unspecified whether usp insulin use (E11.9) Active confirmed Problem Plain X-ray of chest abnormal (finding) (5009971858) Abnormal CXR (R93.89) Active confirmed Problem Radiology result abnormal (496829905) Abnormal chest CT (R93.89) Active confirmed Problem Traumatic arthropathy of knee (544202364) Traumatic arthropathy of left knee (M12.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) Active confirmed Vital Signs Heart Rate 86 /min 02/07/2025 Blood pressure diastolic 76 mm Hg 02/07/2025 Height 63 in 02/07/2025 Blood pressure systolic 130 mm Hg 02/07/2025 Weight 247.8 lbs 02/07/2025 BMI 43.89 kg/m2 02/07/2025 Encounters Encounter [facility] Date [facility] [place] [id number] [facility] Trent Avery Type 2 diabetes yelitza [...] type J44.9 and Encounter for immunization Z23 [address] [id number] 08/07/2024 [place] Type 2 diabetes yelitza itus without complication, without long-term current use of insulin E11.9 ; Chronic diarrhea K52.9 ; Hypothyroidism, unspecified E03.9 and Cough, unspecified type R05.[address] [place], [place] [id number] 11/11/2024 Trent [place] Type 2 diabetes yelizta itus without complication, without long-term current use [...] apnea) G47.33 and Depression with anxiety F41.8 [facility] [address] [place], [place] [id number] 02/07/2025 Trent [place] Type 2 diabetes yelitza itus without complication, without long-term current use of insulin E11.9 ; Essential (primary) hypertension I10 ; Renal insufficiency N28.9 ; Hyperlipidemia, unspecified hyperlipidemia type E78.5 ; Primary insomnia F51.01 and BMI 40.0-44.9, adult Z68.41 [facility] [address] [place], [place] [id number] 06/27/2024 Trent [place] [facility] [address] [facility] [address] [place] [id number] 07/15/2024 Trent [place] Type 2 diabetes yelitza itus without complication, without long-term current use of insulin E11.9 [facility] [address] [facility] [address] [place] [id number] 09/13/2024 Trent [place] Acute pulmonary embo lism, unspecified pulmonary embolism type, unspecified whether acute cor pulmonale present I26.99 and Depression with anxiety F41.8 [facility] [address] [facility] [address] [place] [id number] 10/01/2024 Trent [place] Polyarthralgia M25.5 0 and Peripheral edema R60.0 [facility] [address] [place], [place] [id number] 10/14/2024 Trent [place] Allergic rhinitis, unspecified seasonality, unspecified trigger J30.9 [facility] [address] [place] [id number] 10/23/2024 Trent [place] [facility] [address] [place], [place] [id number] 11/12/2024 Trent [place] [facility] [address] [place] [id number] 12/04/2024 Trent [place] Acute pulmonary embo lism, unspecified pulmonary embolism type, unspecified whether acute cor pulmonale present I26.99 [facility] [address] [place] [id number] 01/03/2025 Trent [place] Polyarthralgia M25.5 0 and Peripheral edema R60.0 [facility] [address] [place] [id number] 02/11/2025 Trent [place] Essential hypertensi on I10 [facility] [address] [place] [id number] 02/11/2025 Trent [place] [facility] [address] [place] [id number] 02/13/2025 Trent [place] [facility] [address] [place] [id number] 03/17/2025 Trent [place] Allergic rhinitis, unspecified seasonality, unspecified trigger J30.9 [facility] [address] [place] [id number] 03/18/2025 Trent [place] [facility] [address] [place] [id number] 03/24/2025 Trent [place] Primary insomnia F51 .01 [facility] [address] [place] [id number] 03/24/2025 Trent [place] [facility] [address] [place] [id number] 04/30/2025 Trent [place] [facility] [address] [place] [id number] 05/03/2025 Trent [place] Acute pulmonary embo lism, unspecified pulmonary embolism type, unspecified whether acute cor pulmonale present I26.99 [facility] [address] [place] [id number] 05/08/2025 [place] Polyarthralgia M25.5 0 and Primary insomnia F51.01 [facility] [address] [place], [place] [id number] 05/14/2025 [facility] [place] Essential hypertensi on I10 Assessments Encounter Date Diagnosis (ICD Code) Assessment Notes Treatment Notes Treatment Clinical Notes Section Notes 06/26/2024 Essential (primary) hypertension (ICD-10 - I10) 06/26/2024 Type 2 diabetes mellitus without complication, without long-term current use of insulin (ICD-10 - E11.9) 07/15/2024 Type 2 diabetes mellitus without complication, without long-term current use of insulin (ICD-10 - E11.9) 08/07/2024 Type 2 diabetes mellitus without complication, without long-term current use of insulin (ICD-10 - E11.9) 08/07/2024 Chronic diarrhea (ICD-10 - K52.9) 09/13/2024 Acute pulmonary embolism, unspecified pulmonary embolism type, unspecified whether acute cor pulmonale present (ICD-10 - I26.99) 10/01/2024 Polyarthralgia (ICD-10 - M25.50) 10/14/2024 Allergic rhinitis, unspecified seasonality, unspecified trigger (ICD-10 - J30.9) 11/11/2024 Essential hypertension (ICD-10 - I10) 11/11/2024 Type 2 diabetes mellitus without complication, without long-term current use of insulin (ICD-10 - E11.9) 12/04/2024 Acute pulmonary embolism, unspecified pulmonary embolism type, unspecified whether acute cor pulmonale present (ICD-10 - I26.99) 01/03/2025 Polyarthralgia (ICD-10 - M25.50) 02/07/2025 Essential (primary) hypertension (ICD-10 - I10) 02/07/2025 Type 2 diabetes mellitus without complication, without long-term current use of insulin (ICD-10 - E11.9) 02/11/2025 Essential hypertension (ICD-10 - I10) 03/17/2025 Allergic rhinitis, unspecified seasonality, unspecified trigger (ICD-10 - J30.9) 03/24/2025 Primary insomnia (ICD-10 - F51.01) 05/03/2025 Acute pulmonary embolism, unspecified pulmonary embolism type, unspecified whether acute cor pulmonale present (ICD-10 - I26.99) 05/08/2025 Polyarthralgia (ICD-10 - M25.50) 05/14/2025 Essential hypertension (ICD-10 - I10) 02/07/2025 Renal insufficiency (ICD-10 - N28.9) 05/08/2025 Primary insomnia (ICD-10 - F51.01) 01/03/2025 Peripheral edema (ICD-10 - R60.0) 11/11/2024 Hyperlipidemia, unspecified hyperlipidemia type (ICD-10 - E78.5) 10/01/2024 Peripheral edema (ICD-10 - R60.0) 09/13/2024 Depression with anxiety (ICD-10 - F41.8) 08/07/2024 Hypothyroidism, unspecified (ICD-10 - E03.9) 06/26/2024 Hypothyroidism, unspecified (ICD-10 - E03.9) 06/26/2024 Hyperlipidemia, unspecified hyperlipidemia type (ICD-10 - E78.5) 08/07/2024 Cough, unspecified type (ICD-10 - R05.9) 11/11/2024 Acquired hypothyroidism (ICD-10 - E03.9) 02/07/2025 Hyperlipidemia, unspecified hyperlipidemia type (ICD-10 - E78.5) 02/07/2025 Primary insomnia (ICD-10 - F51.01) 11/11/2024 Vitamin D deficiency (ICD-10 - E55.9) 06/26/2024 Vitamin D deficiency (ICD-10 - E55.9) 06/26/2024 Tremor, unspecified (ICD-10 - R25.1) 11/11/2024 Chronic obstructive pulmonary disease, unspecified COPD type (ICD-10 - J44.9) 02/07/2025 BMI 40.0-44.9, adult (ICD-10 - Z68.41) 11/11/2024 Obesity, unspecified classification, unspecified obesity type, unspecified whether serious comorbidity present (ICD-10 - E66.9) 06/26/2024 Chronic hypokalemia (ICD-10 - E87.6) 06/26/2024 Obesity, unspecified classification, unspecified obesity type, unspecified whether serious comorbidity present (ICD-10 - E66.9) 11/11/2024 Chronic gout without tophus, unspecified cause, unspecified site (ICD-10 - M1A.9XX0) 11/11/2024 STEFFEN (obstructive sleep apnea) (ICD-10 - G47.33) 06/26/2024 Chronic obstructive pulmonary disease, unspecified COPD type (ICD-10 - J44.9) 11/11/2024 Depression with anxiety (ICD-10 - F41.8) 06/26/2024 Encounter for immunization (ICD-10 - Z23) Plan Of Treatment Next Appt Details Provider Name:Trent Herrera ry, 08/11/2025 10:00:00 AM, [address], [address], [place], [place], [id number], Insurance Providers Payer Name Payer Address Payer Phone Subscriber Number Group Number Insured Name Patient Relationship to Insured Coverage Start Date Coverage End Date [facility] [address] [place] [address] [id number] FIOR HENRIQUEZ Self - patient is the insured Medical (General) History Medical History History ICD Code Type 2 Diabetes Asthma Hypertension Hyperlipidemia Hypothyroidism Allergies Arthritis Gall Bladder Disease Depression 35 Year Smoking Hx as of 2018 Gout Sleep Apnea DVT pulmonary embolism Surgical History Surgery Date(Month/Year) Tonsillectomy 1966 x 2 1990, 1993 Cholecystectomy 1993 Bladder Suspension 1994 Hysterectomy 1996 LT Cataract Removal 08/18/2015 Hernia Repair 11/04/2020 RT Ankle 01/20/2021 Hospitalization History Reason Date(Month/Year) Hyperextension of Right Knee - [facility] ER re ferred to Dr. King 07/2024 Pneumonia, Bronchitis- [facility] 06/30- Knee Pain- [facility] 10/05/2018
--- OUTSIDE RECORDS SUMMARY | 2025-05-16 15:02 | XMS_ITS | Clinical Summary ---
Author Organization [facility] ystem Address [address] [place] [address] Care Team Providers Care Health And Safety Coordinator Name Role Phone Unavailable Primary Care Provider Unavailabl e Social History Tobacco Use Types Packs/Day Years Used Date Smoking Tobacco: Never Assessed Abuse Screen Answer Date Recorded Unsafe at Home or Work/School Not on file Feels Threatened by Someone? Not on file 07/2023 Does Anyone Keep You from Co ntacting Others or Doint Things Outside the Home? Not on file 06/28/2023 Physical Sign of Abuse Present Not on file 1 Housing Stability Answer Date Recorded Current Living Arrangements Not on file 06/18 Potentially Unsafe Housing Conditions Not on sabina e 06/28/2023 Family and Community Support Answer Carter e Recorded Help with Day-to-Day Activities Not on file 06/28/2023 Lonely or Isolated Not on file 06/28/2023 Employment Answer Date Recorded Do you want help finding or keeping work or a joseph b? Not on file 06/28/2023 Disabilities Answer Date Recorded Concentrating, Remembering, or Making Decisions Difficulty Not on file 06/28/2023 Doing Errands Independently Difficulty Not on fi le 06/28/2023 Education Answer Date Recorded Help with school or training? Not on file Preferred Language Not on file 06/28/2023 Comments Unknown Sex and Gender Information Value Date Recorded Sex Assigned at Not on file Legal Sex Female 12:05 PM EDT Gender Identity Not on file Sexual Orientation Not on file Last Filed Vital Signs Vital Sign Reading Time Taken Comments Blood Pressure 187/103 10/09/2013 2:44 PM EST Pulse 71 10/09/2013 2:44 PM EST Temperature 36.8 C (98.2 F) 10/09/2013 2:44 PM EST Respiratory Rate - - Oxygen Saturation 95% 10/09/2013 2:44 PM EST Inhaled Oxygen Concentration - - Weight 117 kg (258 lb 0.1 oz) 10/09/2013 2:44 PM EST Height 162.6 cm (5' 4 ) 10/09/2013 2:44 PM EST Body Mass Index 44.29 10/09/2013 2:44 PM EST Plan of Treatment Health Maintenance Due Date Last Done Comments ANNUAL PHYSICAL 1961 Annual Gynecologic Pelvic and Breast Exam 1961 HEPATITIS C SCREENING 1961 TDAP/TD VACCINES (1 - Tdap) 1980 MAMMOGRAM 2001 COLOGUARD 2006 COLON CANCER SCREENING 5 YEAR SIGMOIDOSCOPY 2006 COLONOSCOPY 2006 COL[address]ECTAL CANCER SCREENING 2006 CT COLONOGRAPHY 2006 FECAL OCCULT BLOOD TEST 2006 FIT Testing (1 year) 2006 Pneumococcal Vaccine 50+ (1 of 1 - PCV) 2011 ZOSTER VACCINE (1 of 2) 2011 COVID-19 Vaccine (1 - season) 2024 INFLUENZA VACCINE 06/18/2025
[2025-05-16 16:00] VITALS: PULSE 69; PULSE 70
[2025-05-16] MEDS: ALBUTEROL 0.083% 2.5 MG/3 ML NEB IH (16:00)
== END 2025-05-16 23:59 | disposition home or self-care (01) ==
LOC: RT 14:56
PROVIDERS: Visit Provider Physician Assistant
DX: I26.99 Other pulmonary embolism without acute cor pulmonale (principal); I10 Essential (primary) hypertension; I82.459 Acute embolism and thrombosis of unspecified peroneal vein; J44.9 Chronic obstructive pulmonary disease, unspecified; R94.2 Abnormal results of pulmonary function studies
CPT/HCPCS: 94060; 94640; 94726; 94729

== ENCOUNTER 2025-06-04 08:01 | Outpatient (CLI) | payer BC, OTHER, SELFPAY ==
--- OUTSIDE RECORDS SUMMARY | 2024-06-26 07:00 | XMS_ITS ---
Author Organization [facility] Address [address] [facility] [address] [place] [id number] Care Team Providers Care Medical Technologist Blood Bank Name Role Phone Trent Avery Primary Care [...] 140 Performing Lab: Notes/Report: Test performed by [facility] , [address], [place] [address] Chris Vásquez MD, Cream Ripener CLIA: [id number] Sodium 138 135-145 mmol/L Potassium 3.9 3.5-5.3 [...] Interpretation:1.86 Performing Lab: Notes/Report: Test performed by [facility] [address] [place] [address] , [facility] [place] [id number] Chris Vásquez MD, Cream Ripener CLIA: [id number] Thyroxine Free (free T4) 1.86 0.86-1.76 ng/dL P-Lipid Panel Reviewed date:06/27/2024 03:52:35 PM Interpretation:chol 220, trig 172, chol/hdl 4.49, non-hdl 171, ldl 137 Performing Lab: Notes/Report: Test performed by [facility] [address] [place] [address] , [place] [address] Chris Vásquez MD, Cream Ripener CLIA: [id number] Cholesterol 220 <200 mg/dL Triglycerides 172 <150 [...] Interpretation:0.16 Performing Lab: Notes/Report: Test performed by [employer], [place] [address] [facility] , [address], [place] [address] Chris Vásquze MD, Cream Ripener CLIA: [id number] TSH 0.16 0.43-5.25 mU/L P-Vitamin D 25-Hydroxy Reviewed date:06/27/2024 03:52:35 PM Interpretation:40.8 Performing Lab: Notes/Report: Test performed by [facility] , [address], [place] [address] Chris Vásquez MD, Cream Ripener CLIA: [id number] Vitamin D 25-Hydroxy 40.8 30.0-100.0 ng/mL Interpretation [...] Last Name Gena Referring Provider Speciality Family [facility] Referred Provider Rubia Antoine Referred Provider Specialty [...] [address] [place] [id number] 06/26/2024 Trent Avery Type 2 diabetes yelitza [...] 08/11/2025 10:00:00 AM, [address] [facility], [address], [place], [id number], Progress Notes * HENRIQUEZJAMARIDENIATOB:1960 (65 yo F)Acc No.[id number]:06/26/2024 Progress Notes Patient: FIOR DOBBINS Provider: Amita Avery M.D. :1960 A ge:64 Y S ex:Female Date:06/26/2024 Address:[address] [place], [place] [id number] Subjective: * Chief Complaints: * 1 [...] Hospitalization/Major Diagno stic Procedure: K nee Pain- [facility] 10/05/2018, Pneumonia, Bronchitis- [facility] 06/30-. * Family History: F ather: alive, [...] * Procedure Codes: 9 4760 [place], [address] GLUCOSE TEST, 03736 GLYCATED HEMOGLOBIN TEST, Modifiers: QW , 23908 CBC WITH AUTO DIFF * Follow Up: 6 Months * Images: Billing Information: * Visit Code: 24723 Office Visit, Est Pt., Level 4. * Procedure Codes: [address] [place]. [address] GLUCOSE TEST. 44508 GLYCATED HEMOGLOBIN TEST. Modifiers: QW 91211 CBC WITH AUTO DIFF. * Electronic signature of Adrianne Avery MD on 06/04/2025 at 08:56 AM EDT Sign off status: Pending * Provider: Amita Avery M.D. Date: 1 Generated for Kai arias/Clarence/Jose on: 0 06/04/2025 08:56 AM EDT History and Physical Notes * HPI (History [...]
--- OUTSIDE RECORDS SUMMARY | 2024-08-07 06:15 | XMS_ITS ---
Author Organization [facility] Address [address] [facility] [address] [facility] [address] [place] [id number] Care Team Providers Care Mold Stripper Name Role Phone Trent Avery Primary Care Provider [phone] Allergies Allergen (clinical drug ingredient) Drug/Non Drug [...] Interpretation:Normal Performing Lab: Notes/Report: Test performed by [facility] [address] [place], [place] [address] [place] , [address], [place] [address] Chris Vásquez MD, Weatherseal Technician CLIA: [id number] Thyroxine Free (free T4) 1.53 0.86-1.76 ng/dL P-TSH Reviewed date:08/09/2024 01:41:47 PM Interpretation:Normal Performing Lab: Notes/Report: Test performed by [facility] [address] [place] [address] [address], [place] [address] Chris Vásquez MD, Weatherseal Technician CLIA: [id number] TSH 0.75 0.43-5.25 mU/L REASON FOR VISIT [...] a day; Duration: 90 days Active Zithromax Z-Ehbert 250 MG as directed Orally once daily; [...] Encounter Location Date Provider Diagnosis [facility] [facility] 36 [facility] [address] [place] [phone] 08/07/2024 Ternt Avery Type 2 diabetes mellitus without complication, [...] 08/11/2025 10:00:00 AM, [address] [place] [address] [facility], [address], [place], [phone], Progress Notes * NEREYDA EHNRIQUEZ:1960 (65 yo F)Acc No.[id number]:08/07/2024 Progress Notes Patient: P IERCE, FIOR Provider: Amita Avery M.D. :1960 A ge:64 Y S ex:Female Date:08/07/2024 Address:[address] [place] [address] [place], [id number] Subjective: * Chief Complaints: * 1 . 5 month follow up. * HPI: K nee/Watkins: 64 year old female presents with c/o knee pain P t sts that a few weeks ago she had to go to [facility] ER because she had a hyperextension [...] Hospitalization/Major Diagno stic Procedure: Connor baker Pain[place] [facility] [place], Pneumonia, Bronchitis- [facility] 06/30-, Hyperextension of Right Knee - [facility] ER referred to Dr. King 07/2024. [...] * Procedure Codes: 9 4760 [place], [address] CBC WITH AUTO DIFF * Follow Up: 3 Months fasting * Images: Billing Information: * Visit Code: 38701 Office Visit, Est Pt., Level 4. * Procedure Codes: [address] [place]. [address] CBC WITH AUTO DIFF. * Electronic signature of Adrianne Avery MD on 06/04/2025 at 08:57 AM EDT Sign off status: Pending * Provider: Amita Avery M.D. Date: 1 10/07/2023 Generated for Kai arias/Clarence/eTransmitting on: 0 06/04/2025 08:57 AM EDT History and Physical Notes * HPI (History of Present Illness) Category Sub-Category Detail Notes Category Not es [facility]inology [facility] Pt is fasting today. Pt is due for labs after a change in her dose of Levothyroxine Knee/Watkins knee pain Pt sts that a fe w weeks ago she had to go to [facility] ER because she had a hyperextension [...]
--- OUTSIDE RECORDS SUMMARY | 2024-11-11 05:15 | XMS_ITS ---
Author Organization [facility] Address [address] [facility] [address] ColemanKUM[place] [id number] Care Team Providers Care Drum Sander Setter Name Role Phone Trent Avery Primary Care [...] 153 Performing Lab: Notes/Report: Test performed by [employer], [facility] [address] [place] [address] , [address], [place] [address] Chris Vásquez MD, Cogeneration Operator CLIA: [id number] Sodium 139 135-145 mmol/L Potassium 3.9 3.5-5.3 [...] Interpretation:Normal Performing Lab: Notes/Report: Test performed by [facility] [address] [place] [address] , [address], [place] [address] Chris Vásquez MD, Cogeneration Operator CLIA: [id number] Thyroxine Free (free T4) 1.49 0.86-1.76 ng/dL P-Lipid Panel Reviewed date:11/12/2024 09:17:42 AM Interpretation:chol 255, trigs 173, chol/hdl 4.9, non-hdl 203, ldl 168 Performing Lab: Notes/Report: Test performed by [facility] [address] [place], [place] [address] , [address], [place] [address] Chris Vásquez MD, Cogeneration Operator CLIA: [id number] Cholesterol 255 <200 mg/dL Triglycerides 173 <150 [...] Interpretation:Normal Performing Lab: Notes/Report: Test performed by [facility] [address] [place], [place] [address] [place] , [address], [place] [address] Chris Vásquez MD, Cogeneration Operator CLIA: [id number] TSH 1.20 0.43-5.25 mU/L P-Microalbumin/Creatinine, R andom Urine Sample Reviewed date:11/12/2024 09:17:42 AM Interpretation:a/c 57 Performing Lab: Notes/Report: Test performed by [facility] [address] [place], [place] [address] , [address], [place] [address] Chris Vásquez MD, Cogeneration Operator CLIA: [id number] Albumin/Creatinine Ratio, Urine 57 0-30 ug/m g Microalbumin, Urine, Random 7.7 Creatinine, Urine 134.8 P-Uric Acid Reviewed date:11/12/2024 09:17:42 AM Interpretation:7.6 Performing Lab: Notes/Report: Test performed by [facility] [address] [place] [address] [place] [address] Chris Vásquez MD, Cogeneration Operator CLIA: [id number] Uric Acid 7.6 2.4-7.0 mg/dL P-Vitamin D 25-Hydroxy Reviewed date:11/12/2024 09:17:42 AM Interpretation:34.3 Performing Lab: Notes/Report: Test performed by [facility] [address] [place] [address] [place] [address] Chris Vásquez MD, Cogeneration Operator CLIA: [id number] Vitamin D 25-Hydroxy 34.3 30.0-100.0 ng/mL Interpretation [...] Encounter Location Date Provider Diagnosis SurajColeman 12[facility] [address] [id number] 11/11/2024 Trent Avery Type 2 diabetes yelitza [...] [address], [address], [place], [place], [id number], Progress Notes * SAHIL HENRIQUEZOB:1960 (65 yo F)Acc No.[id number]:11/11/2024 Progress Notes Patient: FIOR DOBBINS Provider: Amita Avery M.D. :1960 A ge:64 Y S ex:Female Date:11/11/2024 Address:[address] [place] [address] TREVON Alexandra [id number] Subjective: * Chief Complaints: * 1 . [...] Hospitalization/Major Diagno stic Procedure: K nee Pain- [facility] 10/05/2018, Pneumonia, Bronchitis- [facility] 06/30-, Hyperextension of Right Knee - [facility] ER referred to Dr. King 07/2024. * [...] * Procedure Codes: 8 2950 GLUCOSE TEST, 27215 GLYCATED HEMOGLOBIN TEST, Modifiers: QW , 3075F SYST BP GE 130 - 139MM HG, 3078F DIAST BP < 80 MM HG, 3044F HG A1C LEVEL LT 7.0% * Follow Up: 6 Months * Images: Billing Information: * Visit Code: 71113 Office Visit, Est Pt., Level 4. * Procedure Codes: 52646 GLUCOSE TEST. 04661 GLYCATED HEMOGLOBIN TEST. Modifiers: QW 3075F SYST BP GE 130 - 139MM HG. 3078F DIAST BP < 80 MM HG. 3044F HG A1C LEVEL LT 7.0%. * Electronic signature of Adrianne Avery MD on 06/04/2025 at 08:58 AM EDT Sign off status: Pending * Provider: Amita Avery M.D. Date: 0 11/11/2024 Generated for Kai arias/Clarence/eTransmitting on: 0 06/04/2025 08:58 AM EDT History and Physical Notes * [...]
--- OUTSIDE RECORDS SUMMARY | 2025-02-07 05:45 | XMS_ITS ---
Author Organization [facility] Address [address] [facility] 36 [facility] [address] [place] [phone] Care Team Providers Care Interactive Media Marketing Specialist Name Role Phone Trent Avery Primary Care [...] 57 Performing Lab: Notes/Report: Test performed by [facility], [employer] [address] [place] [address] , [address], [place] [address] Chris Vásqeuz MD, Rate Inserter CLIA: [id number] Sodium 140 135-145 mmol/L Potassium 3.9 3.5-5.3 mmol/L Chloride 104 97-108 mmol/L CO2 22 22-32 mmol/L Glucose 111 65-99 mg/dL BUN 15 8-23 mg/dL Creatinine 1.08 0.50-1.00 mg/dL Calcium 9.8 8.6-10.4 mg/dL eGFR by Creatinine 57 >59 mL/min/1.73m2 P-Lipid Panel Reviewed date:02/11/2025 11:47:02 AM Interpretation:chol 245, trigs 178, chol/hdl 4.8, non-hdl 194, ldl 158 Performing Lab: Notes/Report: Test performed by [facility], [address] , [address], [place] [address] Chris Vásquez MD, Rate Inserter CLIA: [id number] Cholesterol 245 <200 mg/dL Triglycerides 178 <150 [...] W/U Status Risk Notes Problem Primary insomnia (5114645) Primary insomnia (F51.01) Active confirmed Problem Body mass index 40+ - morbidly obese (198022836) BMI 40.0-44.9, adult (Z68.41) Active confirmed Vital Signs Blood pressure systolic 130 mm Hg 02/08/20 25 Blood pressure diastolic 76 mm Hg 025 Heart Rate 86 /min 02/07/2025 Height 63 in 02/07/2025 Weight 247.8 lbs 02/07/2025 BMI 43.89 kg/m2 02/07/2025 Encounters Encounter Location Date Provider Diagnosis [facility] [id number] 02/07/2025 Trent Avery Type 2 diabetes yelitza [...] [address], [address], [place], [place], [id number], Progress Notes * SAHIL HENRIQUEZOB:1960 (65 yo F)Acc No.[id number]:02/07/2025 Progress Notes Patient: FIOR DOBBINS Provider: Amita Avery M.D. :1960 A ge:64 Y S ex:Female Date:02/07/2025 Address:[address] [place] [address] T[place]VON Alexandra, [id number] Subjective: * Chief Complaints: * 1 . [...] Hospitalization/Major Diagno stic Procedure: K nee Pain- [facility] 10/05/2018, Pneumonia, Bronchitis- [facility] 06/30-, Hyperextension of Right Knee - [facility] ER referred to Dr. King [...] * Procedure Codes: 8 2950 GLUCOSE TEST, 12147 GLYCATED HEMOGLOBIN TEST, Modifiers: QW , 3044F HG A1C LEVEL LT 7.0%, G8950 PREHTN/HTN BP DOC INDCD F/U DOC, G8752 MOST RECENT SYSTOLIC BP < 140MM HG, G8754 MOST RECENT DIASTOLIC BP < 90MM HG * Follow Up: 6 Months * Images: Billing Information: * Visit Code: 53297 Office Visit, Est Pt., Level 4. * Procedure Codes: 97755 GLUCOSE TEST. 83629 GLYCATED HEMOGLOBIN TEST. Modifiers: QW 3044F HG [...] 0 02/07/2025 Generated for Kai arias/Clarence/Jacobitting on: 0 06/04/2025 08:57 AM EDT History [...]
--- OUTSIDE RECORDS SUMMARY | 2025-05-12 05:00 | XMS_ITS ---
Author Organization John Address 1210 [place] 36 [facility] [address] [place] [id number] Care Team Providers Care Institutional Asset Manager Name Role Phone Trent Avery Primary Care Provider REASON FOR VISIT 6 month check Encounters Encounter Location Date Provider Diagnosis [place] [address] [place] [phone] 05/12/2025 Trent Avery Plan Of Treatment Next Appt Details Provider Name:Trent Herrera ry, 08/11/2025 10:00:00 AM, [address], [address], [place], [phone], Progress Notes * SAHIL HENRIQUEZOB:1960 (65 yo F)Acc No.[id number]:05/12/2025 Progress Notes Patient: FIOR DOBBINS Provider: Amita Avery M.D. :1960 A ge:65 Y S ex:Female Date:05/12/2025 Address:[address] [place] [address] T[place]VON AlexandraKUMARVB-[id number] Subjective: * Chief Complaints: * 1 . 6 month check. * Medical History: Objective: * Vitals: Assessment: Plan: * Treatment: * Images: Billing Information: * Visit Code: * Procedure Codes: * Electronic signature of Adrianne Aveyr MD on 06/04/2025 at 08:56 AM EDT Sign off status: Pending * Provider: Amita Avery M.D. Date: 0 05/12/2025 Generated for Printi ng/Faxing/eTransmitting on: 0 06/04/2025 08:56 AM EDT
--- NOTE | 2025-06-04 08:00 | CA_ITS ---
APPROVED REPORT EXAM: Comprehensive 2D, Doppler, and color-flow Echocardiogram Doctor Of Dental Surgery: Marilyn De León RT(R) Ht: 5 ft 3 in Wt: 257lbs BSA: 2.15 BP: 165/95 mmHg Indications: dyspnea, hx PE and RV dilation 2D Dimensions LA Volume 24.00 mL LA Volume Index 11.16 mL/m2 (M/F) 16-34 EF AP4 58.20 % GL Strain -13.7 % M-Mode Dimensions RVDd 2.99 cm (0.9-2.6) LA Diam 4.35 cm (1.9-4.0) LVDd 4.28 cm (3.5-5.7) LVDs 3.17 cm (3.5-5.7) IVSd 1.07 cm (0.6-1.1) PWd 1.20 cm (0.6-1.1) EF (Teich) 51.30% FS 25.90% EDV (Teich) 82.20 mL ESV (Teich) 40.00 mL LV Diastology E Decel Time 227 (160-240 msec) E/A Ratio 0.7 Mitral Valve MV E Max Flako. 63.0 (40-130 cm/s) MV A Velocity 88.0 (40-130 cm/s) E/A Ratio 0.72 MV PHT 66.0 ms Tricuspid Valve TR P. Velocity 250.00 cm/s RAP Estimate 10.00 mmHg RVSP 34.90 mmHg Left Ventricle The left ventricle is normal size. Left ventricular systolic function is normal. The left ventricular ejection fraction is within the normal range. There is normal left ventricular wall thickness. There is normal LV segmental wall motion. The left ventricular diastolic function is normal. LVEF is 55% Right Ventricle The right ventricle is mildly dilated. The right ventricular systolic function is mildly hypokinetic. Atria The left atrium size is normal. The right atrium size is normal. There is no color Doppler evidence of interatrial shunt. Aortic Valve The aortic valve is mildly thickened. There is no hemodynamically significant aortic valvular stenosis. No aortic regurgitation is present. Mitral Valve The mitral valve is normal in structure. No evidence of mitral valve stenosis. Trace mitral regurgitation is present. Tricuspid Valve The tricuspid valve leaflets are thin and pliable. Trace tricuspid regurgitation. There is insufficient TR jet to estimate RVSP. Pulmonic Valve The pulmonary valve is grossly normal in structure. Trace pulmonic valve regurgitation is present. Great Vessels The aortic root is normal in size. IVC is normal in size and collapses >50% with inspiration. Pericardium Trivial, anterior pericardial effusion is present. No echo indications of tamponade. Other Information Study Quality: Fair Conclusion Normal LV systolic function. Mild RV dilation with mild reduction in RV function. Trivial, anterior pericardial effusion is present. Compared to prior study from 04/28/2023, the RV size and function are improved (but RV remains mildly dysfunctional). Electronically signed by : Sara Langston MD 06/07/2025 22:16:08
--- OUTSIDE RECORDS SUMMARY | 2025-06-04 08:56 | XMS_ITS | Patient Health Record ---
[facility] Address [address] [facility] [address] [place] [id number] Care Team Providers Care Technical Operations Manager Name Role Phone Trent Avery Primary Care Provider [phone] Allergies Allergen (clinical drug ingredient) Drug/Non Drug [...] - 38 platlet 235 100 - 400 P-TSH Reviewed date:08/09/2024 01:41:47 PM Interpretation:Normal Performing Lab: Notes/Report: Test performed by [facility] [address] [place], [place] [address] [place] , [place] [address] Chris Vásquez MD, Software Solutions Architect CLIA: [id number] TSH 0.75 0.43-5.25 mU/L P-T4 Free (thyroxine) Reviewed date:08/09/2024 01:41:47 PM Interpretation:Normal Performing Lab: Notes/Report: Test performed by [facility] [address] [place] [address] [address], [place] [address] Chris Vásquez MD, Software Solutions Architect CLIA: [id number] Thyroxine Free (free T4) 1.53 0.86-1.76 ng/dL P-Comprehensive Metabolic Pa jerad (CMP) Reviewed date:11/12/2024 09:17:42 AM Interpretation:gluc 116, Cr 1.17, Ca 11, gfr 52, alk phos 153 Performing Lab: Notes/Report: Test performed by [facility] [address] [place] [address] , [address], [place] [address] Chris Vásquez MD, Software Solutions Architect CLIA: [id number] Sodium 139 135-145 mmol/L Potassium 3.9 3.5-5.3 [...] Interpretation:Normal Performing Lab: Notes/Report: Test performed by [facility] [address] [place] [address] , [place] [address] Chris Vásquez MD, Software Solutions Architect CLIA: [id number] Thyroxine Free (free T4) 1.49 0.86-1.76 ng/dL P-Lipid Panel Reviewed date:11/12/2024 09:17:42 AM Interpretation:chol 255, trigs 173, chol/hdl 4.9, non-hdl 203, ldl 168 Performing Lab: Notes/Report: Test performed by [facility] [address] [place] [address] , [place] [address] Chris Vásquez MD, Software Solutions Architect CLIA: [id number] Cholesterol 255 <200 mg/dL Triglycerides 173 <150 [...] Interpretation:Normal Performing Lab: Notes/Report: Test performed by [employer] [address] , [address], [place] [address] Chris Vásquez MD, Software Solutions Architect CLIA: [id number] TSH 1.20 0.43-5.25 mU/L P-Microalbumin/Creatinine, R andom Urine Sample Reviewed date:11/12/2024 09:17:42 AM Interpretation:a/c 57 Performing Lab: Notes/Report: Test performed by [employer] [address] , [address], [place] [address] Chris Vásquez MD, Software Solutions Architect CLIA: [id number] Albumin/Creatinine Ratio, Urine 57 0-30 ug/m g Microalbumin, Urine, Random 7.7 Creatinine, Urine 134.8 P-Uric Acid Reviewed date:11/12/2024 09:17:42 AM Interpretation:7.6 Performing Lab: Notes/Report: Test performed by [employer] [address] , [address], [place] [address] Chris Vásquez MD, Software Solutions Architect CLIA: [id number] Uric Acid 7.6 2.4-7.0 mg/dL P-Vitamin D 25-Hydroxy Reviewed date:11/12/2024 09:17:42 AM Interpretation:34.3 Performing Lab: Notes/Report: Test performed by [employer] [address] , [address], [place] [address] Chris Vásquez MD, Software Solutions Architect CLIA: [id number] Vitamin D 25-Hydroxy 34.3 30.0-100.0 ng/mL Interpretation of Vitamin D 25 OH: < 20 ng/mL - Deficiency 20 - 29 ng/mL - Insufficiency 30 - 100 ng/mL - Sufficiency > 100 ng/mL - Super-therapeutic- toxicity may occur above this level. Clinical correlation required. Glucose (In-House) Reviewed date:02/11/2025 11:47:02 AM Interpretation:134 Performing Lab: Notes/Report: 134 blood glucose 134 74 - 106 mg/dL Glycohemoglobin A1c (in hous e) Reviewed date:02/11/2025 11:47:02 AM Interpretation:6.0% Performing Lab: Notes/Report: 6.0% glycohemoglobin 6.0% 5 - 6.5 % P-Basic Metabolic Panel (BMP ) Reviewed date:02/11/2025 11:47:02 AM Interpretation:gluc 111, Cr 1.08, gfr 57 Performing Lab: Notes/Report: Test performed by [facility] [address] [place] [address] , [address], [place] [address] Chris Vásquez MD, Software Solutions Architect CLIA: [id number] Sodium 140 135-145 mmol/L Potassium 3.9 3.5-5.3 mmol/L Chloride 104 97-108 mmol/L CO2 22 22-32 mmol/L Glucose 111 65-99 mg/dL BUN 15 8-23 mg/dL Creatinine 1.08 0.50-1.00 mg/dL Calcium 9.8 8.6-10.4 mg/dL eGFR by Creatinine 57 >59 mL/min/1.73m2 P-Lipid Panel Reviewed date:02/11/2025 11:47:02 AM Interpretation:chol 245, trigs 178, chol/hdl 4.8, non-hdl 194, ldl 158 Performing Lab: Notes/Report: Test performed by [facility] [address] [place] [address] , [address], [place] [address] Chris Vásquez MD, Software Solutions Architect CLIA: [id number] Cholesterol 245 <200 mg/dL Triglycerides 178 <150 [...] Results: 158 Units: mg/dL % Change: -5% Glycohemoglobin A1c (in hous e) Reviewed date:11/12/2024 09:17:42 AM Interpretation:5.5 Performing Lab: Notes/Report: 5.5 glycohemoglobin 5.5% 5 - 6.5 % Glucose (In-House) Reviewed date:11/12/2024 09:17:42 AM Interpretation:108 Performing Lab: Notes/Report: 108 blood glucose 108 74 - 106 mg/dL P-Vitamin D 25-Hydroxy Reviewed date:06/27/2024 03:52:35 PM Interpretation:40.8 Performing Lab: Notes/Report: Test performed by [facility] [address] [place] [address] , [address], [place] [address] Chris Vásquez MD, Software Solutions Architect CLIA: [id number] Vitamin D 25-Hydroxy 40.8 30.0-100.0 ng/mL Interpretation of Vitamin D 25 OH: < 20 ng/mL - Deficiency 20 - 29 ng/mL - Insufficiency 30 - 100 ng/mL - Sufficiency > 100 ng/mL - Super-therapeutic- toxicity may occur above this level. Clinical correlation required. P-TSH Reviewed date:06/27/2024 03:52:35 PM Interpretation:0.16 Performing Lab: Notes/Report: Test performed by [facility] [address] [place] [address] , [facility] [place] [address] Chris Vásquez MD, Software Solutions Architect CLIA: [id number] TSH 0.16 0.43-5.25 mU/L P-Lipid Panel Reviewed date:06/27/2024 03:52:35 PM Interpretation:chol 220, trig 172, chol/hdl 4.49, non-hdl 171, ldl 137 Performing Lab: Notes/Report: Test performed by [facility] [address] [place] [address] , [facility] [place] [address] Chris Vásquez MD, Software Solutions Architect CLIA: [id number] Cholesterol 220 <200 mg/dL Triglycerides 172 <150 [...] Interpretation:1.86 Performing Lab: Notes/Report: Test performed by [facility], [address] , [address], [place] [address] Chris Vásquez MD, Software Solutions Architect CLIA: [id number] Thyroxine Free (free T4) 1.86 0.86-1.76 ng/dL P-Comprehensive Metabolic Pa jerad (CMP) Reviewed date:06/27/2024 03:52:35 PM Interpretation:alk phos 140 Performing Lab: Notes/Report: Test performed by [facility] [address] [facility] , [address], [place] [address] Chris Vásquez MD, Software Solutions Architect CLIA: [id number] Sodium 138 135-145 mmol/L Potassium 3.9 3.5-5.3 [...] blood glucose 121 74 - 106 mg/dL Sasha Reviewed date:03/18/2025 02:47:11 PM Interpretation:Positive Performing Lab: Notes/Report: Positive Cologuard positive Reason For Referral Diagnosis 1 Tremor, unspecified (R25.1) Referral Organization John Referring Provider First Name Trent Referring Provider Last Name Gena Referring Provider Speciality [facility] Referred Provider Rubia Antoine Referred Provider [...] Duration: 30 Active Vitamin D3 50 MCG (1999 UT) [...] MG Take 2 capsules by mouth once daily Orally Once a [...] Status W/U Status Risk Notes Problem Hypothyroidism (68295175) Hypothyroidism, unspecified (E03.9) Active confirmed Problem Essential hypertension (08287994) Essential (primary) hypertension (I10) Active confirmed Problem Vitamin D deficiency (30866977) Vitamin D deficiency (E55.9) Active confirmed Problem Essential hypertension (96230043) Essential hypertension (I10) Active confirmed Problem Morbid obesity (253115288) Morbid obesity (E66.01) Active confirmed Problem Anxiety (60794851) Anxiety (F41.9) Active confi rmed Problem Obstructive sleep apnea (99411630) Obstructive sleep apnea (G47.33) Active confirmed Problem Mixed anxiety and depressive disorder (783547074) Depression with anxiety (F41.8) Active confirmed Problem Acute exacerbation of chronic obstructive airways disease (873094873) COPD exacerbation (J44.1) Active confirmed Problem Localized edema (1175881) Localized edema (R60.0) Active confirmed Problem Primary insomnia (0900013) Primary insomnia (F51.01) Active confirmed Problem Acquired hypothyroidism (604853349) Acquired hypothyroidism (E03.9) Active confirmed Problem Primary osteoarthritis (094023295) Primary osteoarthritis involving multiple joints (M15.0) Active confirmed Problem Neck pain (88549950) Neck pain (M54.2) Active confirmed Problem COPD - Chronic obstructive pulmonary disease (45139635) Chronic obstructive pulmonary disease, unspecified COPD type (J44.9) Active confirmed Problem Leukocytosis (422053103) Leukocytosis, unspecified type (D72.829) Active confirmed Problem Obstructive sleep apnea syndrome (06102015) STEFFEN (obstructive sleep apnea) (G47.33) Active confirmed Problem Body mass index 40+ - morbidly obese (779721329) BMI 40.0-44.9, adult (Z68.41) Active confirmed Problem Hyperlipidaemia (24032160) Hyperlipidemia, unspecified hyperlipidemia type (E78.5) Active confirmed Problem Stenosis of right carotid artery (755530679170765) Stenosis of right carotid artery (I65.21) Active confirmed Problem Chest pain (61369073) Chest pain, unspecified type (R07.9) Active confirmed Problem Chronic gouty arthritis (91338629) Chronic gout without tophus, unspecified cause, unspecified site (M1A.9XX0) Active confirmed Problem Tobacco user (707140201) Cigarette nicotine dependence without complication (F17.210) Active confirmed Problem Right carotid artery stenosis (667516992011723) Carotid stenosis, right (I65.21) Active confirmed Problem Type II diabetes mellitus without complication (762150784) Type 2 diabetes mellitus without complication, without long-term current use of insulin (E11.9) Active confirmed Problem Arthralgia of the ankle and/or foot (618476923) Acute left ankle pain (M25.572) Active confirmed Problem Chronic rhinitis (44905296) Rhinitis, unspecified type (J31.0) Active confirmed Problem Bilateral carpal tunnel syndrome (58583289339730992 ) Bilateral carpal tunnel syndrome (G56.03) Active confirmed Problem Arthritis of left knee (7388535627231675) Arthritis of left knee (M17.12) Active confirmed Problem Obesity (313843189) Obesity, unspecified classification, unspecified obesity type, unspecified whether serious comorbidity present (E66.9) Active confirmed Problem Allergic rhinitis (05130744) Allergic rhinitis, unspecified seasonality, unspecified trigger (J30.9) Active confirmed Problem Type II diabetes mellitus without complication (701455849) Type 2 diabetes mellitus without complication, unspecified whether terminal supervisor insulin use (E11.9) Active confirmed Problem Plain X-ray of chest abnormal (finding) (4987815921) Abnormal CXR (R93.89) Active confirmed Problem Radiology result abnormal (390238025) Abnormal chest CT (R93.89) Active confirmed Problem Traumatic arthropathy of knee (546573963) Traumatic arthropathy of left knee (M12.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) Active confirmed Vital Signs Heart Rate 86 /min 02/07/2025 Blood pressure diastolic 76 mm Hg 02/07/2025 Height 63 in 02/07/2025 Blood pressure systolic 130 mm Hg 02/07/2025 Weight 247.8 lbs 02/07/2025 BMI 43.89 kg/m2 02/07/2025 Encounters Encounter Location Date Provider [facility] [address] [place] [id number] 06/26/2024 Trent Jordan Type 2 diabetes yelitza itus without complication, [...] type J44.9 and Encounter for immunization Z23 [facility] [address] [place] [address] [place] [id number] 08/07/2024 Trent Jordan Type 2 diabetes yelitza itus without complication, without long-term current use of insulin E11.9 ; Chronic diarrhea K52.9 ; Hypothyroidism, unspecified E03.9 and Cough, unspecified type R05.9 [facility] [address] [place] [address] [place] [id number] 11/11/2024 Trent Jordan Type 2 diabetes yelitza itus without complication, [...] apnea) G47.33 and Depression with anxiety F41.8 [facility] [address] [place], [place] [id number] 02/07/2025 Trent Jordan Type 2 diabetes yelitza itus without complication, without long-term current use of insulin E11.9 ; Essential (primary) hypertension I10 ; Renal insufficiency N28.9 ; Hyperlipidemia, unspecified hyperlipidemia type E78.5 ; Primary insomnia F51.01 and BMI 40.0-44.9, adult Z68.41 [facility] [address] [place] [id number] 06/27/2024 Trent Jordan [facility] [address] [facility] [address] [place], [place] [id number] 07/15/2024 Trent Jordan Type 2 diabetes yelitza itus without complication, without long-term current use of insulin E11.9 [facility] [address] [facility] [address] [place] [id number] 09/13/2024 Trent Jordan Acute pulmonary embo lism, unspecified pulmonary embolism type, unspecified whether acute cor pulmonale present I26.99 and Depression with anxiety F41.8 [facility] [address] [facility] [address] [place] [id number] 10/01/2024 Trent Jordan Polyarthralgia M25.5 0 and Peripheral edema R60.0 [facility] [address] [place], [place] [id number] 10/14/2024 Trent Jordan Allergic rhinitis, unspecified seasonality, unspecified trigger J30.9 [facility] [address] [place] [id number] 10/23/2024 Trent Jordan [facility] [address] [place] [id number] 11/12/2024 Trent Jordan [facility] [address] [place] [id number] 12/04/2024 Trent Jordan Acute pulmonary embo lism, unspecified pulmonary embolism type, unspecified whether acute cor pulmonale present I26.99 [facility] [address] [place], [place] [id number] 01/03/2025 Trent Jordan Polyarthralgia M25.5 0 and Peripheral edema R60.0 [facility] [address] [place] [id number] 02/11/2025 Trent Jordan Essential hypertensi on I10 [facility] [address] [place] [id number] 02/11/2025 Trent Jordan [facility] [address] [place] [id number] 02/13/2025 Trent Jordan [facility] [address] [place] [id number] 03/17/2025 Trent Jordan Allergic rhinitis, unspecified seasonality, unspecified trigger J30.9 [facility] [address] [place] [id number] 03/18/2025 Trent Jordan [facility] [address] [place] [id number] 03/24/2025 Trent Jordan Primary insomnia F51 .01 [facility] [address] [place] [id number] 03/24/2025 Trent Jordan [facility] [address] [place] [id number] 04/30/2025 Trent Jordan [facility] [address] [place] [id number] 05/03/2025 Trent Jordan Acute pulmonary embo lism, unspecified pulmonary embolism type, unspecified whether acute cor pulmonale present I26.99 [facility] [address] [place] [id number] 05/08/2025 Trent Jordan Polyarthralgia M25.5 0 and Primary insomnia F51.01 [facility] [address] [place] [id number] 05/14/2025 Trent Jordan Essential hypertensi on I10 [facility] [address] [place] [id number] 05/30/2025 Trent Jordan Assessments Encounter Date Diagnosis (ICD Code) Assessment [...] M25.50) 05/14/2025 Essential hypertension (ICD-10 - I10) 05/08/2025 Primary insomnia (ICD-10 - F51.01) 01/03/2025 Peripheral edema (ICD-10 - R60.0) 02/07/2025 Renal insufficiency (ICD-10 - N28.9) 09/13/2024 Depression with anxiety (ICD-10 - F41.8) 11/11/2024 Hyperlipidemia, unspecified hyperlipidemia type (ICD-10 - E78.5) 10/01/2024 Peripheral edema (ICD-10 - R60.0) 08/07/2024 Hypothyroidism, unspecified (ICD-10 - E03.9) 06/26/2024 [...] E55.9) 06/26/2024 Tremor, unspecified (ICD-10 - R25.1) 02/07/2025 BMI 40.0-44.9, adult (ICD-10 - Z68.41) 11/11/2024 Chronic obstructive pulmonary disease, unspecified COPD [...] Name:Trent leger, 08/11/2025 10:00:00 AM, [address], [address], [place], [place], [id number], Insurance Providers Payer Name Payer Address Payer Phone Subscriber Number Group Number Insured Name Patient Relationship to Insured Coverage Start Date Coverage End Date [employer] [address] [place] [address] [id number] FIOR HENRIQUEZ Self - patient is the insured Medical (General) History Medical History History ICD Code Type 2 Diabetes Asthma Hypertension Hyperlipidemia Hypothyroidism Allergies Arthritis Gall Bladder Disease Depression 35 Year Smoking Hx as of 2018 Gout Sleep Apnea DVT pulmonary embolism Surgical History Surgery Date(Month/Year) Tonsillectomy 1966 x 2 1990, 1993 Cholecystectomy 1994 Bladder Suspension 1995 Hysterectomy 1996 LT Cataract Removal 08/18/2015 Hernia Repair 11/04/2020 RT Ankle 01/20/2021 Hospitalization History Reason Date(Month/Year) Hyperextension of Right Knee - [facility] ER re ferred to Dr. King 07/2024 Pneumonia, Bronchitis- [facility] 06/30- [place] [facility]
--- OUTSIDE RECORDS SUMMARY | 2025-06-04 08:58 | XMS_ITS | Clinical Summary ---
Author Organization [facility] Address [address] [place] [address] Care Team Providers Care School Traffic Guard Name Role Phone Unavailable Primary Care Provider [...] 2) 2011 COVID-19 Vaccine (1 - season) 2025 INFLUENZA VACCINE 06/18/2025
== END 2025-06-04 23:59 | disposition home or self-care (01) ==
LOC: RT 08:01
PROVIDERS: PCP Family Medicine; Visit Provider Physician Assistant
DX: I11.9 Hypertensive heart disease without heart failure (principal); I26.99 Other pulmonary embolism without acute cor pulmonale; I82.459 Acute embolism and thrombosis of unspecified peroneal vein; J44.9 Chronic obstructive pulmonary disease, unspecified
CPT/HCPCS: 93306

== ENCOUNTER 2025-06-09 07:27 | Day surgery (SDC) | payer BC, OTHER, SELFPAY ==
[2025-06-03 13:00] VITALS: BMI 46.7
--- NOTE | 2025-06-06 13:15 | EXP.HP ---
History of Present Illness *Admission Date: 06/09/25 *History of present illness: Mrs. Garrison is a 65-year-old female who is here for screening colonoscopy secondary to a positive Cologuard. The examination is deemed medically necessary for screening colonoscopy. The patient has been seen, interviewed and examined prior to the procedure by both myself and the anesthesia provider. [facility] Disclaimer: The information contained in this section may have been updated after the patient was seen, as this information can be updated by other users. Medical History Sleep apnea Diabetes mellitus Arthritis HLD (hyperlipidemia) Postoperative edema Postoperative pain Ventral hernia Obesity Hypothyroidism Hypertension Tobacco use disorder COPD (chronic obstructive pulmonary disease) Surgical History History of cataract surgery History of hernia repair History of bladder surgery History of History of cholecystectomy History of tonsillectomy H/O foot surgery Status post foot surgery Family History Grandmother Parkinsons Other Coronary artery disease Diabetes Hypertension Thyroid disorder Social History Smoking Status: Current every day smoker tobacco type: cigarettes packs per day: 1 alcohol intake: never substance use type: denies use current occupational status: retired Travel in the last 8 weeks?: None household members: none housing: apartment current occupation: [employer] caffeine: Yes Have you lived/traveled outside [place] in past 30 days?: No Contact w/someone who lives/traveled outside US past 30 days?: No Exposure to someone with infectious disease in past 14 days?: No Do you have a fever (greater than 100.4 F or 38 C)?: No Have you tested positive for COVID-19?: No Exposed to someone with COVID-19 in past 14 days?: No Do you have a sore throat?: No Do you have a cough?: No Do you have any weakness?: No Do you have any diarrhea?: No Are you experiencing any unusual bleeding?: No Do you have any muscle aches/pain?: No Do you have any abdominal pain?: No Are you experiencing loss of taste or smell?: No Other Medical History Have you received the Flu Vaccine for this season: No Have you received the Pneumonia Vaccine: No Review of Systems Review of Systems Review of systems (narrative): Negative *Cardiovascular Comments: Negative *Gastrointestinal Comments: Negative *Genitourinary Comments: Negative *Musculoskeletal Comments: Negative *Neurologic Comments: Negative Meds Home Medications and Allergies Home Medications ?Medication ?Instructions ?Recorded ?Confirmed ?Type amlodipine 10 mg tablet 10 mg PO DAILY High Blood Pressure 11/28/17 06/03/25 History levothyroxine 125 mcg tablet 125 mcg PO DAILYDM THYROID 07/01/19 06/03/25 History allopurinol 100 mg tablet 100 mg PO DAILY gout 10/28/19 06/03/25 History montelukast 10 mg tablet 10 mg PO PM Allergy symptoms 04/10/22 06/03/25 History duloxetine 60 mg capsule,delayed 60 mg PO DAILY Anxiety 09/12/22 06/03/25 History release dulaglutide 0.75 mg/0.5 mL 0.75 mg SQ WEEKLY Diabetes 04/27/23 06/03/25 History subcutaneous pen injector (Trulicity) loratadine 10 mg tablet 10 mg PO DAILY Allergies 04/27/23 06/03/25 History triamterene 37.5 1 tab PO DAILY High Blood Pressure 04/27/23 06/03/25 History mg-hydrochlorothiazide 25 mg tablet celecoxib 100 mg capsule 100 mg PO DAILY 11/14/23 06/03/25 History albuterol sulfate 90 mcg/actuation 1 inh inhalation Q4-6H PRN . 10/23/24 06/03/25 History breath activated powder inhaler budesonide-formoterol HFA 80 1 inh inhalation BID PRN . 10/23/24 06/03/25 History mcg-4.5 mcg/actuation aerosol inhaler (Symbicort) potassium chloride 20 mEq 20 meq PO DAILY 10/23/24 06/03/25 History tablet,extended release quetiapine 25 mg tablet 25 mg PO HS 04/09/25 06/03/25 History topiramate 50 mg tablet 100 mg (2 x 50 mg) PO HS #60 tabs 04/14/25 06/03/25 Rx furosemide 40 mg tablet 40 mg PO DAILY 05/26/25 06/03/25 History rivaroxaban 10 mg tablet (Xarelto) 10 mg PO DAILY #30 tabs 05/26/25 06/03/25 Rx sodium,potassium,mag sulfates 17.5 See Rx Instructions PO .COMPLEX 05/27/25 06/03/25 Rx gram-3.13 gram-1.6 gram oral soln #354 mL (Suprep Bowel Prep Kit) New Prescriptions to Start Prescriptions: Allergies Allergy/AdvReac Type Severity Reaction Status Date / Time ramipril Allergy Severe S-SWELLS-OR Verified 06/09/25 07:47 AL/THROAT adhesive tape Allergy Intermediate Blisters Verified 06/09/25 07:47 lisinopril Allergy Unknown swelling Verified 06/09/25 07:47 in tongue Exam Data for Last 24 hours I & O for Last 24 hours: Intake & Output 06/03/25 06/04/25 06/05/25 06/06/25 23:59 23:59 23:59 23:59 Weight 256 lb *Routine HEENT Exam Head: Present normocephalic Eye: Present EOMI and PERRL ENT: Present mucous membranes moist *Routine Neck Exam Neck: Present supple *Routine Respiratory Exam Respiratory: Present CTA bilaterally *Routine Cardiovascular Exam Cardiovascular: Present RRR *Routine Abdominal Exam Abdominal: Present soft and normoactive bowel sounds; Absent tenderness *Routine Rectal Exam Rectal:: deferred *Routine Genitalia Exam Genitalia:: deferred *Routine Extremities Exam Extremities: Absent cyanosis, clubbing or edema *Routine Skin Exam Skin: Present warm; Absent rash *Routine Neurological Exam Neurological: Present alert and oriented X3 Assessment and Plan *Assessment and plan (1) Screening for colon cancer: Status: Acute Category: Medical Code(s): Z12.11 - Encounter for screening for malignant neoplasm of colon Plan A/P: 1. Screening for colon cancer is the preprocedural diagnosis. The patient will be anesthetized/sedated using MAC sedation. The patient has been seen and examined. Cardiac and lung assessment prior to the examination is stable. Proceed with planned screening colonoscopy.
--- NOTE | 2025-06-09 07:14 | HMH.PROCNOTE ---
[facility] Procedure Note Date: 06/09/25 Time: 09:21 Procedure Note:: Colonoscopy Procedure Report: Colonoscopy with cold snare polypectomy Endoscopist: Adrian Powell II, MD Referring physician: Trent Avery MD Date of Procedure: June 09, 2025 Equipment: Olympus [id number] adult colonoscope Sedation: MAC sedation Indication: Mrs. Garrison is a 65-year-old female who is here for screening colonoscopy secondary to a positive Cologuard. The patient reports no abdominal pain, weight loss, change in her bowel habits or rectal bleeding. She reports no family history of colon cancer. Her last colonoscopy was many years ago (more than 2 decades). The examination is deemed medically necessary for screening colonoscopy. Procedure: Prior to the procedure, a history and physical exam was performed, and patient's medications and allergies were reviewed. The risks, benefits and alternatives of the sedation and procedure were discussed with the patient. All questions were answered and informed consent was obtained. The patient was brought to the procedure room. Patient identification and proposed procedure were verified by the physician and the nurse. The patient was placed in a left lateral decubitus position and the scope was passed under direct vision. Throughout the procedure, the patient's blood pressure, pulse, and oxygen saturations were monitored continuously. The colonoscopy was accomplished without difficulty. The patient tolerated the procedure well. Findings: On digital rectal examination there was normal rectal tone. There were no external hemorrhoids. The colonoscope was introduced through the anal canal to the rectum and advanced to the cecum. The ileocecal valve and appendiceal orifice were identified. The scope was advanced a short distance into the ileum which appeared grossly normal. The scope was then withdrawn into the colon. There were 4 colon polyps (ascending x 1 (4 mm), descending x 1 (4 mm) and sigmoid x 2 (3 and 4 mm)). These were all removed via cold snare polypectomy. The remaining cecum, ascending and transverse colon and mucosa were grossly normal. There were scattered diverticuli throughout the descending and sigmoid colon (LEFT colon). The rectum itself was normal. Upon retroflexion within the rectum there were grade 1-2 internal hemorrhoids. The preparation was excellent throughout with Long Barn Preparation Score of 9. The cecal time was 12 minutes. Impression: 1. Diminutive colonic polyps x 4 2. Left-sided diverticulosis 3. Grade 1-2 internal hemorrhoids Plan: I will follow-up the polyp histology and recommend repeat screening/surveillance colonoscopy in 5 years. I would encourage psyllium bulking fiber supplementation on a maintenance basis.
[2025-06-09 07:50] VITALS: BP 161/83; PULSE 85; RESP 18; TEMP 36.1; O2SAT 97
[2025-06-09 08:06] LABS: POC Glucose,Bedside 126 gm/dL (70-110)
--- NOTE | 2025-06-09 08:08 | P.PNANES_ITS ---
[facility] Disclaimer: The information contained in this section may have been updated after the patient was seen, as this information can be updated by other users. Medical History Sleep apnea Diabetes mellitus Arthritis HLD (hyperlipidemia) Postoperative edema Postoperative pain Ventral hernia Obesity Hypothyroidism Hypertension Tobacco use disorder COPD (chronic obstructive pulmonary disease) Surgical History History of cataract surgery History of hernia repair History of bladder surgery History of History of cholecystectomy History of tonsillectomy H/O foot surgery Status post foot surgery Family History Grandmother Parkinsons Other Coronary artery disease Diabetes Hypertension Thyroid disorder Social History Smoking Status: Current every day smoker tobacco type: cigarettes packs per day: 1 alcohol intake: never substance use type: denies use current occupational status: retired Travel in the last 8 weeks?: None household members: none housing: apartment current occupation: [employer] caffeine: Yes Have you lived/traveled outside [place] in past 30 days?: No Contact w/someone who lives/traveled outside [place] past 30 days?: No Exposure to someone with infectious disease in past 14 days?: No Do you have a fever (greater than 100.4 F or 38 C)?: No Have you tested positive for COVID-19?: No Exposed to someone with COVID-19 in past 14 days?: No Do you have a sore throat?: No Do you have a cough?: No Do you have any weakness?: No Do you have any diarrhea?: No Are you experiencing any unusual bleeding?: No Do you have any muscle aches/pain?: No Do you have any abdominal pain?: No Are you experiencing loss of taste or smell?: No [facility] Anesthesia Checklist Patient Identification Patient Identification: Arm Band and Verbal (Name & ) Structural Data Admitted From: Home Planned Operative Procedure/s: colonscopy Consent for Planned Operative Procedure(s) Verified: Yes Verified Documents: Surgical Consent and History and Physical NPO Status Verified Time NPO: 00:00 Additional verifications Anesthesia Reactions: Yes (nausea) Hx Blood Transfusions: No Blood Transfusion Reaction: No Airway Assessment Mallampati Score:: Class II Dentition: Edentulous Neurological Assessment Level of Consciousness: Awake, Alert and Appropriate Hx Seizures: No Numbness or tingling in extremities: No Anesthesia Plan Anesthesia Risk discussed: Yes Anesthesia Plan: Verified ASA Class: III Anesthesia Type: MAC
[2025-06-09 09:24] VITALS: BP 114/47; PULSE 75; RESP 16; TEMP 36.1; O2SAT 95
[2025-06-09 09:34] VITALS: BP 132/73; PULSE 71; RESP 18; TEMP 36.1; O2SAT 98
[2025-06-09 09:44] VITALS: BP 116/64; PULSE 70; RESP 18; TEMP 36.1; O2SAT 98
[2025-06-09 09:54] VITALS: BP 116/64; PULSE 70; RESP 18; TEMP 36.1; O2SAT 98
== END 2025-06-09 09:54 | disposition home or self-care (01) ==
PROVIDERS: PCP Family Medicine; Visit Provider Internal Medicine Gastroenterology
PROC: 0DJD8ZZ Inspection of Lower Intestinal Tract, Via Natural or Artificial Opening Endoscopic (ICD-10-PCS; CPT 45378; principal; 2025-06-09 09:00)
DX: Z12.11 Encounter for screening for malignant neoplasm of colon (principal); D12.0 Benign neoplasm of cecum; D12.4 Benign neoplasm of descending colon; D12.5 Benign neoplasm of sigmoid colon; K57.30 Diverticulosis of large intestine without perforation or abscess without bleeding; K64.0 First degree hemorrhoids; K64.1 Second degree hemorrhoids; F17.210 Nicotine dependence, cigarettes, uncomplicated; E78.5 Hyperlipidemia, unspecified; E11.9 Type 2 diabetes mellitus without complications; I10 Essential (primary) hypertension; E03.9 Hypothyroidism, unspecified; J44.9 Chronic obstructive pulmonary disease, unspecified; Z88.6 Allergy status to analgesic agent; Z88.8 Allergy status to other drugs, medicaments and biological substances
CPT/HCPCS: 45385; 82962; J2003; J2704

== ENCOUNTER 2025-08-08 10:46 | Outpatient (CLI) | payer BC, OTHER, SELFPAY ==
--- OUTSIDE RECORDS SUMMARY | 2024-02-07 06:45 | XMS_ITS ---
Author Organization [facility] Address [address] [facility] [address] [place] [id number] Care Team Providers Care Manager Plumbing Name Role Phone Trent Avery Primary Care Provider Allergies Allergen (clinical drug ingredient) Drug/Non Drug Allergy documented on EMR Reaction Allergy Type Onset Date Status ramipril Ramipril anaphylaxis Drug Allergy Activ e atorvastatin Atorvastatin muscle pain Drug Allergy Active Results Component Value Reference Range Notes Glycohemoglobin A1c (in hous e) Reviewed date:02/08/2024 08:43:15 AM Interpretation:5.6% Performing Lab: Notes/Report: 5.6% glycohemoglobin 5.6% 5 - 6.5 % P-Comprehensive Metabolic Pa jerad (CMP) Reviewed date:02/08/2024 08:43:15 AM Interpretation:K+ 3.0, gluc 156, creat 1.21, gfr 50, alk phos 132 Performing Lab: Notes/Report: Test performed by [facility] [address] [place] [address] , [address], [place] [address] Chris Vásquez MD, Lime Puller CLIA: [id number] Sodium 140 135-145 mEq/L Potassium 3.0 3.5-5.3 mEq/L Chloride 99 97-108 mEq/L CO2 24 22-32 mEq/L Glucose 156 65-99 mg/dL BUN 14 8-23 mg/dL Creatinine 1.21 0.50-1.00 mg/dL Calcium 9.9 8.6-10.4 mg/dL eGFR by Creatinine 50 >59 mL/min/1.73m2 Protein 6.8 6.0-8.3 g/dL Albumin 4.3 3.5-5.3 g/dL Alkaline Phosphatase 132 35-121 IU/L ALT (SGPT) 13 <5-47 IU/L AST (SGOT) 17 <5-40 IU/L Bilirubin, Total 0.3 <0.2-1.2 mg/dL A/G Ratio 1.7 1.1-2.5 mg/dL P-Lipid Panel Reviewed date:02/08/2024 08:43:15 AM Interpretation:chol 213, tg 183, non-hdl 161 Performing Lab: Notes/Report: Test performed by [facility], [address] , [place] [address] Chris Vásquez MD, Lime Puller CLIA: [id number] Cholesterol 213 <200 mg/dL Triglycerides 183 <150 mg/dL HDL Cholesterol 52 >39 mg/dL Cholesterol / HDL Ratio 4.10 0.00-4.44 Ratio Non-HDL Cholesterol 161 <130 mg/dL LDL Cholesterol (Calculation) 124 <130 mg/dL LDL Cholesterol Levels* Less than 100 mg/dL Optimal 100 to 129 mg/dL Near Optimal/ Above Optimal 130 to 159 mg/dL Borderline High 160 to 189 mg/dL High 190 mg/dL and above Very High * Categories as recommended by the 2004 ATPIII guidelines LDL/HDL Ratio 2.4 <3.3 Ratio LDL Cholesterol Patient History Test Date: 10/09/2023 LDL Results: 114 Units: mg/dL % Change: - Test Date: 02/07/2024 LDL Results: 124 Units: mg/dL % Change: +8% P-Vitamin D 25-Hydroxy Reviewed date:02/08/2024 08:43:15 AM Interpretation:Normal Performing Lab: Notes/Report: Test performed by [facility] [address] [facility] , [address], [place] [address] Chris Vásquez MD, Lime Puller CLIA: [id number] Vitamin D 25-Hydroxy 69.3 30.0-100.0 ng/mL Interpretation of Vitamin D 25 OH: < 20 ng/mL - Deficiency 20 - 29 ng/mL - Insufficiency 30 - 100 ng/mL - Sufficiency > 100 ng/mL - Super-therapeutic- toxicity may occur above this level. Clinical correlation required. REASON FOR VISIT 3 week follow up Medications Medication SIG (Take, Route, Frequency, Duration) Notes Start Date End Date Status Nicotine Step 1 21 MG/24HR 1 patch to skin Transdermal Once a day; Duration: 30 day(s) Not-Taking Triamterene-HCTZ 37.5-25 MG Take 1 capsule by mouth once daily Active CoQ-10 100 MG 1 cap(s) orally once a day Active Celecoxib 100 MG 1 cap(s) Orally shanel y; Duration: 90 days Active Xarelto 20 MG 1 tablet with food O rally Once a day; Duration: 90 days 05/10/2023 Active Levothyroxine Sodium 125 MCG 1 tab(s) orally once a day; Duration: 90 days Active amLODIPine Besylate 10 MG 1 tab(s) orally once a day; Duration: 90 days Active Allopurinol 100 MG 1 tab(s) orally once a day; Duration: 90 days 10/01/2019 Active Potassium Chloride ER 10 MEQ 1 tablet with food Orally once daily 01/17/2024 Active Trulicity 1.5 MG/0.5ML as directed Subcu taneous once weekly 10/09/2023 Active Vitamin D3 50 MCG (1999 UT) 2 capsules Orally Once a day 10/12/2023 Active Loratadine 10 MG 1 tab(s) orally once a day; Duration: 90 days Active metFORMIN HCl ER 500 MG 2 tab(s) orally once a day Active Furosemide 40 MG 1 tablet Orally Once a day 01/17/2024 Active Montelukast Sodium 10 MG 1 tab(s) orally once a day; Duration: 90 day(s) Active ARIPiprazole 10 MG Take 1 tablet by deon th once daily Orally Once a day; Duration: 90 days Active CPAP SUPPLIES DIRECTED 08/12/2020 Act charis Levalbuterol Tartrate 45 MCG/ACT 1 puff as needed Inhalation every 6 hrs as needed 02/21/2023 Active Symbicort 80-4.5 MCG/ACT Inhale 2 puffs by mouth twice daily; Duration: 30 Active DULoxetine HCl 60 MG 2 cap(s) orally onc e a day; Duration: 90 days 07/01/2021 Active Aspirin 81 MG 1 tab(s) orally once a day; Duration: 30 day(s) Active EpiPen 2-Hebert 0.3 MG/0.3ML as directed intramuscularly once 09/28/2020 Active Vital Signs Blood pressure systolic 126 mm Hg 02/07/20 24 Blood pressure diastolic 76 mm Hg 024 Heart Rate 94 /min 02/07/2024 Height 63 in 02/07/2024 Weight 244.4 lbs 02/07/2024 BMI 43.29 kg/m2 02/07/2024 Encounters Encounter Location Date Provider [facility] [address] [phone] 02/07/2024 Trent Avery Type 2 diabetes yelitza itus without complication, without long-term current use of insulin E11.9 ; Hyperlipidemia, unspecified hyperlipidemia type E78.5 ; Peripheral edema R60.0 ; Vitamin D deficiency E55.9 and Hypokalemia E87.6 Assessments Encounter Date Diagnosis (ICD Code) Assessment Notes Treatment Notes Treatment Clinical Notes Section Notes 02/07/2024 Type 2 diabetes mellitus without complication, without long-term current use of insulin (ICD-10 - E11.9) 02/07/2024 Hyperlipidemia, unspecified hyperlipidemia type (ICD-10 - E78.5) 02/07/2024 Peripheral edema (ICD-10 - R60.0) 02/07/2024 Vitamin D deficiency (ICD-10 - E55.9) 02/07/2024 Hypokalemia (ICD-10 - E87.6) Plan Of Treatment Medication Medication Name Sig Start Date Stop Date Notes Potassium Chloride ER 10 MEQ 1 tablet wi th food Orally once daily 01/17/2024 Trulicity 1.5 MG/0.5ML as directed Subcu taneous once weekly 10/09/2023 metFORMIN HCl ER 500 MG 2 tab(s) orally once a day Furosemide 40 MG 1 tablet Orally Once a day 01/17/2024 Next Appt Details Follow Up: 2 Months, Reason: Provider Name:Trent Herrera ry, 08/11/2025 10:00:00 AM, [address], [address], [place], [phone], Progress Notes * JAMARI HENRIQUEZDENITAOB:1960 (65 yo F)Acc No.[id number]:02/07/2024 Progress Notes Patient: FIOR DOBBINS Provider: Amita Avery M.D. :1960 A ge:63 Y S ex:Female Date:02/07/2024 Address:[address] [place] [address] [place] Alexandra, [id number] Subjective: * Chief Complaints: * 1 . 3 week follow up. * HPI: C ardiology: 63 year old female presents with c/o Leg Edema P t here for 3 week f/u on bilateral leg swelling. Pt started Furosemide 20mg 01/16 and states swelling has improved. Pt's daughter states that pt does still have swelling and she does not feel like it is where it needs to be . * ROS: D ERMATOLOGY: no R omid. n o H darrel. G ASTROENTEROLOGY: no N ausea. n o V omiting. U ROLOGY: no D ifficulty urinating. n o B lood in urine. * Medical History: T ype 2 Diabetes, Asthma, Hypertension, Hyperlipidemia, Hypothyroidism, Allergies, Arthritis, Gall Bladder Disease, Depression, 35 Year Smoking Hx as of 2019, Gout, Sleep Apnea, DVT, Pulmonary embolism. * Surgical History: T onsillectomy 1966, x 2 1990, 1993, Cholecystectomy 1993, Bladder Suspension 1994, Hysterectomy 1995, LT Cataract Removal 08/18/2015, Hernia Repair 11/04/2020, RT Ankle 01/20/2021. * Hospitalization/Major Diagno stic Procedure: K nee Pain- [facility] 10/05/2018, Pneumonia, Bronchitis- [facility] 06/30-. * Family History: F ather: alive, diagnosed with Hypertension, Heart Disease. M other: alive, diagnosed with Diabetes, Hypertension. 2 brother(s) , 1 sister(s) - healthy. 1 son(s) , 1 daughter(s) - healthy. . * Social History: C URRENT TOBACCO USE S moking Status: P atient does smoke, p acks per day: 0 .5, n umber of cigarettes per day: 1 0, S basim age of: 2 6, S moking preference: cigarettes. C affeine: yes, frequency: coffee, mt dew - daily. Home smoke detector use: yes. Marital Status: Single. Alcohol: No. Sexually active: yes. * Medications: T aking CoQ-10 100 MG Capsule 1 cap(s) orally once a day , Taking EpiPen 2-Hebert 0.3 MG/0.3ML Solution Auto-injector as directed intramuscularly once , Taking Aspirin 81 MG Tablet Delayed Release 1 tab(s) orally once a day , Taking CPAP SUPPLIES DIRECTED , Taking Levalbuterol Tartrate 45 MCG/ACT Aerosol 1 puff as needed Inhalation every 6 hrs as needed , Taking Symbicort 80-4.5 MCG/ACT Aerosol Inhale 2 puffs by mouth twice daily , Taking DULoxetine HCl 60 MG Capsule Delayed Release Particles 2 cap(s) orally once a day , Taking ARIPiprazole 10 MG Tablet Take 1 tablet by mouth once daily Orally Once a day , Taking Loratadine 10 MG Tablet 1 tab(s) orally once a day , Taking Trulicity 1.5 MG/0.5ML Solution Pen-injector as directed Subcutaneous once weekly , Taking Vitamin D3 50 MCG (1999 UT) Capsule 2 capsules Orally Once a day , Taking Montelukast Sodium 10 MG Tablet 1 tab(s) orally once a day , Taking Allopurinol 100 MG Tablet 1 tab(s) orally once a day , Taking Levothyroxine Sodium 125 MCG Tablet 1 tab(s) orally once a day , Taking amLODIPine Besylate 10 MG Tablet 1 tab(s) orally once a day , Taking Xarelto 20 MG Tablet 1 tablet with food Orally Once a day , Taking Celecoxib 100 MG Capsule 1 cap(s) Orally daily , Taking metFORMIN HCl ER 500 MG Tablet Extended Release 24 Hour 2 tab(s) orally once a day , Taking Triamterene-HCTZ 37.5-25 MG Capsule Take 1 capsule by mouth once daily , Taking Potassium Chloride ER 10 MEQ Tablet Extended Release 1 tablet with food Orally once daily , Taking Furosemide 40 MG Tablet 1 tablet Orally Once a day , Not- Taking Nicotine Step 1 21 MG/24HR Patch 24 Hour 1 patch to skin Transdermal Once a day , Medication List reviewed and reconciled with the patient * Allergies: R amipril: anaphylaxis - Allergy, Atorvastatin: muscle pain - Side Effects. Objective: * Vitals: W t:244.4, Temp:97.7, BP:126/76, HR:94, O2 Sat:95% on RA, Nurse:cris, Ht: 63, BMI:43.29. * Examination: C ardiology: General Appearance: p leasant, NAD. H EENT: u nremarkable. H eart sounds: R RR, normal S1, S2. L ungs: c lear, no rales or wheezes.?Extremities: b ilateral t race leg edema. P eripheral pulses: 2 plus bilateral.? Assessment: * Assessment: 1. T ype 2 diabetes mellitus without complication, without long-term current use of insulin - E11.9 (Primary) 2 . H yperlipidemia, unspecified hyperlipidemia type - E78.5 3 . P eripheral edema - R60.0 4 . V itamin D deficiency - E55.9 5. H ypokalemia - E87.6 Plan: * Treatment: Value Reference Range A /G Ratio 1.7 1.1-2.5 - mg/dL * A lbumin 4.3 3.5-5.3 - g/dL * A lkaline Phosphatase 132 H 35-121 - IU/L * A LT (SGPT) 13 <5-47 - IU/L * A ST (SGOT) 17 <5-40 - IU/L * B ilirubin, Total 0.3 <0.2-1.2 - mg/dL * B UN 14 8-23 - mg/dL * C alcium 9.9 8.6-10.4 - mg/dL * C hloride 99 97-108 - mEq/L * C O2 24 22-32 - mEq/L * C reatinine 1.21 H 0.50-1.00 - mg/dL * G lucose 156 H 65-99 - mg/dL * P otassium 3.0 L 3.5-5.3 - mEq/L * S odium 140 135-145 - mEq/L * P rotein 6.8 6.0-8.3 - g/dL * e GFR by Creatinine 50 L >59 - mL/min/1.73m2 * Shena Tran 02/08/2024 8:38 :05 AM >See phone encounter ?LAB: Glycohemoglobin A1c (in house) (Collection Date & Time - 02/07/2024)? 5.6%* Value Reference Range g lycohemoglobin 5.6% 5 - 6.5 % * Bertha Evans 02/07/2024 12:3 5:43 PM > Shena Tran 02/08/2024 8:38:05 AM >See phone encounter 2.?Hyperlipidemia, unspecified hyperlipidemia type?LAB: P-Comprehensive Metabolic Panel (CMP) (Collection Date & Time - 02/07/2024 11:20 AM)?K+ 3.0, gluc 156, creat 1.21, gfr 50, alk phos 132* Value Reference Range A /G Ratio 1.7 1.1-2.5 - mg/dL * A lbumin 4.3 3.5-5.3 - g/dL * A lkaline Phosphatase 132 H 35-121 - IU/L * A LT (SGPT) 13 <5-47 - IU/L * A ST (SGOT) 17 <5-40 - IU/L * B ilirubin, Total 0.3 <0.2-1.2 - mg/dL * B UN 14 8-23 - mg/dL * C alcium 9.9 8.6-10.4 - mg/dL * C hloride 99 97-108 - mEq/L * C O2 24 22-32 - mEq/L * C reatinine 1.21 H 0.50-1.00 - mg/dL * G lucose 156 H 65-99 - mg/dL * P otassium 3.0 L 3.5-5.3 - mEq/L * S odium 140 135-145 - mEq/L * P rotein 6.8 6.0-8.3 - g/dL * e GFR by Creatinine 50 L >59 - mL/min/1.73m2 * Shena Tran 02/08/2024 8:38 :05 AM >See phone encounter ?LAB: P-Lipid Panel (Collection Date & Time - 02/07/2024 11:20 AM)?chol 213, tg 183, non-hdl 161* Value Reference Range C holesterol / HDL Ratio 4.10 0.00-4.44 - Ratio * C holesterol 213 H <200 - mg/dL * H DL Cholesterol 52 >39 - mg/dL * L DL Cholesterol (Calculation) 124 <130 - mg/d L * L DL/HDL Ratio 2.4 <3.3 - Ratio * N on-HDL Cholesterol 161 H <130 - mg/dL * T riglycerides 183 H <150 - mg/dL * Shena Tran 02/08/2024 8:38 :05 AM >See phone encounter 3.?Peripheral edema? Continue Furosemide Tablet, 40 MG, 1 tablet, Orally, Once a day;?Continue Potassium Chloride ER Tablet Extended Release, 10 MEQ, 1 tablet with food, Orally, once daily.?LAB: P-Comprehensive Metabolic Panel (CMP) (Collection Date & Time - 02/07/2024 11:20 AM)?K+ 3.0, gluc 156, creat 1.21, gfr 50, alk phos 132* Value Reference Range A /G Ratio 1.7 1.1-2.5 - mg/dL * A lbumin 4.3 3.5-5.3 - g/dL * A lkaline Phosphatase 132 H 35-121 - IU/L * A LT (SGPT) 13 <5-47 - IU/L * A ST (SGOT) 17 <5-40 - IU/L * B ilirubin, Total 0.3 <0.2-1.2 - mg/dL * B UN 14 8-23 - mg/dL * C alcium 9.9 8.6-10.4 - mg/dL * C hloride 99 97-108 - mEq/L * C O2 24 22-32 - mEq/L * C reatinine 1.21 H 0.50-1.00 - mg/dL * G lucose 156 H 65-99 - mg/dL * P otassium 3.0 L 3.5-5.3 - mEq/L * S odium 140 135-145 - mEq/L * P rotein 6.8 6.0-8.3 - g/dL * e GFR by Creatinine 50 L >59 - mL/min/1.73m2 * Shena Tran 02/08/2024 8:38 :05 AM >See phone encounter 4.?Vitamin D deficiency?LAB: P-Vitamin D 25-Hydroxy (Collection Date & Time - 02/07/2024 11:20 AM)? Normal* Value Reference Range V itamin D 25-Hydroxy 69.3 30.0-100.0 - ng/mL * Shena Tran 02/08/2024 8:38 :05 AM >See phone encounter 5.?Hypokalemia?LAB: P-Comprehensive Metabolic Panel (CMP) (Collection Date & Time - 02/07/2024 11:20 AM)?K+ 3.0, gluc 156, creat 1.21, gfr 50, alk phos 132* Value Reference Range A /G Ratio 1.7 1.1-2.5 - mg/dL * A lbumin 4.3 3.5-5.3 - g/dL * A lkaline Phosphatase 132 H 35-121 - IU/L * A LT (SGPT) 13 <5-47 - IU/L * A ST (SGOT) 17 <5-40 - IU/L * B ilirubin, Total 0.3 <0.2-1.2 - mg/dL * B UN 14 8-23 - mg/dL * C alcium 9.9 8.6-10.4 - mg/dL * C hloride 99 97-108 - mEq/L * C O2 24 22-32 - mEq/L * C reatinine 1.21 H 0.50-1.00 - mg/dL * G lucose 156 H 65-99 - mg/dL * P otassium 3.0 L 3.5-5.3 - mEq/L * S odium 140 135-145 - mEq/L * P rotein 6.8 6.0-8.3 - g/dL * e GFR by Creatinine 50 L >59 - mL/min/1.73m2 * Shena Tran 02/08/2024 8:38 :05 AM >See phone encounter * Procedure Codes: 8 3036 GLYCATED HEMOGLOBIN TEST, Modifiers: QW * Follow Up: 2 Months * Images: Billing Information: * Visit Code: 65582 Office Visit, Est Pt., Level 4. * Procedure Codes: 26089 GLYCATED HEMOGLOBIN TEST. Modifiers: QW * Electronic signature of Adrianne Avery MD on 08/08/2025 at 10:47 AM EST Sign off status: Pending * Provider: Amita Avery M.D. Date: 0 02/07/2024 Generated for Kai arias/Clarence/Xiomararansmitting on: 10/08/2024 10:47 AM EST History and Physical Notes * HPI (History of Present Illness) Category Sub-Category Detail Notes Category Not es Cardiology Leg Edema Pt here for 3 we ek f/u on bilateral leg swelling. Pt started Furosemide 20mg 01/16 and states swelling has improved. Pt's daughter states that pt does still have swelling and she does not feel like it is where it needs to be Examination Category Sub-Category Detail Notes Category Not es Cardiology Lungs: clear, no rales or wheezes HEENT: unremarkable Heart sounds: RRR, normal S1, S2 Extremities: bilateral trace leg edema Peripheral pulses: 2 plus bilateral General Appearance: pleasant, NAD
--- OUTSIDE RECORDS SUMMARY | 2024-03-08 03:00 | XMS_ITS ---
Author Organization [facility] Address [address] [facility] [address] [facility] [address] [place] [phone] Care Team Providers Care Turkey Boner Name Role Phone Trent Avery Primary Care Provider [phone] Results Component Value Reference Range Notes P-Basic Metabolic Panel (BMP ) Reviewed date:03/11/2024 03:29:19 PM Interpretation:K+ 3.4, cl 95, gluc 106, Cr 1.07, gfr 58 Performing Lab: Notes/Report: Test performed by [facility], [address] , [address], [place] [address] Chris Vásquez MD, Graduate Nurse CLIA: [id number] Sodium 137 135-145 mEq/L Potassium 3.4 3.5-5.3 mEq/L Chloride 95 97-108 mEq/L CO2 26 22-32 mEq/L Glucose 106 65-99 mg/dL BUN 14 8-23 mg/dL Creatinine 1.07 0.50-1.00 mg/dL Calcium 10.4 8.6-10.4 mg/dL eGFR by Creatinine 58 >59 mL/min/1.73m2 REASON FOR VISIT labs only Medications Medication SIG (Take, Route, Frequency, Duration) Notes Start Date End Date Status Allopurinol 100 MG 1 tab(s) orally once a day; Duration: 90 days 10/01/2019 Active Levothyroxine Sodium 125 MCG 1 tab(s) orally once a day; Duration: 90 days Active Vitamin D3 50 MCG (1999) 2 capsules Orally Once a day 10/12/2023 Active Montelukast Sodium 10 MG 1 tab(s) orally once a day; Duration: 90 day(s) Active Loratadine 10 MG 1 tab(s) orally once a day; Duration: 90 days Active ARIPiprazole 10 MG Take 1 tablet by once daily Orally Once a day; Duration: 90 days Active Symbicort 80-4.5 MCG/ACT Inhale 2 puffs by mouth twice daily; Duration: 30 Active CPAP SUPPLIES DIRECTED 08/12/2020 Act charis Levalbuterol Tartrate 45 MCG/ACT 1 puff as needed Inhalation every 6 hrs as needed 02/21/2023 Active Aspirin 81 MG 1 tab(s) orally once a day; Duration: 30 day(s) Active Nicotine Step 1 21 MG/24HR 1 patch to skin Transdermal Once a day; Duration: 30 day(s) Not-Taking CoQ-10 100 MG 1 cap(s) orally once a day Active DULoxetine HCl 60 MG Take 2 capsules by mouth once daily; Duration: 90 Active Furosemide 40 MG 1 tablet Orally Once a day; Duration: 90 days 01/17/2024 Active EpiPen 2-Hebert 0.3 MG/0.3ML as directed intramuscularly once 09/28/2020 Active Potassium Chloride ER 20 MEQ 1 tablet with food Orally twice a day; Duration: 30 day(s) 01/17/2024 Active metFORMIN HCl ER 500 MG 2 tab(s) orally once a day Active Trulicity 1.5 MG/0.5ML as directed Subcu taneous once weekly 10/09/2023 Active Celecoxib 100 MG 1 cap(s) Orally shanel y; Duration: 90 days Active Triamterene-HCTZ 37.5-25 MG Take 1 capsule by mouth once daily Active amLODIPine Besylate 10 MG 1 tab(s) orally once a day; Duration: 90 days Active Xarelto 20 MG 1 tablet with food O rally Once a day; Duration: 90 days 05/10/2023 Active Encounters Encounter Location Date Provider Diagnosis [facility] [address] [facility] [address] [facility] [address] [place] [id number] 03/08/2024 Trent Avery Hypokalemia E 87.6 Assessments Encounter Date Diagnosis (ICD Code) Assessment Notes Treatment Notes Treatment Clinical Notes Section Notes 03/08/2024 Hypokalemia (ICD-10 - E87.6) Plan Of Treatment Next Appt Details Provider Name:Trent leger, 08/11/2025 10:00:00 AM, [address] [facility] [address] [facility], [address], [place], [id number], Progress Notes * SAHIL HENRIQUEZOB:1960 (65 yo F)Acc No.[id number]:03/08/2024 Patient: FIOR DOBBINS Provider: Amita Avery M.D. :1960 A ge:63 Y S ex:Female Date:03/08/2024 Address:[address] [place] [address] [place] Alex[place], [id number] Subjective: * Chief Complaints: * 1 . Labs only. * Medical History: * Medications: T aking CoQ-10 100 MG [...] puffs by mouth twice daily , Taking ARIPiprazole 10 MG Tablet Take 1 tablet by mouth once daily Orally Once a day , Taking Loratadine 10 MG Tablet 1 tab(s) orally once a day , Taking Vitamin D3 50 MCG (2000 UT) Capsule 2 capsules Orally Once a [...] Capsule 1 cap(s) Orally daily , Taking Triamterene-HCTZ 37.5-25 MG Capsule Take 1 capsule by mouth once daily , Taking metFORMIN HCl ER 500 MG Tablet Extended Release 24 Hour 2 tab(s) orally once a day , Taking Trulicity 1.5 MG/0.5ML Solution Pen-injector as directed Subcutaneous once weekly , Taking Potassium Chloride ER 20 MEQ Tablet Extended Release 1 tablet with food Orally twice a day , Taking Furosemide 40 MG Tablet 1 tablet Orally Once a day , Taking DULoxetine HCl 60 MG Capsule Delayed Release Particles Take 2 capsules by mouth once daily , Not-Taking Nicotine Step 1 21 MG/24HR Patch 24 Hour 1 patch to skin Transdermal Once a day , Medication List reviewed and reconciled with the patient Objective: * Vitals: Assessment: * Assessment: 1. H ypokalemia - E87.6 (Primary) Plan: * Treatment: Value Reference Range B UN 14 8-23 - mg/dL * C alcium 10.4 8.6-10.4 - mg/dL * C hloride 95 L 97-108 - mEq/L * C O2 26 22-32 - mEq/L * C reatinine 1.07 H 0.50-1.00 - mg/dL * G lucose 106 H 65-99 - mg/dL * P otassium 3.4 L 3.5-5.3 - mEq/L * S odium 137 135-145 - mEq/L * e GFR by Creatinine 58 L >59 - mL/min/1.73m2 * Griselda Rivera 03/11/2024 3:27: 44 PM >See phone encounter * Images: Billing Information: * Visit Code: * Procedure Codes: * Electronic signature of Adrianne Avery MD on 08/08/2025 at 10:48 AM EST Sign off status: Pending * Provider: Amita Avery M.D. Date: 0 03/08/2024 Generated for Kai arias/Clarence/Jose on: 10/08/2024 10:48 AM EST
--- OUTSIDE RECORDS SUMMARY | 2024-04-03 05:30 | XMS_ITS ---
Author Organization [facility] Address [address] [facility] [address] [facility] [address] [place] [id number] Care Team Providers Care Resident Physician In Radiology Name Role Phone Trent Avery Primary Care Provider [phone] Allergies Allergen (clinical drug ingredient) Drug/Non Drug Allergy documented on EMR Reaction Allergy Type Onset Date Status ramipril Ramipril anaphylaxis Drug Allergy Activ e atorvastatin Atorvastatin muscle pain Drug Allergy Active Results Component Value Reference Range Notes P-Basic Metabolic Panel (BMP ) Reviewed date:04/04/2024 09:15:47 AM Interpretation:K+ 3.1, gluc 159 Performing Lab: Notes/Report: Test performed by [facility] [address] [place] [address] , [address], [place] [address] Chris Vásquez MD, Etcher Apprentice CLIA: [id number] Sodium 139 135-145 mmol/L Potassium 3.1 3.5-5.3 mmol/L Chloride 99 97-108 mmol/L CO2 24 22-32 mmol/L Glucose 159 65-99 mg/dL BUN 14 8-23 mg/dL Creatinine 0.98 0.50-1.00 mg/dL Calcium 9.6 8.6-10.4 mg/dL eGFR by Creatinine 65 >59 mL/min/1.73m2 REASON FOR VISIT 2 month follow up Medications Medication SIG (Take, Route, Frequency, Duration) Notes Start Date End Date Status Symbicort 80-4.5 MCG/ACT Inhale 2 puffs by mouth twice daily; Duration: 30 Active Levalbuterol Tartrate 45 MCG/ACT 1 puff as needed Inhalation every 6 hrs as needed 02/21/2023 Active CPAP SUPPLIES DIRECTED 08/12/2020 Act charis Aspirin 81 MG 1 tab(s) orally once a day; Duration: 30 day(s) Active EpiPen 2-Hebert 0.3 MG/0.3ML as directed intramuscularly once 09/28/2020 Active Triamterene-HCTZ 37.5-25 MG Take 1 capsule by mouth once daily Active CoQ-10 100 MG 1 cap(s) orally once a day Active CPAP Supplies - as directed as directed diagnosis code J44.9 03/18/2024 Active amLODIPine Besylate 10 MG 1 tab(s) orally once a day Active CPAP Mask small as directed diagnosis code J44.9 03/18/2024 Active Celecoxib 100 MG 1 cap(s) Orally shanel y; Duration: 90 days Active Xarelto 20 MG 1 tablet with food Orally Once a day; Duration: 90 days 05/10/2023 Active ARIPiprazole 10 MG Take 1 tablet by once daily Orally Once a day; Duration: 90 days Active DULoxetine HCl 60 MG Take 2 capsules by mouth once daily; Duration: 90 Active Furosemide 40 MG 1 tablet Orally Once a day; Duration: 90 days 01/17/2024 Active Potassium Chloride ER 20 MEQ 1 tablet with food Orally twice a day; Duration: 30 day(s) 01/17/2024 Active Trulicity 1.5 MG/0.5ML as directed Subcutaneous once weekly 10/09/2023 Active Loratadine 10 MG 1 tab(s) orally once a day; Duration: 90 days Active metFORMIN HCl ER 500 MG 2 tab(s) orally once a day Active Levothyroxine Sodium 125 MCG 1 tab(s) orally once a day; Duration: 90 days Active Allopurinol 100 MG 1 tab(s) orally once a day; Duration: 90 days 10/01/2019 Active Montelukast Sodium 10 MG 1 tab(s) orally once a day; Duration: 90 day(s) Active Vitamin D3 50 MCG (1999) 2 capsules Orally Once a day 10/12/2023 Active Problems Problem Type SNOMED Code ICD Code Onset Dates Problem Status W/U Status Risk Notes Problem Allergic rhinitis (90657582) Allergic rhinitis, unspecified seasonality, unspecified trigger (J30.9) Active confirmed Vital Signs Blood pressure systolic 132 mm Hg 04/03/20 24 Blood pressure diastolic 78 mm Hg 024 Heart Rate 92 /min 04/03/2024 Height 63 in 04/03/2024 Weight 242 lbs 04/03/2024 BMI 42.86 kg/m2 04/03/2024 Encounters Encounter Location Date Provider Diagnosis [facility] [address] [facility] 36 [facility] [address] [place] [id number] 04/03/2024 Trent Avery Essential hypertensi on I10 ; Hypokalemia E87.6 ; Chronic obstructive pulmonary disease, unspecified COPD type J44.9 ; Allergic rhinitis, unspecified seasonality, unspecified trigger J30.9 and Renal insufficiency N28.9 Assessments Encounter Date Diagnosis (ICD Code) Assessment Notes Treatment Notes Treatment Clinical Notes Section Notes 04/03/2024 Essential hypertension (ICD-10 - I10) 04/03/2024 Hypokalemia (ICD-10 - E87.6) 04/03/2024 Chronic obstructive pulmonary disease, unspecified COPD type (ICD-10 - J44.9) 04/03/2024 Allergic rhinitis, unspecified seasonality, unspecified trigger (ICD-10 - J30.9) 04/03/2024 Renal insufficiency (ICD-10 - N28.9) Plan Of Treatment Medication Medication Name Sig Start Date Stop Date Notes Triamterene-HCTZ 37.5-25 MG Take 1 capsu le by mouth once daily amLODIPine Besylate 10 MG 1 tab(s) orally once a day Loratadine 10 MG 1 tab(s) orally once a day; Duration: 90 days Next Appt Details Follow Up: 5 Months, Reason: Provider Name:Trent Herrera , 08/11/2025 10:00:00 AM, [address] [facility] 36 [facility], [address], [place], [id number], Progress Notes * SAHIL HENRIQUEZOB:1960 (65 yo F)Acc No.[id number]:04/03/2024 Progress Notes Patient: FIOR DOBBINS Provider: Amita Avery M.D. :1960 A ge:63 Y S ex:Female Date:04/03/2024 Address:[address] [place] [address] [place] Alexandra [id number] Subjective: * Chief Complaints: * 1 . 2 month follow up. * HPI: E ndocrinology: 63 year old female presents with c/o Recent Blood Sugars P t here to f/u on DM 2, states she is doing well and does not have any concerns. Pt does not check blood sugar at home. C ardiology: c/o Blood Pressure Elevated P t here to f/u on hypertension. * ROS: D ERMATOLOGY: no R omid. [...] Pulmonary embolism. * Surgical History: T onsillectomy 1965, x 2 1990, 1993, Cholecystectomy 1993, Bladder Suspension 1994, Hysterectomy 1995, LT Cataract Removal 08/18/2015, Hernia Repair 11/04/2020, RT Ankle 01/20/2021. * Hospitalization/Major Diagno stic Procedure: K nee Pain- [facility] 10/05/2018, Pneumonia, Bronchitis- [facility] 06/30-. * Family History: F ather: alive, [...] puffs by mouth twice daily , Taking Vitamin D3 50 MCG (2000 [...] 2 capsules by mouth once daily , Taking ARIPiprazole 10 MG Tablet Take 1 tablet by mouth once daily Orally Once a day , Taking Xarelto 20 MG Tablet 1 tablet with food Orally Once a day , Taking Celecoxib 100 MG Capsule 1 cap(s) Orally daily , Taking CPAP Mask small as directed , Notes to Pharmacist: diagnosis code J44.9, Taking CPAP Supplies - - as directed as directed , Notes to Pharmacist: diagnosis code J44.9, Taking Loratadine 10 MG Tablet 1 tab(s) orally once a day , Discontinued Nicotine Step 1 21 MG/24HR Patch 24 Hour 1 patch to skin Transdermal Once a day , Medication List reviewed and reconciled with the patient * Allergies: R amipril: anaphylaxis - Allergy, Atorvastatin: muscle pain - Side Effects. Objective: * Vitals: W t:242, Temp:97.8, BP:132/78, HR:92, O2 Sat:94% on RA, Nurse:cris, Ht: 63, BMI:42.86. * Examination: C ardiology: General Appearance: p leasant, NAD. H EENT: u nremarkable. H eart sounds: R RR, normal S1, S2. L ungs: c lear, no rales or wheezes.?Extremities: b ilateral t race leg edema. P eripheral pulses: 2 plus bilateral.? Assessment: * Assessment: 1. E ssential hypertension - I10 (Primary) 2 . H ypokalemia - E87.6 ? 3 . C hronic obstructive pulmonary disease, unspecified COPD type - J44.9 ?4. A llergic rhinitis, unspecified seasonality, unspecified trigger - J30.9 5 . R enal insufficiency - N28.9 Plan: * Treatment: 2. H ypokalemia L AB: P-Basic Metabolic Panel (BMP) (Collection Date & Time - 04/03/2024 09:25 AM) K + 3.1, gluc 159 Value Reference Range B UN 14 8-23 - mg/dL * C alcium 9.6 8.6-10.4 - mg/dL * C hloride 99 97-108 - mmol/L * C O2 24 22-32 - mmol/L * C reatinine 0.98 0.50-1.00 - mg/dL * G lucose 159 H 65-99 - mg/dL * P otassium 3.1 L 3.5-5.3 - mmol/L * S odium 139 135-145 - mmol/L * e GFR by Creatinine 65 >59 - mL/min/1.73m2 * Griselda Rivera 04/04/2024 9:15: 37 AM >See phone encounter 3.?Allergic rhinitis, unspecified seasonality, unspecified trigger? Refill Loratadine Tablet, 10 MG, 1 tab(s), orally, once a day, 90 days, 90 Tablet, Refills 1.? 4.?Renal insufficiency?LAB: P-Basic Metabolic Panel (BMP) (Collection Date & Time - 04/03/2024 09:25 AM)?K+ 3.1, gluc 159* Value Reference Range B UN 14 8-23 - mg/dL * C alcium 9.6 8.6-10.4 - mg/dL * C hloride 99 97-108 - mmol/L * C O2 24 22-32 - mmol/L * C reatinine 0.98 0.50-1.00 - mg/dL * G lucose 159 H 65-99 - mg/dL * P otassium 3.1 L 3.5-5.3 - mmol/L * S odium 139 135-145 - mmol/L * e GFR by Creatinine 65 >59 - mL/min/1.73m2 * Griselda Rivera 04/04/2024 9:15: 37 AM >See phone encounter * Procedure Codes: 9 4760 PULSE OX * Follow Up: 5 Months * Images: Billing Information: * Visit Code: 43695 Office Visit, Est Pt., Level 4. * Procedure Codes: 26741 PULSE OX. * Electronic signature of Adrianne Avery MD on 08/08/2025 at 10:48 AM EST Sign off status: Pending * Provider: Amita Avery M.D. Date: 0 04/03/2024 Generated for Kai arias/Clarence/Jacobitting on: 1 10/08/2024 10:48 AM EST History and Physical Notes * HPI (History of Present Illness) Category Sub-Category Detail Notes Category Not es Endocrinology Recent Blood Sugars Pt here to f /u on DM 2, states she is doing well and does not have any concerns. Pt does not check blood sugar at home Cardiology Blood Pressure Elevated Pt here to f/u on hypertension Examination Category Sub-Category Detail Notes Category Not es Cardiology Lungs: clear, no rales or wheezes HEENT: unremarkable Heart sounds: RRR, normal S1, S2 Extremities: bilateral trace leg edema Peripheral pulses: 2 plus bilateral General Appearance: pleasant, NAD
--- OUTSIDE RECORDS SUMMARY | 2024-04-09 04:45 | XMS_ITS ---
Author Organization [facility] Address [address] [facility] 36 [facility] [address] [place] [id number] Care Team Providers Care Mold Yard Crane Operator Name Role Phone Trent Avery Primary Care Provider REASON FOR VISIT 6 Month Check Up Encounters Encounter Location Date Provider Diagnosis [facility] [address] [place] [id number] 04/09/2024 Trent Avery Plan Of Treatment Next Appt Details Provider Name:Trent Herrera ry, 08/11/2025 10:00:00 AM, [address], [address], [place], [phone], Progress Notes * SAHIL HENRIQUEZOB:1960 (65 yo F)Acc No.[id number]:04/09/2024 Progress Notes Patient: FIOR DOBBINS Provider: Amita Avery M.D. :1960 A ge:63 Y S ex:Female Date:04/09/2024 Address:[address] [place] [address] T[place] Alexandra, [id number] Subjective: * Chief Complaints: * 1 . 6 Month Check Up. * Medical History: Objective: * Vitals: Assessment: Plan: * Treatment: * Images: Billing Information: * Visit Code: * Procedure Codes: * Electronic signature of Adrianne Avery MD on 08/08/2025 at 10:48 AM EST Sign off status: Pending * Provider: Amita Avery M.D. Date: 0 04/09/2024 Generated for Printi ng/Faxing/eTransmitting on: 1 10/08/2024 10:48 AM EST
--- OUTSIDE RECORDS SUMMARY | 2024-06-26 06:00 | XMS_ITS ---
Author Organization [facility] Address [address] [facility] [address] [place] [id number] Care Team Providers Care Recruiting Team Lead Name Role Phone Trent Avery Primary Care [...] 140 Performing Lab: Notes/Report: Test performed by [facility] , [address], [place] [address] Chris Vásquez MD, Manager Infrastructure CLIA: [id number] Sodium 138 135-145 mmol/L Potassium 3.9 3.5-5.3 [...] Interpretation:1.86 Performing Lab: Notes/Report: Test performed by [facility] [address] [place] [address] , [facility] [place] [id number] Chris Vásquez MD, Manager Infrastructure CLIA: [id number] Thyroxine Free (free T4) 1.86 0.86-1.76 ng/dL P-Lipid Panel Reviewed date:06/27/2024 03:52:35 PM Interpretation:chol 220, trig 172, chol/hdl 4.49, non-hdl 171, ldl 137 Performing Lab: Notes/Report: Test performed by [facility] [address] [place] [address] , [place] [address] Chris Vásquez MD, Manager Infrastructure CLIA: [id number] Cholesterol 220 <200 mg/dL Triglycerides 172 <150 [...] Interpretation:0.16 Performing Lab: Notes/Report: Test performed by [facility], [place] [address] [facility] , [address], [place] [address] Chris Vásquez MD, Manager Infrastructure CLIA: [id number] TSH 0.16 0.43-5.25 mU/L P-Vitamin D 25-Hydroxy Reviewed date:06/27/2024 03:52:35 PM Interpretation:40.8 Performing Lab: Notes/Report: Test performed by [facility] , [address], [place] [address] Chris Vásquez MD, Manager Infrastructure CLIA: [id number] Vitamin D 25-Hydroxy 40.8 30.0-100.0 ng/mL Interpretation [...] Last Name Gena Referring Provider Speciality [facility] Referred Provider Rubia Antoine Referred Provider Specialty [...] (PCV20) IM Intramuscular 06/26/2024 Administered Vital Signs Blood pressure systolic 130 mm Hg 06/26/20 24 Blood pressure diastolic 70 mm Hg 024 Heart Rate 86 /min 06/26/2024 Height 63 in 06/26/2024 Weight 234.2 lbs 06/26/2024 BMI 41.48 kg/m2 06/26/2024 Encounters Encounter Location Date Provider Diagnosis [facility] [address] [place] [id number] 06/26/2024 Trent Avery Type 2 diabetes yelitza [...] Details Follow Up: 6 Months, Reason: Provider Name:Trent Herrera , 08/11/2025 10:00:00 AM, [address] [facility], [address], [place], [id number], Progress Notes * HENRIQUEZJAMARIDENITAOB:1960 (65 yo F)Acc No.[id number]:06/26/2024 Progress Notes Patient: FIOR DOBBINS Provider: Amita Avery M.D. :1960 A ge:64 Y S ex:Female Date:06/26/2024 Address:[address] [place], [place] [id number] Subjective: * Chief Complaints: * 1 . [...] Depression, 35 Year Smoking Hx as of 2018, Gout, Sleep Apnea, DVT, Pulmonary embolism. * Surgical History: T onsillectomy 1965, x 2 1990, 1993, Cholecystectomy 1993, Bladder Suspension 1994, Hysterectomy 1995, LT Cataract Removal 08/18/2015, Hernia Repair 11/04/2020, RT Ankle 01/20/2021. * Hospitalization/Major Diagno stic Procedure: [place] [facility] [place], Pneumonia, Bronch[facility]- [facility] 06/30-. * Family History: F [...] glucose 121 74 - 106 mg/dL * Mary Berman 06/26/2024 11: 55:59 AM > Shena Tran 06/27/2024 3:51:25 PM >See phone encounter ?LAB: Glycohemoglobin A1c (in house) (Collection Date & Time - 06/26/2024)? 5.4* Value Reference Range g lycohemoglobin 5.4% 5 - 6.5 % * Mary Berman 06/26/2024 11: 56:33 AM > Shena Tran [...] 1.86 H 0.86-1.76 - ng/d L * Shena Tran 06/27/2024 3:5 1:25 PM >See phone encounter ?LAB: P-TSH (Collection Date & Time - 06/26/2024 10:42 AM)?0.16* Value Reference Range T SH 0.16 L 0.43-5.25 - mU/L * Shena Tran 06/27/2024 3:5 1:25 PM [...] D 25-Hydroxy 40.8 30.0-100.0 - ng/mL * Shena Tran 06/27/2024 3:5 1:25 PM [...] * Procedure Codes: 9 4760 [place], [address] GLUCOSE TEST, 10906 GLYCATED HEMOGLOBIN TEST, Modifiers: QW , 24852 CBC WITH AUTO DIFF * Follow Up: 6 Months * Images: Billing Information: * Visit Code: 64888 Office Visit, Est Pt., Level 4. * Procedure Codes: [address] [place]. [address] GLUCOSE TEST. 76801 GLYCATED HEMOGLOBIN TEST. Modifiers: QW 25550 CBC WITH AUTO DIFF. * Electronic signature of Adrianne Avery MD on 08/08/2025 at 10:48 AM EST Sign off status: Pending * Provider: Amita Avery M.D. Date: Generated for Kai arias/Clarence/Jose on: 10/08/2024 10:48 AM EST History and Physical [...]
--- OUTSIDE RECORDS SUMMARY | 2024-08-07 05:15 | XMS_ITS ---
Author Organization [facility] Address [address] [facility] [address] [facility] [address] [place] [id number] Care Team Providers Care Cafe Attendant Name Role Phone Trent Avery Primary Care Provider [phone] Allergies Allergen (clinical drug ingredient) Drug/Non Drug [...] Interpretation:Normal Performing Lab: Notes/Report: Test performed by [facility] [address] [place], [place] [address] [place] , [address], [place] [address] Chris Vásquez MD, Train Planner CLIA: [id number] Thyroxine Free (free T4) 1.53 0.86-1.76 ng/dL P-TSH Reviewed date:08/09/2024 01:41:47 PM Interpretation:Normal Performing Lab: Notes/Report: Test performed by [facility] [address] [place] [address] [address], [place] [address] Chris Vásquez MD, Train Planner CLIA: [id number] TSH 0.75 0.43-5.25 mU/L REASON FOR VISIT [...] 24 Blood pressure diastolic 80 mm Hg 024 Heart Rate 91 /min 08/07/2024 Height 63 in 08/07/2024 Weight 233.2 lbs 08/07/2024 BMI 41.31 kg/m2 08/07/2024 Encounters Encounter Location Date Provider Diagnosis [facility] [facility] [facility] 36 [facility] [address] [place] [id number] 08/07/2024 Trent Avery Type 2 diabetes mellitus [...] Follow Up: 3 Months fasting, Reason: Provider Name:Trent Herrera ry, 08/11/2025 10:00:00 AM, [address] [place] [address] [facility], [address], [place], [id number], Progress Notes * NEREYDA HENRIQUEZ:1960 (65 yo F)Acc No.[id number]:08/07/2024 Progress Notes Patient: P IERCE, FIOR Provider: Amita Avery M.D. :1960 A ge:64 Y S ex:Female Date:08/07/2024 Address:[address] [place] [address] T[place] Alex[place], [id number] Subjective: * Chief Complaints: * 1 . 5 month follow up. * HPI: K nee/Watkins: 64 year old female presents with c/o knee pain P t sts that a few weeks ago she had to go to [facility] ER because she had a hyperextension of [...] Ankle 01/20/2021. * Hospitalization/Major Diagno stic Procedure: Connor baker Pain- [facility] [place] 10/05/2018, Pneumonia, Bronchitis- [facility] 06/30-, Hyperextension of Right Knee - [facility] ER referred to Dr. King 07/2024. * [...] daily , Taking Vitamin D3 50 MCG (1999) Capsule 2 capsules Orally Once a day [...] * Procedure Codes: 9 4760 [place], [address] CBC WITH AUTO DIFF * Follow Up: 3 Months fasting * Images: Billing Information: * Visit Code: 24526 Office Visit, Est Pt., Level 4. * Procedure Codes: [address] [place]. [address] CBC WITH AUTO DIFF. * Electronic signature of Adrianne Avery MD on 08/08/2025 at 10:48 AM EST Sign off status: Pending * Provider: Amita Avery M.D. Date: 10/07/2023 Generated for Kai arias/Clarence/eTransmitting on: 10/08/2024 10:48 AM EST History and Physical Notes * HPI (History of Present Illness) Category Sub-Category Detail Notes Category Not es Endocrinology [facility]. Pt is fasting today. Pt is due for labs after a change in her dose of Levothyroxine Knee/Watkins knee pain Pt sts that a fe w weeks ago she had to go to [facility] ER because she had a hyperextension of [...]
--- OUTSIDE RECORDS SUMMARY | 2024-11-11 04:15 | XMS_ITS ---
Author Organization [facility] Address [address] [facility] [address] [facility] [address] [place] [id number] Care Team Providers Care Charge Weigher Name Role Phone Trent Avery Primary Care Provider Allergies Allergen (clinical drug ingredient) Drug/Non Drug Allergy documented on EMR Reaction Allergy Type Onset Date Status ramipril Ramipril anaphylaxis Drug Allergy Activ e atorvastatin Atorvastatin muscle pain Drug Allergy Active Results Component Value Reference Range Notes Glucose (In-House) Reviewed date:11/12/2024 09:17:42 AM Interpretation:108 Performing Lab: Notes/Report: 108 blood glucose 108 74 - 106 mg/dL Glycohemoglobin A1c (in hous e) Reviewed date:11/12/2024 09:17:42 AM Interpretation:5.5 Performing Lab: Notes/Report: 5.5 glycohemoglobin 5.5% 5 - 6.5 % P-Comprehensive Metabolic Pa jerad (CMP) Reviewed date:11/12/2024 09:17:42 AM Interpretation:gluc 116, Cr 1.17, Ca 11, gfr 52, alk phos 153 Performing Lab: Notes/Report: Test performed by [facility] [address] [place] [address] , [address], [place] [address] Chris Vásquez MD, Drycleaner CLIA: [id number] Sodium 139 135-145 mmol/L Potassium 3.9 3.5-5.3 mmol/L Chloride 101 97-108 mmol/L CO2 23 22-32 mmol/L Glucose 116 65-99 mg/dL BUN 12 8-23 mg/dL Creatinine 1.17 0.50-1.00 mg/dL Calcium 11.0 8.6-10.4 mg/dL eGFR by Creatinine 52 >59 mL/min/1.73m2 Protein 7.3 6.0-8.3 g/dL Albumin 4.4 3.5-5.3 g/dL Alkaline Phosphatase 153 35-121 IU/L ALT (SGPT) 7 <5-47 IU/L AST (SGOT) 13 <5-40 IU/L Bilirubin, Total 0.4 <0.2-1.2 mg/dL A/G Ratio 1.5 1.1-2.5 P-T4 Free (thyroxine) Reviewed date:11/12/2024 09:17:42 AM Interpretation:Normal Performing Lab: Notes/Report: Test performed by [facility] [address] [place] [address] , [address], [place] [address] Chris Vásquez MD, Drycleaner CLIA: [id number] Thyroxine Free (free T4) 1.49 0.86-1.76 ng/dL P-Lipid Panel Reviewed date:11/12/2024 09:17:42 AM Interpretation:chol 255, trigs 173, chol/hdl 4.9, non-hdl 203, ldl 168 Performing Lab: Notes/Report: Test performed by [facility] [address] [place], [place] [address] , [address], [place] [address] Chris Vásquez MD, Drycleaner CLIA: [id number] Cholesterol 255 <200 mg/dL Triglycerides 173 <150 mg/dL HDL Cholesterol 52 >39 mg/dL Cholesterol / HDL Ratio 4.90 0.00-4.44 Ratio Non-HDL Cholesterol 203 <130 mg/dL LDL Cholesterol (Calculation) 168 <130 mg/dL LDL Cholesterol Levels* Less than 100 mg/dL Optimal 100 to 129 mg/dL Near Optimal/ Above Optimal 130 to 159 mg/dL Borderline High 160 to 189 mg/dL High 190 mg/dL and above Very High * Categories as recommended by the 2004 ATPIII guidelines LDL/HDL Ratio 3.2 <3.3 Ratio LDL Cholesterol Patient History Test Date: 02/07/2024 LDL Results: 124 Units: mg/dL % Change: +8% Test Date: 06/26/2024 LDL Results: 137 Units: mg/dL % Change: +10% Test Date: 11/11/2024 LDL Results: 168 Units: mg/dL % Change: +22% P-TSH Reviewed date:11/12/2024 09:17:42 AM Interpretation:Normal Performing Lab: Notes/Report: Test performed by [facility] [address] [place], [place] [address] , [address], [place] [address] Chris Vásquez MD, Drycleaner CLIA: [id number] TSH 1.20 0.43-5.25 mU/L P-Microalbumin/Creatinine, R andom Urine Sample Reviewed date:11/12/2024 09:17:42 AM Interpretation:a/c 57 Performing Lab: Notes/Report: Test performed by [facility] [address] [place], [place] [address] , [address], [place] [address] Chris Vásquez MD, Drycleaner CLIA: [id number] Albumin/Creatinine Ratio, Urine 57 0-30 ug/m g Microalbumin, Urine, Random 7.7 Creatinine, Urine 134.8 P-Uric Acid Reviewed date:11/12/2024 09:17:42 AM Interpretation:7.6 Performing Lab: Notes/Report: Test performed by [facility] [address] [place] [address] [place] [address] Chris Vásquez MD, Drycleaner CLIA: [id number] Uric Acid 7.6 2.4-7.0 mg/dL P-Vitamin D 25-Hydroxy Reviewed date:11/12/2024 09:17:42 AM Interpretation:34.3 Performing Lab: Notes/Report: Test performed by [facility] [address] [place] [address] [place] [address] Chris Vásquez MD, Drycleaner CLIA: [id number] Vitamin D 25-Hydroxy 34.3 30.0-100.0 ng/mL Interpretation of Vitamin D 25 OH: < 20 ng/mL - Deficiency 20 - 29 ng/mL - Insufficiency 30 - 100 ng/mL - Sufficiency > 100 ng/mL - Super-therapeutic- toxicity may occur above this level. Clinical correlation required. REASON FOR VISIT 3 month checkup Medications Medication SIG (Take, Route, Frequency, Duration) Notes Start Date End Date Status amLODIPine Besylate 10 MG Take 1 tablet by mouth once daily Active Celecoxib 100 MG 1 cap(s) Orally shanel y; Duration: 90 days Active Xarelto 20 MG 1 tablet with food Orally Once a day; Duration: 90 days 05/10/2023 Active Levothyroxine Sodium 125 MCG Take 1 tablet by mouth once daily Active DULoxetine HCl 60 MG Take 2 capsules by mouth once daily; Duration: 90 days Active Montelukast Sodium 10 MG 1 tab(s) orally once a day; Duration: 90 day(s) Active Trulicity 3 MG/0.5ML 3 mg Subcutaneous o nce weekly 08/07/2024 Active CPAP Mask small as directed diagnosis code J44.9 03/18/2024 Active CPAP Supplies - as directed as directed diagnosis code J44.9 03/18/2024 Active CPAP SUPPLIES DIRECTED 08/12/2020 Act charis Levalbuterol Tartrate 45 MCG/ACT 1 puff as needed Inhalation every 6 hrs as needed 02/21/2023 Active Symbicort 80-4.5 MCG/ACT Inhale 2 puffs by mouth twice daily; Duration: 30 Active EpiPen 2-Hebert 0.3 MG/0.3ML as directed intramuscularly once 09/28/2020 Active Vitamin D3 50 MCG (1999 UT) 2 capsules Orally Once a day 10/12/2023 Active Triamterene-HCTZ 37.5-25 MG 1 capsule in the morning Orally Once a day Active CoQ-10 100 MG 1 cap(s) orally once a day Active Loratadine 10 MG 1 tab(s) orally once a day; Duration: 90 days Active Allopurinol 100 MG Take 1 tablet by once daily; Duration: 90 Active Furosemide 40 MG 1 tablet Orally Once a day Active Potassium Chloride ER 20 MEQ 1 tablet with food Orally twice a day; Duration: 90 days 01/17/2024 Active Vital Signs Blood pressure systolic 130 mm Hg 11/11/19 25 Blood pressure diastolic 70 mm Hg 025 Heart Rate 91 /min 11/11/2024 Height 63 in 11/11/2024 Weight 239 lbs 11/11/2024 BMI 42.33 kg/m2 11/11/2024 Encounters Encounter Location Date Provider Diagnosis SurajColeman 1210 [facility] [address] [id number] 11/11/2024 Trent Avery Type 2 diabetes yelitza itus without complication, without long-term current use of insulin E11.9 ; Essential hypertension I10 ; Hyperlipidemia, unspecified hyperlipidemia type E78.5 ; Acquired hypothyroidism E03.9 ; Vitamin D deficiency E55.9 ; Chronic obstructive pulmonary disease, unspecified COPD type J44.9 ; Obesity, unspecified classification, unspecified obesity type, unspecified whether serious comorbidity present E66.9 ; Chronic gout without tophus, unspecified cause, unspecified site M1A.9XX0 ; STEFFEN (obstructive sleep apnea) G47.33 and Depression with anxiety F41.8 Assessments Encounter Date Diagnosis (ICD Code) Assessment Notes Treatment Notes Treatment Clinical Notes Section Notes 11/11/2024 Type 2 diabetes mellitus without complication, without long-term current use of insulin (ICD-10 - E11.9) 11/11/2024 Essential hypertension (ICD-10 - I10) 11/11/2024 Hyperlipidemia, unspecified hyperlipidemia type (ICD-10 - E78.5) 11/11/2024 Acquired hypothyroidism (ICD-10 - E03.9) 11/11/2024 Vitamin D deficiency (ICD-10 - E55.9) 11/11/2024 Chronic obstructive pulmonary disease, unspecified COPD type (ICD-10 - J44.9) 11/11/2024 Obesity, unspecified classification, unspecified obesity type, unspecified whether serious comorbidity present (ICD-10 - E66.9) 11/11/2024 Chronic gout without tophus, unspecified cause, unspecified site (ICD-10 - M1A.9XX0) 11/11/2024 STEFFEN (obstructive sleep apnea) (ICD-10 - G47.33) 11/11/2024 Depression with anxiety (ICD-10 - F41.8) Plan Of Treatment Medication Medication Name Sig Start Date Stop Date Notes amLODIPine Besylate 10 MG Take 1 tablet by mouth once daily Levothyroxine Sodium 125 MCG Take 1 tabl et by mouth once daily Trulicity 3 MG/0.5ML 3 mg Subcutaneous once weekly 024 Triamterene-HCTZ 37.5-25 MG 1 capsule in the morning Orally Once a day Furosemide 40 MG 1 tablet Orally Once a day Next Appt Details Follow Up: 6 Months, Reason: Provider Name:Trent Herrera , 08/11/2025 10:00:00 AM, [address], [address], [place], [place], [id number], Progress Notes * SAHIL HENRIQUEZOB:1960 (65 yo F)Acc No.[id number]:11/11/2024 Progress Notes Patient: FIOR DOBBINS Provider: Amita Avery M.D. :1960 A ge:64 Y S ex:Female Date:11/11/2024 Address:[address] [place] [address] TREVON Alexandra [id number] Subjective: * Chief Complaints: * 1 . 3 month checkup. * HPI: E ndocrinology: 64 year old female presents with c/o Recent Blood Sugars P t here for 3 mo f/u on DM 2, pt states she is no longer taking Metformin. * ROS: D ERMATOLOGY: no R omid. [...] Hospitalization/Major Diagno stic Procedure: K nee Pain- [facility] 10/05/2018, Pneumonia, Bronchitis- [facility] 06/30-, Hyperextension of Right Knee - [facility] ER referred to Dr. King 07/2024. [...] Sexually active: yes. * Medications: T aking Trulicity 3 MG/0.5ML Solution Auto-injector 3 mg Subcutaneous once weekly , Taking CoQ-10 100 MG Capsule 1 cap(s) orally [...] orally once a day , Taking CPAP Mask small as directed , Notes to Pharmacist: diagnosis code J44.9, Taking CPAP Supplies - - as directed as directed , Notes to Pharmacist: diagnosis code J44.9, Taking DULoxetine HCl 60 MG Capsule Delayed Release Particles Take 2 capsules by mouth once daily , Taking Triamterene-HCTZ 37.5-25 MG Capsule 1 capsule in the morning Orally Once a day , Taking Furosemide 40 MG Tablet 1 tablet Orally Once a day , Taking Xarelto 20 MG Tablet 1 tablet with food Orally Once a day , Taking Celecoxib 100 MG Capsule 1 cap(s) Orally daily , Taking Potassium Chloride ER 20 MEQ Tablet Extended Release 1 tablet with food Orally twice a day , Taking Loratadine 10 MG Tablet 1 tab(s) orally once a day , Taking Allopurinol 100 MG Tablet Take 1 tablet by mouth once daily , Taking Levothyroxine Sodium 125 MCG Tablet Take 1 tablet by mouth once daily , Taking amLODIPine Besylate 10 MG Tablet Take 1 tablet by mouth once daily , Discontinued Zithromax Z-Hebert 250 MG Tablet as directed Orally once daily , Discontinued ARIPiprazole 10 MG Tablet Take 1 tablet by mouth once daily Orally Once a day , Medication List reviewed and reconciled with the patient * Allergies: R amipril: anaphylaxis - Allergy, Atorvastatin: muscle pain - Side Effects. Objective: * Vitals: W t:239, Temp:98.0, BP:130/70, HR:91, Nurse:cris, Ht: 63, BMI:42.33. * Examination: C ardiology: General Appearance: p [...] - E11.9 (Primary) 2 . E ssential hypertension - I10 3 . H yperlipidemia, unspecified hyperlipidemia type - E78.5 4 . A cquired hypothyroidism - E03.9 5 . V itamin D deficiency - E55.9 6 . C hronic obstructive pulmonary disease, unspecified COPD type - J44.9 7 . O besity, unspecified classification, unspecified obesity type, unspecified whether serious comorbidity present - E66.9 8. C hronic gout without tophus, unspecified cause, unspecified site - M1A.9XX0? 9. O SA (obstructive sleep apnea) - G47.33 1 0. D epression with anxiety - F41.8 Plan: * Treatment: Value Reference Range A /G Ratio 1.5 1.1-2.5 - * A lbumin 4.4 3.5-5.3 - g/dL * A lkaline Phosphatase 153 H 35-121 - IU/L * A LT (SGPT) 7 <5-47 - IU/L * A ST (SGOT) 13 <5-40 - IU/L * B ilirubin, Total 0.4 <0.2-1.2 - mg/dL * B UN 12 8-23 - mg/dL * C alcium 11.0 H 8.6-10.4 - mg/dL * C hloride 101 97-108 - mmol/L * C O2 23 22-32 - mmol/L * C reatinine 1.17 H 0.50-1.00 - mg/dL * G lucose 116 H 65-99 - mg/dL * P otassium 3.9 3.5-5.3 - mmol/L * S odium 139 135-145 - mmol/L * P rotein 7.3 6.0-8.3 - g/dL * e GFR by Creatinine 52 L >59 - mL/min/1.73m2 * Griselda Rivera 11/12/2024 9:17: 32 AM >See phone encounter ?LAB: P-Microalbumin/Creatinine, Random Urine Sample (Collection Date & Time - 11/11/2024 08:31 AM)?a/c 57* Value Reference Range A lbumin/Creatinine Ratio, Urine 57 H 0-30 - ug /mg * C reatinine, Urine 134.8 - mg/dL * M icroalbumin, Urine, Random 7.7 - mg/dL * Griselda Rivera 11/12/2024 9:17: 32 AM >See phone encounter ?LAB: Glucose (In-House) (Collection Date & Time - 11/11/2024)?108* Value Reference Range b lood glucose 108 74 - 106 mg/dL * Chula Garvin 11/11/2024 12:33:2 1 PM > MiguelGriselda mcknight 11/12/2024 9:17:32 AM >See phone encounter ?LAB: Glycohemoglobin A1c (in house) (Collection Date & Time - 11/11/2024)? 5.5* Value Reference Range g lycohemoglobin 5.5% 5 - 6.5 % * Chula Garvin 11/11/2024 12:33:3 9 PM > MiguelGriselda 11/12/2024 9:17:32 AM >See phone encounter 2.?Essential hypertension? Continue amLODIPine Besylate Tablet, 10 MG, Take 1 tablet by mouth once daily;?Continue Furosemide Tablet, 40 MG, 1 tablet, Orally, Once a day;?Continue Triamterene-HCTZ Capsule, 37.5-25 MG, 1 capsule in the morning, Orally, Once a day.?LAB: P-Comprehensive Metabolic Panel (CMP) (Collection Date & Time - 11/11/2024 08:31 AM)?gluc 116, Cr 1.17, Ca 11, gfr 52, alk phos 153* Value Reference Range A /G Ratio 1.5 1.1-2.5 - * A lbumin 4.4 3.5-5.3 - g/dL * A lkaline Phosphatase 153 H 35-121 - IU/L * A LT (SGPT) 7 <5-47 - IU/L * A ST (SGOT) 13 <5-40 - IU/L * B ilirubin, Total 0.4 <0.2-1.2 - mg/dL * B UN 12 8-23 - mg/dL * C alcium 11.0 H 8.6-10.4 - mg/dL * C hloride 101 97-108 - mmol/L * C O2 23 22-32 - mmol/L * C reatinine 1.17 H 0.50-1.00 - mg/dL * G lucose 116 H 65-99 - mg/dL * P otassium 3.9 3.5-5.3 - mmol/L * S odium 139 135-145 - mmol/L * P rotein 7.3 6.0-8.3 - g/dL * e GFR by Creatinine 52 L >59 - mL/min/1.73m2 * Griselda Rivera 11/12/2024 9:17: 32 AM >See phone encounter 3.?Hyperlipidemia, unspecified hyperlipidemia type?LAB: P-Comprehensive Metabolic Panel (CMP) (Collection Date & Time - 11/11/2024 08:31 AM)?gluc 116, Cr 1.17, Ca 11, gfr 52, alk phos 153* Value Reference Range A /G Ratio 1.5 1.1-2.5 - * A lbumin 4.4 3.5-5.3 - g/dL * A lkaline Phosphatase 153 H 35-121 - IU/L * A LT (SGPT) 7 <5-47 - IU/L * A ST (SGOT) 13 <5-40 - IU/L * B ilirubin, Total 0.4 <0.2-1.2 - mg/dL * B UN 12 8-23 - mg/dL * C alcium 11.0 H 8.6-10.4 - mg/dL * C hloride 101 97-108 - mmol/L * C O2 23 22-32 - mmol/L * C reatinine 1.17 H 0.50-1.00 - mg/dL * G lucose 116 H 65-99 - mg/dL * P otassium 3.9 3.5-5.3 - mmol/L * S odium 139 135-145 - mmol/L * P rotein 7.3 6.0-8.3 - g/dL * e GFR by Creatinine 52 L >59 - mL/min/1.73m2 * Griselda Rivera 11/12/2024 9:17: 32 AM >See phone encounter ?LAB: P-Lipid Panel (Collection Date & Time - 11/11/2024 08:31 AM)?chol 255, trigs 173, chol/hdl 4.9, non-hdl 203, ldl 168* Value Reference Range C holesterol / HDL Ratio 4.90 H 0.00-4.44 - Ratio * C holesterol 255 H <200 - mg/dL * H DL Cholesterol 52 >39 - mg/dL * L DL Cholesterol (Calculation) 168 H <130 - mg/d L * L DL/HDL Ratio 3.2 <3.3 - Ratio * N on-HDL Cholesterol 203 H <130 - mg/dL * T riglycerides 173 H <150 - mg/dL * Griselda Rivera 11/12/2024 9:17: 32 AM >See phone encounter 4.?Acquired hypothyroidism? Continue Levothyroxine Sodium Tablet, 125 MCG, Take 1 tablet by mouth once daily.?LAB: P-T4 Free (thyroxine) (Collection Date & Time - 11/11/2024 08:31 AM)? Normal* Value Reference Range T hyroxine Free (free T4) 1.49 0.86-1.76 - ng/d L * Griselda Rivera 11/12/2024 9:17: 32 AM >See phone encounter ?LAB: P-TSH (Collection Date & Time - 11/11/2024 08:31 AM)?Normal* Value Reference Range T SH 1.20 0.43-5.25 - mU/L * Griselda Rivera 11/12/2024 9:17: 32 AM >See phone encounter 5.?Vitamin D deficiency?LAB: P-Vitamin D 25-Hydroxy (Collection Date & Time - 11/11/2024 08:31 AM)? 34.3* Value Reference Range V itamin D 25-Hydroxy 34.3 30.0-100.0 - ng/mL * Griselda Rivera 11/12/2024 9:17: 32 AM >See phone encounter 6.?Chronic gout without tophus, unspecified cause, unspecified site?LAB: P-Uric Acid (Collection Date & Time - 11/11/2024 08:31 AM)?7.6* Value Reference Range U mikal Acid 7.6 H 2.4-7.0 - mg/dL * Griselda Rivera 11/12/2024 9:17: 32 AM >See phone encounter * Procedure Codes: 8 2950 GLUCOSE TEST, [address] GLYCATED HEMOGLOBIN TEST, Modifiers: QW , 3075F SYST BP GE 130 - 139MM HG, 3078F DIAST BP < 80 MM HG, 3044F HG A1C LEVEL LT 7.0% * Follow Up: 6 Months * Images: Billing Information: * Visit Code: 41463 Office Visit, Est Pt., Level 4. * Procedure Codes: 97068 GLUCOSE TEST. [address]35 GLYCATED HEMOGLOBIN TEST. Modifiers: QW 3075F SYST BP GE 130 - 139MM HG. 3078F DIAST BP < 80 MM HG. 3044F HG A1C LEVEL LT 7.0%. * Electronic signature of Adrianne Avery MD on 08/08/2025 at 10:49 AM EST Sign off status: Pending * Provider: Amita Avery M.D. Date: 0 11/11/2024 Generated for Kai arias/Clarence/eTransmitting on: 1 10/08/2024 10:49 AM EST History and Physical Notes * HPI (History of Present Illness) Category Sub-Category Detail Notes Category Not es Endocrinology Recent Blood Sugars Pt here for 3 mo f/u on DM 2, pt states she is no longer taking Metformin Examination Category Sub-Category Detail Notes Category Not es Cardiology Lungs: clear, no rales or wheezes HEENT: unremarkable Heart sounds: RRR, normal S1, S2 Extremities: bilateral trace leg edema Peripheral pulses: 2 plus bilateral General Appearance: pleasant, NAD
--- OUTSIDE RECORDS SUMMARY | 2025-02-07 04:45 | XMS_ITS ---
Author Organization [facility] Address [facility] 36 [facility] [address] [place] [phone] Care Team Providers Care Coyote Hunter Name Role Phone Trent Avery Primary Care Provider Allergies Allergen (clinical drug ingredient) Drug/Non Drug Allergy documented on EMR Reaction Allergy Type Onset Date Status ramipril Ramipril anaphylaxis Drug Allergy Activ e atorvastatin Atorvastatin muscle pain Drug Allergy Active Results Component Value Reference Range Notes Glucose (In-House) Reviewed date:02/11/2025 11:47:02 AM Interpretation:134 Performing Lab: Notes/Report: 134 blood glucose 134 74 - 106 mg/dL Glycohemoglobin A1c (in hous e) Reviewed date:02/11/2025 11:47:02 AM Interpretation:6.0% Performing Lab: Notes/Report: 6.0% glycohemoglobin 6.0% 5 - 6.5 % P-Basic Metabolic Panel (BMP ) Reviewed date:02/11/2025 11:47:02 AM Interpretation:gluc 111, Cr 1.08, gfr 57 Performing Lab: Notes/Report: Test performed by [facility], [facility] [address] [place] [address] , [address], [place] [address] Chris Vásquez MD, Block Hand CLIA: [id number] Sodium 140 135-145 mmol/L Potassium 3.9 3.5-5.3 mmol/L Chloride 104 97-108 mmol/L CO2 22 22-32 mmol/L Glucose 111 65-99 mg/dL BUN 15 8-23 mg/dL Creatinine 1.08 0.50-1.00 mg/dL Calcium 9.8 8.6-10.4 mg/dL eGFR by Creatinine 57 >59 mL/min/1.73m2 P-Lipid Panel Reviewed date:02/11/2025 11:47:02 AM Interpretation:chol 245, trigs 178, chol/hdl 4.8, non-hdl 194, ldl 158 Performing Lab: Notes/Report: Test performed by [facility], [address] , [address], [place] [address] Chris Vásquez MD, Block Hand CLIA: [id number] Cholesterol 245 <200 mg/dL Triglycerides 178 <150 mg/dL HDL Cholesterol 51 >39 mg/dL Cholesterol / HDL Ratio 4.80 0.00-4.44 Ratio Non-HDL Cholesterol 194 <130 mg/dL LDL Cholesterol (Calculation) 158 <130 mg/dL LDL Cholesterol Levels* Less than 100 mg/dL Optimal 100 to 129 mg/dL Near Optimal/ Above Optimal 130 to 159 mg/dL Borderline High 160 to 189 mg/dL High 190 mg/dL and above Very High * Categories as recommended by the 2004 ATPIII guidelines LDL/HDL Ratio 3.1 <3.3 Ratio LDL Cholesterol Patient History Test Date: 06/26/2024 LDL Results: 137 Units: mg/dL % Change: +10% Test Date: 11/11/2024 LDL Results: 168 Units: mg/dL % Change: +22% Test Date: 02/07/2025 LDL Results: 158 Units: mg/dL % Change: -5% REASON FOR VISIT 3 Month Check w/ Fasting Labs Medications Medication SIG (Take, Route, Frequency, Duration) Notes Start Date End Date Status Trulicity 4.5 MG/0.5ML 4.5 mg Subcutaneous once weekly 02/07/2025 Active Levothyroxine Sodium 125 MCG Take 1 tablet by mouth once daily Orally Once a day; Duration: 90 days Active QUEtiapine Fumarate 25 MG 1 or 2 tablets at bedtime Orally Once a day 02/07/2025 Active Potassium Chloride ER 20 MEQ 1 tablet with food Orally twice a day; Duration: 90 days 01/17/2024 Active DULoxetine HCl 60 MG Take 2 capsules by mouth once daily; Duration: 90 Active Xarelto 20 MG 1 tablet with food Orally Once a day; Duration: 90 days 05/10/2023 Active Ezetimibe 10 MG 1 tablet Orally Once a day; Duration: 90 days 11/14/2024 Active Vitamin D3 50 MCG (1999 UT) 3 capsules Orally Once a day 10/12/2023 Active Celecoxib 100 MG 1 cap(s) Orally shanel y; Duration: 90 days Active Triamterene-HCTZ 37.5-25 MG 1 capsule in the morning Orally Once a day Active amLODIPine Besylate 10 MG Take 1 tablet by mouth once daily Active Furosemide 40 MG 1 tablet Orally Once a day Active Allopurinol 100 MG Take 1 tablet by once daily; Duration: 90 Active Loratadine 10 MG 1 tab(s) orally once a day; Duration: 90 days Active Montelukast Sodium 10 MG 1 tab(s) orally once a day; Duration: 90 day(s) Active CPAP Mask small as directed diagnosis code J44.9 03/18/2024 Active Levalbuterol Tartrate 45 MCG/ACT 1 puff as needed Inhalation every 6 hrs as needed 02/21/2023 Active Symbicort 80-4.5 MCG/ACT Inhale 2 puffs by mouth twice daily; Duration: 30 Active CPAP Supplies - as directed as directed diagnosis code J44.9 03/18/2024 Active EpiPen 2-Hebert 0.3 MG/0.3ML as directed intramuscularly once 09/28/2020 Active CPAP SUPPLIES DIRECTED 08/12/2020 Act charis Topiramate 25 MG 1 tablet Orally Once a day Active CoQ-10 100 MG 1 cap(s) orally once a day Active Problems Problem Type SNOMED Code ICD Code Onset Dates Problem Status W/U Status Risk Notes Problem Primary insomnia (2575172) Primary insomnia (F51.01) Active confirmed Problem Body mass index 40+ - morbidly obese ([id number]) BMI 40.0-44.9, adult (Z68.41) Active confirmed Vital Signs Blood pressure systolic 130 mm Hg 02/08/20 25 Blood pressure diastolic 76 mm Hg 025 Heart Rate 86 /min 02/07/2025 Height 63 in 02/07/2025 Weight 247.8 lbs 02/07/2025 BMI 43.89 kg/m2 02/07/2025 Encounters Encounter Location Date Provider [facility] [address] [phone] 02/07/2025 Trent Avery Type 2 diabetes yelitza itus without complication, without long-term current use of insulin E11.9 ; Essential (primary) hypertension I10 ; Renal insufficiency N28.9 ; Hyperlipidemia, unspecified hyperlipidemia type E78.5 ; Primary insomnia F51.01 and BMI 40.0-44.9, adult Z68.41 Assessments Encounter Date Diagnosis (ICD Code) Assessment Notes Treatment Notes Treatment Clinical Notes Section Notes 02/07/2025 Type 2 diabetes mellitus without complication, without long-term current use of insulin (ICD-10 - E11.9) 02/07/2025 Essential (primary) hypertension (ICD-10 - I10) 02/07/2025 Renal insufficiency (ICD-10 - N28.9) 02/07/2025 Hyperlipidemia, unspecified hyperlipidemia type (ICD-10 - E78.5) 02/07/2025 Primary insomnia (ICD-10 - F51.01) 02/07/2025 BMI 40.0-44.9, adult (ICD-10 - Z68.41) Plan Of Treatment Medication Medication Name Sig Start Date Stop Date Notes Trulicity 4.5 MG/0.5ML 4.5 mg Subcutaneous once weekly QUEtiapine Fumarate 25 MG 1 or 2 tablets at bedtime Orally Once a day 02/07/2025 Trulicity 3 MG/0.5ML 3 mg Subcutaneous once weekly 024 Next Appt Details Follow Up: 6 Months, Reason: Provider Name:Trent Herrera ry, 08/11/2025 10:00:00 AM, [address], [address], [place], [place], [id number], Progress Notes * SAHIL HENRIQUEZOB:1960 (65 yo F)Acc No.[id number]:02/07/2025 Progress Notes Patient: FIOR DOBBINS Provider: Amita Avery M.D. :1960 A ge:64 Y S ex:Female Date:02/07/2025 Address:[address] [place] [address] TREVON Alexandra, [id number] Subjective: * Chief Complaints: * 1 . 3 Month Check w/ Fasting Labs. * HPI: H PI: 64 year old female presents with c/o Patient is here today for?Pt is here today for a 3 month check up with fasting labs. * ROS: D ERMATOLOGY: no R omid. n o H darrle. G ASTROENTEROLOGY: no N ausea. n o [...] Hospitalization/Major Diagno stic [place]: [place] [facility] [place], Pneumonia, Bronchitis- [facility] 06/30-, Hyperextension of Right Knee - [facility] ER referred to Dr. King 07/2024. * [...] Sexually active: yes. * Medications: T aking Topiramate 25 MG Tablet 1 tablet Orally Once a day , Taking CoQ-10 100 MG Capsule 1 cap(s) orally once a day , Taking EpiPen 2-Hebert 0.3 MG/0.3ML Solution Auto-injector as directed intramuscularly once , Taking CPAP SUPPLIES DIRECTED , Taking Levalbuterol Tartrate 45 MCG/ACT Aerosol 1 puff as needed Inhalation every 6 hrs as needed , Taking Symbicort 80-4.5 MCG/ACT Aerosol Inhale 2 puffs by mouth twice daily , Taking Montelukast Sodium 10 MG Tablet [...] tablet by mouth once daily , Taking Trulicity 3 MG/0.5ML Solution Auto-injector 3 mg Subcutaneous once weekly , Taking amLODIPine Besylate 10 MG Tablet Take 1 tablet by mouth once daily , Taking Furosemide 40 MG Tablet 1 tablet Orally Once a day , Taking Triamterene-HCTZ 37.5-25 MG Capsule 1 capsule in the morning Orally Once a day , Taking Ezetimibe 10 MG Tablet 1 tablet Orally Once a day , Taking Vitamin D3 50 MCG (2000 UT) Capsule 3 capsules Orally Once a day , Taking DULoxetine HCl 60 MG Capsule Delayed Release Particles Take 2 capsules by mouth once daily , Taking Xarelto 20 MG Tablet 1 tablet with food Orally Once a day , Taking Celecoxib 100 MG Capsule 1 cap(s) Orally daily , Taking Potassium Chloride ER 20 MEQ Tablet Extended Release 1 tablet with food Orally twice a day , Taking Levothyroxine Sodium 125 MCG Tablet Take 1 tablet by mouth once daily Orally Once a day , Medication List reviewed and reconciled with the patient * Allergies: R amipril: anaphylaxis - Allergy, Atorvastatin: muscle pain - Side Effects. Objective: * Vitals: W t: 247.8, Temp: 97.8, BP: 130/76, HR: 86, Nurse: augustina, Ht: 63, BMI:43.89. * Examination: C ardiology: General Appearance: p [...] E ssential (primary) hypertension - I10 3 .?Renal insufficiency - N28.9 4 . H yperlipidemia, unspecified hyperlipidemia type - E78.5 5 . P rimary insomnia - F51.01 6 . B SD 40.0-44.9, adult - Z68.41 Plan: * Treatment: Value Reference Range B UN 15 8-23 - mg/dL * C alcium 9.8 8.6-10.4 - mg/dL * C hloride 104 97-108 - mmol/L * C O2 22 22-32 - mmol/L * C reatinine 1.08 H 0.50-1.00 - mg/dL * G lucose 111 H 65-99 - mg/dL * P otassium 3.9 3.5-5.3 - mmol/L * S odium 140 135-145 - mmol/L * e GFR by Creatinine 57 L >59 - mL/min/1.73m2 * Griselda Rivera 02/11/2025 11:4 6:55 AM > See phone encounter ?LAB: Glucose (In-House) (Collection Date & Time - 02/07/2025)?134* Value Reference Range b lood glucose 134 74 - 106 mg/dL * Brittany Nancy 02/07/2025 10:4 9:30 AM > Griselda Rivera 02/11/2025 11:46:55 AM > See phone encounter ?LAB: Glycohemoglobin A1c (in house) (Collection Date & Time - 02/07/2025)? 6.0%* Value Reference Range g lycohemoglobin 6.0% 5 - 6.5 % * BrittanyNancy 02/07/2025 10:4 9:49 AM > Griselda Rivera 02/11/2025 11:46:55 AM > See phone encounter 2.?Essential (primary) hypertension?LAB: P-Basic Metabolic Panel (BMP) (Collection Date & Time - 02/07/2025 09:29 AM)?gluc 111, Cr 1.08, gfr 57* Value Reference Range B UN 15 8-23 - mg/dL * C alcium 9.8 8.6-10.4 - mg/dL * C hloride 104 97-108 - mmol/L * C O2 22 22-32 - mmol/L * C reatinine 1.08 H 0.50-1.00 - mg/dL * G lucose 111 H 65-99 - mg/dL * P otassium 3.9 3.5-5.3 - mmol/L * S odium 140 135-145 - mmol/L * e GFR by Creatinine 57 L >59 - mL/min/1.73m2 * Griselda Rivera 02/11/2025 11:4 6:55 AM > See phone encounter 3.?Renal insufficiency?LAB: P-Basic Metabolic Panel (BMP) (Collection Date & Time - 02/07/2025 09:29 AM)?gluc 111, Cr 1.08, gfr 57* Value Reference Range B UN 15 8-23 - mg/dL * C alcium 9.8 8.6-10.4 - mg/dL * C hloride 104 97-108 - mmol/L * C O2 22 22-32 - mmol/L * C reatinine 1.08 H 0.50-1.00 - mg/dL * G lucose 111 H 65-99 - mg/dL * P otassium 3.9 3.5-5.3 - mmol/L * S odium 140 135-145 - mmol/L * e GFR by Creatinine 57 L >59 - mL/min/1.73m2 * Griselda Rivera 02/11/2025 11:4 6:55 AM > See phone encounter 4.?Hyperlipidemia, unspecified hyperlipidemia type?LAB: P-Lipid Panel (Collection Date & Time - 02/07/2025 09:29 AM)?chol 245, trigs 178, chol/hdl 4.8, non-hdl 194, ldl 158* Value Reference Range C holesterol / HDL Ratio 4.80 H 0.00-4.44 - Ratio * C holesterol 245 H <200 - mg/dL * H DL Cholesterol 51 >39 - mg/dL * L DL Cholesterol (Calculation) 158 H <130 - mg/d L * L DL/HDL Ratio 3.1 <3.3 - Ratio * N on-HDL Cholesterol 194 H <130 - mg/dL * T riglycerides 178 H <150 - mg/dL * Griselda Rivera 02/11/2025 11:4 6:55 AM > See phone encounter 5.?Primary insomnia? Start QUEtiapine Fumarate Tablet, 25 MG, 1 or 2 tablets at bedtime, Orally, Once a day, 45, Refills0.?? * Procedure Codes: 8 2950 GLUCOSE TEST, [address] GLYCATED HEMOGLOBIN TEST, Modifiers: QW , 3044F HG A1C LEVEL LT 7.0%, G8950 PREHTN/HTN BP DOC INDCD F/U DOC, G8752 MOST RECENT SYSTOLIC BP < 140MM HG, G8754 MOST RECENT DIASTOLIC BP < 90MM HG * Follow Up: 6 Months * Images: Billing Information: * Visit Code: 90604 Office Visit, Est Pt., Level 4. * Procedure Codes: 08975 GLUCOSE TEST. 25629 GLYCATED HEMOGLOBIN TEST. Modifiers: QW 3044F HG A1C LEVEL LT 7.0%. G8950 PREHTN/HTN BP DOC INDCD F/U DOC. G8752 MOST RECENT SYSTOLIC BP < 140MM HG. G8754 MOST RECENT DIASTOLIC BP < 90MM HG. * Electronic signature of Adrianne Avery MD on 08/08/2025 at 10:48 AM EST Sign off status: Pending * Provider: Amita Avery M.D. Date: 0 02/07/2025 Generated for Kai arias/Clarence/Jacobitting on: 10/08/2024 10:48 AM EST History and Physical Notes * HPI (History of Present Illness) Category Sub-Category Detail Notes Category Not es HPI Patient is here today for Pt is here today for a 3 month check up with fasting labs Examination Category Sub-Category Detail Notes Category Not es Cardiology Lungs: clear, no rales or wheezes HEENT: unremarkable Heart sounds: RRR, normal S1, S2 Extremities: bilateral trace leg edema Peripheral pulses: 2 plus bilateral General Appearance: pleasant, NAD
--- OUTSIDE RECORDS SUMMARY | 2025-05-12 04:00 | XMS_ITS ---
Author Organization [facility] Address 1210 [facility] 36 [facility] [address] [place] [phone] Care Team Providers Care Refrigeration Engine Operator Name Role Phone Trent Avery Primary Care Provider [phone] REASON FOR VISIT 6 month check Encounters Encounter Location Date Provider Diagnosis [place] [address] [place] [phone] 05/12/2025 Trent Avery Plan Of Treatment Next Appt Details Provider Name:Trent Herrera ry, 08/11/2025 10:00:00 AM, [address], [address], [place], [id number], Progress Notes * SAHIL HENRIQUEZOB:1960 (65 yo F)Acc No.[id number]:05/12/2025 Progress Notes Patient: FIOR DOBBINS Provider: Amita Avery M.D. :1960 A ge:65 Y S ex:Female Date:05/12/2025 Address:[address] [place] [address] T[place]ON AlexandraKUMARFT-[id number] Subjective: * Chief Complaints: * 1 . 6 month check. * Medical History: Objective: * Vitals: Assessment: Plan: * Treatment: * Images: Billing Information: * Visit Code: * Procedure Codes: * Electronic signature of Adrianne Avery MD on 08/08/2025 at 10:47 AM EST Sign off status: Pending * Provider: Amita Avery M.D. Date: 0 05/12/2025 Generated for Printi ng/Faxing/eTransmitting on: 1 10/08/2024 10:47 AM EST
--- OUTSIDE RECORDS SUMMARY | 2025-08-08 10:47 | XMS_ITS | Patient Health Record ---
[facility] [address] [facility] [address] [place] [id number] Care Team Providers Care Curtain Hemmer Automatic Name Role Phone Trent Avery Primary Care Provider Allergies Allergen (clinical drug ingredient) Drug/Non Drug Allergy documented on EMR Reaction Allergy Type Onset Date Status ramipril Ramipril anaphylaxis Drug Allergy Activ e atorvastatin Atorvastatin muscle pain Drug Allergy Active Results Component Value Reference Range Notes P-Vitamin D 25-Hydroxy Reviewed date:11/12/2024 09:17:42 AM Interpretation:34.3 Performing Lab: Notes/Report: CLIA: [id number] Chris Vásquez MD, Languages And Literature Instructor [address] [place] [address] , [place] [address] Test performed by [facility] Vitamin D 25-Hydroxy 34.3 30.0-100.0 ng/mL Interpretation of Vitamin D 25 OH: < 20 ng/mL - Deficiency 20 - 29 ng/mL - Insufficiency 30 - 100 ng/mL - Sufficiency > 100 ng/mL - Super-therapeutic- toxicity may occur above this level. Clinical correlation required. P-Uric Acid Reviewed date:11/12/2024 09:17:42 AM Interpretation:7.6 Performing Lab: Notes/Report: Test performed by [facility] [address] [place] [address] , [place] [address] Chris Vásquez MD, Languages And Literature Instructor CLIA: [id number] Uric Acid 7.6 2.4-7.0 mg/dL P-Microalbumin/Creatinine, R andom Urine Sample Reviewed date:11/12/2024 09:17:42 AM Interpretation:a/c 57 Performing Lab: Notes/Report: Test performed by [facility] [address] [place] [address] , [place] [address] Chris Vásquez MD, Languages And Literature Instructor CLIA: [id number] Albumin/Creatinine Ratio, Urine 57 0-30 ug/m g Microalbumin, Urine, Random 7.7 Creatinine, Urine 134.8 P-TSH Reviewed date:11/12/2024 09:17:42 AM Interpretation:Normal Performing Lab: Notes/Report: Test performed by [facility] [address] [place] [address] , [address], [place] [address] Chris Vásquez MD, Languages And Literature Instructor CLIA: [id number] TSH 1.20 0.43-5.25 mU/L P-Lipid Panel Reviewed date:11/12/2024 09:17:42 AM Interpretation:chol 255, trigs 173, chol/hdl 4.9, non-hdl 203, ldl 168 Performing Lab: Notes/Report: Test performed by [facility] [address] , [address], [place] [address] Chris Vásquez MD, Languages And Literature Instructor CLIA: [id number] Cholesterol 255 <200 mg/dL Triglycerides 173 <150 [...] Interpretation:Normal Performing Lab: Notes/Report: Test performed by [facility] [address] [place] [address] [place] [address] Chris Vásquez MD, Languages And Literature Instructor CLIA: [id number] Thyroxine Free (free T4) 1.49 0.86-1.76 ng/dL P-Comprehensive Metabolic Pa jerad (CMP) Reviewed date:11/12/2024 09:17:42 AM Interpretation:gluc 116, Cr 1.17, Ca 11, gfr 52, alk phos 153 Performing Lab: Notes/Report: Test performed by [facility] [address] [place], [place] [id number] [place] [address], [place] [address] Chris Vásquez MD, Languages And Literature Instructor CLIA: [id number] Sodium 139 135-145 mmol/L Potassium 3.9 3.5-5.3 [...] blood glucose 108 74 - 106 mg/dL Cologuard Reviewed date:03/18/2025 [...] 57 Performing Lab: Notes/Report: Test performed by [facility] [address] [facility] , [address], [place] [address] Chris Vásquez MD, Languages And Literature Instructor CLIA: [id number] Sodium 140 135-145 mmol/L Potassium 3.9 3.5-5.3 mmol/L Chloride 104 97-108 mmol/L CO2 22 22-32 mmol/L Glucose 111 65-99 mg/dL BUN 15 8-23 mg/dL Creatinine 1.08 0.50-1.00 mg/dL Calcium 9.8 8.6-10.4 mg/dL eGFR by Creatinine 57 >59 mL/min/1.73m2 P-Lipid Panel Reviewed date:02/11/2025 11:47:02 AM Interpretation:chol 245, trigs 178, chol/hdl 4.8, non-hdl 194, ldl 158 Performing Lab: Notes/Report: Test performed by [facility], [address] , [facility] [address], [place] [address] Chris Vásquez MD, Languages And Literature Instructor CLIA: [id number] Cholesterol 245 <200 mg/dL Triglycerides 178 <150 [...] mg/dL % Change: -5% Reason For Referral No Information Medications Medication SIG (Take, Route, Frequency, Duration) Notes Start Date End Date Status Xarelto 20 MG 1 tablet with food Orally Once a day; Duration: 90 days 05/10/2023 Active QUEtiapine Fumarate 25 MG 1 or 2 tablets at bedtime Orally Once a day Active Ezetimibe 10 MG 1 tablet Orally [...] Once a day; Duration: 90 days Active Triamterene-HCTZ 37.5-25 MG 1 capsule in the morning Orally Once a day Active Allopurinol 100 MG 1 tablet Orally Once a day; Duration: 90 days Active Potassium Chloride ER 20 MEQ 1 tablet with food Orally twice a day; Duration: 90 days Active DULoxetine HCl 60 MG Take 2 capsules by mouth once daily Orally Once a day; Duration: 90 days Active Immunizations Vaccine Route Administration Date Status Comme nts Tetanus Tdap-Adacel (over 7yrs) IM Intramuscular 01/29/2018 Administered Prevnar (PCV20) IM Intramuscular 06/26/2024 Administered Fluzone Quad (6months&older) IM Intramuscular 07/12/2022 Administered Fluzone Quad (6months&older) IM Intramuscular 06/26/2024 Administered COVID 19 Moderna Unknown 10/07/2020 Administered COVID 19 Moderna Unknown 04/07/2021 Administered Problems Problem Type SNOMED Code ICD Code Onset Dates Problem Status W/U Status Risk Notes Problem Hypothyroidism (84276467) Hypothyroidism, unspecified (E03.9) Active confirmed Problem Essential hypertension (32623896) Essential (primary) hypertension (I10) Active confirmed Problem Vitamin D deficiency (12987599) Vitamin D deficiency (E55.9) Active confirmed Problem Essential hypertension (03505247) Essential hypertension (I10) Active confirmed Problem Morbid obesity (886827455) Morbid obesity (E66.01) Active confirmed Problem Anxiety (60004344) Anxiety (F41.9) Active confi rmed Problem Obstructive sleep apnea (89724446) Obstructive sleep apnea (G47.33) Active confirmed Problem Mixed anxiety and depressive disorder (432155969) Depression with anxiety (F41.8) Active confirmed Problem Acute exacerbation of chronic obstructive airways disease (998203587) COPD exacerbation (J44.1) Active confirmed Problem Localized edema (0025091) Localized edema (R60.0) Active confirmed Problem Primary insomnia (8863652) Primary insomnia (F51.01) Active confirmed Problem Acquired hypothyroidism (916061870) Acquired hypothyroidism (E03.9) Active confirmed Problem Primary osteoarthritis (194386110) Primary osteoarthritis involving multiple joints (M15.0) Active confirmed Problem Neck pain (59026168) Neck pain (M54.2) Active confirmed Problem COPD - Chronic obstructive pulmonary disease (90425139) Chronic obstructive pulmonary disease, unspecified COPD type (J44.9) Active confirmed Problem Leukocytosis (310101925) Leukocytosis, unspecified type (D72.829) Active confirmed Problem Obstructive sleep apnea syndrome (43162205) STEFFEN (obstructive sleep apnea) (G47.33) Active confirmed Problem Body mass index 40+ - morbidly obese (871663556) BMI 40.0-44.9, adult (Z68.41) Active confirmed Problem Hyperlipidaemia (67451367) Hyperlipidemia, unspecified hyperlipidemia type (E78.5) Active confirmed Problem Stenosis of right carotid artery (336765099717967) Stenosis of right carotid artery (I65.21) Active confirmed Problem Chest pain (21025149) Chest pain, unspecified type (R07.9) Active confirmed Problem Chronic gouty arthritis (14847956) Chronic gout without tophus, unspecified cause, unspecified site (M1A.9XX0) Active confirmed Problem Tobacco user (752561081) Cigarette nicotine dependence without complication (F17.210) Active confirmed Problem Right carotid artery stenosis (386538206823953) Carotid stenosis, right (I65.21) Active confirmed Problem Type II diabetes mellitus without complication (777748135) Type 2 diabetes mellitus without complication, without long-term current use of insulin (E11.9) Active confirmed Problem Arthralgia of the ankle and/or foot (810327509) Acute left ankle pain (M25.572) Active confirmed Problem Chronic rhinitis (84656344) Rhinitis, unspecified type (J31.0) Active confirmed Problem Bilateral carpal tunnel syndrome (44144574007175721 ) Bilateral carpal tunnel syndrome (G56.03) Active confirmed Problem Arthritis of left knee (8086296745602095) Arthritis of left knee (M17.12) Active confirmed Problem Obesity (676981573) Obesity, unspecified classification, unspecified obesity type, unspecified whether serious comorbidity present (E66.9) Active confirmed Problem Allergic rhinitis (50189349) Allergic rhinitis, unspecified seasonality, unspecified trigger (J30.9) Active confirmed Problem Type II diabetes mellitus without complication (443082579) Type 2 diabetes mellitus without complication, unspecified whether penitentiary insulin use (E11.9) Active confirmed Problem Plain X-ray of chest abnormal (finding) (6789636939) Abnormal CXR (R93.89) Active confirmed Problem Radiology result abnormal (167629621) Abnormal chest CT (R93.89) Active confirmed Problem Traumatic arthropathy of knee (373396368) Traumatic arthropathy of left knee (M12.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) Active confirmed Vital Signs Heart Rate 86 /min 02/07/2025 Blood pressure diastolic 76 mm Hg 02/07/2025 Height 63 in 02/07/2025 Blood pressure systolic 130 mm Hg 02/07/2025 Weight 247.8 lbs 02/07/2025 BMI 43.89 kg/m2 02/07/2025 Encounters Encounter Location Date Provider [facility] [address] [id number] 11/11/2024 Trent Sopchoppy Type 2 diabetes yelitza itus without complication, [...] apnea) G47.33 and Depression with anxiety F41.8 [facility] [address] [id number] 02/07/2025 Trent Sopchoppy Type 2 diabetes yelitza itus without complication, without long-term current use of insulin E11.9 ; Essential (primary) hypertension I10 ; Renal insufficiency N28.9 ; Hyperlipidemia, unspecified hyperlipidemia type E78.5 ; Primary insomnia F51.01 and BMI 40.0-44.9, adult Z68.41 [facility] [address] [place], [place] [id number] 09/13/2024 Trent Sopchoppy Acute pulmonary embo lism, unspecified pulmonary embolism type, unspecified whether acute cor pulmonale present I26.99 and Depression with anxiety F41.8 [facility] [address] [place], [place] [id number] 10/01/2024 Trent Sopchoppy Polyarthralgia M25.5 0 and Peripheral edema R60.0 [facility] [address] [place], [place] [id number] 10/14/2024 Trent Sopchoppy Allergic rhinitis, unspecified seasonality, unspecified trigger J30.9 [facility] [address] [place], [place] [id number] 10/23/2024 Trent Sopchoppy [facility] [address] [place], [place] [id number] 11/12/2024 Trent Sopchoppy [facility] [address] [place] [id number] 12/04/2024 Trent Sopchoppy Acute pulmonary embo lism, unspecified pulmonary embolism type, unspecified whether acute cor pulmonale present I26.99 [facility] [address] [place], [place] [id number] 01/03/2025 Trent Sopchoppy Polyarthralgia M25.5 0 and Peripheral edema R60.0 [facility] [address] [place], [place] [id number] 02/11/2025 Trent Sopchoppy Essential hypertensi on I10 [facility] [address] [place], [place] [id number] 02/11/2025 Trent Sopchoppy [facility] [address] [place], [place] [id number] 02/13/2025 Trent Sopchoppy [facility] [address] [place], [place] [id number] 03/17/2025 Trent Sopchoppy Allergic rhinitis, unspecified seasonality, unspecified trigger J30.9 [facility] [address] [place], [place] [id number] 03/18/2025 Trent Sopchoppy [facility] [address] [place], [place] [id number] 03/24/2025 Trent Sopchoppy Primary insomnia F51 .01 [facility] [address] [place] [id number] 03/24/2025 Trent Sopchoppy [facility] [address] [place], [place] [id number] 04/30/2025 Trent Sopchoppy [facility] [address] [place], [place] [id number] 05/03/2025 Trent Sopchoppy Acute pulmonary embo lism, unspecified pulmonary embolism type, unspecified whether acute cor pulmonale present I26.99 [facility] [address] [place], [place] [id number] 05/08/2025 Trent Sopchoppy Polyarthralgia M25.5 0 and Primary insomnia F51.01 [facility] [address] [place], [place] [id number] 05/14/2025 Trent Sopchoppy Essential hypertensi on I10 [facility] [address] [place], [place] [id number] 05/30/2025 Trent Sopchoppy Assessments Encounter Date Diagnosis (ICD Code) Assessment Notes Treatment Notes Treatment Clinical Notes Section Notes 09/13/2024 Acute pulmonary embolism, unspecified pulmonary embolism [...] E78.5) 10/01/2024 Peripheral edema (ICD-10 - R60.0) 11/11/2024 Acquired hypothyroidism (ICD-10 - E03.9) 02/07/2025 Hyperlipidemia, unspecified hyperlipidemia type (ICD-10 - E78.5) 02/07/2025 Primary insomnia (ICD-10 - F51.01) 11/11/2024 Vitamin D deficiency (ICD-10 - E55.9) 02/07/2025 BMI 40.0-44.9, adult (ICD-10 - Z68.41) 11/11/2024 Chronic obstructive pulmonary disease, unspecified COPD type (ICD-10 - J44.9) 11/11/2024 Obesity, unspecified classification, unspecified obesity type, unspecified whether serious comorbidity present (ICD-10 - E66.9) 11/11/2024 Chronic gout without tophus, unspecified cause, unspecified site (ICD-10 - M1A.9XX0) 11/11/2024 STEFFEN (obstructive sleep apnea) (ICD-10 - G47.33) 11/11/2024 Depression with anxiety (ICD-10 - F41.8) Plan Of Treatment Next Appt Details Provider Name:Trent Herrera ry, 08/11/2025 10:00:00 AM, [address], [address], [place], [place], [id number], Insurance Providers Payer Name Payer Address Payer Phone Subscriber Number Group Number Insured Name Patient Relationship to Insured Coverage Start Date Coverage End Date [employer] [address] [place] [address] [id number] FIOR HENRIQUEZ Self - patient is the [...] Reason Date(Month/Year) Hyperextension of Right Knee - [facility] ER re ferred to Dr. King 07/2024 Pneumonia, Bronchitis- [facility] 06/30- Knee Pain- [facility] 10/05/2018
--- OUTSIDE RECORDS SUMMARY | 2025-08-08 10:48 | XMS_ITS | Data Portability ---
Author Organization [facility] [place] [facility] Address [address] [place] [address] Care Team Providers Care Instructional Support Services Director Name Role Phone CHOCO CARRASCO Primary Care Provider CAROLE GIBSON Hospital Director Assessment No assessment recorded. Plan of Treatment Reminders Order Date Submit Date Provider Last Modified By Organization Details Last Modified Time Details Appointments LEVEL 2 026 09:15AM CAROLE GIBSON MD Not available Not available Not available Lab None recorde d. Referral None recorde d. Procedures None recorde d. Surgeries None recorde d. Imaging None recorde d. Medication Orders None recorde d. Patient TargetsNo targets recorded. Patient InstructionsNo instructions recorded. Reason for Referral None Reported. Problems Name Problem SNOMED Code Status Onset Date Resolution Date Notes Provider Name and Address Organization Details Recorded Time Bilateral age-relat ed nuclear cataracts 19724993230 9100 Active 2014 From Automated Load;Prov ider: Carole Gibson;Tristian tatus: Active Not Available [facility] 6 08:43:06 Problem Notes None recorded. Procedures Surgical History Date Name Laterality Status Provider Name and Address Organization Details Recorded Time 01/10/20 24 Blepharoplasty w/ Excessive Skin completed JG WHITESIDE MD [facility] [place], [address], [facility] 01/10/2024 13:04:26 04/13/20 23 Visual Field Intermediate completed JG WHITESIDE MD [address] [place], [address], [facility] 04/25/2023 09:28:58 07/18/20 22 Injection - Joint/Bursa, Major completed MOSES VENEGAS PA-C [facility] [place], [address], [facility] 07/18/2022 10:26:10 Cataract (left) removal with iol completed Francisco Negrete [facility] 03/30/2023 15:46:41 Imaging Results None recorded. Procedure Notes None recorded. Medical Equipment None Reported. Allergies Allergen ID Allergen Name Allergen Category Reaction Reaction Severity Criticality Documentation Date Start Date Code Code System Note Provider Name and Address Organization Details Recorded Time 498627 Norvasc medicatio n Not available Not available Not available 08/11/20162011 98279 RxNorm Comme nt: Creat ed By: Delilah;Cre ated Date: 2011 2:08: 59 PM; Not Available [facility] 6 12:57:09 261825 Altace medicatio n Not available Not available Not available 08/12/20162011 96238 8 RxNorm Comme nt: Creat ed By: Dleilah;Cre ated Date: 2011 2:09: 15 PM; Not Available [facility] 6 08:08:02 756687 lisinopri l medicatio n Not available Not available Not available 03/30/2023 38631 RxNorm Francisco Negrete [facility] 3 15:41:02 Medications Name Sig Start Date Stop Date Status Note LastModified by Organization Details LastModified Time celecoxib 200 mg capsule Take 1 capsule every day by oral route. active Not Available Not Available No t Available metformin 500 mg tablet Take 1 tablet twice a day by oral route. active Not Available Not Available No t Available Synthroid 200 mcg tablet Daily 07/18 completed Frequenc y: daily;Me dication Descript ion: levothyr oxine; Dosage:1 ; Route:or al; refills: 0; Quantity :30 Not Available Not Available Not Available allopurin ol 100 mg tablet Take 1 tablet every day by oral route. active Not Available Not Available No t Available garlic 1,500 mg capsule active Medicati on Descript ion: garlic; Route:or al; refills: 0 Not Available Not Available Not Available Lipitor 40 mg tablet Every night at bedtime 03/30 completed Frequenc y: qhs;Medi cation Descript ion: atorvast atin; Dosage:1 ; Route:or al; refills: 0; Quantity :30 tablet Not Available Not Available Not Available Synthroid 25 mcg tablet Daily 07/18 completed Frequenc y: daily;Me dication Descript ion: levothyr oxine; Dosage:1 ; Route:or al; refills: 0; Quantity :30 tablet Not Available Not Available Not Available amlodipin e 10 mg tablet Daily active Frequenc y: daily;Me dication Descript ion: amlodipi ne; Dosage:1 ; Route:or al; refills: 0 Not Available Not Available Not Available erythromy daniele 5 mg/gram (0.5 %) eye ointment APPLY SMALL AMOUNT TO FINGER THEN APPLY TO UPPER EYELIDS 4 TIMES PER DAY FOR 1 WEEK 2023 active Not Available Not Available Not Avai lable aspirin 81 mg tablet Daily active Duration : 30 days;Abilio quency: daily;Me dication Descript ion: aspirin; Dosage:1 ; Route:or al; refills: 0; Quantity :30 tablet Not Available Not Available Not Available cefdinir 300 mg capsule Take 1 capsule every 12 hours by oral route. 03/30 completed Not Available Not Available Not Available Ventolin HFA 90 mcg/actua tion aerosol inhaler active Medicati on Descript ion: albutero l; Route:in halation ; refills: 0 Not Available Not Available Not Available Triamtere ne W/Hctz 37.5 mg-25 mg tablet Take 1 tablet every day by oral route. active Not Available Not Available No t Available Co Q-10 100 mg capsule Take by oral route. active Not Available Not Available No t Available duloxetin e 60 mg capsule,d elayed release Take 1 capsule twice a day by oral route. active Not Available Not Available No t Available levalbute rol HFA 45 mcg/actua tion aerosol inhaler Inhale 2 puffs every 6 hours by inhalati on route. active Not Available Not Available No t Available EpiPen 0.3 mg/0.3 mL injection , auto-inje ctor active Medicati on Descript ion: epinephr ine; Route:in jectable ; refills: 0; Quantity :1 solution Not Available Not Available Not Available theophyll ine Daily 03/30 completed Duration : 10 days;Abilio quency: daily;Me dication Descript ion: theophyl line; Dosage:2 ; refills: 0; Quantity :120 Not Available Not Available Not Available montel[address] st active Not Available Not Available Not Available Vitamin D3 active Medicati on Descript ion: cholecal ciferol; Route:or al; refills: 0 Not Available Not Available Not Available aripipraz ole 10 mg disintegr ating tablet Place 1 tablet every day by translin gual route. active Not Available Not Available No t Available levothyro xine 125 mcg capsule Take 1 capsule every day by oral route. active Not Available Not Available No t Available loratadin e 10 mg capsule Take by oral route. active Not Available Not Available No t Available Ozempic 1 mg/dose (4 mg/3 mL) subcutane ous pen injector Inject by subcutan eous route. active Not Available Not Available No t Available Vitals Date Recorded Body height Provider Name an d Address Organization Details Last Updated DateTime 01/16/2024 160.02 cm Prema Heath [facility] 01/16/2024 08:47:08 Date Recorded Body height Provider Name an d Address Organization Details Last Updated DateTime 02/06/2024 160.02 cm Malia Miller [facility] 02/06/2024 08:59:00 Date Recorded Body height Provider Name an d Address Organization Details Last Updated DateTime 04/03/2024 160.02 cm Malia Whitaker [facility] 04/03/2024 13:49:44 Social History Question Answer Notes LastModified by Organizat ion Details LastModified Time Tobacco Smoking Status [facility] 09:23:37 Do You Wear A Helmet When Biking? No [email or web address] Information not available 07/18/2022 What Is Your Level Of Caffeine Consumption? Occasional [email or web address] Information not available 07/18/2022 Which Of Your Hands Is Dominant? Right Information not available 07/18/2022 What Is Your Relationship Status? Unknown Information not available 07/18/2022 Do You Use Your Seat Belt Or Car Seat Routinely? Yes [email or web address] Information not available 07/18/2022 How Much Tobacco Do You Smoke? 0.5 PPD [email or web address] Information not available 07/18/2022 Have You Recently Traveled Abroad? No [email or web address] Information not available 07/18/2022 Sex: Unknown Functional Status Question Answer Note LastModified by Organizat ion Details LastModified Time Do you use any illicit or recreational drugs? No Information not available 07/18/2022 What is your level of alcohol consumption? None [email or web address] Information not available 07/18/2022 Are you currently employed? No Information not available 07/18/2022 Mental Status None recorded. Family History Nothing Reported. Medical History Condition Response Diabetes Y Gynecological HistoryNo gynecological history recorded. Obstetrics History GPAL:G 0 P 0 0 0 0 Past Encounters Encounter ID Performer Location Encounter Start Date Encounter Closed Date Diagnosis/Indication Diagnosis SNOMED-CT Code Diagnosis ICD10 Code Diagnosis IMO Codes Diagnosis Note [id number] MOSES VENEGAS PA-C [facility] [address] [address] 07/18/2022 08:42:45 07/18/2022 10:21:02 Osteoarthritis of left knee joint 3986219578 89770 M17.12 ASSESSMENT : DJD LEFT knee PLAN: We discussed conservati ve and surgical treatment options for knee arthritis. We discussed the importance of weight loss, and low-impact aerobic activity. We discussed judicious use of NSAIDs, if possible, or Tylenol. We discussed corticoste roid injections and viscosuppl ementation . We discussed bracing, physical therapy, activity modificati on, and use of assistive ambulatory devices. Plan today is for steroid injection Follow up 3 months Morbid obesity 570252942 E66.01 The patient was informed that the body mass index was elevated. Dietary modificati ons were recommende d to include limiting total caloric intake, limiting liquid beverages containing calories, eating a diet high in fiber which includes fruits and vegetables , eating healthy protein including fish and lean meat, consuming healthy carbohydra james that do not have any kind of sugar or refined flour within the first 3 ingredient s, and eating healthy fats. [id number] CAROLE GIBSON MD [facility] [address] ,[address] [place] [address] 03/30/2023 13:49:33 03/30/2023 16:31:13 Type 2 diabetes mellitus without complication 516965291 E11.9 no retinopath y Adelfo discussed diabetes with this patient. I discussed the importance of sugar control for reducing risk of diabetic complicati ons in the eyes. I recommende d they follow up with their PCP/endocr inologist for continue sugar evaluation /managemen t. Also discussed importance of cardiovasc ular risk reduction. Call with changing/f luxuating vision.1 year and prn Excess skin of eyelid [address] whiteside as appears visually sig Lesion of eyelid 8046951 02 H02.89 can be removed at time of surgery [id number] JG WHITESIDE MD [facility] [address] ,[address] [place] [address] 04/13/2023 13:31:29 04/13/2023 15:31:40 Excess skin of bilateral eyelids 7159452396 3794867 H02.831 H02.834 - symptomati c OU -needs to come back for ptosis VF (machine broken today) - external photos today showing dermatocha lasis with hooding OU Reviewed diagnosis of dermatocha lasis with pt along with options (observati on vs lid surgery). Surgical technique/ postop care (ointment, visits, restrictio ns)/risks discussed in detail. Risks discussed include bleeding, infection, wound dehiscence , pain, worsening dry eyes, vision loss, or need for additional surgery/tr eatment. Reviewed goals of surgery, including improved peripheral vision. Pt would need preop exam. Pt would like to proceed with surgery - will make arrangemen ts. Pt is encouraged to call prior to surgery if there are any further questions or concerns. - bilateral upper lid blepharopl asty-also plan left lower eyelid lesion excision at same time Lesion of left lower eyelid 2910449205 0627695 H02.9 - discussed r/b/a of lesion excision at time of surgery, opts to have done same day RTC 1 week postop [id number] JG WHITESIDE MD SURGERY SCHEDULE [address] [place] [address] 01/10/2024 11:01:24 01/12/2024 12:32:31 Excess skin of bilateral eyelids 3194474203 3957744 H02.831 H02.834 BULB [id number] JG WHITESIDE MD [facility] [address] ,[address] [place], [place] [address] 01/16/2024 08:40:41 01/16/2024 09:43:25 Excess skin of bilateral eyelids 0492749867 7134037 H02.831 H02.834 - lids healing well, in good position, stitches in tact- continue Emycin ointment BID- can start with light activity, still no eye rubbing RTC 1 month [id number] JG WHITESIDE MD [facility] [address] ,[address] [place], [place] [address] 02/06/2024 08:53:57 02/06/2024 10:03:10 Excess skin of bilateral eyelids 9452165091 6228326 H02.831 H02.834 - lids in good position, well-heale d- finished with Emycin ointment- lotion to upper lids q1-2 days, avoid direct sun exposure for next 2-3 months- no further activity restrictio ns RTC as planned with Dr. Gibson, sooner as needed [id number] CAROLE GIBSON MD [facility] [address] ,[address] [place], [place] [address] 04/03/2024 12:57:08 04/03/2024 16:04:59 Type 2 diabetes mellitus without complication 366255720 E11.9 no retinopath y Adelfo discussed diabetes with this patient. I discussed the importance of sugar control for reducing risk of diabetic complicati ons in the eyes. I recommende d they follow up with their PCP/endocr inologist for continue sugar evaluation /managemen t. Also discussed importance of cardiovasc ular risk reduction. Call with changing/f luxuating vision.1 year and prn After-sofie ract with vision obscured following extraction of cataract 163214956 H26.499 mild os - obs watch for progressio n Incipient senile cataract 724002747 H25.099 [id number] CAROLE GIBSON MD [facility] [address] [place] [address],[address] [place] [address] 04/07/2025 09:53:22 04/07/2025 11:56:57 Type 2 diabetes mellitus without complication 290839712 E11.9 no retinopath y Adelfo discussed diabetes with this patient. I discussed the importance of sugar control for reducing risk of diabetic complicati ons in the eyes. I recommende d they follow up with their PCP/endocr inologist for continue sugar evaluation /managemen t. Also discussed importance of cardiovasc ular risk reduction. Call with changing/f luxuating vision.1 year and prn After-sofie ract with vision obscured following extraction of cataract 748628610 H26.499 mild os - obs watch for progressio n Incipient senile cataract 706849236 H25.099 happy with vision - obs for nowdefers mr Health Concerns Section Related Observation LastModified by Organization Detai ls LastModified Time None Recorded Concern Status LastModified by Organization Details LastModified Time None Recorded Advance Directives Directive None Recorded Payers Insurance Date Sequence Insurance Name Policy Number Policy Shultz Covered Member ID Shultz Member ID Guarantor Name 04/10/2025 1 [employer] (PPO) [id number] 2 Barb Garrison [id number] Barb Garrison 04/07/2025 3 [place] [employer] [place] FFS/TRADITIO NAL Barb Garrison [id number] Barb Garrison 11/26/2018 1 *SELF PAY* Sa diogo Garrison 04/10/2025 2 [employer] [facility] (MEDICAID HMO) Barb Garrison [id number] Barb Garrison Notes Date Note Type Note Provider Name and Address Organization Details Recorded Time 01/16/2024 text/html POW1 BULB.Lids healing well, no pain.Vision at baseline.Using Emycin ointment QID. JG WHITESIDE MD [facility] [place], [address], [facility] 01/16/2024 08:59:00 02/06/2024 text/html POM1 BULB.Lids healed well, happy with lid position.Finish ed with Emycin ointment. JG WHITESIDE MD [address] [place] [address], [phone], [facility] 02/06/2024 09:16:09 04/07/2025 text/html ROS as noted in the HPI CAROLE GIBSON MD [address] [place] [address], [phone], [facility] 04/07/2025 11:55:20 OBGyn Episode No OBEpisode recorded.
--- OUTSIDE RECORDS SUMMARY | 2025-08-08 10:49 | XMS_ITS | Clinical Summary ---
Author Organization [facility] Address [address] [place] [address] Care Team Providers Care Director Validation Name Role Phone Unavailable Primary Care Provider [...] 2011 ZOSTER VACCINE (1 of 2) 2011 INFLUENZA VACCINE 04/18/2025
--- NOTE | 2025-08-08 11:00 | CT_ITS ---
FINAL REPORT TECHNIQUE: Axial CT images of the chest were obtained without contrast. Low-dose protocol was utilized. This study was performed with techniques to keep radiation doses as low as reasonably achievable (ALARA). Individualized dose reduction techniques using automated exposure control or adjustment of mA and/or kV according to the patient's size were employed. CLINICAL HISTORY: lung cancer screening smoker 48 years, 1 ppd COMPARISON: 04/22/2023 and CTA 04/27/2023 FINDINGS: CT CHEST WITHOUT, LOW DOSE SCREENING CT Di Vol: 2.90 mGy DLP: 96.38 mGy*cm There are few small scattered mediastinal lymph nodes. The heart size is normal. There is no pleural or pericardial effusion. The lung windows show scarring in the medial right upper lobe and right lower lobe. The previously noted ground-glass opacities have resolved. There is a ground-glass nodule measuring 8 mm on image 24 of series 3 in the posterior right upper lobe.. Limited images of the upper abdomen demonstrate no acute findings. The gallbladder is surgically absent. IMPRESSION: Ground-glass nodule posterior right upper lobe. LR Category 2: 12 month follow-up low-dose chest CT is recommended per Fleischner criteria. Reviewed, Interpreted and Dictated by Nikhil Cali MD Transcribed by Maura Martines Authenticated and . [facility]
== END 2025-08-08 23:59 | disposition home or self-care (01) ==
LOC: RAD 10:46
PROVIDERS: PCP Family Medicine; Visit Provider Internal Medicine Pulmonary Disease
DX: Z12.2 Encounter for screening for malignant neoplasm of respiratory organs (principal); F17.210 Nicotine dependence, cigarettes, uncomplicated; R91.1 Solitary pulmonary nodule; J98.4 Other disorders of lung; Z90.49 Acquired absence of other specified parts of digestive tract
CPT/HCPCS: 71271

== ENCOUNTER 2025-09-05 10:56 | Outpatient (CLI) | payer BC, OTHER, SELFPAY ==
--- OUTSIDE RECORDS SUMMARY | 2024-03-08 03:00 | XMS_ITS ---
Author Organization [facility] Address [address] [facility] 36 [facility] [address] [place] [id number] Care Team Providers Care Service Line Coordinator Name Role Phone Trent Avery Primary Care Provider [phone] Results Component Value Reference Range Notes P-Basic Metabolic Panel (BMP ) Reviewed date:03/11/2024 03:29:19 PM Interpretation:K+ 3.4, cl 95, gluc 106, Cr 1.07, gfr 58 Performing Lab: Notes/Report: Test performed by [facility], [address] , [address], [place] [address] Chris Vásquez MD, Inclusion Teacher CLIA: [id number] Sodium 137 135-145 mEq/L Potassium 3.4 3.5-5.3 [...] Active Encounters Encounter Location Date Provider Diagnosis [facility] [address] [facility] [address] [place] [phone] 03/08/2024 Trent Avery Hypokalemia E 87.6 Assessments Encounter Date Diagnosis (ICD Code) Assessment Notes Treatment Notes Treatment Clinical Notes Section Notes 03/08/2024 Hypokalemia (ICD-10 - E87.6) Plan Of Treatment Next Appt Details Provider Name:Sherry Styles y, 09/05/2025 10:30:00 AM, [address], [address], [place], [phone], Provider Name:Trent Sulaiman Javier ry, 02/11/2026 09:00:00 AM, [address], [address], [place], [phone], Progress Notes * Amber GARRISONOB:1960 (65 yo F)Acc No.[id number]:03/08/2024 Patient: Barb DOBBINS Provider: Amita Avery M.D. :1960 A ge:63 Y S ex:Female Date:03/08/2024 Address:[address] [place] [address], [place], [id number] Subjective: * Chief Complaints: * 1 . [...] Electronic signature of Adrianne Avery MD on 09/05/2025 at 11:02 AM EST Sign off status: Pending * Provider: Amita Avery M.D. Date: 0 03/08/2024 Generated for Kai arias/Clarence/Jose on: 1 11/06/2024 11:02 AM EST
--- OUTSIDE RECORDS SUMMARY | 2024-04-03 05:30 | XMS_ITS ---
[facility] [address] [facility] 36 [facility] [address] [place] [id number] Care Team Providers Care Agency Sales Representative Name Role Phone Trent Avery Primary Care [...] 159 Performing Lab: Notes/Report: Test performed by [facility] [address] [place] [address] , [address], [place] [address] Chris Vásquez MD, Water And Sewer Systems Superintendent CLIA: [id number] Sodium 139 135-145 mmol/L Potassium 3.1 3.5-5.3 [...] W/U Status Risk Notes Problem Allergic rhinitis (49663001) Allergic rhinitis, unspecified seasonality, unspecified trigger (J30.9) Active confirmed Vital Signs Blood pressure systolic 132 mm Hg 04/03/20 24 Blood pressure diastolic 78 mm Hg 024 Heart Rate 92 /min 04/03/2024 Height 63 in 04/03/2024 Weight 242 lbs 04/03/2024 BMI 42.86 kg/m2 04/03/2024 Encounters Encounter Location Date Provider Diagnosis [facility] [address] [facility] [address] [facility] [address] [place] [id number] 04/03/2024 Trent Avery Essential hypertensi on I10 [...] Details Follow Up: 5 Months, Reason: Provider Name:Sherry Styles y, 09/05/2025 10:30:00 AM, [address] [facility] [address] [facility], [address], [place], [id number], Provider Name:Trent Herrera ry, 02/11/2026 09:00:00 AM, [address] [facility] 36 [facility] [address], [place], [id number], Progress Notes * Amber GARRISONOB:1960 (65 yo F)Acc No.[id number]:04/03/2024 Progress Notes Patient: Barb DOBBINS Provider: Amita Avery M.D. :1960 A ge:63 Y S ex:Female Date:04/03/2024 Address:[address] [place] [address] T[place]VON Alexandra GIL, [id number] Subjective: * Chief Complaints: * 1 . [...] Hospitalization/Major Diagno stic Procedure: K nee Pain- [facility] 10/05/2018, Pneumonia, Bronchitis- [facility] 06/30-. * Family History: F ather: alive, [...] * Images: Billing Information: * Visit Code: 53226 Office Visit, Est Pt., Level 4. * Procedure Codes: 31223 PULSE OX. * Electronic signature of Adrianne Avery MD on 09/05/2025 at 11:02 AM EST Sign off status: Pending * Provider: Amita Avery M.D. Date: 0 04/03/2024 Generated for Kai arias/Clarence/Jacobitting on: 1 11/06/2024 11:02 AM EST History and Physical Notes * [...]
--- OUTSIDE RECORDS SUMMARY | 2024-04-09 04:45 | XMS_ITS ---
Author Organization [facility] Address [address] [facility] 36 [facility] [address] [place] [id number] Care Team Providers Care Stem Roller Name Role Phone Trent Avery Primary Care Provider REASON FOR VISIT 6 Month Check Up Encounters Encounter Location Date Provider Diagnosis [facility] [address] [place] [id number] 04/09/2024 Trent Avery Plan Of Treatment Next Appt Details Provider Name:Sherry S Stephani y, 09/05/2025 10:30:00 AM, [address], [address], [place], [place], [phone], Provider Name:Trent Herrera ry, 02/11/2026 09:00:00 AM, [address], [address], [place], [place], [phone], Progress Notes * Amber GARRISONOB:1960 (65 yo F)Acc No.[id number]:04/09/2024 Progress Notes Patient: Barb DOBBINS Provider: Amita Avery M.D. :1960 A ge:63 Y S ex:Female Date:04/09/2024 Address:[address] [place] [address] [place] Alexandra [id number] Subjective: * Chief Complaints: * 1 . 6 Month Check Up. * Medical History: Objective: * Vitals: Assessment: Plan: * Treatment: * Images: Billing Information: * Visit Code: * Procedure Codes: * Electronic signature of Adrianne Avery MD on 09/05/2025 at 11:01 AM EST Sign off status: Pending * Provider: Amita Avery M.D. Date: 0 04/09/2024 Generated for Kai arias/Clarence/Jose on: 1 11/06/2024 11:01 AM EST
--- OUTSIDE RECORDS SUMMARY | 2024-06-26 06:00 | XMS_ITS ---
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 Role Phone Trent Avery Primary Care Provider Allergies Allergen (clinical drug ingredient) Drug/Non Drug Allergy documented on EMR Reaction Allergy Type Onset Date Status ramipril Ramipril anaphylaxis Drug Allergy Activ e atorvastatin Atorvastatin muscle pain Drug Allergy Active Results Component Value Reference Range Notes Glucose (In-House) Reviewed date:06/27/2024 03:52:35 PM Interpretation:121 Performing Lab: Notes/Report: 121 blood glucose 121 74 - 106 mg/dL CBC Venipuncture (in house) Reviewed date:06/27/2024 03:52:35 PM Interpretation: Performing Lab: Notes/Report: wbc 13.9 3.5 - 10 lymph 26.4% 15 - 50 mid 6.2% 2 - 15 gran 67.4% 35 - 80 rbc 4.84 3.5 - 5.5 hgb 14.4 11.5 - 16.5 hct 41.9 35 - 55 mcv 86.4 75 - 100 mch 29.8 25 - 35 mchc 34.4 31 - 38 platlet 245 100 - 400 Glycohemoglobin A1c (in hous e) Reviewed date:06/27/2024 03:52:35 PM Interpretation:5.4 Performing Lab: Notes/Report: 5.4 glycohemoglobin 5.4% 5 - 6.5 % P-Comprehensive Metabolic Pa jerad (CMP) Reviewed date:06/27/2024 03:52:35 PM Interpretation:alk phos 140 Performing Lab: Notes/Report: Test performed by [facility] , [address], [place] [address] Chris Vásquez MD, Concrete Puddler CLIA: [id number] Sodium 138 135-145 mmol/L Potassium 3.9 3.5-5.3 mmol/L Chloride 97 97-108 mmol/L CO2 26 22-32 mmol/L Glucose 89 65-99 mg/dL BUN 14 8-23 mg/dL Creatinine 0.85 0.50-1.00 mg/dL Calcium 10.2 8.6-10.4 mg/dL eGFR by Creatinine 77 >59 mL/min/1.73m2 Protein 6.8 6.0-8.3 g/dL Albumin 4.3 3.5-5.3 g/dL Alkaline Phosphatase 140 35-121 IU/L ALT (SGPT) 10 <5-47 IU/L AST (SGOT) 11 <5-40 IU/L Bilirubin, Total 0.5 <0.2-1.2 mg/dL A/G Ratio 1.7 1.1-2.5 P-T4 Free (thyroxine) Reviewed date:06/27/2024 03:52:35 PM Interpretation:1.86 Performing Lab: Notes/Report: Test performed by [facility] [address] [place] [address] , [facility] [place] [id number] Chris Vásquez MD, Concrete Puddler CLIA: [id number] Thyroxine Free (free T4) 1.86 0.86-1.76 ng/dL P-Lipid Panel Reviewed date:06/27/2024 03:52:35 PM Interpretation:chol 220, trig 172, chol/hdl 4.49, non-hdl 171, ldl 137 Performing Lab: Notes/Report: Test performed by [facility] [address] [place] [address] , [place] [address] Chris Vásquez MD, Concrete Puddler CLIA: [id number] Cholesterol 220 <200 mg/dL Triglycerides 172 <150 mg/dL HDL Cholesterol 49 >39 mg/dL Cholesterol / HDL Ratio 4.49 0.00-4.44 Ratio Non-HDL Cholesterol 171 <130 mg/dL LDL Cholesterol (Calculation) 137 <130 mg/dL LDL Cholesterol Levels* Less than 100 mg/dL Optimal 100 to 129 mg/dL Near Optimal/ Above Optimal 130 to 159 mg/dL Borderline High 160 to 189 mg/dL High 190 mg/dL and above Very High * Categories as recommended by the 2004 ATPIII guidelines LDL/HDL Ratio 2.8 <3.3 Ratio LDL Cholesterol Patient History Test Date: 10/09/2023 LDL Results: 114 Units: mg/dL % Change: - Test Date: 02/07/2024 LDL Results: 124 Units: mg/dL % Change: +8% Test Date: 06/26/2024 LDL Results: 137 Units: mg/dL % Change: +10% P-TSH Reviewed date:06/27/2024 03:52:35 PM Interpretation:0.16 Performing Lab: Notes/Report: Test performed by [facility], [place] [address] [facility] , [address], [place] [address] Chris Vásquez MD, Concrete Puddler CLIA: [id number] TSH 0.16 0.43-5.25 mU/L P-Vitamin D 25-Hydroxy Reviewed date:06/27/2024 03:52:35 PM Interpretation:40.8 Performing Lab: Notes/Report: Test performed by [facility] , [address], [place] [address] Chris Vásquez MD, Concrete Puddler CLIA: [id number] Vitamin D 25-Hydroxy 40.8 30.0-100.0 ng/mL Interpretation of Vitamin D 25 OH: < 20 ng/mL - Deficiency 20 - 29 ng/mL - Insufficiency 30 - 100 ng/mL - Sufficiency > 100 ng/mL - Super-therapeutic- toxicity may occur above this level. Clinical correlation required. Reason For Referral Diagnosis 1 Tremor, unspecified (R25.1) Referral Organization [facility] Referring Provider First Name Trent Referring Provider Last Name Gena Referring Provider Speciality [facility] Referred Provider Rubia Antoine Referred Provider Specialty Neurology General Notes Alyson Mo 06/26/20 24 12:01:31 PM > faxed referral to Dr. Antoine office Referral Priority Routine REASON FOR VISIT discuss medication Medications Medication SIG (Take, Route, Frequency, Duration) Notes Start Date End Date Status Trulicity 1.5 MG/0.5ML as directed Subcutaneous once weekly; Duration: 30 day(s) 10/09/2023 Active amLODIPine Besylate 10 MG 1 tab(s) orally once a day; Duration: 90 days Active Allopurinol 100 MG 1 tab(s) orally once a day; Duration: 90 days Active DULoxetine HCl 60 MG Take 2 capsules by mouth once daily; Duration: 90 days Active Levothyroxine Sodium 125 MCG 1 tab(s) orally once a day; Duration: 90 days Active CPAP Supplies - as directed as directed diagnosis code J44.9 03/18/2024 Active Triamterene-HCTZ 37.5-25 MG Take 1 capsule by mouth once daily Active Loratadine 10 MG 1 tab(s) orally once a day; Duration: 90 days Active Potassium Chloride ER 20 MEQ 1 tablet with food Orally twice a day; Duration: 90 days 01/17/2024 Active CPAP Mask small as directed diagnosis code J44.9 03/18/2024 Active Furosemide 40 MG 1 tablet Orally Once a day; Duration: 90 days 01/17/2024 Active metFORMIN HCl ER 500 MG 2 tab(s) orally once a day Active Xarelto 20 MG 1 tablet with food Orally Once a day; Duration: 90 days 05/10/2023 Active ARIPiprazole 10 MG Take 1 tablet by deon th once daily Orally Once a day; Duration: 90 days Active Celecoxib 100 MG 1 cap(s) Orally shanel y; Duration: 90 days Active Symbicort 80-4.5 MCG/ACT Inhale 2 puffs by mouth twice daily; Duration: 30 Active Levalbuterol Tartrate 45 MCG/ACT 1 puff as needed Inhalation every 6 hrs as needed 02/21/2023 Active Montelukast Sodium 10 MG 1 tab(s) orally once a day; Duration: 90 day(s) Active Vitamin D3 50 MCG (1999 UT) 2 capsules Orally Once a day 10/12/2023 Active CPAP SUPPLIES DIRECTED 08/12/2020 Act charis CoQ-10 100 MG 1 cap(s) orally once a day Active Aspirin 81 MG 1 tab(s) orally once a day; Duration: 30 day(s) Active EpiPen 2-Hebert 0.3 MG/0.3ML as directed intramuscularly once 09/28/2020 Active Immunizations Vaccine Route Administration Date Status Comme nts Fluzone Quad (6months&older) IM Intramuscular 06/26/2024 Administered Prevnar (PCV20) IM Intramuscular 06/26/2024 Administered Vital Signs Weight 234.2 lbs 06/26/2024 Blood pressure systolic 130 mm Hg 06/26/20 24 Blood pressure diastolic 70 mm Hg 024 Heart Rate 86 /min 06/26/2024 Height 63 in 06/26/2024 BMI 41.48 kg/m2 06/26/2024 Encounters Encounter Location Date Provider Diagnosis [facility] [address] [place] [id number] 06/26/2024 Trent Avery Type 2 diabetes yelitza itus without complication, without long-term current use of insulin E11.9 ; Essential (primary) hypertension I10 ; Hypothyroidism, unspecified E03.9 ; Hyperlipidemia, unspecified hyperlipidemia type E78.5 ; Vitamin D deficiency E55.9 ; Tremor, unspecified R25.1 ; Chronic hypokalemia E87.6 ; Obesity, unspecified classification, unspecified obesity type, unspecified whether serious comorbidity present E66.9 ; Chronic obstructive pulmonary disease, unspecified COPD type J44.9 and Encounter for immunization Z23 Assessments Encounter Date Diagnosis (ICD Code) Assessment Notes Treatment Notes Treatment Clinical Notes Section Notes 06/26/2024 Type 2 diabetes mellitus without complication, without long-term current use of insulin (ICD-10 - E11.9) 06/26/2024 Essential (primary) hypertension (ICD-10 - I10) 06/26/2024 Hypothyroidism, unspecified (ICD-10 - E03.9) 06/26/2024 Hyperlipidemia, unspecified hyperlipidemia type (ICD-10 - E78.5) 06/26/2024 Vitamin D deficiency (ICD-10 - E55.9) 06/26/2024 Tremor, unspecified (ICD-10 - R25.1) 06/26/2024 Chronic hypokalemia (ICD-10 - E87.6) 06/26/2024 Obesity, unspecified classification, unspecified obesity type, unspecified whether serious comorbidity present (ICD-10 - E66.9) 06/26/2024 Chronic obstructive pulmonary disease, unspecified COPD type (ICD-10 - J44.9) 06/26/2024 Encounter for immunization (ICD-10 - Z23) Plan Of Treatment Referrals Referral Date Details 06/26/2024 06/26/2024, Rubia carvalho Next Appt Details Follow Up: 6 Months, Reason: Provider Name:Sherry Styles y, 09/05/2025 10:30:00 AM, [address], [address], [place], [place], [id number], Provider Name:Trent Herrera ry, 02/11/2026 09:00:00 AM, [address], [address], [place], [place], [id number], Progress Notes * Angelika GARRISON:1960 (65 yo F)Acc No.[id number]:06/26/2024 Progress Notes Patient: Barb DOBBINS Provider: Amita Avery M.D. :1960 A ge:64 Y S ex:Female Date:06/26/2024 Address:[address] [place] [address] [place], [id number] Subjective: * Chief Complaints: * 1 . Discuss medication. * HPI: H PI: 64 year old female presents with c/o Patient is here today for?Pt complains of not feeling well. States she is staring off into space , tired and has tremors. Pt states she noticed this about a month ago and mom thinks that she may have had a stroke. Pt states she thinks it is one of her medications causing these issues. Pt states her grandmother has Parkinsons and pt is concerned about that as well due to the tremors. * ROS: D ERMATOLOGY: no R omid. [...] Hospitalization/Major Diagno stic Procedure: K nee Pain- [facility] [place], Pneumonia, Bronchitis- [facility] 06/30-. * Family History: F ather: alive, [...] daily , Taking Vitamin D3 50 MCG (1999 UT) Capsule 2 capsules Orally Once a day , Taking Montelukast Sodium 10 MG Tablet 1 tab(s) orally once a day , Taking metFORMIN HCl ER 500 MG Tablet Extended Release 24 Hour 2 tab(s) orally once a day , Taking Furosemide 40 MG Tablet 1 tablet Orally Once a day , Taking ARIPiprazole 10 MG [...] once daily , Taking Potassium Chloride ER 20 MEQ Tablet Extended Release 1 tablet with food Orally twice a day , Taking Trulicity 1.5 MG/0.5ML Solution Pen-injector as directed Subcutaneous once weekly , Taking Allopurinol 100 MG Tablet 1 tab(s) orally once a day , Taking amLODIPine Besylate 10 MG Tablet 1 tab(s) orally once a day , Taking Levothyroxine Sodium 125 MCG Tablet 1 tab(s) orally once a day , Taking DULoxetine HCl 60 MG Capsule Delayed Release Particles Take 2 capsules by mouth once daily , Medication List reviewed and reconciled with the patient * Allergies: R amipril: anaphylaxis - Allergy, Atorvastatin: muscle pain - Side Effects. Objective: * Vitals: W t:234.2, Temp:98.0, BP:130/70, HR:86, O2 Sat:95% on RA, Nurse:cris, Ht: 63, BMI:41.48. * Examination: G eneral Examination: General Appearance: N AD. H eart: R SR. L ungs:?clear to auscultation. N eurologic Exam: a lert and oriented, tremor at rest, mainly in the right arm and leg, no cog wheel rigidity, reflexes are symmetrical. Assessment: * Assessment: 1. T ype 2 diabetes mellitus without complication, without long-term current use of insulin - E11.9 (Primary) 2 . E ssential (primary) hypertension - I10 3 .?Hypothyroidism, unspecified - E03.9 4 . H yperlipidemia, unspecified hyperlipidemia type - E78.5 5 . V itamin D deficiency - E55.9 6 . T remor, unspecified - R25.1 7 . C hronic hypokalemia - E87.6 8 .?Obesity, unspecified classification, unspecified obesity type, unspecified whether serious comorbidity present - E66.9 9 . C hronic obstructive pulmonary disease, unspecified COPD type - J44.9 1 0. E ncounter for immunization - Z23 Plan: * Treatment: Value Reference Range A /G Ratio 1.7 1.1-2.5 - * A lbumin 4.3 3.5-5.3 - g/dL * A lkaline Phosphatase 140 H 35-121 - IU/L * A LT (SGPT) 10 <5-47 - IU/L * A ST (SGOT) 11 <5-40 - IU/L * B ilirubin, Total 0.5 <0.2-1.2 - mg/dL * B UN 14 8-23 - mg/dL * C alcium 10.2 8.6-10.4 - mg/dL * C hloride 97 97-108 - mmol/L * C O2 26 22-32 - mmol/L * C reatinine 0.85 0.50-1.00 - mg/dL * G lucose 89 65-99 - mg/dL * P otassium 3.9 3.5-5.3 - mmol/L * S odium 138 135-145 - mmol/L * P rotein 6.8 6.0-8.3 - g/dL * e GFR by Creatinine 77 >59 - mL/min/1.73m2 * Shena Tran 06/27/2024 3:5 1:25 PM >See phone encounter ?LAB: Glucose (In-House) (Collection Date & Time - 06/26/2024)?121* Value Reference Range b lood glucose 121 74 - 106 mg/dL * AntonellaMary L 06/26/2024 11: 55:59 AM > Shena Tran 06/27/2024 3:51:25 PM >See phone encounter ?LAB: Glycohemoglobin A1c (in house) (Collection Date & Time - 06/26/2024)? 5.4* Value Reference Range g lycohemoglobin 5.4% 5 - 6.5 % * AntonellaMary L 06/26/2024 11: 56:33 AM > Shena Tran 06/27/2024 3:51:25 PM >See phone encounter 2.?Essential (primary) hypertension?LAB: P-Comprehensive Metabolic Panel (CMP) (Collection Date & Time - 06/26/2024 10:42 AM)?alk phos 140* Value Reference Range A /G Ratio 1.7 1.1-2.5 - * A lbumin 4.3 3.5-5.3 - g/dL * A lkaline Phosphatase 140 H 35-121 - IU/L * A LT (SGPT) 10 <5-47 - IU/L * A ST (SGOT) 11 <5-40 - IU/L * B ilirubin, Total 0.5 <0.2-1.2 - mg/dL * B UN 14 8-23 - mg/dL * C alcium 10.2 8.6-10.4 - mg/dL * C hloride 97 97-108 - mmol/L * C O2 26 22-32 - mmol/L * C reatinine 0.85 0.50-1.00 - mg/dL * G lucose 89 65-99 - mg/dL * P otassium 3.9 3.5-5.3 - mmol/L * S odium 138 135-145 - mmol/L * P rotein 6.8 6.0-8.3 - g/dL * e GFR by Creatinine 77 >59 - mL/min/1.73m2 * MarcShena 06/27/2024 3:5 1:25 PM >See phone encounter 3.?Hypothyroidism, unspecified?LAB: P-T4 Free (thyroxine) (Collection Date & Time - 06/26/2024 10:42 AM)? 1.86* Value Reference Range T hyroxine Free (free T4) 1.86 H 0.86-1.76 - ng/d L * MarcShena 06/27/2024 3:5 1:25 PM >See phone encounter ?LAB: P-TSH (Collection Date & Time - 06/26/2024 10:42 AM)?0.16* Value Reference Range T SH 0.16 L 0.43-5.25 - mU/L * MarcShena 06/27/2024 3:5 1:25 PM >See phone encounter 4.?Hyperlipidemia, unspecified hyperlipidemia type?LAB: P-Comprehensive Metabolic Panel (CMP) (Collection Date & Time - 06/26/2024 10:42 AM)?alk phos 140* Value Reference Range A /G Ratio 1.7 1.1-2.5 - * A lbumin 4.3 3.5-5.3 - g/dL * A lkaline Phosphatase 140 H 35-121 - IU/L * A LT (SGPT) 10 <5-47 - IU/L * A ST (SGOT) 11 <5-40 - IU/L * B ilirubin, Total 0.5 <0.2-1.2 - mg/dL * B UN 14 8-23 - mg/dL * C alcium 10.2 8.6-10.4 - mg/dL * C hloride 97 97-108 - mmol/L * C O2 26 22-32 - mmol/L * C reatinine 0.85 0.50-1.00 - mg/dL * G lucose 89 65-99 - mg/dL * P otassium 3.9 3.5-5.3 - mmol/L * S odium 138 135-145 - mmol/L * P rotein 6.8 6.0-8.3 - g/dL * e GFR by Creatinine 77 >59 - mL/min/1.73m2 * Shena Tran 06/27/2024 3:5 1:25 PM >See phone encounter ?LAB: P-Lipid Panel (Collection Date & Time - 06/26/2024 10:42 AM)?chol 220, trig 172, chol/hdl 4.49, non-hdl 171, ldl 137* Value Reference Range C holesterol / HDL Ratio 4.49 H 0.00-4.44 - Ratio * C holesterol 220 H <200 - mg/dL * H DL Cholesterol 49 >39 - mg/dL * L DL Cholesterol (Calculation) 137 H <130 - mg/d L * L DL/HDL Ratio 2.8 <3.3 - Ratio * N on-HDL Cholesterol 171 H <130 - mg/dL * T riglycerides 172 H <150 - mg/dL * Shena Tran 06/27/2024 3:5 1:25 PM >See phone encounter 5.?Vitamin D deficiency?LAB: P-Vitamin D 25-Hydroxy (Collection Date & Time - 06/26/2024 10:42 AM)? 40.8* Value Reference Range V itamin D 25-Hydroxy 40.8 30.0-100.0 - ng/mL * Shean Tran 06/27/2024 3:5 1:25 PM >See phone encounter 6.?Tremor, unspecified?LAB: CBC Venipuncture (in house) (Collection Date & Time - 06/26/2024)* Value Reference Range w bc 13.9 3.5 - 10 * l ymph 26.4% 15 - 50 * m id 6.2% 2 - 15 * g ran 67.4% 35 - 80 * r bc 4.84 3.5 - 5.5 * h gb 14.4 11.5 - 16.5 * h ct 41.9 35 - 55 * m cv 86.4 75 - 100 * m ch 29.8 25 - 35 * m chc 34.4 31 - 38 * p latlet 245 100 - 400 * Chula Garvin 06/26/2024 11:59:1 3 AM > Shena Tran 06/27/2024 3:51:25 PM >See phone encounter ? Referral To:Rubia Antoine??Neurology ?Reason: 7.?Chronic hypokalemia?LAB: P-Comprehensive Metabolic Panel (CMP) (Collection Date & Time - 06/26/2024 10:42 AM)?alk phos 140* Value Reference Range A /G Ratio 1.7 1.1-2.5 - * A lbumin 4.3 3.5-5.3 - g/dL * A lkaline Phosphatase 140 H 35-121 - IU/L * A LT (SGPT) 10 <5-47 - IU/L * A ST (SGOT) 11 <5-40 - IU/L * B ilirubin, Total 0.5 <0.2-1.2 - mg/dL * B UN 14 8-23 - mg/dL * C alcium 10.2 8.6-10.4 - mg/dL * C hloride 97 97-108 - mmol/L * C O2 26 22-32 - mmol/L * C reatinine 0.85 0.50-1.00 - mg/dL * G lucose 89 65-99 - mg/dL * P otassium 3.9 3.5-5.3 - mmol/L * S odium 138 135-145 - mmol/L * P rotein 6.8 6.0-8.3 - g/dL * e GFR by Creatinine 77 >59 - mL/min/1.73m2 * Shena Tran 06/27/2024 3:5 1:25 PM >See phone encounter * Immunizations: Fluzone Quad (6months&older) : 0.5 mL (Route: Intramuscular) given by Mary Berman on Right Deltoid (Encounter for immunization) Prevnar (PCV20) : 0.5 mL (Route: Intramuscular) given by Mary Berman on Left Deltoid (Encounter for immunization) * Procedure Codes: 9 4760 [place], [address] GLUCOSE TEST, [address] GLYCATED HEMOGLOBIN TEST, Modifiers: QW , 7[address] CBC WITH AUTO DIFF * Follow Up: 6 Months * Images: Billing Information: * Visit Code: 59565 Office Visit, Est Pt., Level 4. * Procedure Codes: [address] [place]. [address] GLUCOSE TEST. 16342 GLYCATED HEMOGLOBIN TEST. Modifiers: QW 40297 CBC WITH AUTO DIFF. * Electronic signature of Adrianne Avery MD on 09/05/2025 at 11:01 AM EST Sign off status: Pending * Provider: Amita Avery M.D. Date: Generated for Kai arias/Clarence/Xiomararansmitting on: 11/06/2024 11:01 AM EST History and Physical Notes * HPI (History of Present Illness) Category Sub-Category Detail Notes Category Not es HPI Patient is here today for Pt com plains of not feeling well. States she is staring off into space , tired and has tremors. Pt states she noticed this about a month ago and mom thinks that she may have had a stroke. Pt states she thinks it is one of her medications causing these issues. Pt states her grandmother has Parkinsons and pt is concerned about that as well due to the tremors Examination Category Sub-Category Detail Notes Category Not es General Examination Heart: RSR Lungs: clear to auscultatio n General Appearance: NAD Neurologic Exam: alert and oriented, tremor at rest, mainly in the right arm and leg, no cog wheel rigidity, reflexes are symmetrical Consultation Request Notes Referral Date Referring Provider Referred Provider Not es 06/26/2024 Trent Avery Maria
--- OUTSIDE RECORDS SUMMARY | 2024-08-07 05:15 | XMS_ITS ---
Author Organization [facility] Address [address] [facility] [address] [facility] [address] [place] [id number] Care Team Providers Care Web Content Writer Name Role Phone Trent Avery Primary Care Provider Allergies Allergen (clinical drug ingredient) Drug/Non Drug Allergy documented on EMR Reaction Allergy Type Onset Date Status ramipril Ramipril anaphylaxis Drug Allergy Activ e atorvastatin Atorvastatin muscle pain Drug Allergy Active Results Component Value Reference Range Notes CBC Venipuncture (in house) Reviewed date:08/07/2024 11:10:53 AM Interpretation:wbc 21.2, gran 15.9 Performing Lab: Notes/Report: wbc 21.2, gran 15.9 wbc 21.2 3.5 - 10 lymph 19.8 15 - 50 mid 5.1 2 - 15 gran 75.1 35 - 80 rbc 5.33 3.5 - 5.5 hgb 15.5 11.5 - 16.5 hct 46.5 35 - 55 mcv 87.3 75 - 100 mch 29.1 25 - 35 mchc 33.3 31 - 38 platlet 235 100 - 400 P-T4 Free (thyroxine) Reviewed date:08/09/2024 01:41:47 PM Interpretation:Normal Performing Lab: Notes/Report: Test performed by [facility] [employer] [address] [place], [place] [address] [place] , [address], [place] [address] Chris Vásquez MD, Global Category Manager CLIA: [id number] Thyroxine Free (free T4) 1.53 0.86-1.76 ng/dL P-TSH Reviewed date:08/09/2024 01:41:47 PM Interpretation:Normal Performing Lab: Notes/Report: Test performed by [facility] [employer] [address] [place] [address] [address], [place] [address] Chris Vásquez MD, Global Category Manager CLIA: [id number] TSH 0.75 0.43-5.25 mU/L REASON FOR VISIT 5 month follow up Medications Medication SIG (Take, Route, Frequency, Duration) Notes Start Date End Date Status Montelukast Sodium 10 MG 1 tab(s) orally once a day; Duration: 90 day(s) Active Furosemide 40 MG 1 tablet Orally Once a day; Duration: 90 days 01/17/2024 Active ARIPiprazole 10 MG Take 1 tablet by once daily Orally Once a day; Duration: 90 days Active Xarelto 20 MG 1 tablet with food Orally Once a day; Duration: 90 days 05/10/2023 Active Celecoxib 100 MG 1 cap(s) Orally shanel y; Duration: 90 days Active CPAP SUPPLIES DIRECTED 08/12/2020 Act charis Levalbuterol Tartrate 45 MCG/ACT 1 puff as needed Inhalation every 6 hrs as needed 02/21/2023 Active Symbicort 80-4.5 MCG/ACT Inhale 2 puffs by mouth twice daily; Duration: 30 Active Vitamin D3 50 MCG (1999) 2 capsules Orally Once a day 10/12/2023 Active EpiPen 2-Hebert 0.3 MG/0.3ML as directed intramuscularly once 09/28/2020 Active Levothyroxine Sodium 100 MCG 1 tablet in the morning on an empty stomach Orally Once a day; Duration: 90 days 06/28/2024 Active Triamterene-HCTZ 37.5-25 MG 1 capsule in the morning Orally Once a day; Duration: 90 days Active Zithromax Z-Hebert 250 MG as directed Orally once daily; Duration: 5 day(s) 08/07/2024 Active CoQ-10 100 MG 1 cap(s) orally once a day Active Trulicity 3 MG/0.5ML 3 mg Subcutaneous o nce weekly 08/07/2024 Active amLODIPine Besylate 10 MG 1 tab(s) orally once a day; Duration: 90 days Active DULoxetine HCl 60 MG Take 2 capsules by mouth once daily; Duration: 90 days Active CPAP Mask small as directed diagnosis code J44.9 03/18/2024 Active CPAP Supplies - as directed as directed diagnosis code J44.9 03/18/2024 Active Loratadine 10 MG 1 tab(s) orally once a day; Duration: 90 days Active Potassium Chloride ER 20 MEQ 1 tablet with food Orally twice a day; Duration: 90 days 01/17/2024 Active Allopurinol 100 MG 1 tab(s) orally once a day; Duration: 90 days Active Vital Signs Blood pressure systolic 124 mm Hg 08/07/20 24 Blood pressure diastolic 80 mm Hg Heart Rate 91 /min 08/07/2024 Height 63 in 08/07/2024 Weight 233.2 lbs 08/07/2024 BMI 41.31 kg/m2 08/07/2024 Encounters Encounter Location Date Provider Diagnosis [facility] [address] [facility] [address] [facility] [address] [place] [id number] 08/07/2024 Trent Avery Type 2 diabetes mellitus without complication, without long-term current use of insulin E11.9 ; Chronic diarrhea K52.9 ; Hypothyroidism, unspecified E03.9 and Cough, unspecified type R05.9 Assessments Encounter Date Diagnosis (ICD Code) Assessment Notes Treatment Notes Treatment Clinical Notes Section Notes 08/07/2024 Type 2 diabetes mellitus without complication, without long-term current use of insulin (ICD-10 - E11.9) 08/07/2024 Chronic diarrhea (ICD-10 - K52.9) 08/07/2024 Hypothyroidism, unspecified (ICD-10 - E03.9) 08/07/2024 Cough, unspecified type (ICD-10 - R05.9) Plan Of Treatment Medication Medication Name Sig Start Date Stop Date Notes Zithromax Z-Hebert 250 MG as directed Orall y once daily; Duration: 5 day(s) 08/07/2024 Trulicity 1.5 MG/0.5ML as directed Subcu taneous once weekly 10/09/2023 metFORMIN HCl ER 500 MG 2 tab(s) orally once a day Trulicity 3 MG/0.5ML 3 mg Subcutaneous once weekly 024 Next Appt Details Follow Up: 3 Months fasting, Reason: Provider Name:Sherry Styles y, 09/05/2025 10:30:00 AM, [address] [facility] [address] [facility], [address], [place], [place], [phone], Provider Name:Trent Herrera ry, 02/11/2026 09:00:00 AM, [address] [facility] [address] [facility], [address], [place], [place], [id number], Progress Notes * Amber GARRISONOB:1960 (65 yo F)Acc No.[id number]:08/07/2024 Progress Notes Patient: Barb DOBBINS Provider: Amita Avery M.D. :1960 A ge:64 Y S ex:Female Date:08/07/2024 Address:[address] [place] [address] [address] [place], [id number] Subjective: * Chief Complaints: * 1 . 5 month follow up. * HPI: K nee/Watkins: 64 year old female presents with c/o knee pain P t sts that a few weeks ago she had to go to [facility] ER because she had a hyperextension of the right knee. She was referred to Dr. King and has been doing therapy. E ndocrinology: Maintenance P t presents today for a 5 month check up. Pt is fasting today. Pt is due for labs after a change in her dose of Levothyroxine. * ROS: D ERMATOLOGY: no R omid. [...] Hospitalization/Major Diagno stic Procedure: K nee Pain- [facility] [place] 10/05/[place], Pneumonia, Bronchitis- [facility] 06/30-, Hyperextension of Right Knee - [facility] ER referred to Dr. King 07/2024. * Family History: F ather: alive, diagnosed [...] Auto-injector as directed intramuscularly once , Taking CPAP SUPPLIES DIRECTED , Taking [...] tab(s) orally once a day , Taking Potassium Chloride ER 20 MEQ Tablet Extended Release 1 tablet with food Orally twice a day , Taking Allopurinol 100 MG Tablet 1 tab(s) orally once a day , Taking amLODIPine Besylate 10 MG Tablet 1 tab(s) orally once a day , Taking DULoxetine HCl 60 MG Capsule Delayed Release Particles Take 2 capsules by mouth once daily , Taking Levothyroxine Sodium 100 MCG Tablet 1 tablet in the morning on an empty stomach Orally Once a day , Taking Triamterene-HCTZ 37.5-25 MG Capsule 1 capsule in the morning Orally Once a day , Taking metFORMIN HCl ER 500 MG Tablet Extended Release 24 Hour 2 tab(s) orally once a day , Taking Trulicity 1.5 MG/0.5ML Solution Pen-injector as directed Subcutaneous once weekly , Discontinued Aspirin 81 MG Tablet Delayed Release 1 tab(s) orally once a day , Medication List reviewed and reconciled with the patient * Allergies: R amipril: anaphylaxis - Allergy, Atorvastatin: muscle pain - Side Effects. Objective: * Vitals: W t:233.2, Temp:97.8, BP:124/80, HR:91, O2 Sat:100% on RA, Nurse:BIGG, Ht: 63, BMI:41.31. * Examination: C ardiology: General Appearance: p leasant, NAD. H EENT: m inimal erythema on the posterior oropharynx. H eart sounds: R RR, normal S1, S2. L ungs: c lear, no rales or wheezes. E xtremities: b ilateral t race leg edema. P eripheral pulses: 2 plus bilateral. Assessment: * Assessment: 1. T ype 2 diabetes mellitus without complication, without long-term current use of insulin - E11.9 (Primary) 2 . C hronic diarrhea - K52.9 3 . H ypothyroidism, unspecified - E03.9 4 . C ough, unspecified type - R05.9 Plan: * Treatment: 2. C hronic diarrhea L AB: CBC Venipuncture (in house) (Collection Date & Time - 08/07/2024) w bc 21.2, gran 15.9 Value Reference Range w bc 21.2 3.5 - 10 * l ymph 19.8 15 - 50 * m id 5.1 2 - 15 * g ran 75.1 35 - 80 * r bc 5.33 3.5 - 5.5 * h gb 15.5 11.5 - 16.5 * h ct 46.5 35 - 55 * m cv 87.3 75 - 100 * m ch 29.1 25 - 35 * m chc 33.3 31 - 38 * p latlet 235 100 - 400 * Bertha Evans 08/07/2024 11: 10:27 AM > results reviewed w/ pt in office 3.?Hypothyroidism, unspecified?LAB: P-T4 Free (thyroxine) (Collection Date & Time - 08/07/2024 09:32 AM)? Normal* Value Reference Range T hyroxine Free (free T4) 1.53 0.86-1.76 - ng/d L * Bertha Evans 08/09/2024 1:4 1:39 PM > pt informed of results ?LAB: P-TSH (Collection Date & Time - 08/07/2024 09:32 AM)?Normal* Value Reference Range T SH 0.75 0.43-5.25 - mU/L * Bertha Evans 08/09/2024 1:4 1:39 PM > pt informed of results 4.?Cough, unspecified type? Start Zithromax Z-Hebert Tablet, 250 MG, as directed, Orally, once daily, 5 day(s), 6 tabs, Refills 0. ? * Procedure Codes: 9 4760 [place], [address] CBC WITH AUTO DIFF * Follow Up: 3 Months fasting * Images: Billing Information: * Visit Code: 24447 Office Visit, Est Pt., Level 4. * Procedure Codes: [address] [place]. [address] CBC WITH AUTO DIFF. * Electronic signature of Adrianne Avery MD on 09/05/2025 at 11:01 AM EST Sign off status: Pending * Provider: Amita Avery M.D. Date: 10/07/2023 Generated for Kai arias/Clarence/eTransmitting on: 11/06/2024 11:01 AM EST History and Physical Notes * HPI (History of Present Illness) Category Sub-Category Detail Notes Category Not es [facility]ocrinology [facility] Pt is fasting today. Pt is due for labs after a change in her dose of Levothyroxine Knee/Watkins knee pain Pt sts that a fe w weeks ago she had to go to [facility] ER because she had a hyperextension of the right knee. She was referred to Dr. King and has been doing therapy Examination Category Sub-Category Detail Notes Category Not es Cardiology Lungs: clear, no rales or wheezes HEENT: minimal erythema on the posterior oropharynx Heart sounds: RRR, normal S1, S2 Extremities: bilateral trace leg edema Peripheral pulses: 2 plus bilateral General Appearance: pleasant, NAD
--- OUTSIDE RECORDS SUMMARY | 2024-11-11 04:15 | XMS_ITS ---
Author Organization [facility] Address [address] [facility] [address] [place] [id number] Care Team Providers Care Ship Wirer Name Role Phone Trent Avery Primary Care [...] 153 Performing Lab: Notes/Report: Test performed by [facility] [employer] [address] [place] [address] , [address], [place] [address] Chris Vásquez MD, Business Representative CLIA: [id number] Sodium 139 135-145 mmol/L Potassium 3.9 3.5-5.3 [...] Interpretation:Normal Performing Lab: Notes/Report: Test performed by [facility] [address] [place] [address] , [address], [place] [address] Chris Vásquez MD, Business Representative CLIA: [id number] Thyroxine Free (free T4) 1.49 0.86-1.76 ng/dL P-Lipid Panel Reviewed date:11/12/2024 09:17:42 AM Interpretation:chol 255, trigs 173, chol/hdl 4.9, non-hdl 203, ldl 168 Performing Lab: Notes/Report: Test performed by [facility] [address] [place], [place] [address] [address] , [address], [place] [address] Chris Vásquez MD, Business Representative CLIA: [id number] Cholesterol 255 <200 mg/dL Triglycerides 173 <150 [...] Interpretation:Normal Performing Lab: Notes/Report: Test performed by [facility] [address] [place], [place] [address] [place] , [address], [place] [address] Chris Vásquez MD, Business Representative CLIA: [id number] TSH 1.20 0.43-5.25 mU/L P-Microalbumin/Creatinine, R andom Urine Sample Reviewed date:11/12/2024 09:17:42 AM Interpretation:a/c 57 Performing Lab: Notes/Report: Test performed by [facility] [address] [place], [place] [address] [address] , [address], [place] [address] Chris Vásquez MD, Business Representative CLIA: [id number] Albumin/Creatinine Ratio, Urine 57 0-30 ug/m g Microalbumin, Urine, Random 7.7 Creatinine, Urine 134.8 P-Uric Acid Reviewed date:11/12/2024 09:17:42 AM Interpretation:7.6 Performing Lab: Notes/Report: Test performed by [facility] [address] [place] [address] [place] [address] Chris Vásquez MD, Business Representative CLIA: [id number] Uric Acid 7.6 2.4-7.0 mg/dL P-Vitamin D 25-Hydroxy Reviewed date:11/12/2024 09:17:42 AM Interpretation:34.3 Performing Lab: Notes/Report: Test performed by [facility] [address] [place] [address] [place] [address] Chris Vásquez MD, Business Representative CLIA: [id number] Vitamin D 25-Hydroxy 34.3 30.0-100.0 ng/mL Interpretation [...] Encounter Location Date Provider Diagnosis SurajColeman 1210 [facility] [address] [id number] 11/11/2024 Trent Avery Type 2 diabetes yelitza [...] Name:Sherry Styles y, 09/05/2025 10:30:00 AM, 12[address] [facility] 36 [facility], [facility] [address], [place], [place], [id number], Provider Name:Trent Herrera ry, 02/11/2026 09:00:00 AM, 12[address] [facility] 36 [facility], [address], [place], [place], [id number], Progress Notes * Nisa GARRISONRamonOB:1960 (65 yo F)Acc No.[id number]:11/11/2024 Progress Notes Patient: Barb DOBBINS Provider: Amita Avery M.D. :1960 A ge:64 Y S ex:Female Date:11/11/2024 Address:[address] [place] [address] TREVON Alexandra, [id number] Subjective: * Chief Complaints: * 1 . [...] Hospitalization/Major Diagno stic Procedure: K nee Pain- [facility] 10/05/2018, Pneumonia, Bronchitis- [facility] 06/30-, Hyperextension of Right Knee - [facility] ER referred to Dr. King 07/2024. [...] glucose 108 74 - 106 mg/dL * BharathiChula 11/11/2024 12:33:2 1 PM > Griselda Rivera 11/12/2024 9:17:32 AM >See phone encounter ?LAB: Glycohemoglobin A1c (in house) (Collection Date & Time - 11/11/2024)? 5.5* Value Reference Range g lycohemoglobin 5.5% 5 - 6.5 % * Chula Garvin 11/11/2024 12:33:3 9 PM > Griselda Rivera 11/12/2024 9:17:32 AM >See phone encounter 2.?Essential [...] * Procedure Codes: 8 2950 GLUCOSE TEST, [address] GLYCATED HEMOGLOBIN TEST, Modifiers: QW , 3075F SYST BP GE 130 - 139MM HG, 3078F DIAST BP < 80 MM HG, 3044F HG A1C LEVEL LT 7.0% * Follow Up: 6 Months * Images: Billing Information: * Visit Code: 48163 Office Visit, Est Pt., Level 4. * Procedure Codes: 71062 GLUCOSE TEST. [address] GLYCATED HEMOGLOBIN TEST. Modifiers: QW 3075F SYST BP GE 130 - 139MM HG. 3078F DIAST BP < 80 MM HG. 3044F HG A1C LEVEL LT 7.0%. * Electronic signature of Adrianne Avery MD on 09/05/2025 at 11:02 AM EST Sign off status: Pending * Provider: Amita Avery M.D. Date: 0 11/11/2024 Generated for Kai arias/Clarence/Lindasmitting on: 1 11/06/2024 11:02 AM EST History [...]
--- OUTSIDE RECORDS SUMMARY | 2025-02-07 04:45 | XMS_ITS ---
Author Organization [facility] Address [address] [facility] [address] [facility] [address] [place] [id number] Care Team Providers Care Home Weatherizing Worker Name Role Phone Trent Avery Primary Care Provider [phone] Allergies Allergen (clinical drug ingredient) Drug/Non Drug [...] 57 Performing Lab: Notes/Report: Test performed by [facility], [facility] [employer] [facility] [address] [place] [address] , [address], [place] [address] Chris Vásquez MD, Banner Painter CLIA: [id number] Sodium 140 135-145 mmol/L Potassium 3.9 3.5-5.3 mmol/L Chloride 104 97-108 mmol/L CO2 22 22-32 mmol/L Glucose 111 65-99 mg/dL BUN 15 8-23 mg/dL Creatinine 1.08 0.50-1.00 mg/dL Calcium 9.8 8.6-10.4 mg/dL eGFR by Creatinine 57 >59 mL/min/1.73m2 P-Lipid Panel Reviewed date:02/11/2025 11:47:02 AM Interpretation:chol 245, trigs 178, chol/hdl 4.8, non-hdl 194, ldl 158 Performing Lab: Notes/Report: Test performed by [facility], [address] , [address], [place] [address] Chris Vásquez MD, Banner Painter CLIA: [id number] Cholesterol 245 <200 mg/dL Triglycerides 178 <150 [...] W/U Status Risk Notes Problem Primary insomnia (3018079) Primary insomnia (F51.01) Active confirmed Problem Body mass index 40+ - morbidly obese (070958818) BMI 40.0-44.9, adult (Z68.41) Active confirmed Vital Signs Blood pressure systolic 130 mm Hg 02/08/20 25 Blood pressure diastolic 76 mm Hg 025 Heart Rate 86 /min 02/07/2025 Height 63 in 02/07/2025 Weight 247.8 lbs 02/07/2025 BMI 43.89 kg/m2 02/07/2025 Encounters Encounter Location Date Provider Diagnosis [facility] [phone] 02/07/2025 Trent Avery Type 2 diabetes yelitza [...] [address], [address], [place], [place], [id number], Provider Name:Trent Herrera ry, 02/11/2026 09:00:00 AM, [address], [address], [place], [place], [phone], Progress Notes * Nisa GARRISONRamonOB:1960 (65 yo F)Acc No.[id number]:02/07/2025 Progress Notes Patient: Barb DOBBINS Provider: Amita Avery M.D. :1960 A ge:64 Y S ex:Female Date:02/07/2025 Address:[address] [place] [address] [place] AlexandraMIGUE, [id number] Subjective: * Chief Complaints: * 1 . [...] Diagno stic Procedure: K nee Pain- [facility] 10/05/2018, Pneumonia, Bronchitis- [facility] 06/30-, Hyperextension of Right Knee - [facility] ER referred to Dr. King [...] rimary insomnia - F51.01 6 . B [place] 40.0-44.9, adult - Z68.41 Plan: * Treatment: [...] glucose 134 74 - 106 mg/dL * Nancy Soto 02/07/2025 10:4 9:30 AM > Griselda Rivera 02/11/2025 11:46:55 AM > See phone encounter ?LAB: Glycohemoglobin A1c (in house) (Collection Date & Time - 02/07/2025)? 6.0%* Value Reference Range g lycohemoglobin 6.0% 5 - 6.5 % * Nancy Soto 02/07/2025 10:4 9:49 AM > Griselda Rivera [...] * Procedure Codes: 8 2950 GLUCOSE TEST, 20662 GLYCATED HEMOGLOBIN TEST, Modifiers: QW , 3044F HG A1C LEVEL LT 7.0%, G8950 PREHTN/HTN BP DOC INDCD F/U DOC, G8752 MOST RECENT SYSTOLIC BP < 140MM HG, G8754 MOST RECENT DIASTOLIC BP < 90MM HG * Follow Up: 6 Months * Images: Billing Information: * Visit Code: 85653 Office Visit, Est Pt., Level 4. * Procedure Codes: 28857 GLUCOSE TEST. 63801 GLYCATED HEMOGLOBIN TEST. Modifiers: QW 3044F HG [...] 0 02/07/2025 Generated for Kai arias/Clarence/Jacobitting on: 1 11/06/2024 11:01 AM EST History and Physical [...]
--- OUTSIDE RECORDS SUMMARY | 2025-05-12 04:00 | XMS_ITS ---
Author Organization [facility] Address [address] [facility] 36 [facility] [address] [place] [id number] Care Team Providers Care Tug Boat Captain Name Role Phone Trent Avery Primary Care Provider [phone] REASON FOR VISIT 6 month check Encounters Encounter Location Date Provider Diagnosis [place] [address] [place] [phone] 05/12/2025 Trent Avery Plan Of Treatment Next Appt Details Provider Name:Sherry Styles y, 09/05/2025 10:30:00 AM, [address], [address], [place], [place], [phone], Provider Name:Trent Herrera ry, 02/11/2026 09:00:00 AM, [address], [address], [place], [place], [phone], Progress Notes * Amber GARRISONOB:1960 (65 yo F)Acc No.[id number]:05/12/2025 Progress Notes Patient: Barb DOBBINS Provider: Amita Avery M.D. :1960 A ge:65 Y S ex:Female Date:05/12/2025 Address:[address] [place] [address] T[place]VON Alexandra [id number] Subjective: * Chief Complaints: * 1 . 6 month check. * Medical History: Objective: * Vitals: Assessment: Plan: * Treatment: * Images: Billing Information: * Visit Code: * Procedure Codes: * Electronic signature of Adrianne Avery MD on 09/05/2025 at 11:01 AM EST Sign off status: Pending * Provider: Amita Avery M.D. Date: 0 05/12/2025 Generated for Kai arias/Clarence/Jose on: 1 11/06/2024 11:01 AM EST
--- OUTSIDE RECORDS SUMMARY | 2025-08-11 05:00 | XMS_ITS ---
Author Organization [facility] Address [address] [facility] [address] [place] [id number] Care Team Providers Care Country Printer Apprentice Name Role Phone Trent Avery Primary Care Provider [phone] Allergies Allergen (clinical drug ingredient) Drug/Non Drug Allergy documented on EMR Reaction Allergy Type Onset Date Status ramipril Ramipril anaphylaxis Drug Allergy Activ e atorvastatin Atorvastatin muscle pain Drug Allergy Active REASON FOR VISIT 6 months Medications Medication SIG (Take, Route, Frequency, Duration) Notes Start Date End Date Status Topiramate 25 MG 1 tablet Orally Once a day Active Celecoxib 100 MG 1 cap(s) Orally shanel y; Duration: 30 days Active Breyna 160-4.5 MCG/ACT as directed Inhalation Activ e Potassium Chloride ER 20 MEQ 1 tablet with food Orally twice a day; Duration: 90 days Active QUEtiapine Fumarate 25 MG 1 or 2 tablets at bedtime Orally Once a day Active Loratadine 10 MG 1 tab(s) orally once a day; Duration: 90 days Active Trulicity 4.5 MG/0.5ML 4.5 mg Subcutaneous once weekly 02/07/2025 Active Xarelto 10 MG 1 tablet with food Orally Once a day; Duration: 90 days 05/10/2023 Active Furosemide 40 MG 1 tablet Orally Once a day; Duration: 90 days Active DULoxetine HCl 60 MG Take 2 capsules by mouth once daily Orally Once a day; Duration: 90 days Active Levothyroxine Sodium 125 MCG Take 1 tablet by mouth once daily Orally Once a day; Duration: 90 days Active Vitamin D3 50 MCG (1999) 3 capsules Orally Once a day 10/12/2023 Active Triamterene-HCTZ 37.5-25 MG 1 capsule in the morning Orally Once a day Active CPAP Supplies - as directed as directed diagnosis code J44.9 03/18/2024 Active CPAP Mask small as directed diagnosis code J44.9 03/18/2024 Active Allopurinol 100 MG 1 tablet Orally Once a day; Duration: 90 days Active Ezetimibe 10 MG 1 tablet Orally Once a day; Duration: 90 days 11/14/2024 Active Montelukast Sodium 10 MG 1 tab(s) orally once a day; Duration: 90 day(s) Active EpiPen 2-Hebert 0.3 MG/0.3ML as directed intramuscularly once 09/28/2020 Active CoQ-10 100 MG 1 cap(s) orally once a day Active CPAP SUPPLIES DIRECTED 08/12/2020 Act charis amLODIPine Besylate 10 MG 1 tablet Orally Once a day; Duration: 90 days Active Immunizations Vaccine Route Administration Date Status Comme nts Tere Rivas (6months&older) IM Intramuscular 08/11/2025 Administered Vital Signs Weight 267 lbs 08/11/2025 Blood pressure systolic 130 mm Hg 08/11/20 25 Blood pressure diastolic 80 mm Hg 025 Heart Rate 88 /min 08/11/2025 Height 63 in 08/11/2025 BMI 47.29 kg/m2 08/11/2025 Encounters Encounter Location Date Provider Diagnosis [facility] [address] [facility] [address] [place], [place] [id number] 08/11/2025 Trent Avery Essential hypertensi on I10 ; Hyperlipidemia, unspecified hyperlipidemia type E78.5 ; Chronic gout without tophus, unspecified cause, unspecified site M1A.9XX0 ; Morbid obesity E66.01 and Encounter for immunization Z23 Assessments Encounter Date Diagnosis (ICD Code) Assessment Notes Treatment Notes Treatment Clinical Notes Section Notes 08/11/2025 Essential hypertension (ICD-10 - I10) 08/11/2025 Hyperlipidemia, unspecified hyperlipidemia type (ICD-10 - E78.5) 08/11/2025 Chronic gout without tophus, unspecified cause, unspecified site (ICD-10 - M1A.9XX0) 08/11/2025 Morbid obesity (ICD-10 - E66.01) 08/11/2025 Encounter for immunization (ICD-10 - Z23) Plan Of Treatment Medication Medication Name Sig Start Date Stop Date Notes Allopurinol 100 MG 1 tablet Orally Once a day; Duration: 90 days Ezetimibe 10 MG 1 tablet Orally Once a day; Duration: 90 days 11/14/2024 amLODIPine Besylate 10 MG 1 tablet Orall y Once a day; Duration: 90 days Next Appt Details Follow Up: 6 Months fasting, Reason: Provider Name:Sherry Styles y, 09/05/2025 10:30:00 AM, [address], [address], [place], [id number], Provider Name:Trent Herrera ry, 02/11/2026 09:00:00 AM, [address], [address], [place], [place], [id number], Progress Notes * Amber GARRISONOB:1960 (65 yo F)Acc No.[id number]:08/11/2025 Progress Notes Patient: Barb DOBBINS Provider: Amita Avery M.D. :1960 A ge:65 Y S ex:Female Date:08/11/2025 Address:[address] [place] [address] [place], [id number] Subjective: * Chief Complaints: * 1 . 6 months. * HPI: C ardiology: 65 year old female presents with c/o Blood Pressure Elevated?Pt here for 6 mo checkup on hypertension. Pt states she is doing well and does not have any concerns at this time. c/o Hyperlipidemia P t is not fasting today. E ndocrinology: c/o Recent Blood Sugars P t here for checkup on DM 2. * Medical History: T ype 2 Diabetes, Asthma, Hypertension, Hyperlipidemia, Hypothyroidism, Allergies, Arthritis, Gall Bladder Disease, Depression, 35 Year Smoking Hx as of 2019, Gout, Sleep Apnea, DVT, Pulmonary embolism, Colon polyps. * Surgical History: T onsillectomy 1965, x 2 1990, 1993, Cholecystectomy 1993, Bladder Suspension 1994, Hysterectomy 1995, LT Cataract Removal 08/18/2015, Hernia Repair 11/04/2020, RT Ankle 01/20/2021, colonoscopy 2024. * Hospitalization/Major Diagno stic Procedure: K nee Pain- [facility] 10/05/2018, Pneumonia, Bronchitis- [facility] 06/30-, Hyperextension of Right Knee - [facility] ER referred to Dr. King 07/2024. * Family History: F ather: alive, diagnosed with Hypertension, Heart Disease. M other: alive, diagnosed with Hypertension, Diabetes. 2 brother(s) , 1 sister(s) - healthy. 1 son(s) , 1 daughter(s) - healthy. . * Social History: C URRENT TOBACCO USE: Yes S moking Status: P atient does smoke, p acks per day:?0.5, n umber of cigarettes per day: 1 0, S basim age of: 2 6, S moking preference: c igarettes. C affeine: yes, frequency: coffee, mt dew - daily. Home smoke detector use: yes. Marital Status: Single. Alcohol: No. Sexually active: yes. * Medications: T aking Breyna 160-4.5 MCG/ACT Aerosol as directed Inhalation , Taking Topiramate 25 MG Tablet 1 tablet Orally Once a day , Taking CoQ-10 100 MG Capsule 1 cap(s) orally once a day , Taking EpiPen 2-Hebert 0.3 MG/0.3ML Solution Auto-injector as directed intramuscularly once , Taking CPAP SUPPLIES DIRECTED , Taking Montelukast Sodium 10 MG Tablet 1 tab(s) orally once a day , Taking CPAP Mask small as directed , Notes to Pharmacist: diagnosis code J44.9, Taking CPAP Supplies - - as directed as directed , Notes to Pharmacist: diagnosis code J44.9, Taking Triamterene-HCTZ 37.5-25 MG Capsule 1 capsule in the morning Orally Once a day , Taking Vitamin D3 50 MCG (2000 UT) Capsule 3 capsules Orally Once a day , Taking Levothyroxine Sodium 125 MCG Tablet Take 1 tablet by mouth once daily Orally Once a day , Taking Trulicity 4.5 MG/0.5ML Solution Auto-injector 4.5 mg Subcutaneous once weekly , Taking Loratadine 10 MG Tablet 1 tab(s) orally once a day , Taking Xarelto 10 MG Tablet 1 tablet with food Orally Once a day , Taking amLODIPine Besylate 10 MG Tablet 1 tablet Orally Once a day , Taking Furosemide 40 MG Tablet 1 tablet Orally Once a day , Taking Ezetimibe 10 MG Tablet 1 tablet Orally Once a day , Taking Allopurinol 100 MG Tablet 1 tablet Orally Once a day , Taking DULoxetine HCl 60 MG Capsule Delayed Release Particles Take 2 capsules by mouth once daily Orally Once a day , Taking QUEtiapine Fumarate 25 MG Tablet 1 or 2 tablets at bedtime Orally Once a day , Taking Potassium Chloride ER 20 MEQ Tablet Extended Release 1 tablet with food Orally twice a day , Taking Celecoxib 100 MG Capsule 1 cap(s) Orally daily , Discontinued Levalbuterol Tartrate 45 MCG/ACT Aerosol 1 puff as needed Inhalation every 6 hrs as needed , Discontinued Symbicort 80-4.5 MCG/ACT Aerosol Inhale 2 puffs by mouth twice daily , Medication List reviewed and reconciled with the patient * Allergies: R amipril: anaphylaxis - Allergy, Atorvastatin: muscle pain - Side Effects. Objective: * Vitals: W t: 267, Temp: 97.8, BP: 130/80, HR: 88, Nurse: cris, Ht: 63, BMI:47.29. * Examination: C ardiology: General Appearance: p leasant, NAD. H EENT: u nremarkable. H eart sounds: R RR, normal S1, S2. L ungs: c lear, no rales or wheezes.?Extremities: b ilateral t race leg edema. P eripheral pulses: 2 plus bilateral.? Assessment: * Assessment: 1. E ssential hypertension - I10 (Primary) 2 . H yperlipidemia, unspecified hyperlipidemia type - E78.5 3 . C hronic gout without tophus, unspecified cause, unspecified site - M1A.9XX0 4 . M orbid obesity - E66.01 5 . Encounter for immunization - Z23 Plan: * Treatment: 2. H yperlipidemia, unspecified hyperlipidemia type Refill Ezetimibe Tablet, 10 MG, 1 tablet, Orally, Once a day, 90 days, 90, Refills 1. 3. C hronic gout without tophus, unspecified cause, unspecified site Refill Allopurinol Tablet, 100 MG, 1 tablet, Orally, Once a day, 90 days, 90, Refills 1. * Immunizations: Fluzone Quad (6months&older) : 0.5 mL (Route: Intramuscular) given by TRACEY Miller , Master Plumber on Right Deltoid (Encounter for immunization) * Procedure Codes: 3 075F SYST BP GE 130 - 139MM HG, 3079F DIAST BP 80-89 MM HG * Follow Up: 6 Months fasting * Images: Billing Information: * Visit Code: 27971 Office Visit, Est Pt., Level 4. * Procedure Codes: 3075F SYST BP GE 130 - 139MM HG. 3079F DIAST BP 80-89 MM HG. * Electronic signature of Adrianne Avery MD on 09/05/2025 at 11:01 AM EST Sign off status: Pending * Provider: Amita Avery M.D. Date: 10/11/2024 Generated for Kai arias/Clarence/Lindasmitting on: 11/06/2024 11:01 AM EST History and Physical Notes * HPI (History of Present Illness) Category Sub-Category Detail Notes Category Not es Endocrinology Recent Blood Sugars Pt here for checkup on DM 2 Cardiology Blood Pressure Elevated Pt here for 6 mo checkup on hypertension. Pt states she is doing well and does not have any concerns at this time Hyperlipidemia Pt is not fasting to day Examination Category Sub-Category Detail Notes Category Not es Cardiology Lungs: clear, no rales or wheezes HEENT: unremarkable Heart sounds: RRR, normal S1, S2 Extremities: bilateral trace leg edema Peripheral pulses: 2 plus bilateral General Appearance: pleasant, NAD
--- NOTE | 2025-09-05 10:59 | XR_ITS ---
FINAL REPORT CLINICAL HISTORY: INJURY, FALL, LT SHOULDER PAIN COMPARISON: None FINDINGS: 2 views of the left clavicle were obtained. There is no acute fracture. The joint spaces are intact. There is no soft tissue abnormality. IMPRESSION: No acute process. Reviewed, Interpreted and Dictated by Nikhil Cali MD Transcribed by Maura Martines Authenticated and [facility]
--- NOTE | 2025-09-05 10:59 | XR_ITS ---
FINAL REPORT CLINICAL HISTORY: INJURY, FALL, LT SHOULDER PAIN COMPARISON: None FINDINGS: LEFT SHOULDER 3 views of the left shoulder were obtained. There is no acute fracture or dislocation. Small density overlying the greater tuberosity may be due to old trauma. Visualized joint spaces are normally aligned. Soft tissues are unremarkable. IMPRESSION: No acute bony abnormality. Reviewed, Interpreted and Dictated by Nikhil Cali MD Transcribed by Maura Martines Authenticated and [facility]
--- OUTSIDE RECORDS SUMMARY | 2025-09-05 11:01 | XMS_ITS | Patient Health Record ---
[facility] [address] [facility] [address] [place] [id number] Care Team Providers Care Procedures Analyst Name Role Phone Trent Avery Primary Care Provider Sherry Erickson Unavailable [phone] Allergies Allergen (clinical drug ingredient) Drug/Non Drug Allergy documented on EMR Reaction Allergy Type Onset Date Status ramipril Ramipril anaphylaxis Drug Allergy Activ e atorvastatin Atorvastatin muscle pain Drug Allergy Active Results Component Value Reference Range Notes Cologuard Reviewed date:03/18/2025 02:47:11 PM Interpretation:Positive Performing Lab: Notes/Report: Positive Cologuard positive P-Lipid Panel Reviewed date:02/11/2025 11:47:02 AM Interpretation:chol 245, trigs 178, chol/hdl 4.8, non-hdl 194, ldl 158 Performing Lab: Notes/Report: Test performed by [facility] [address] [place] [address] , [address], [place] [address] Chris Vásquez MD, Gas Engineer CLIA: [id number] Cholesterol 245 <200 mg/dL Triglycerides 178 <150 [...] Results: 158 Units: mg/dL % Change: -5% P-Basic Metabolic Panel (BMP ) Reviewed date:02/11/2025 11:47:02 AM Interpretation:gluc 111, Cr 1.08, gfr 57 Performing Lab: Notes/Report: Test performed by [facility] [address], [place] [address] Chris Vásquez MD, Gas Engineer CLIA: [id number] Sodium 140 135-145 mmol/L Potassium 3.9 3.5-5.3 mmol/L Chloride 104 97-108 mmol/L CO2 22 22-32 mmol/L Glucose 111 65-99 mg/dL BUN 15 8-23 mg/dL Creatinine 1.08 0.50-1.00 mg/dL Calcium 9.8 8.6-10.4 mg/dL eGFR by Creatinine 57 >59 mL/min/1.73m2 Glycohemoglobin A1c (in hous e) Reviewed date:02/11/2025 11:47:02 AM Interpretation:6.0% Performing Lab: Notes/Report: 6.0% glycohemoglobin 6.0% 5 - 6.5 % Glucose (In-House) Reviewed date:02/11/2025 11:47:02 AM Interpretation:134 Performing Lab: Notes/Report: 134 blood glucose 134 74 - 106 mg/dL Glucose (In-House) Reviewed date:11/12/2024 09:17:42 AM Interpretation:108 [...] 153 Performing Lab: Notes/Report: Test performed by [facility] [facility] , [address], [place] [address] Chris Vásquez MD, Gas Engineer CLIA: [id number] Sodium 139 135-145 mmol/L Potassium 3.9 3.5-5.3 [...] Interpretation:Normal Performing Lab: Notes/Report: Test performed by [facility] [address] [place] [address] , [place] [address] Chris Vásquez MD, Gas Engineer CLIA: [id number] Thyroxine Free (free T4) 1.49 0.86-1.76 ng/dL P-Lipid Panel Reviewed date:11/12/2024 09:17:42 AM Interpretation:chol 255, trigs 173, chol/hdl 4.9, non-hdl 203, ldl 168 Performing Lab: Notes/Report: Test performed by [facility] [address] [place], [place] [address] [facility] , [address], [place] [address] Chris Vásquez MD, Gas Engineer CLIA: [id number] Cholesterol 255 <200 mg/dL Triglycerides 173 <150 [...] Interpretation:Normal Performing Lab: Notes/Report: Test performed by [facility] [address] [place] [address] [place] [address] Chris Vásquez MD, Gas Engineer CLIA: [id number] TSH 1.20 0.43-5.25 mU/L P-Microalbumin/Creatinine, R andom Urine Sample Reviewed date:11/12/2024 09:17:42 AM Interpretation:a/c 57 Performing Lab: Notes/Report: Test performed by [facility] [address] [place] [address] T[address] Miller, [place] [address] Chris Vásquez MD, Gas Engineer CLIA: [id number] Albumin/Creatinine Ratio, Urine 57 0-30 ug/m g Microalbumin, Urine, Random 7.7 Creatinine, Urine 134.8 P-Uric Acid Reviewed date:11/12/2024 09:17:42 AM Interpretation:7.6 Performing Lab: Notes/Report: Test performed by [facility] [address] [place] [address] [address]ima [address] , [place] [address] Chris Vásquez MD, Gas Engineer CLIA: [id number] Uric Acid 7.6 2.4-7.0 mg/dL P-Vitamin D 25-Hydroxy Reviewed date:11/12/2024 09:17:42 AM Interpretation:34.3 Performing Lab: Notes/Report: Test performed by [facility] [address] [place] [address] [facility], [place] [address] Chris Vásquez MD, Gas Engineer CLIA: [id number] Vitamin D 25-Hydroxy 34.3 30.0-100.0 ng/mL Interpretation of Vitamin D 25 OH: < 20 ng/mL - Deficiency 20 - 29 ng/mL - Insufficiency 30 - 100 ng/mL - Sufficiency > 100 ng/mL - Super-therapeutic- toxicity may occur above this level. Clinical correlation required. Reason For Referral No Information Medications Medication SIG (Take, Route, Frequency, Duration) Notes Start Date End Date Status Benzonatate 200 MG 1 capsule Orally Thr ee times a day, prn 09/05/2025 Active Breyna 160-4.5 MCG/ACT as directed Inhalation Activ e Trulicity 4.5 MG/0.5ML 4.5 mg Subcutaneous once weekly 02/07/2025 Active Cefdinir 300 MG 1 cap(s) Orally Two times a day; Duration: 10 days 09/05/2025 Active Topiramate 25 MG 1 tablet Orally Once a day Active Vitamin D3 50 MCG (2000 UT) 3 capsules Orally Once a day 10/12/2023 Active DULoxetine HCl 60 MG Take 2 capsules by mouth once daily; Duration: 90 Active Levothyroxine Sodium 125 MCG Take 1 tablet by mouth once daily Orally Once a day; Duration: 90 days Active Xarelto 10 MG 1 tablet with food Orally Once a day; Duration: 90 days 05/10/2023 Active CPAP Supplies - as directed as directed diagnosis code J44.9 03/18/2024 Active Furosemide 40 MG Take 1 tablet by deon th once daily; Duration: 90 Active Triamterene-HCTZ 37.5-25 MG 1 capsule in the morning Orally Once a day Active Loratadine 10 MG 1 tab(s) orally once a day; Duration: 90 days Active Montelukast Sodium 10 MG 1 tab(s) orally once a day; Duration: 90 day(s) Active Ezetimibe 10 MG 1 tablet Orally Once a day; Duration: 90 days 11/14/2024 Active CPAP Mask small as directed diagnosis code J44.9 03/18/2024 Active Allopurinol 100 MG 1 tablet Orally Once a day; Duration: 90 days Active EpiPen 2-Hebert 0.3 MG/0.3ML as directed intramuscularly once 09/28/2020 Active Celecoxib 100 MG 1 cap(s) Orally shanel y; Duration: 30 days Active CPAP SUPPLIES DIRECTED 08/12/2020 Act charis amLODIPine Besylate 10 MG 1 tablet Orally Once a day; Duration: 90 days Active QUEtiapine Fumarate 25 MG 1 or 2 tablets at bedtime Orally Once a day Active CoQ-10 100 MG 1 cap(s) orally once a day Active Potassium Chloride ER 20 MEQ 1 tablet with food Orally twice a day; Duration: 90 days Active Immunizations Vaccine Route Administration Date Status Comme nts COVID 19 Moderna Unknown 10/07/2020 Administered COVID 19 Moderna Unknown 04/07/2021 Administered Fluzone Quad (6months&older) IM Intramuscular 07/12/2022 Administered Fluzone Quad (6months&older) IM Intramuscular 06/26/2024 Administered Fluzone Quad (6months&older) IM Intramuscular 08/11/2025 Administered Prevnar (PCV20) IM Intramuscular 06/26/2024 Administered Tetanus Tdap-Adacel (over 7yrs) IM Intramuscular 01/29/2018 Administered Problems Problem Type SNOMED Code ICD Code Onset Dates Problem Status W/U Status Risk Notes Problem Hypothyroidism (44870652) Hypothyroidism, unspecified (E03.9) Active confirmed Problem Essential hypertension (72085711) Essential (primary) hypertension (I10) Active confirmed Problem Vitamin D deficiency (19163643) Vitamin D deficiency (E55.9) Active confirmed Problem Essential hypertension (12848095) Essential hypertension (I10) Active confirmed Problem Morbid obesity (145914149) Morbid obesity (E66.01) Active confirmed Problem Anxiety (46589242) Anxiety (F41.9) Active confi rmed Problem Obstructive sleep apnea (77211023) Obstructive sleep apnea (G47.33) Active confirmed Problem Mixed anxiety and depressive disorder (442010427) Depression with anxiety (F41.8) Active confirmed Problem Acute exacerbation of chronic obstructive airways disease (586781324) COPD exacerbation (J44.1) Active confirmed Problem Localized edema (7919155) Localized edema (R60.0) Active confirmed Problem Primary insomnia (3466102) Primary insomnia (F51.01) Active confirmed Problem Acquired hypothyroidism (943891580) Acquired hypothyroidism (E03.9) Active confirmed Problem Primary osteoarthritis (242346965) Primary osteoarthritis involving multiple joints (M15.0) Active confirmed Problem Neck pain (30430358) Neck pain (M54.2) Active confirmed Problem COPD - Chronic obstructive pulmonary disease (03833966) Chronic obstructive pulmonary disease, unspecified COPD type (J44.9) Active confirmed Problem Leukocytosis (339717502) Leukocytosis, unspecified type (D72.829) Active confirmed Problem Obstructive sleep apnea syndrome (89497666) STEFFEN (obstructive sleep apnea) (G47.33) Active confirmed Problem Body mass index 40+ - morbidly obese (309644395) BMI 40.0-44.9, adult (Z68.41) Active confirmed Problem Hyperlipidaemia (23772864) Hyperlipidemia, unspecified hyperlipidemia type (E78.5) Active confirmed Problem Stenosis of right carotid artery (092962698279122) Stenosis of right carotid artery (I65.21) Active confirmed Problem Chest pain (09083955) Chest pain, unspecified type (R07.9) Active confirmed Problem Chronic gouty arthritis (46239329) Chronic gout without tophus, unspecified cause, unspecified site (M1A.9XX0) Active confirmed Problem Tobacco user (968981300) Cigarette nicotine dependence without complication (F17.210) Active confirmed Problem Right carotid artery stenosis (377363239106132) Carotid stenosis, right (I65.21) Active confirmed Problem Type II diabetes mellitus without complication (556981503) Type 2 diabetes mellitus without complication, without long-term current use of insulin (E11.9) Active confirmed Problem Arthralgia of the ankle and/or foot (779533532) Acute left ankle pain (M25.572) Active confirmed Problem Chronic rhinitis (52752792) Rhinitis, unspecified type (J31.0) Active confirmed Problem Bilateral carpal tunnel syndrome (34242822340959383 ) Bilateral carpal tunnel syndrome (G56.03) Active confirmed Problem Arthritis of left knee (5562054847823221) Arthritis of left knee (M17.12) Active confirmed Problem Obesity (959411875) Obesity, unspecified classification, unspecified obesity type, unspecified whether serious comorbidity present (E66.9) Active confirmed Problem Allergic rhinitis (21439685) Allergic rhinitis, unspecified seasonality, unspecified trigger (J30.9) Active confirmed Problem Type II diabetes mellitus without complication (875551783) Type 2 diabetes mellitus without complication, unspecified whether jail insulin use (E11.9) Active confirmed Problem Plain X-ray of chest abnormal (finding) (2330324693) Abnormal CXR (R93.89) Active confirmed Problem Radiology result abnormal (590232659) Abnormal chest CT (R93.89) Active confirmed Problem Traumatic arthropathy of knee (424059185) Traumatic arthropathy of left knee (M12.562) Active confirmed Vital Signs Heart Rate 83 /min 09/05/2025 Blood pressure diastolic 80 mm Hg 09/05/2025 Height 63 in 09/05/2025 Blood pressure systolic 130 mm Hg 09/05/2025 Weight 267.4 lbs 09/05/2025 BMI 47.36 kg/m2 09/05/2025 Encounters Encounter Location Date [facility] [address] [facility] [address] [id number] 11/11/2024 Trent Avery Type 2 diabetes yelitza [...] apnea) G47.33 and Depression with anxiety F41.8 [facility] [address] [facility] [address] [place], [place] [id number] 02/07/2025 Trent [place] Type 2 diabetes yelitza itus without complication, without long-term current use of insulin E11.9 ; Essential (primary) hypertension I10 ; Renal insufficiency N28.9 ; Hyperlipidemia, unspecified hyperlipidemia type E78.5 ; Primary insomnia F51.01 and BMI 40.0-44.9, adult Z68.41 [facility] [address] [facility] [address] [place], [place] [id number] 08/11/2025 Trent [place] Essential hypertensi on I10 ; Hyperlipidemia, unspecified hyperlipidemia type E78.5 ; Chronic gout without tophus, unspecified cause, unspecified site M1A.9XX0 ; Morbid obesity E66.01 and Encounter for immunization Z23 [facility] [address] [facility] [address] [place], [place] [id number] 09/05/2025 Sherry Crowdy Injury of left clavi rosemary, initial encounter S49.92XA ; Injury of left shoulder, initial encounter S49.92XA and Acute URI J06.9 [facility] [address] [facility] [address] [place], [place] [id number] 09/13/2024 Trent [place] Acute pulmonary embo lism, unspecified pulmonary embolism type, unspecified whether acute cor pulmonale present I26.99 and Depression with anxiety F41.8 [facility] [address] [facility] [address] [place] [id number] 10/01/2024 Trent [place] Polyarthralgia M25.5 0 and Peripheral edema R60.0 [facility] [address] [facility] [address] [place] [id number] 10/14/2024 Trent [place] Allergic rhinitis, unspecified seasonality, unspecified trigger J30.9 [facility] [address] [facility] [address] [place], [place] [id number] 10/23/2024 Trent [place] [facility] [address] [facility] [address] [place] [id number] 11/12/2024 Trent [place] [facility] [address] [place], [place] [id number] 12/04/2024 Trent [place] Acute pulmonary embo lism, unspecified pulmonary embolism type, unspecified whether acute cor pulmonale present I26.99 [facility] [address] [place], [place] [id number] 01/03/2025 Trent [place] Polyarthralgia M25.5 0 and Peripheral edema R60.0 [facility] [address] [place], [place] [id number] 02/11/2025 Trent [place] Essential hypertensi on I10 [facility] [address] [place] [id number] 02/11/2025 Trent [place] [facility] [address] [place] [id number] 02/13/2025 Trent [place] [facility] [address] [place] [id number] 03/17/2025 Trent [place] Allergic rhinitis, unspecified seasonality, unspecified trigger J30.9 [facility] [address] [place] [id number] 03/18/2025 Trent [place] [facility] [address] [place], [place] [id number] 03/24/2025 Trent [place] Primary insomnia F51 .01 [facility] [address] [place] [id number] 03/24/2025 Trent [place] [facility] [address] [place], [place] [id number] 04/30/2025 Trent [place] [facility] [address] [place] [id number] 05/03/2025 Trent [place] Acute pulmonary embo lism, unspecified pulmonary embolism type, unspecified whether acute cor pulmonale present I26.99 [facility] [address] [place], [place] [id number] 05/08/2025 Trent [place] Polyarthralgia M25.5 0 and Primary insomnia F51.01 [facility] [address] [place], [place] [id number] 05/14/2025 Trent [place] Essential hypertensi on I10 [facility] [address] [place] [id number] 05/30/2025 Trent [place] [facility] [address] [place] [id number] 08/08/2025 Trent [place] Polyarthralgia M25.5 0 [facility] [address] [place] [id number] 08/21/2025 Trent [place] Allergic rhinitis, unspecified seasonality, unspecified trigger J30.9 [facility] [address] [place], [place] [id number] 09/04/2025 Trent [place] Acute pulmonary embo lism, unspecified pulmonary embolism type, unspecified whether acute cor pulmonale present I26.99 Assessments Encounter Date Diagnosis (ICD Code) Assessment [...] M25.50) 05/14/2025 Essential hypertension (ICD-10 - I10) 08/08/2025 Polyarthralgia (ICD-10 - M25.50) 08/11/2025 Essential hypertension (ICD-10 - I10) 08/11/2025 Hyperlipidemia, unspecified hyperlipidemia type (ICD-10 - E78.5) 08/21/2025 Allergic rhinitis, unspecified seasonality, unspecified trigger (ICD-10 - J30.9) 09/04/2025 Acute pulmonary embolism, unspecified pulmonary embolism type, unspecified whether acute cor pulmonale present (ICD-10 - I26.99) 09/05/2025 Injury of left shoulder, initial encounter (ICD-10 - S49.92XA) 09/05/2025 Injury of left clavicle, initial encounter (ICD-10 - S49.92XA) 09/05/2025 Acute URI (ICD-10 - J06.9) 08/11/2025 Chronic gout without tophus, unspecified cause, unspecified site (ICD-10 - M1A.9XX0) 05/08/2025 Primary insomnia (ICD-10 - F51.01) 01/03/2025 Peripheral edema (ICD-10 - R60.0) 02/07/2025 Renal insufficiency (ICD-10 - N28.9) 09/13/2024 Depression with anxiety (ICD-10 - F41.8) 11/11/2024 Hyperlipidemia, unspecified hyperlipidemia type (ICD-10 - E78.5) 10/01/2024 Peripheral edema (ICD-10 - R60.0) 11/11/2024 Acquired hypothyroidism (ICD-10 - E03.9) 02/07/2025 Hyperlipidemia, unspecified hyperlipidemia type (ICD-10 - E78.5) 08/11/2025 Morbid obesity (ICD-10 - E66.01) 08/11/2025 Encounter for immunization (ICD-10 - Z23) 02/07/2025 Primary insomnia (ICD-10 - F51.01) 11/11/2024 [...] anxiety (ICD-10 - F41.8) Plan Of Treatment Pending Test Test Name Order Date X ray : Shoulder, left 09/05/2025 X ray : clavicle, left 09/05/2025 Next Appt Details Provider Name:Sherry Styles y, 09/05/2025 10:30:00 AM, [address], [place], [place], [id number], Provider Name:Trent Herrera ry, 02/11/2026 09:00:00 AM, [address], [address], [place], [place], [id number], Insurance Providers Payer Name Payer Address Payer Phone Subscriber Number Group Number Insured Name Patient Relationship to Insured Coverage Start Date [facility]age End Date [facility] [employer] [address] [place] [address] [id number] Barb Garrison Self - patient is the insured Medical (General) History Medical History History ICD Code Type 2 Diabetes Asthma Hypertension Hyperlipidemia Hypothyroidism Allergies Arthritis Gall Bladder Disease Depression 35 Year Smoking Hx as of 2018 Gout Sleep Apnea DVT pulmonary embolism Colon polyps Surgical History Surgery Date(Month/Year) Tonsillectomy 1966 x 2 1990, 1993 Cholecystectomy 1993 Bladder Suspension 1994 Hysterectomy 1995 LT Cataract Removal 08/18/2015 Hernia Repair 11/04/2020 RT Ankle 01/20/2021 colonoscopy 2024 Hospitalization History Reason Date(Month/Year) Hyperextension of Right Knee - [facility] ER re ferred to Dr. King 07/2024 Pneumonia, Bronchitis- [facility] 06/30- Knee Pain- [facility] 10/05/2018
--- OUTSIDE RECORDS SUMMARY | 2025-09-05 11:02 | XMS_ITS | Clinical Summary ---
Author Organization [facility] Address [address] [place] [address] Care Team Providers Care Tax Representative Name Role Phone Unavailable Primary Care Provider [...]
== END 2025-09-05 23:59 | disposition home or self-care (01) ==
LOC: RAD 10:57
PROVIDERS: PCP Family Medicine; Visit Provider Physician Assistant
DX: S49.92XA Unspecified injury of left shoulder and upper arm, initial encounter (principal); W19.XXXA Unspecified fall, initial encounter
CPT/HCPCS: 73000; 73030